=== PATIENT | female | born 1985 | race Caucasian/White ===

== ENCOUNTER 2016-10-09 10:55 | Emergency (ER) | payer SELFPAY ==
[~2016-10-09] VITALS: Ht 162.6 cm; Wt 60.0 kg
[~2016-10-09 10:55] MED LIST: BACT800T5 PO; CYMB30CA PO; IBUP600T26 PO; VIST50CA PO
[2016-10-09 11:06] VITALS: BP 129/62; PULSE 77; RESP 20; TEMP 98.2; O2SAT 95
--- NOTE | 2016-10-09 11:37 | PD ---
HPI Chief Complaint: Psychiatric Symptoms Time Seen by Provider: 11:20 Travel History International Travel<30 days: No Contact w/Intl Traveler<30days: No Traveled to known affect area: No History of Present Illness HPI 31-year-old female brought in under [place] by law enforcement. According to the paperwork she was found lying in the middle of the road unconscious with a crack pipe lying next to her. She was easily arousable and appeared intoxicated and agitated therefore brought in under Thomas's act for evaluation. Patient was restrained on arrival to ED due to being combative with paramedics. Patient denies any drug use to hospital staff. She is currently resting comfortably on stretcher. She has no evidence of traumatic injuries. [facility] Past Medical History Medical History: Denies Significant Hx Anxiety: Yes Dementia: Yes (WITH SLEEP PROBLEMS) Diminished Hearing: No ?: Not LMP: 2 weeks ago Tubal Ligation: Yes Social History Alcohol Use: Yes Tobacco Use: Yes (1/2PPD) Substance Use: No Allergies-Medications (Allergen,Severity, Reaction): Coded Allergies: *MDRO Multi-Drug Resistant Organism (Unverified Adverse Reaction, Unknown , 09/11/14) MRSA 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 Reported Meds & Prescriptions Reported Meds & Active Scripts Active No Active Prescriptions or Reported Medications Review of Systems Except as stated in HPI: all other systems reviewed are Neg General / Constitutional: No: Fever Eyes: No: Visual changes HENT: No: Headaches Cardiovascular: No: Chest Pain or Discomfort Respiratory: No: Shortness of Breath Gastrointestinal: No: Abdominal Pain Genitourinary: No: Dysuria Physical Exam Narrative GENERAL: Disheveled appearing female asleep on the stretcher easily arousable. SKIN: Focused skin assessment warm/dry. HEAD: Atraumatic. Normocephalic. EYES: Pupils equal and round. No scleral icterus. No injection or drainage. ENT: No nasal bleeding or discharge. Mucous membranes pink and moist. NECK: Trachea midline. No JVD. No midline cervical spine tenderness CARDIOVASCULAR: Regular rate and rhythm. No murmur appreciated. RESPIRATORY: No accessory muscle use. Clear to auscultation. Breath sounds equal bilaterally. GASTROINTESTINAL: Abdomen soft, non-tender, nondistended. Hepatic and splenic margins not palpable. MUSCULOSKELETAL: No obvious deformities. No clubbing. No cyanosis. No edema. NEUROLOGICAL: Awake and alert. No obvious cranial nerve deficits. Motor grossly within normal limits. Normal speech. PSYCHIATRIC: Patient is currently calm, sleeping easily arousable follow simple commands. Data Data Last Documented VS Vital Signs Date Time Temp Pulse Resp B/P Pulse Ox O2 Delivery O2 Flow Rate FiO2 10/09/16 11:14 18 10/09/16 11:06 98.2 77 129/62 95 Orders Isolation 08,20 (10/09/16 11:15) Complete Blood Count With Diff (10/09/16 11:37) Comprehensive Metabolic Panel (10/09/16 11:37) Drug Screen, Random Urine (10/09/16 11:37) Labs Laboratory Tests Test 10/09/16 11:46 White Blood Count 6.6 TH/MM3 Red Blood Count 4.33 MIL/MM3 Hemoglobin 12.0 GM/DL Hematocrit 37.3 % Mean Corpuscular Volume 86.2 FL Mean Corpuscular Hemoglobin 27.7 PG Mean Corpuscular Hemoglobin 32.2 % Concent Red Cell Distribution Width 15.5 % Platelet Count 284 TH/MM3 Mean Platelet Volume 8.3 FL Neutrophils (%) (Auto) 56.8 % Lymphocytes (%) (Auto) 26.6 % Monocytes (%) (Auto) 12.7 % Eosinophils (%) (Auto) 3.4 % Basophils (%) (Auto) 0.5 % Neutrophils # (Auto) 3.7 TH/MM3 Lymphocytes # (Auto) 1.7 TH/MM3 Monocytes # (Auto) 0.8 TH/MM3 Eosinophils # (Auto) 0.2 TH/MM3 Basophils # (Auto) 0.0 TH/MM3 CBC Comment DIFF FINAL Differential Comment Sodium Level 141 MEQ/L Potassium Level 3.7 MEQ/L Chloride Level 107 MEQ/L Carbon Dioxide Level 27.3 MEQ/L Anion Gap 7 MEQ/L Blood Urea Nitrogen 10 MG/DL Creatinine 0.68 MG/DL Estimat Glomerular Filtration 101 ML/MIN Rate Random Glucose 91 MG/DL Calcium Level 8.3 MG/DL Total Bilirubin 0.5 MG/DL Aspartate Amino Transf 38 U/L (AST/SGOT) Alanine Aminotransferase 46 U/L (ALT/SGPT) Alkaline Phosphatase 192 U/L Total Protein 7.1 GM/DL Albumin 3.5 GM/DL [facility] Medical Decision Making Medical Screen Exam Complete: Yes Emergency Medical Condition: Yes Differential Diagnosis Polysubstance abuse, intoxication, substance induced mood disorder Narrative Course 31-year-old female brought in under Thomas's act by on forced. Patient was found lying in the middle the road with a crack pipe next to her. When she was approached she was easily arousable but became agitated and appeared intoxicated therefore police officers brought her in for evaluation. Upon arrival to ED patient was agitated and combative with nursing staff therefore she had restraints placed. She is currently resting on the stretcher easily arousable but quickly falls back to sleep. Her physical exam do not reveal any evidence of traumatic injuries. 1500 patient alert & oriented. she is ambulating with steady gait. she reports she was smoking crack for the last 2-3 days. she denies any pain. she is requesting something to eat & requesting discharge. patient is medically stable & ready for discharge. Diagnosis Primary Impression: Substance abuse Referrals: [facility] No Active Prescriptions or Reported Meds Disposition: 01 DISCHARGE HOME Condition: Stable Katiana Alfred Oct 09, 2016 11:37
[2016-10-09 12:08] LABS: AUTOMATED NEUTROPHIL # 3.7 TH/MM3 (1.8-7.7); BASOPHIL % 0.5 % (0.0-2.0); EOSINOPHIL # 0.2 TH/MM3 (0-0.4); EOSINOPHIL % 3.4 % (0.0-4.0); HEMATOCRIT 37.3 % (35.0-46.0); HEMO FLAGS DIFF FINAL; LYMPH % 26.6 % (9.0-44.0); LYMPHOCYTE # 1.7 TH/MM3 (1.0-4.8); MEAN CELL VOLUME 86.2 FL (80.0-100.0); MEAN CORPUSCULAR HEMOGLOBIN 27.7 PG (27.0-34.0); MEAN CORPUSCULAR HGB CONC 32.2 % (32.0-36.0); MONO % 12.7 % (0.0-8.0); NEUT % 56.8 % (16.0-70.0); PLATELET COUNT 284 TH/MM3 (150-450); RED BLOOD COUNT 4.33 MIL/MM3 (4.00-5.30); RED CELL DISTRIBUTION WIDTH 15.5 % (11.6-17.2); WHITE BLOOD COUNT 6.6 TH/MM3 (4.0-11.0)
[2016-10-09 12:36] LABS: ALT (GPT) 46 U/L (10-53)
[2016-10-09 12:38] LABS: ALKALINE PHOSPHATASE 192 U/L (45-117); TOTAL BILIRUBIN ADULT 0.5 MG/DL (0.2-1.0)
[2016-10-09 12:47] LABS: ANION GAP 7 MEQ/L (5-15); AST (GOT) 38 U/L (15-37); BICARBONATE 27.3 MEQ/L (21.0-32.0); BLOOD UREA NITROGEN 10 MG/DL (7-18); CHLORIDE 107 MEQ/L (98-107); GLOMERULAR FILTRATION RATE 101 ML/MIN (>89); POTASSIUM 3.7 MEQ/L (3.5-5.1); SODIUM (NA) 141 MEQ/L (136-145)
== END 2016-10-09 15:31 | disposition home or self-care (01) ==
LOC: NEPD 10:55
DX: F19.10 Other psychoactive substance abuse, uncomplicated (principal)
CPT/HCPCS: 80053; 85025; 99283

== ENCOUNTER 2017-02-21 15:55 | Inpatient (IN) | payer SELFPAY ==
[~2017-02-21] VITALS: Ht 162.6 cm; Wt 61.3 kg
[2017-02-21] MEDS ORDERED: IOHEXOL 350 MG/ML 10 ML VIAL (for RAD DIAG) IVCONTRAST ONE (15:56)
[2017-02-21 16:03] VITALS: BP 85/54; PULSE 117; RESP 16; TEMP 100.1; O2SAT 95
[2017-02-21] MEDS ORDERED: SODIUM CHLOR 0.9% 1000 ML INJ 1,000 ML IV SCH ×4 (16:29→20:00)
[2017-02-21] MEDS ORDERED: SODIUM CHLORIDE 0.9% FLUSH 10 ML FLUSH IV FLUSH PRN ×2 (16:30→20:45)
[2017-02-21] MEDS ORDERED: PIPERACIL-TAZO 3.375 GM PREMIX 50 ML IV ONE (16:30)
[2017-02-21] MEDS ORDERED: VANCOMYCIN INJ 1,000 MG in SODIUM CHLOR 0.9% 250 ML INJ 250 ML IV ONE (16:30)
[2017-02-21 16:33] VITALS: BP 108/59; PULSE 102; RESP 16; O2SAT 99
--- NOTE | 2017-02-21 16:47 | PD ---
HPI Chief Complaint: Back/ Neck Pain or Injury Time Seen by Provider: 16:28 Travel History International Travel<30 days: No Contact w/Intl Traveler<30days: No Traveled to known affect area: No History of Present Illness HPI 31-year-old female presents to the emergency Department with complaint of left upper back pain that is worse with inspiration 5 days. Says it feels like it' s in her lungs. She is also complaining of right shoulder pain 5 days. Denies injury. Reports IV drug use 3 days ago and injected heroin. Says she also smokes crack and took 30 mg of morphine this morning for her pain. Says she's been masking her pain by doing drugs and sleeping. Denies fevers at home. Reports vomiting a few times. Reports left-sided chest pain. Denies abdominal pain. Denies shortness of breath. Denies spinal back pain. Denies dysuria, hematuria. Symptoms are severe in severity. No known aggravating or relieving factors. No known allergies. Does not have an established primary care provider. Denies significant past medical history. Has no medical complaints. No other modifying factors or associated signs and symptoms. PFSH Past Medical History Medical History: Denies Significant Hx Anxiety: Yes Dementia: Yes (WITH SLEEP PROBLEMS) Diminished Hearing: No ?: Unknown LMP: 1 year ago Tubal Ligation: Yes Past Surgical History Surgical History: No Previous Surgery Social History Alcohol Use: No Tobacco Use: Yes (1/2PPD) Substance Use: Yes (IV heroin) Allergies-Medications (Allergen,Severity, Reaction): Coded Allergies: *MDRO Multi-Drug Resistant Organism (Unverified Adverse Reaction, Unknown , 09/11/14) MRSA 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 Reported Meds & Prescriptions Reported Meds & Active Scripts Active No Active Prescriptions or Reported Medications Review of Systems Except as stated in HPI: all other systems reviewed are Neg Physical Exam Narrative GENERAL: Thin, female patient, in no acute distress; febrile; appears under the influence SKIN: Warm and dry. HEAD: Atraumatic. Normocephalic. EYES: Pupils equal and round. No scleral icterus. No injection or drainage. ENT: Mucosa pink and moist. No erythema or exudates. No uvular edema. No uvular , palatal, or tonsillar deviation. Airway patent. Nares without nasal blood, purulent drainage or septal hematoma. EARS: Bilateral pinnae and external canals appear within normal limits. Bilateral tympanic membranes without erythema, dullness or perforation. NECK: Trachea midline. No lymphadenopathy. CARDIOVASCULAR: Regular rate and rhythm. No murmur appreciated. RESPIRATORY: No accessory muscle use. Lungs with Wheezing throughout to auscultation. Breath sounds equal bilaterally. No retractions or tachypnea. No Audible wheezing noted. GASTROINTESTINAL: Abdomen soft, LUQ abdominal/flank tenderness, nondistended. Hepatic and splenic margins not palpable. Bowel sounds are active 4 quadrants. MUSCULOSKELETAL: No obvious deformities. No clubbing. No cyanosis. No edema. BACK: No CVA tenderness. No rash. No midline tenderness on palpation of the cervixal, thoracic, lumbar spine. NEUROLOGICAL: Awake and alert. Oriented 3. No obvious cranial nerve deficits. Motor grossly within normal limits. Normal speech. Moves all extremities. 5/5 strength to all extremities. PSYCHIATRIC: Appropriate mood and affect; insight and judgment normal. Data Data Last Documented VS Vital Signs Date Time Temp Pulse Resp B/P (MAP) Pulse Ox O2 Delivery O2 Flow Rate FiO2 02/21/17 20:00 97.0 69 18 97/54 (68) 98 02/21/17 19:00 Room Air Orders Orders Sepsis Workup Initiated (02/21/17 ) Complete Blood Count With Diff (02/21/17 16:29) Comprehensive Metabolic Panel (02/21/17 16:29) Prothrombin Time / Inr (Pt) (02/21/17 16:29) Act Partial Throm Time (Ptt) (02/21/17 16:29) Lactic Acid Sepsis Protocol (02/21/17 16:29) Urinalysis - C+S If Indicated (02/21/17 16:29) Blood Culture (02/21/17 16:29) Chest, Single Ap (02/21/17 16:29) Blood Glucose (02/21/17 16:29) Ecg Monitoring (02/21/17 16:) Iv Access Insert/Monitor (02/21/17 16:) Oximetry (02/21/17 16:29) Oxygen Administration (02/21/17 16:29) Vancomycin Inj (Vancomycin Inj) (02/21/17 16:30) Piperacil-Tazo 3.375 Gm Premix (Zosyn 3. (02/21/17 16:30) Electrocardiogram (02/21/17 16:29) Ckmb (Isoenzyme) Profile (02/21/17 16:29) Troponin I (02/21/17 16:29) Ct Pulmonary Angiogram (02/21/17 ) Ed Urine Pregnancytest Poc (02/21/17 16:29) Sodium Chlor 0.9% 1000 Ml Inj (Ns 1000 M (02/21/17 16:29) Sodium Chloride 0.9% Flush (Ns Flush) (02/21/17 16:30) Acetaminophen (Tylenol) (02/21/17 17:00) Ct Abd/Pel W Iv Contrast(Rout) (02/21/17 16:49) Albuterol-Ipratropium Neb (Duoneb Neb) (02/21/17 18:00) Sodium Chlor 0.9% 1000 Ml Inj (Ns 1000 M (02/21/17 18:06) Westergren Sedimentation Rate (02/21/17 18:17) Shoulder, Complete (>2vws) (02/21/17 18:17) Sodium Chlor 0.9% 1000 Ml Inj (Ns 1000 M (02/21/17 19:09) Iohexol 350 Inj (Omnipaque 350 Inj) (02/21/17 15:56) Sodium Chlor 0.9% 1000 Ml Inj (Ns 1000 M (02/21/17 20:00) Drug Screen, Random Urine (02/21/17 19:49) Admit Order (Ed Use Only) (02/21/17 20:17) Labs Laboratory Tests Test 02/21/17 17:05 02/21/17 18:00 02/21/17 19:04 White Blood Count 14.6 TH/MM3 Red Blood Count 4.68 MIL/MM3 Hemoglobin 13.0 GM/DL Hematocrit 38.5 % Mean Corpuscular Volume 82.3 FL Mean Corpuscular Hemoglobin 27.8 PG Mean Corpuscular Hemoglobin Concent 33.7 % Red Cell Distribution Width 14.7 % Platelet Count 79 TH/MM3 Mean Platelet Volume 11.4 FL CBC Comment AUTO DIFF Differential Total Cells Counted 100 Neutrophils % (Manual) 87 % Band Neutrophils % 6 % Lymphocytes % 3 % Monocytes % 4 % Neutrophils # (Manual) 13.6 TH/MM3 Differential Comment FINAL DIFF MANUAL Toxic Granulation 2+ Toxic Vacuolation PRESENT Platelet Estimate LOW Platelet Morphology Comment ENLARGED Blood Urea Nitrogen 11 MG/DL Creatinine 0.74 MG/DL Random Glucose 96 MG/DL Total Protein 7.3 GM/DL Albumin 2.7 GM/DL Calcium Level 8.0 MG/DL Alkaline Phosphatase 99 U/L Aspartate Amino Transf (AST/SGOT) 98 U/L Alanine Aminotransferase (ALT/SGPT) 67 U/L Total Bilirubin 1.0 MG/DL Sodium Level 124 MEQ/L Potassium Level 3.2 MEQ/L Chloride Level 88 MEQ/L Carbon Dioxide Level 27.4 MEQ/L Anion Gap 9 MEQ/L Estimat Glomerular Filtration Rate 92 ML/MIN Lactic Acid Level 1.7 mmol/L Total Creatine Kinase 23 U/L Troponin I 0.12 NG/ML Prothrombin Time 11.7 SEC Prothromb Time International Ratio 1.2 RATIO Activated Partial Thromboplast Time 34.5 SEC Urine Color YELLOW Urine Turbidity CLEAR Urine pH 6.0 Urine Specific [place] 1.008 Urine Protein TRACE mg/dL Urine Glucose (UA) NEG mg/dL Urine Ketones NEG mg/dL Urine Occult Blood NEG Urine Nitrite NEG Urine Bilirubin NEG Urine Urobilinogen LESS THAN 2.0 MG/DL Urine Leukocyte Esterase NEG Urine RBC 1 /hpf Urine WBC 2 /hpf Urine Squamous Epithelial Cells 1 /hpf Urine Bacteria RARE /hpf Microscopic Urinalysis Comment CATH-CULTURE IND Urine Opiates Screen POS Urine Barbiturates Screen NEG Urine Amphetamines Screen NEG Urine Benzodiazepines Screen NEG Urine Cocaine Screen POS Urine Cannabinoids Screen NEG [facility] Medical Decision Making Medical Screen Exam Complete: Yes Emergency Medical Condition: Yes Medical Record Reviewed: Yes Differential Diagnosis Pneumonia, PE, sepsis, endocarditis Narrative Course 31-year-old female with recent IV drug use with left upper back pain and right shoulder pain. Patient is febrile at fever of 100.1. Tachycardic and low blood pressure. Sepsis workup initiated. Tylenol ordered. Right shoulder x- ray ordered. 1749: Chest x-ray concludes: Chest X-Ray 02/21/17 1629 Signed Impressions: Service Date/Time: Tuesday, February 21, 2017 17:04 - CONCLUSION: Faint, left perihilar airspace process concerning for an early pneumonic infiltrate. Agustin Busby MD DuoNeb 1 ordered. 180: WBC 14.6. Platelet count 79. Potassium 3.2. Lactic acid 1.7. Troponin 0.12. Sodium 124. Second normal saline fluid bolus ordered. 0: Urinalysis, CT angiogram, CT abdomen/pelvis pending. Report given to Ricardo Farnsworth PA-C at change of shift. See his note for final patient disposition. Diagnosis Primary Impression: Pneumonia Qualified Codes: J18.9 - Pneumonia, unspecified organism Scripts No Active Prescriptions or Reported Meds Yesi Pulido Feb 21, 2017 16:47
[2017-02-21] MEDS ORDERED: ACETAMINOPHEN 325 MG TAB PO ONE (17:00)
[2017-02-21 17:13] VITALS: RESP 16; O2SAT 97
[2017-02-21 17:21] LABS: HEMATOCRIT 38.5 % (35.0-46.0); MEAN CELL VOLUME 82.3 FL (80.0-100.0); MEAN CORPUSCULAR HEMOGLOBIN 27.8 PG (27.0-34.0); MEAN CORPUSCULAR HGB CONC 33.7 % (32.0-36.0); MEAN PLATELET VOLUME 11.4 FL (7.0-11.0); PLATELET COUNT 79 TH/MM3 (150-450); RED BLOOD COUNT 4.68 MIL/MM3 (4.00-5.30); RED CELL DISTRIBUTION WIDTH 14.7 % (11.6-17.2); WHITE BLOOD COUNT 14.6 TH/MM3 (4.0-11.0)
--- NOTE | 2017-02-21 17:22 | RADRPT ---
EXAM DATE/TIME: 02/21/2017 17:04 [facility] COMPARISON: No previous studies available for comparison. INDICATIONS : Fever. MEDICAL HISTORY : None. SURGICAL HISTORY : Tubal ligation. ENCOUNTER: Initial ACUITY: 1 day PAIN SCORE: 9/10 LOCATION: Bilateral chest FINDINGS: A single view of the chest demonstrates the lungs to be symmetrically aerated with a left perihilar a irspace process concerning for an early infiltrate. No effusions. Heart size is normal. Osseous struc tures are intact. CONCLUSION: Faint, left perihilar airspace process concerning for an early pneumonic infiltrate. Agustin Busby MD on February 21, 2017 at 17:18 Board Certified Radiologist. This report was verified electronically.
[2017-02-21 17:51] LABS: ALBUMIN 2.7 GM/DL (3.4-5.0); ALKALINE PHOSPHATASE 99 U/L (45-117); ALT (GPT) 67 U/L (10-53); AST (GOT) 98 U/L (15-37); BICARBONATE 27.4 MEQ/L (21.0-32.0); BLOOD UREA NITROGEN 11 MG/DL (7-18); CHLORIDE 88 MEQ/L (98-107); CREATININE 0.74 MG/DL (0.50-1.00); GLOMERULAR FILTRATION RATE 92 ML/MIN (>89); GLUCOSE,RANDOM 96 MG/DL (74-106); TOTAL PROTEIN 7.3 GM/DL (6.4-8.2); TROPONIN I 0.12 NG/ML (0.02-0.05)
[2017-02-21] MEDS ORDERED: RESP: ALBUTEROL 2.5 MG/IPRATROPIUM 0.5 MG NEB (SCH) INH ONE (18:00)
[2017-02-21 18:05] LABS: SODIUM (NA) 124 MEQ/L (136-145)
[2017-02-21 18:23] LABS: INTERNATIONAL NORMALIZED RATIO 1.2 RATIO; PROTHROMBIN TIME - PATIENT 11.7 SEC (9.8-11.6)
[2017-02-21 18:24] LABS: BANDS 6 % (0-6); LYMPHOCYTES 3 % (9-44); MONOCYTES 4 % (0-8); NEUTROPHIL # MANUAL DIFF 13.6 TH/MM3 (1.8-7.7); POLYS (SEG NEUTROPHILS) 87 % (16-70)
[2017-02-21 18:25] LABS: TOXIC GRANULATION 2+ (NORMAL); TOXIC VACUOLATION PRESENT (NONE SEEN)
[2017-02-21 19:00] VITALS: BP 90/49; PULSE 76; RESP 16; O2SAT 100
--- NOTE | 2017-02-21 19:13 | RADRPT ---
EXAM DATE/TIME: 02/21/2017 18:30 [facility] COMPARISON: No previous studies available for comparison. INDICATIONS : Fall right shoulder pain, on lateral portion of shoulder. MEDICAL HISTORY : None. SURGICAL HISTORY : ENCOUNTER: Initial ACUITY: 1 day PAIN SCORE: 5/10 LOCATION: Right shoulder FINDINGS: Multiple view examination of the right shoulder demonstrates no evidence of fracture or dislocation. The glenohumeral and acromioclavicular joints are maintained. There is normal range of motion betwe en internal and external rotation. Bony mineralization is normal. CONCLUSION: Normal examination for a patient of this age. Hilario Rose MD on February 21, 2017 at 19:10 Board Certified Radiologist. This report was verified electronically.
--- NOTE | 2017-02-21 19:25 | PD ---
Physical Exam Time Seen by Provider: 19:19 Data Data Last Documented VS Vital Signs Date Time Temp Pulse Resp B/P (MAP) Pulse Ox O2 Delivery O2 Flow Rate FiO2 02/21/17 17:13 96 Room Air 02/21/17 17:13 16 02/21/17 16:33 102 02/21/17 16:03 100.1 Orders Orders Sepsis Workup Initiated (02/21/17 ) Complete Blood Count With Diff (02/21/17 16:29) Comprehensive Metabolic Panel (02/21/17 16:29) Prothrombin Time / Inr (Pt) (02/21/17 16:29) Act Partial Throm Time (Ptt) (02/21/17 16:29) Lactic Acid Sepsis Protocol (02/21/17 16:29) Urinalysis - C+S If Indicated (02/21/17 16:29) Blood Culture (02/21/17 16:29) Chest, Single Ap (02/21/17 16:29) Blood Glucose (02/21/17 16:29) Ecg Monitoring (02/21/17 16:29) Iv Access Insert/Monitor (02/21/17 16:29) Oximetry (02/21/17 16:29) Oxygen Administration (02/21/17 16:29) Vancomycin Inj (Vancomycin Inj) (02/21/17 16:30) Piperacil-Tazo 3.375 Gm Premix (Zosyn 3. (02/21/17 16:30) Electrocardiogram (02/21/17 16:29) Ckmb (Isoenzyme) Profile (02/21/17 16:29) Troponin I (02/21/17 16:29) Ct Pulmonary Angiogram (02/21/17 ) Ed Urine Pregnancytest Poc (02/21/17 16:29) Sodium Chlor 0.9% 1000 Ml Inj (Ns 1000 M (02/21/17 16:29) Sodium Chloride 0.9% Flush (Ns Flush) (02/21/17 16:30) Acetaminophen (Tylenol) (02/21/17 17:00) Ct Abd/Pel W Iv Contrast(Rout) (02/21/17 16:49) Albuterol-Ipratropium Neb (Duoneb Neb) (02/21/17 18:00) Sodium Chlor 0.9% 1000 Ml Inj (Ns 1000 M (02/21/17 18:06) Westergren Sedimentation Rate (02/21/17 18:17) Shoulder, Complete (>2vws) (02/21/17 18:17) Sodium Chlor 0.9% 1000 Ml Inj (Ns 1000 M (02/21/17 19:09) Iohexol 350 Inj (Omnipaque 350 Inj) (02/21/17 15:56) Sodium Chlor 0.9% 1000 Ml Inj (Ns 1000 M (02/21/17 20:00) Drug Screen, Random Urine (02/21/17 19:49) Admit Order (Ed Use Only) (02/21/17 20:17) Labs Laboratory Tests Test 02/21/17 17:05 02/21/17 18:00 White Blood Count 14.6 TH/MM3 Red Blood Count 4.68 MIL/MM3 Hemoglobin 13.0 GM/DL Hematocrit 38.5 % Mean Corpuscular Volume 82.3 FL Mean Corpuscular Hemoglobin 27.8 PG Mean Corpuscular Hemoglobin Concent 33.7 % Red Cell Distribution Width 14.7 % Platelet Count 79 TH/MM3 Mean Platelet Volume 11.4 FL CBC Comment AUTO DIFF Differential Total Cells Counted 100 Neutrophils % (Manual) 87 % Band Neutrophils % 6 % Lymphocytes % 3 % Monocytes % 4 % Neutrophils # (Manual) 13.6 TH/MM3 Differential Comment FINAL DIFF MANUAL Toxic Granulation 2+ Toxic Vacuolation PRESENT Platelet Estimate LOW Platelet Morphology Comment ENLARGED Blood Urea Nitrogen 11 MG/DL Creatinine 0.74 MG/DL Random Glucose 96 MG/DL Total Protein 7.3 GM/DL Albumin 2.7 GM/DL Calcium Level 8.0 MG/DL Alkaline Phosphatase 99 U/L Aspartate Amino Transf (AST/SGOT) 98 U/L Alanine Aminotransferase (ALT/SGPT) 67 U/L Total Bilirubin 1.0 MG/DL Sodium Level 124 MEQ/L Potassium Level 3.2 MEQ/L Chloride Level 88 MEQ/L Carbon Dioxide Level 27.4 MEQ/L Anion Gap 9 MEQ/L Estimat Glomerular Filtration Rate 92 ML/MIN Lactic Acid Level 1.7 mmol/L Total Creatine Kinase 23 U/L Troponin I 0.12 NG/ML Prothrombin Time 11.7 SEC Prothromb Time International Ratio 1.2 RATIO Activated Partial Thromboplast Time 34.5 SEC [facility] Medical Record Reviewed: Yes Supervised Visit with JENSEN: No Narrative Course This patient was signed out to me pending CT imaging. Please see previous provider's notes. In summary this is a 31-year-old female history of IV drug abuse to events with left upper back pain that is worse with inspiration as well as right shoulder pain, left-sided chest pain. Lab work reveals leukocytosis with a WBC count 14.6, platelet count of 79, sodium 124, potassium 3.2, AST 98, ALT 67, troponin 0.12. Chest x-ray reveals faint left perihilar airspace processes concerning for early pneumonic infiltrate. The patient has received broad-spectrum antibiotics and IV fluids. Normal saline at 100 mL per hour has been started. CT pulmonary angiogram reveals CONCLUSION: 1. Negative for pulmonary embolism. 2. Multifocal patchy and nodular airspace disease in both lungs with some mild cavitation on the left side. Differential diagnosis includes septic embolic disease and multifocal pneumonia. Discussed with Dr. Clarke who is agreeable with admission. Diagnosis Primary Impression: Pneumonia Qualified Codes: J18.9 - Pneumonia, unspecified organism Additional Impressions: Hyponatremia Sepsis Thrombocytopenia Elevated troponin Septic embolism Admitting Information Admitting Physician Requests: Admit Scripts No Active Prescriptions or Reported Meds Ricardo Farnsworth Feb 21, 2017 19:25
[2017-02-21 20:00] VITALS: BP 97/54; PULSE 69; RESP 18; TEMP 97; O2SAT 98
--- NOTE | 2017-02-21 20:16 | RADRPT ---
EXAM DATE/TIME: 02/21/2017 19:16 [facility] COMPARISON: No previous studies available for comparison. INDICATIONS : Short of breath, thrombosis. IV CONTRAST: 75 cc Omnipaque 350 (iohexol) IV RADIATION DOSE: 14.39 CTDIvol (mGy) ; Combined studies MEDICAL HISTORY : None SURGICAL HISTORY : Tubal ligation. ENCOUNTER: Initial ACUITY: 4 - 6 days PAIN SCALE: 8/10 LOCATION: Bilateral chest TECHNIQUE: Volumetric scanning of the chest was performed using a pulmonary embolism protocol MIP images were re constructed. Using automated exposure control and adjustment of the mA and/or kV according to patien t size, radiation dose was kept as low as reasonably achievable to obtain optimal diagnostic quality images. DICOM format image data is available electronically for review and comparison. Follow-up recommendations for detected pulmonary nodules are based at a minimum on nodule size and pa tient risk factors according to Fleischner Society Guidelines. FINDINGS: No filling defects to suggest pulmonary emboli. Multiple areas of patchy airspace disease in both chucky gs with several areas of cavitation especially in the upper left lung. The majority of the air space disease is peripheral. Primary differential diagnosis is septic embolic disease versus multifocal pne umonia. Largest area of consolidation is in the left lower lobe measuring around 5 cm in diameter. There is mild hilar and mediastinal adenopathy, especially subcarinal. Trace left effusion. CONCLUSION: 1. Negative for pulmonary embolism. 2. Multifocal patchy and nodular airspace disease in both lungs with some mild cavitation on the left side. Differential diagnosis includes septic embolic disease and multifocal pneumonia. Hilario Rose MD on February 21, 2017 at 20:11 Board Certified Radiologist. This report was verified electronically.
--- NOTE | 2017-02-21 20:27 | RADRPT ---
EXAM DATE/TIME: 02/21/2017 19:19 [facility] COMPARISON: No previous studies available for comparison. INDICATIONS : Diffuse upper abdomen pain for five days. IV CONTRAST: 75 cc Omnipaque 350 (iohexol) IV ORAL CONTRAST: No oral contrast ingested. RADIATION DOSE: 14.39 CTDIvol (mGy) ; Combined studies MEDICAL HISTORY : None SURGICAL HISTORY : Tubal ligation. ENCOUNTER: Initial ACUITY: 4 - 6 days PAIN SCALE: 8/10 LOCATION: Bilateral upper quadrant TECHNIQUE: Volumetric scanning of the abdomen and pelvis was performed. Using automated exposure control and ad justment of the mA and/or kV according to patient size, radiation dose was kept as low as reasonably achievable to obtain optimal diagnostic quality images. DICOM format image data is available electro nically for review and comparison. FINDINGS: Patchy air space consolidation present at the lung bases. No acute findings in the liver and spleen. Spleen is enlarged 18.6 cm and liver 22 cm in length. There is mild anasarca. Adrenals, pancreas unremarkable. Multiple gallstones. Perfusion to the kidney s appears somewhat diminished. No acute findings within the pelvis. Tubal ligation clips. Small left ovarian cyst. CONCLUSION: 1. Patchy airspace consolidation at both lung bases. 2. Hepatosplenomegaly. 3. Multiple gallstones biliary ductal dilatation. Questionable diminished perfusion to the kidneys. Cannot exclude nephritis. Hilario Rose MD on February 21, 2017 at 20:23 Board Certified Radiologist. This report was verified electronically.
[2017-02-21 20:33] LABS: BACTERIA, URINE RARE /hpf; BILIRUBIN, URINE NEG (NEG); BLOOD, URINE NEG (NEG); GLUCOSE,URINE NEG (NEG); KETONE, URINE NEG (NEG); NITRITE,URINE NEG (NEG); SQUAMOUS EPITHELIAL CELL URINE 1 /hpf (0-5); URINE COLOR YELLOW (YELLW/STRAW); URINE LEUKOCYTE ESTERASE NEG (NEG)
[2017-02-21] MEDS ORDERED: SENNOSIDES 8.6 MG TAB PO PRN (20:45)
[2017-02-21] MEDS ORDERED: LACTULOSE SYRUP 20 GM/30 ML CUP PO PRN (20:45)
[2017-02-21] MEDS ORDERED: MAGNESIUM HYDROXIDE SUSP 30 ML CUP PO PRN (20:45)
[2017-02-21] MEDS ORDERED: BISACODYL 10 MG SUPP RECTAL PRN (20:45)
[2017-02-21] MEDS ORDERED: Vancomycin Consult Pharmacy 1 EA OTHER SCH (20:45)
[2017-02-21] MEDS ORDERED: NALOXONE HCL 0.4 MG/ML AMP IV PUSH PRN (20:45)
[2017-02-21] MEDS ORDERED: ONDANSETRON HCL 4 MG/2 ML VIAL IVP PRN (20:45)
[2017-02-21 21:00] VITALS: BP 103/57; PULSE 64; RESP 16; O2SAT 100
--- NOTE | 2017-02-21 21:00 | HHI.HP ---
[facility] Service [facility] Primary Care Physician No Primary Care Physician Admission Diagnosis sepsis, septic emboli, pneumonia, hyponatremia Diagnoses: Travel History International Travel<30 Days: No Contact w/Intl Traveler <30 Da: No Traveled to Known Affected Are: No History of Present Illness 31-year-old female with a past medical history significant for IV drug abuse presents with 5 day history of increasing shortness of breath, left "lung pain" for first with deep inspiration and pain in her right shoulder. She endorses subjective fever/chills that began today. She has a leukocytosis of 14.6. Lactic acid 1.7. She was found to have an elevated troponin of 0.12. EKG is normal sinus rhythm without ST segment elevations or depressions. CTA chest showed multifocal patchy and nodular airspace disease bilaterally with cavitation on the left side. Septic embolic disease versus multifocal pneumonia. Review of Systems Subjective fever/chills Denies blurry vision, otorrhea, rhinorrhea Denies sore throat and cough No chest pain, palpitations, positive shortness of breath No abdominal pain Denies constipation/diarrhea/nausea/vomiting Denies muscle pain/weakness No rashes Past Family Social History Past Medical History IV drug abuse Past Surgical History Bilateral tubal ligation Reported Medications None Allergies: Coded Allergies: *MDRO Multi-Drug Resistant Organism (Unverified Adverse Reaction, Unknown , 09/11/14) MRSA 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 Family History No family history of CAD/DM Social History Smokes approximately 4 cigarettes per day. Denies alcohol. Uses IV heroin with last use a few days ago. Physical Exam Vital Signs Vital Signs Date Time Temp Pulse Resp B/P (MAP) Pulse Ox O2 Delivery O2 Flow Rate FiO2 02/21/17 17:13 96 Room Air 02/21/17 17:13 16 97 Room Air 02/21/17 16:33 102 16 108/59 (75) 99 Room Air 02/21/17 16:03 100.1 117 16 85/54 (64) 95 Physical Exam GENERAL: female lying in bed SKIN: No rashes, ecchymoses or lesions. Cool and dry. HEAD: Atraumatic. Normocephalic. No temporal or scalp tenderness. EYES: Pupils equal round and reactive. Extraocular motions intact. No scleral icterus. No injection or drainage. ENT: Nose without bleeding, purulent drainage or septal hematoma. Throat without erythema, tonsillar hypertrophy or exudate. Uvula midline. Airway patent. NECK: Trachea midline. No JVD or lymphadenopathy. Supple, nontender, no meningeal signs. CARDIOVASCULAR: Regular rate and rhythm without murmurs, gallops, or rubs. RESPIRATORY: Clear to auscultation. Breath sounds equal bilaterally. No wheezes , rales, or rhonchi. GASTROINTESTINAL: Abdomen soft, non-tender, nondistended. No hepato-splenomegaly , or palpable masses. No guarding. MUSCULOSKELETAL: Extremities without clubbing, cyanosis, or edema. No joint tenderness, effusion, or edema noted. No calf tenderness. NEUROLOGICAL: Awake and alert. Cranial nerves II through XII intact. Motor and sensory grossly within normal limits. Normal speech. Laboratory Laboratory Tests Test 02/21/17 17:05 02/21/17 18:00 02/21/17 19:04 White Blood Count 14.6 Red Blood Count 4.68 Hemoglobin 13.0 Hematocrit 38.5 Mean Corpuscular Volume 82.3 Mean Corpuscular Hemoglobin 27.8 Mean Corpuscular Hemoglobin Concent 33.7 Red Cell Distribution Width 14.7 Platelet Count 79 Mean Platelet Volume 11.4 CBC Comment AUTO DIFF Differential Total Cells Counted 100 Neutrophils % (Manual) 87 Band Neutrophils % 6 Lymphocytes % 3 Monocytes % 4 Neutrophils # (Manual) 13.6 Differential Comment FINAL DIFF MANUAL Toxic Granulation 2+ Toxic Vacuolation PRESENT Platelet Estimate LOW Platelet Morphology Comment ENLARGED Blood Urea Nitrogen 11 Creatinine 0.74 Random Glucose 96 Total Protein 7.3 Albumin 2.7 Calcium Level 8.0 Alkaline Phosphatase 99 Aspartate Amino Transf (AST/SGOT) 98 Alanine Aminotransferase (ALT/SGPT) 67 Total Bilirubin 1.0 Sodium Level 124 Potassium Level 3.2 Chloride Level 88 Carbon Dioxide Level 27.4 Anion Gap 9 Estimat Glomerular Filtration Rate 92 Lactic Acid Level 1.7 Total Creatine Kinase 23 Troponin I 0.12 Prothrombin Time 11.7 Prothromb Time International Ratio 1.2 Activated Partial Thromboplast Time 34.5 Urine Color YELLOW Urine Turbidity CLEAR Urine pH 6.0 Urine Specific [place] 1.008 Urine Protein TRACE Urine Glucose (UA) NEG Urine Ketones NEG Urine Occult Blood NEG Urine Nitrite NEG Urine Bilirubin NEG Urine Urobilinogen LESS THAN 2.0 Urine Leukocyte Esterase NEG Urine RBC 1 Urine WBC 2 Urine Squamous Epithelial Cells 1 Urine Bacteria RARE Microscopic Urinalysis Comment CATH-CULTURE IND Date/Time Source Procedure Growth Status 02/21/17 17:25 Blood Peripheral Aerobic Blood Culture Pending Received 02/21/17 17:25 Blood Peripheral Anaerobic Blood Culture Pending Received 02/21/17 19:04 Urine Catheterized Urine Urine Culture Pending Received Result Diagram: 02/21/17 1705 02/21/17 170 Caprini VTE Risk Assessment Caprini VTE Risk Assessment: No/Low Risk (score <= 1) Caprini Risk Assessment Model Point Value = 1 Point Value = 2 Point Value = 3 Point Value = 5 Age 41-60 Minor surgery BMI > 25 kg/m2 Swollen legs Varicose veins or History of unexplained or recurrent spontaneous Oral contraceptives or hormone replacement Sepsis (< 1 month) Serious lung disease, including pneumonia (< 1 month) Abnormal pulmonary function Acute myocardial infarction Congestive heart failure (< 1 month) History of inflammatory bowel disease Medical patient at bed rest Age 61-74 Arthroscopic surgery Major open surgery (> 45 min) Laparoscopic surgery (> 45 min) Malignancy Confined to bed (> 72 hours) Immobilizing plaster cast Central venous access Age >= 75 History of VTE Family history of VTE Factor V Leiden Prothrombin [id number] Lupus anticoagulant Anticardiolipin antibodies Elevated serum homocysteine Heparin-induced thrombocytopenia Other congenital or acquired thrombophilia Stroke (< 1 month) Elective arthroplasty Hip, pelvis, or leg fracture Acute spinal cord injury (< 1 month) Prophylaxis Regimen Total Risk Factor Score Risk Level Prophylaxis Regimen 0-1 Low Early ambulation 2 Moderate Order ONE of the following: *Sequential Compression Device (SCD) *Heparin 5000 units SQ BID 3-4 Higher Order ONE of the following medications: *Heparin 5000 units SQ TID *Enoxaparin/Lovenox 40 mg SQ daily (WT < 150 kg, CrCl > 30 mL/min) *Enoxaparin/Lovenox 30 mg SQ daily (WT < 150 kg, CrCl > 10-29 mL/min) *Enoxaparin/Lovenox 30 mg SQ BID (WT < 150 kg, CrCl > 30 mL/min) AND/OR *Sequential Compression Device (SCD) 5 or more Highest Order ONE of the following medications: *Heparin 5000 units SQ TID (Preferred with Epidurals) *Enoxaparin/Lovenox 40 mg SQ daily (WT < 150 kg, CrCl > 30 mL/min) *Enoxaparin/Lovenox 30 mg SQ daily (WT < 150 kg, CrCl > 10-29 mL/min) *Enoxaparin/Lovenox 30 mg SQ BID (WT < 150 kg, CrCl > 30 mL/min) AND *Sequential Compression Device (SCD) Assessment and Plan Assessment and Plan Assessment/plan: 1. Sepsis/endocarditis vs multifocal pneumonia CTA chest showed the focal patchy and nodular airspace disease bilaterally with mild cavitation on the left. Concern for septic emboli versus multifocal pneumonia. Patient with history of IV drug abuse Vancomycin/Zosyn Echo pending Blood cultures pending Infectious disease consulted, appreciate recommendations IV fluids Monitor for signs of shock 2. Elevated troponin EKG showed normal sinus rhythm without ST segment elevations or depressions, reviewed by me Troponin 0.12 May be secondary to endocarditis ACS rule out pending; monitor serial troponins/EKGs 3. Hyponatremia NS Monitor BMP 4. Hypokalemia Status post repletion with by mouth potassium Monitor BMP 5. Transaminitis Mild Monitor LFTs 6. IV drug abuse Cessation counseling provided FEN Regular diet NS at 75 cc/hr Electrolytes: as above SCDs Case discussed with ER physician at length Physician Certification 2 Midnight Certification Type: Admission for Inpatient Services Order for Inpatient Services The services are ordered in accordance with Medicare regulations or non- Medicare payer requirements, as applicable. In the case of services not specified as inpatient-only, they are appropriately provided as inpatient services in accordance with the 2-midnight benchmark. Estimated LOS (days): 2 2 days is the estimated time the patient will need to remain in the hospital, assuming treatment plan goals are met and no additional complications. Post-Hospital Plan: Not yet determined Eleanor Clarke MD Feb 21, 2017 21:00
[2017-02-21] MEDS ORDERED: POTASSIUM CHLORIDE 20 MEQ CONTROLLED RELEASE TAB PO ONE (23:30)
[2017-02-21] MEDS: DOCUSATE SODIUM 50 MG/SENNA 8.6 MG TAB PO SCH (23:42)
[2017-02-21] MEDS: SODIUM CHLOR 0.9% 1000 ML INJ 1,000 ML IV SCH (23:42)
[2017-02-21] MEDS: SODIUM CHLORIDE 0.9% FLUSH 10 ML FLUSH IV FLUSH SCH (23:43)
[2017-02-21] MEDS: MORPHINE SULFATE 4 MG/ML INJ IV PUSH PRN (23:45)
[2017-02-22] VITALS (7 sets, daily range): BP systolic 93–103; BP diastolic 51–60; PULSE 64–90; RESP 16–18; TEMP 96–101.6; O2SAT 92–98
[2017-02-22] MEDS ORDERED: VANCOMYCIN INJ 750 MG in SODIUM CHLOR 0.9% 250 ML INJ 250 ML IV SCH ×2
[2017-02-22] MEDS: PIPERACIL-TAZO 3.375 GM PREMIX 50 ML IV SCH ×3 (00:31→12:24)
[2017-02-22] MEDS: ACETAMINOPHEN 325 MG TAB PO PRN (03:51)
[2017-02-22] MEDS: MORPHINE SULFATE 4 MG/ML INJ IV PUSH PRN (03:52)
[2017-02-22] MEDS ORDERED: VANCOMYCIN INJ 1,000 MG in SODIUM CHLOR 0.9% 250 ML INJ 250 ML IV SCH (04:30)
[2017-02-22] MEDS: DOCUSATE SODIUM 50 MG/SENNA 8.6 MG TAB PO SCH (08:47)
[2017-02-22] MEDS: SODIUM CHLORIDE 0.9% FLUSH 10 ML FLUSH IV FLUSH SCH ×2 (08:48→20:30)
[2017-02-22] MEDS ORDERED: PNEUMOCOCCAL POLYVALENT INJ 25 MCG/0.5 ML SYR IM ONE (09:00)
[2017-02-22] MEDS ORDERED: INFLUENZA VIRUS VACCINE (QUADRIVALENT) 0.5 ML SYR IM ONE (09:00)
[2017-02-22] MEDS ORDERED: MORPHINE SULFATE 8 MG/ML INJ IV PUSH PRN (10:45)
--- NOTE | 2017-02-22 11:09 | HHI.PR ---
Subjective Remarks Follow-up septic emboli , multi pneumonia/now bacteremia 02/22/17-patient seen and examined, Tmax 101.6 however not currently afebrile. Blood culture positive 3. Objective Vitals Vital Signs Date Time Temp Pulse Resp B/P (MAP) Pulse Ox O2 Delivery O2 Flow Rate FiO2 02/22/17 10:57 95 02/22/17 08:00 96.0 64 18 93/51 (65) 95 02/22/17 00:00 101.6 90 18 98/51 (67) 92 02/21/17 21:42 02/21/17 21:00 64 16 103/57 (72) 100 Room Air 02/21/17 20:00 97.0 69 18 97/54 (68) 98 02/21/17 19:00 76 16 90/49 (63) 100 Room Air 02/21/17 17:13 96 Room Air 02/21/17 17:13 16 97 Room Air 02/21/17 16:33 102 16 108/59 (75) 99 Room Air 02/21/17 16:03 100.1 117 16 85/54 (64) 95 I/O 02/21/17 02/21/17 02/21/17 02/22/17 02/22/17 02/22/17 07:00 15:00 23:00 07:00 15:00 23:00 Intake Total 1050 ml Balance 1050 ml Intake IV Total 1050 ml # Voids 1 Result Diagram: 02/21/17 1705 02/21/17 1705 Imaging Last Impressions Shoulder X-Ray 02/21/17 1817 Signed Impressions: Service Date/Time: Tuesday, February 21, 2017 18:30 - CONCLUSION: Normal examination for a patient of this age. Hilario Rose MD Abdomen/Pelvis CT 02/21/17 1649 Signed Impressions: Service Date/Time: Tuesday, February 21, 2017 19:19 - CONCLUSION: 1. Patchy airspace consolidation at both lung bases. 2. Hepatosplenomegaly. 3. Multiple gallstones biliary ductal dilatation. Questionable diminished perfusion to the kidneys. Cannot exclude nephritis. Hilario Rose MD Chest X-Ray 02/21/17 1629 Signed Impressions: Service Date/Time: Tuesday, February 21, 2017 17:04 - CONCLUSION: Faint, left perihilar airspace process concerning for an early pneumonic infiltrate. Agustin Busby MD CT Angiography 02/21/17 0000 Signed Impressions: Service Date/Time: Tuesday, February 21, 2017 19:16 - CONCLUSION: 1. Negative for pulmonary embolism. 2. Multifocal patchy and nodular airspace disease in both lungs with some mild cavitation on the left side. Differential diagnosis includes septic embolic disease and multifocal pneumonia. Hilario Rose MD Objective Remarks GENERAL: NAD SKIN: Warm and dry. HEAD: Normocephalic. EYES: No scleral icterus. No injection or drainage. NECK: Supple, trachea midline. No JVD or lymphadenopathy. CARDIOVASCULAR: Regular rate and rhythm without murmurs, gallops, or rubs. RESPIRATORY: Breath sounds equal bilaterally. No accessory muscle use. GASTROINTESTINAL: Abdomen soft, non-tender, nondistended. MUSCULOSKELETAL: No cyanosis, or edema. BACK: Nontender without obvious deformity. No CVA tenderness. A/P Problem List: (1) Septic embolism ICD Code: I26.90 - Septic pulmonary embolism without acute cor pulmonale Status: Acute (2) Substance abuse ICD Code: F19.10 - Other psychoactive substance abuse, uncomplicated Status: Acute (3) Sepsis ICD Code: A41.9 - Sepsis, unspecified organism Status: Acute (4) Pneumonia ICD Code: J18.9 - Pneumonia, unspecified organism Status: Acute Assessment and Plan 31-year-old female with 1. Sepsis/endocarditis vs multifocal pneumonia CTA chest showed the focal patchy and nodular airspace disease bilaterally with mild cavitation on the left. Concern for septic emboli versus multifocal pneumonia. Currently on Vancomycin/Zosyn Infectious disease consultation pending 2-D echo pending to rule out endocarditis 2. Gram-positive bacteremia Repeat blood culture Infectious disease consultation pending Currently on vancomycin 3. Elevated troponin EKG showed normal sinus rhythm without ST segment elevations or depressions May be secondary to endocarditis ACS rule out pending; monitor serial troponins/EKGs 4. Hyponatremia Continue with NS Monitor electrolytes 5. Hypokalemia Give potassium 60 mEq 1 now 6. Transaminitis Check hepatitis profile secondary to patient history of IV drug use 7. IV drug abuse Cessation counseling provided 2-D echo pending DVT prophylaxis: Bilateral SCDs Problem Qualifiers (1) Pneumonia: Qualified Codes: J18.9 - Pneumonia, unspecified organism Claude Longoria MD Feb 22, 2017 11:09
[2017-02-22 11:53] LABS: AUTOMATED NEUTROPHIL # 10.7 TH/MM3 (1.8-7.7); BASOPHIL % 0.3 % (0.0-2.0); EOSINOPHIL % 0.3 % (0.0-4.0); HEMATOCRIT 33.6 % (35.0-46.0); LYMPH % 5.8 % (9.0-44.0); LYMPHOCYTE # 0.7 TH/MM3 (1.0-4.8); MEAN CELL VOLUME 82.9 FL (80.0-100.0); MEAN CORPUSCULAR HEMOGLOBIN 27.1 PG (27.0-34.0); MEAN CORPUSCULAR HGB CONC 32.6 % (32.0-36.0); MEAN PLATELET VOLUME 10.7 FL (7.0-11.0); MONO % 5.8 % (0.0-8.0); MONOCYTE # 0.7 TH/MM3 (0-0.9); NEUT % 87.8 % (16.0-70.0); PLATELET COUNT 61 TH/MM3 (150-450); RED BLOOD COUNT 4.05 MIL/MM3 (4.00-5.30); RED CELL DISTRIBUTION WIDTH 14.5 % (11.6-17.2); WHITE BLOOD COUNT 12.2 TH/MM3 (4.0-11.0)
[2017-02-22 12:18] LABS: ALBUMIN 1.9 GM/DL (3.4-5.0); ALKALINE PHOSPHATASE 95 U/L (45-117); ALT (GPT) 53 U/L (10-53); AST (GOT) 75 U/L (15-37); BICARBONATE 25.5 MEQ/L (21.0-32.0); BLOOD UREA NITROGEN 7 MG/DL (7-18); CALCIUM 7.6 MG/DL (8.5-10.1); CHLORIDE 99 MEQ/L (98-107); CREATININE 0.46 MG/DL (0.50-1.00); GLOMERULAR FILTRATION RATE 158 ML/MIN (>89); GLUCOSE,RANDOM 137 MG/DL (74-106); SODIUM (NA) 134 MEQ/L (136-145); TOTAL BILIRUBIN ADULT 0.8 MG/DL (0.2-1.0); TOTAL PROTEIN 5.9 GM/DL (6.4-8.2)
[2017-02-22] MEDS: SODIUM CHLOR 0.9% 1000 ML INJ 1,000 ML IV SCH ×2 (12:24→20:27)
[2017-02-22] MEDS ORDERED: POTASSIUM CHLORIDE 20 MEQ CONTROLLED RELEASE TAB PO ONE (12:35)
[2017-02-22 12:37] LABS: BANDS 6 % (0-6); LYMPHOCYTES 5 % (9-44); METAMYELOCYTES 1 % (0-1); MONOCYTES 3 % (0-8); NEUTROPHIL # MANUAL DIFF 11.2 TH/MM3 (1.8-7.7); POLYS (SEG NEUTROPHILS) 85 % (16-70); TOXIC GRANULATION 2+ (NORMAL); TOXIC VACUOLATION PRESENT (NONE SEEN)
[2017-02-22] MEDS: VANCOMYCIN 1,000 MG/NS 250 ML IV SCH ×2 (13:14)
--- NOTE | 2017-02-22 13:17 | PD.CONS ---
History of Present Illness Service Infectious Disease Consult Requested By Dr Clarke Reason for Consult Evaluate patient for possible septic right shoulder, has positive blood culture , known IV drug use Primary Care Physician No Primary Care Physician Diagnoses: History of Present Illness patient seen and examined. Records reviewed. Patient is a 31-year-old female, presented to the hospital complaining 1 week history of shortness of breath and pain on her left chest and left back. She was also complaining of pain in her right shoulder. She had some subjective fever and chills. He significant respiratory complaint as far as coughing or congestion. She has not had any nausea or vomiting, GI or any urinary complaints. Patient has been using IV drugs in the last 10 years. She is also complaining of pain in her left big toe, and does not remember having any prior history of injury or trauma. Patient underwent CTA of the chest which showed multifocal patchy and nodular airspace disease with some cavitation especially on the left side. She had blood cultures done in the emergency room, and they are now all reported as growing gram-positive cocci in pairs and chains. X-ray of the right shoulder did not show any significant abnormality. Infectious disease consultation has been requested to evaluate the patient. Review of Systems Constitutional: COMPLAINS OF: Fever, Chills Eyes: DENIES: Eye pain, Vision loss Ears, nose, mouth, throat: DENIES: Nasal discharge, Oral lesions, Throat pain, Ear Pain Respiratory: COMPLAINS OF: Shortness of breath, DENIES: Cough, Hemoptysis, Sputum production Cardiovascular: COMPLAINS OF: Chest pain, DENIES: Syncope, Lower Extremity Edema Gastrointestinal: DENIES: Abdominal pain, Diarrhea, Nausea, Vomiting, Difficulty Swallowing Genitourinary: DENIES: Urinary frequency, Hematuria, Dysuria Musculoskeletal: COMPLAINS OF: Joint pain, Joint Swelling, Back pain Integumentary: DENIES: Rash Hematologic/lymphatic: DENIES: Lymphadenopathy Immunologic/allergic: DENIES: Urticaria Neurologic: DENIES: Headache, Localized weakness Psychiatric: DENIES: Hallucinations Past Family Social History Allergies: Coded Allergies: *MDRO Multi-Drug Resistant Organism (Unverified Adverse Reaction, Unknown , 09/11/14) MRSA 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 Past Medical History 5 pregnancies and NSD Past Surgical History Tubal ligation Active Ordered Medications Current Medications Medications (Trade) Dose Ordered Sig/Emili Route Start Time Stop Time Status Last Admin Sodium Chloride 1,000 ml @ 75 mls/hr [id number] IV 02/21/17 23:30 02/22/17 12:24 (NS Flush) 2 ml UNSCH PRN IV FLUSH 02/21/17 20:45 (NS Flush) 2 ml BID IV FLUSH 02/21/17 21:00 (Tylenol) 650 mg Q4H PRN PO 02/21/17 20:45 02/22/17 03:51 (Zofran Inj) 4 mg Q6H PRN IVP 02/21/17 20:45 (Narcan Inj) 0.4 mg UNSCH PRN IV PUSH 02/21/17 20:45 (Milk Of Michelle Liq) 30 ml Q12H PRN PO 02/21/17 20:45 Pharmacy Profile Note 0 ml @ 0 mls/hr UNSCH OTHER 02/21/17 20:45 Miscellaneous Information SPECIFIC LAB TO BE SALTY... ONCE ONCE .XX 02/23/17 11:45 02/23/17 11:46 ([place] 5-325 Mg) 1 tab Q4H PRN PO 02/22/17 11:00 Vancomycin HCl 1000 mg/Sodium Chloride 250 ml @ 250 mls/hr Q12H IV 02/22/17 12:00 Penicillin G Potassium [id number] units/Sodium Chloride 100 ml @ 100 mls/hr Q4H IV 02/22/17 13:00 UNV Family History Unremarkable Social History Smokes approximately 4 cigarettes per day. Denies alcohol. Uses IV heroin with last use a few days ago. Has been using drugs for at least 10 years Physical Exam Vital Signs Vital Signs Date Time Temp Pulse Resp B/P (MAP) Pulse Ox O2 Delivery O2 Flow Rate FiO2 02/22/17 12:00 99.3 84 16 103/52 (69) 94 02/22/17 10:57 95 02/22/17 08:00 96.0 64 18 93/51 (65) 95 02/22/17 00:00 101.6 90 18 98/51 (67) 92 02/21/17 21:42 02/21/17 21:00 64 16 103/57 (72) 100 Room Air 02/21/17 20:00 97.0 69 18 97/54 (68) 98 02/21/17 19:00 76 16 90/49 (63) 100 Room Air 02/21/17 17:13 96 Room Air 02/21/17 17:13 16 97 Room Air 02/21/17 16:33 102 16 108/59 (75) 99 Room Air 02/21/17 16:03 100.1 117 16 85/54 (64) 95 Physical Exam GENERAL: Patient is a thin, well-developed female, awake and alert, not in respiratory distress. SKIN: Warm and dry. No generalized rash, no ecchymoses and no evidence of embolic lesions. HEAD: Atraumatic. Normocephalic. No temporal wasting, or tenderness. EYES: [place] conjunctiva. No petechia or hemorrhage. Pupils equal, round and reactive to light. Extraocular movements full and intact. No scleral icterus. No injection or drainage. EARS, NOSE AND THROAT: Nose without bleeding or purulent nasal discharge. No sinus tenderness. Mucous membranes pink and moist. No oral lesions noted. Has poor dentition. NECK: Trachea midline. Supple and not tender, no meningeal signs CARDIOVASCULAR: Regular rate and rhythm. No murmurs, rubs or gallops heard RESPIRATORY: Clear to auscultation. Breath sounds equal bilaterally. No rales , wheezing or rhonchi ABDOMEN: Soft, non-tender, nondistended. Bowel sounds present and normoactive. No guarding. No rebound. No organomegaly. EXTREMITIES: No clubbing, cyanosis, or edema. Has some swelling on R shoulder , did not want to move her R shoulder joint even with passive ROM. No calf tenderness. Well perfused and warm. NEUROLOGICAL: Awake and alert. Cranial nerves grossly intact. Motor grossly within normal limits. PSYCHIATRIC: Normal affect, calm and cooperative. LINE: No evidence of infection Laboratory Laboratory Tests Test 02/21/17 17:05 02/21/17 18:00 02/21/17 19:04 02/22/17 11:05 White Blood Count 14.6 12.2 Red Blood Count 4.68 4.05 Hemoglobin 13.0 11.0 Hematocrit 38.5 33.6 Mean Corpuscular Volume 82.3 82.9 Mean Corpuscular Hemoglobin 27.8 27.1 Mean Corpuscular Hemoglobin Concent 33.7 32.6 Red Cell Distribution Width 14.7 14.5 Platelet Count 79 61 Mean Platelet Volume 11.4 10.7 CBC Comment AUTO DIFF AUTO DIFF Differential Total Cells Counted 100 100 Neutrophils % (Manual) 87 85 Band Neutrophils % 6 6 Lymphocytes % 3 5 Monocytes % 4 3 Neutrophils # (Manual) 13.6 11.2 Differential Comment FINAL DIFF MANUAL FINAL DIFF MANUAL Toxic Granulation 2+ 2+ Toxic Vacuolation PRESENT PRESENT Platelet Estimate LOW LOW Platelet Morphology Comment ENLARGED NORMAL Blood Urea Nitrogen 11 7 Creatinine 0.74 0.46 Random Glucose 96 137 Total Protein 7.3 5.9 Albumin 2.7 1.9 Calcium Level 8.0 7.6 Alkaline Phosphatase 99 95 Aspartate Amino Transf (AST/SGOT) 98 75 Alanine Aminotransferase (ALT/SGPT) 67 53 Total Bilirubin 1.0 0.8 Sodium Level 124 134 Potassium Level 3.2 3.1 Chloride Level 88 99 Carbon Dioxide Level 27.4 25.5 Anion Gap 9 10 Estimat Glomerular Filtration Rate 92 158 Lactic Acid Level 1.7 Total Creatine Kinase 23 Troponin I 0.12 Prothrombin Time 11.7 Prothromb Time International Ratio 1.2 Activated Partial Thromboplast Time 34.5 Urine Color YELLOW Urine Turbidity CLEAR Urine pH 6.0 Urine Specific [place] 1.008 Urine Protein TRACE Urine Glucose (UA) NEG Urine Ketones NEG Urine Occult Blood NEG Urine Nitrite NEG Urine Bilirubin NEG Urine Urobilinogen LESS THAN 2.0 Urine Leukocyte Esterase NEG Urine RBC 1 Urine WBC 2 Urine Squamous Epithelial Cells 1 Urine Bacteria RARE Microscopic Urinalysis Comment CATH-CULTURE IND Urine Opiates Screen POS Urine Barbiturates Screen NEG Urine Amphetamines Screen NEG Urine Benzodiazepines Screen NEG Urine Cocaine Screen POS Urine Cannabinoids Screen NEG Neutrophils (%) (Auto) 87.8 Lymphocytes (%) (Auto) 5.8 Monocytes (%) (Auto) 5.8 Eosinophils (%) (Auto) 0.3 Basophils (%) (Auto) 0.3 Neutrophils # (Auto) 10.7 Lymphocytes # (Auto) 0.7 Monocytes # (Auto) 0.7 Eosinophils # (Auto) 0.0 Basophils # (Auto) 0.0 Metamyelocytes 1 Atypical Lymphocytes Erythrocyte Sedimentation Rate 29 Date/Time Source Procedure Growth Status 02/21/17 17:25 Blood Peripheral Aerobic Blood Culture - Preliminary Gram Positive Cocci Resulted 02/21/17 17:25 Anaerobic Blood Culture - Preliminary Gram Positive Cocci Resulted 02/21/17 19:04 Urine Catheterized Urine Urine Culture Pending Received Result Diagram: 02/22/17 1105 02/22/17 1105 Imaging RADIOLOGY STUDIES/FILMS REVIEWED Last Impressions Shoulder X-Ray 02/21/17 1817 Signed Impressions: Service Date/Time: Tuesday, February 21, 2017 18:30 - CONCLUSION: Normal examination for a patient of this age. Hilraio Rose MD Abdomen/Pelvis CT 02/21/17 1649 Signed Impressions: Service Date/Time: Tuesday, February 21, 2017 19:19 - CONCLUSION: 1. Patchy airspace consolidation at both lung bases. 2. Hepatosplenomegaly. 3. Multiple gallstones biliary ductal dilatation. Questionable diminished perfusion to the kidneys. Cannot exclude nephritis. Hilario Rose MD Chest X-Ray 02/21/17 1629 Signed Impressions: Service Date/Time: Tuesday, February 21, 2017 17:04 - CONCLUSION: Faint, left perihilar airspace process concerning for an early pneumonic infiltrate. Agustin Busby MD CT Angiography 02/21/17 0000 Signed Impressions: Service Date/Time: Tuesday, February 21, 2017 19:16 - CONCLUSION: 1. Negative for pulmonary embolism. 2. Multifocal patchy and nodular airspace disease in both lungs with some mild cavitation on the left side. Differential diagnosis includes septic embolic disease and multifocal pneumonia. Hilario Rose MD Assessment and Plan Assessment and Plan IMPRESSION Sepsis with GPC in chains likely Strep very worrisome for endocarditis - has findings suggestive of septic emboli on CT - Also with possibility of seeding of the right shoulder Possible right septic shoulder Known IVDU RECOMMENDATION MRI R shoulder - get ortho if with effusion Repeat BC to document clearing Agree with echo Continue Vanco for now Add Penicillin Give dose of gentamicin Stop Zosyn Follow C/S Monitor progress Will determine course of Abx once work-up is completed I will follow along with you Thank you for this consultation Gloria Gomez MD Feb 22, 2017 13:17
[2017-02-22] MEDS: ACETAMINOPHEN/HYDROcodone 325 MG/5 MG TAB PO PRN ×2 (13:18→17:20)
--- NOTE | 2017-02-22 15:42 | ECHRPT ---
Indication: Acute and subacute endocarditis, unspecified CONCLUSIONS The left ventricular systolic function is normal with an estimated ejection fraction in the range of 60-65%. Wall thickness is normal. Normal left ventricular size. There is mild to moderate tricuspid valve regurgitation. The estimated pulmonary arterial pressure is 37 mmHg. BP: / HR: 86 Rhythm: Sinus MEASUREMENTS (Male / Female) Normal Values Technical Quality:Fair 2D ECHO LV Diastolic Diameter PLAX 4.2 cm 4.2 - 5.9 / 3.9 - 5.3 cm LV Systolic Diameter PLAX 3.1 cm IVS Diastolic Thickness 0.9 cm 0.6 - 1.0 / 0.6 - 0.9 cm LVPW Diastolic Thickness 0.9 cm 0.6 - 1.0 / 0.6 - 0.9 cm LV Relative Wall Thickness 0.4 LVOT Diameter 2.2 cm M-MODE Aortic Root Diameter MM 3.0 cm LA Systolic Diameter MM 2.1 cm LA Ao Ratio MM 0.7 AV Cusp Separation MM 2.2 cm DOPPLER AV Peak Velocity 138.0 cm/s AV Peak Gradient 7.6 mmHg LVOT Peak Velocity 102.0 cm/s LVOT Peak Gradient 4.2 mmHg AV Area Cont Eq pk 2.8 cm Mitral E Point Velocity 72.6 cm/s Mitral A Point Velocity 41.5 cm/s Mitral E to A Ratio 1.7 LV E' Lateral Velocity 15.6 cm/s Mitral E to LV E' Lateral Ratio 4.7 LV E' Septal Velocity 11.9 cm/s Mitral E to LV E' Septal Ratio 6.1 TR Peak Velocity 261.0 cm/s TR Peak Gradient 27.2 mmHg Right Atrial Pressure 10.0 mmHg Pulmonary Artery Systolic Pressu 37.2 mmHg Right Ventricular Systolic Press 37.2 mmHg PV Peak Velocity 137.0 cm/s PV Peak Gradient 7.5 mmHg FINDINGS LEFT VENTRICLE The left ventricular systolic function is normal with an estimated ejection fraction in the range of 60-65%. Wall thickness is normal. Normal left ventricular size. RIGHT VENTRICLE Normal right ventricular size and systolic function. LEFT ATRIUM The left atrial size is normal. RIGHT ATRIUM The right atrial size is normal. ATRIAL SEPTUM Normal atrial septal thickness without atrial level shunting by limited color doppler interrogation. AORTA The aortic root and proximal ascending aorta are normal in size on limited imaging. MITRAL VALVE Structurally normal mitral valve. No mitral valve stenosis or regurgitation. AORTIC VALVE Trileaflet aortic valve. No aortic valve stenosis or regurgitation. TRICUSPID VALVE There is mild to moderate tricuspid valve regurgitation. The estimated pulmonary arterial pressure is 37.2 mmHg. PULMONARY VALVE No pulmonary valve regurgitation or stenosis. VESSELS The inferior vena cava is normal in size. PERICARDIUM No pericardial effusion. Giorgi Madrid MD, FACC (Electronically Signed) Final Date:22 February 2017 15:41
--- NOTE | 2017-02-22 15:48 | EKG ---
Date Performed: 02/21/2017 Time Performed: 17:30:48 PTAGE: 31 years EKG: Sinus rhythm VOLTAGE CRITERIA FOR LVH ABNORMAL ECG NO PREVIOUS TRACING DOCTOR: Dre Buckner Interpretating Date/Time 02/22/2017 15:47:26
[2017-02-22] MEDS: GENTAMICIN INJ 240 MG in SODIUM CHLORIDE 0.9% INJ 100 ML IV SCH (15:59)
[2017-02-22] MEDS ORDERED: ALPRAZolam 0.5 MG TAB PO ONE (16:30)
[2017-02-22] MEDS: PENICILLIN G POTASSIUM INJ 3,000,000 UNITS in SODIUM CHLORIDE 0.9% INJ 100 ML IV SCH ×2 (16:54→20:23)
--- NOTE | 2017-02-22 19:11 | RADRPT ---
EXAM DATE/TIME: 02/22/2017 18:17 [facility] COMPARISON: No previous studies available for comparison. INDICATIONS : Shoulder pain. Sepsis CONTRAST: 10 cc Omniscan (gadodiamide) IV MEDICAL HISTORY : None. SURGICAL HISTORY : None. ENCOUNTER: Subsequent ACUITY: 2 day PAIN SCORE: 5/10 LOCATION: Right Shoulder TECHNIQUE: Multiplanar, multisequence MRI examination was performed with and without contrast. FINDINGS: No significant marrow enhancement is seen to suggest osteomyelitis. There is abnormal bursal fluid ar ound the proximal humerus with some enhancement characteristic of bursitis. There is also some edemat ous change in the soft tissues about the humeral head, possibly a mild cellulitis. No discrete or charlie inable abscess. No tendon rupture or fracture identified. CONCLUSION: 1. Bursitis at the right shoulder with some soft tissue edematous changes that may indicate mild cell ulitis, but no discrete abscess or osteomyelitis identified. Hilario Rose MD on February 22, 2017 at 19:03 Board Certified Radiologist. This report was verified electronically.
[2017-02-22] MEDS ORDERED: GADODIAMIDE PF 287 MG/ML 10 ML VIAL (for RAD MRI) IVCONTRAST ONE (19:44)
[2017-02-23] MEDS: VANCOMYCIN 1,000 MG/NS 250 ML IV SCH ×6 (00:09→20:11)
[2017-02-23] MEDS: PENICILLIN G POTASSIUM INJ 3,000,000 UNITS in SODIUM CHLORIDE 0.9% INJ 100 ML IV SCH ×6 (00:09→20:10)
[2017-02-23 00:26] VITALS: BP 106/57; PULSE 80; RESP 17; TEMP 97.8; O2SAT 96
[2017-02-23] MEDS: ACETAMINOPHEN/HYDROcodone 325 MG/5 MG TAB PO PRN ×4 (01:34→20:11)
[2017-02-23] MEDS: SODIUM CHLORIDE 0.9% FLUSH 10 ML FLUSH IV FLUSH SCH ×2 (07:58→20:11)
[2017-02-23 08:00] VITALS: BP 91/54; PULSE 68; RESP 17; TEMP 97.1; O2SAT 98
[2017-02-23 08:12] LABS: HEMATOCRIT 34.4 % (35.0-46.0); HEMOGLOBIN 11.4 GM/DL (11.6-15.3); MEAN CELL VOLUME 83.3 FL (80.0-100.0); MEAN CORPUSCULAR HEMOGLOBIN 27.5 PG (27.0-34.0); MEAN CORPUSCULAR HGB CONC 33.1 % (32.0-36.0); MEAN PLATELET VOLUME 10.6 FL (7.0-11.0); PLATELET COUNT 107 TH/MM3 (150-450); RED BLOOD COUNT 4.13 MIL/MM3 (4.00-5.30); RED CELL DISTRIBUTION WIDTH 14.6 % (11.6-17.2); WHITE BLOOD COUNT 14.8 TH/MM3 (4.0-11.0)
[2017-02-23 08:46] LABS: AST (GOT) 44 U/L (15-37); CHLORIDE 101 MEQ/L (98-107); GLUCOSE,RANDOM 94 MG/DL (74-106); SODIUM (NA) 134 MEQ/L (136-145)
[2017-02-23 08:55] LABS: ALBUMIN 1.8 GM/DL (3.4-5.0); ALKALINE PHOSPHATASE 93 U/L (45-117); ALT (GPT) 41 U/L (10-53); BICARBONATE 25.3 MEQ/L (21.0-32.0); BLOOD UREA NITROGEN 2 MG/DL (7-18); CALCIUM 7.7 MG/DL (8.5-10.1); CREATININE 0.28 MG/DL (0.50-1.00); GLOMERULAR FILTRATION RATE 281 ML/MIN (>89); TOTAL BILIRUBIN ADULT 0.5 MG/DL (0.2-1.0); TOTAL PROTEIN 5.7 GM/DL (6.4-8.2)
[2017-02-23 09:17] LABS: BANDS 7 % (0-6); LYMPHOCYTES 8 % (9-44); MONOCYTES 15 % (0-8); NEUTROPHIL # MANUAL DIFF 11.4 TH/MM3 (1.8-7.7); POLYS (SEG NEUTROPHILS) 70 % (16-70); TOXIC GRANULATION 1+ (NORMAL); TOXIC VACUOLATION PRESENT (NONE SEEN)
--- NOTE | 2017-02-23 10:46 | HHI.PR ---
Subjective Remarks Follow-up septic emboli , multi pneumonia/now bacteremia 02/22/17-patient seen and examined, Tmax 101.6 however not currently afebrile. Blood culture positive 3. 02/23/17-patient seen and examined, Tmax 100.8 at 8 PM however currently afebrile. Complains of chills this morning Objective Vitals Vital Signs Date Time Temp Pulse Resp B/P (MAP) Pulse Ox O2 Delivery O2 Flow Rate FiO2 02/23/17 08:00 97.1 68 17 91/54 (66) 98 02/23/17 06:52 20 02/23/17 00:26 97.8 80 17 106/57 (73) 96 02/22/17 20:27 100.8 83 17 99/53 (68) 96 02/22/17 18:07 98 21 02/22/17 16:00 96.8 82 17 100/60 (73) 98 02/22/17 12:00 99.3 84 16 103/52 (69) 94 02/22/17 10:57 95 I/O 02/22/17 02/22/17 02/22/17 02/23/17 02/23/17 02/23/17 07:00 15:00 23:00 07:00 15:00 23:00 Intake Total 357.5 ml 1796 ml 680 ml Balance 357.5 ml 1796 ml 680 ml Intake Oral 1440 ml 680 ml IV Total 357.5 ml 356 ml # Voids 1 4 3 # Bowel Movements 1 1 Result Diagram: 02/23/17 0741 02/23/17 0741 Imaging Last Impressions Shoulder MRI 02/22/17 0000 Signed Impressions: Service Date/Time: Wednesday, February 22, 2017 18:17 - CONCLUSION: 1. Bursitis at the right shoulder with some soft tissue edematous changes that may indicate mild cellulitis, but no discrete abscess or osteomyelitis identified. Hilario Rose MD Shoulder X-Ray 02/21/177 Signed Impressions: Service Date/Time: Tuesday, February 21, 2017 18:30 - CONCLUSION: Normal examination for a patient of this age. Hilario Rose MD Abdomen/Pelvis CT 02/21/17 1649 Signed Impressions: Service Date/Time: Tuesday, February 21, 2017 19:19 - CONCLUSION: 1. Patchy airspace consolidation at both lung bases. 2. Hepatosplenomegaly. 3. Multiple gallstones biliary ductal dilatation. Questionable diminished perfusion to the kidneys. Cannot exclude nephritis. Hilario Rose MD Chest X-Ray 02/21/17 1629 Signed Impressions: Service Date/Time: Tuesday, February 21, 2017 17:04 - CONCLUSION: Faint, left perihilar airspace process concerning for an early pneumonic infiltrate. Agustin Busby MD CT Angiography 02/21/17 0000 Signed Impressions: Service Date/Time: Tuesday, February 21, 2017 19:16 - CONCLUSION: 1. Negative for pulmonary embolism. 2. Multifocal patchy and nodular airspace disease in both lungs with some mild cavitation on the left side. Differential diagnosis includes septic embolic disease and multifocal pneumonia. Hilario Rose MD Objective Remarks GENERAL: NAD SKIN: Warm and dry. HEAD: Normocephalic. EYES: No scleral icterus. No injection or drainage. NECK: Supple, trachea midline. No JVD or lymphadenopathy. CARDIOVASCULAR: Regular rate and rhythm without murmurs, gallops, or rubs. RESPIRATORY: Breath sounds equal bilaterally. No accessory muscle use. GASTROINTESTINAL: Abdomen soft, non-tender, nondistended. MUSCULOSKELETAL: No cyanosis, or edema. BACK: Nontender without obvious deformity. No CVA tenderness. A/P Problem List: (1) Septic embolism ICD Code: I26.90 - Septic pulmonary embolism without acute cor pulmonale Status: Acute (2) Substance abuse ICD Code: F19.10 - Other psychoactive substance abuse, uncomplicated Status: Acute (3) Sepsis ICD Code: A41.9 - Sepsis, unspecified organism Status: Acute (4) Pneumonia ICD Code: J18.9 - Pneumonia, unspecified organism Status: Acute Assessment and Plan 31-year-old female with 1. Sepsis/endocarditis vs multifocal pneumonia CTA chest showed the focal patchy and nodular airspace disease bilaterally with mild cavitation on the left. Concern for septic emboli versus multifocal pneumonia. Currently on Vancomycin/PCN Infectious disease consultation pending 2-D echo ruled out endocarditis 2. Gram-positive bacteremia Repeat blood culture NTD Infectious disease consultation appreciated Currently on vancomycin/PCN 3. Elevated troponin EKG showed normal sinus rhythm without ST segment elevations or depressions May be secondary to endocarditis ACS rule out pending; monitor serial troponins/EKGs 4. Hyponatremia Continue with NS Monitor electrolytes 5. Hypokalemia Monitor 6. Transaminitis hepatitis profile pending secondary to patient history of IV drug use 7. IV drug abuse Cessation counseling provided 2-D echo without any evidence of endocarditis 8. Right shoulder bursitis Mild cellulitis MRI shoulder noted and review without any evidence of osteomyelitis or abscess DVT prophylaxis: Bilateral SCDs Problem Qualifiers (1) Pneumonia: Qualified Codes: J18.9 - Pneumonia, unspecified organism Claude Longoria MD Feb 23, 2017 10:46
[2017-02-23] MEDS ORDERED: PHARMACY ORDERED LAB ONE (11:45)
[2017-02-23 12:00] VITALS: BP 101/53; PULSE 94; RESP 18; TEMP 100; O2SAT 98
[2017-02-23 13:06] LABS: HEPATITIS A AB IGM NEGATIVE (NEGATIVE); HEPATITIS B CORE AB IGM NEGATIVE (NEGATIVE); HEPATITIS B SURFACE ANTIGEN NEGATIVE (NEGATIVE); HEPATITIS C AB IgG REACTIVE (NEGATIVE)
--- NOTE | 2017-02-23 13:23 | HHI.IDPN ---
Subjective Subjective Remarks Patient is a 31-year-old female, presented to the hospital complaining 1 week history of shortness of breath and pain on her left chest and left back. She was also complaining of pain in her right shoulder. She had some subjective fever and chills. He significant respiratory complaint as far as coughing or congestion. She has not had any nausea or vomiting, GI or any urinary complaints. Patient has been using IV drugs in the last 10 years. She is also complaining of pain in her left big toe, and does not remember having any prior history of injury or trauma. Patient underwent CTA of the chest which showed multifocal patchy and nodular airspace disease with some cavitation especially on the left side. She had blood cultures done in the emergency room, and they are now all reported as growing gram-positive cocci in pairs and chains. X-ray of the right shoulder did not show any significant abnormality. Infectious disease consultation has been requested to evaluate the patient. 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 Objective . Vital Signs Date Time Temp Pulse Resp B/P (MAP) Pulse Ox O2 Delivery O2 Flow Rate FiO2 02/23/17 12:00 100.0 94 18 101/53 (69) 98 02/23/17 08:00 97.1 68 17 91/54 (66) 98 02/23/17 06:52 20 02/23/17 00:26 97.8 80 17 106/57 (73) 96 02/22/17 20:27 100.8 83 17 99/53 (68) 96 02/22/17 18:07 98 21 02/22/17 16:00 96.8 82 17 100/60 (73) 98 02/23/17 02/23/17 02/24/17 15:00 23:00 07:00 Intake Total 100 ml Balance 100 ml IV Total 100 ml . Laboratory Tests Test 02/21/17 17:05 02/22/17 11:05 02/23/17 07:41 White Blood Count 14.6 TH/MM3 12.2 TH/MM3 14.8 TH/MM3 Red Blood Count 4.68 MIL/MM3 4.05 MIL/MM3 4.13 MIL/MM3 Hemoglobin 13.0 GM/DL 11.0 GM/DL 11.4 GM/DL Hematocrit 38.5 % 33.6 % 34.4 % Mean Corpuscular Volume 82.3 FL 82.9 FL 83.3 FL Mean Corpuscular Hemoglobin 27.8 PG 27.1 PG 27.5 PG Mean Corpuscular Hemoglobin Concent 33.7 % 32.6 % 33.1 % Red Cell Distribution Width 14.7 % 14.5 % 14.6 % Platelet Count 79 TH/MM3 61 TH/MM3 107 TH/MM3 Mean Platelet Volume 11.4 FL 10.7 FL 10.6 FL CBC Comment AUTO DIFF AUTO DIFF AUTO DIFF Differential Total Cells Counted 100 100 100 Neutrophils % (Manual) 87 % 85 % 70 % Band Neutrophils % 6 % 6 % 7 % Lymphocytes % 3 % 5 % 8 % Monocytes % 4 % 3 % 15 % Neutrophils # (Manual) 13.6 TH/MM3 11.2 TH/MM3 11.4 TH/MM3 Differential Comment FINAL DIFF MANUAL FINAL DIFF MANUAL FINAL DIFF MANUAL Toxic Granulation 2+ 2+ 1+ Toxic Vacuolation PRESENT PRESENT PRESENT Platelet Estimate LOW LOW LOW Platelet Morphology Comment ENLARGED NORMAL NORMAL Neutrophils (%) (Auto) 87.8 % Lymphocytes (%) (Auto) 5.8 % Monocytes (%) (Auto) 5.8 % Eosinophils (%) (Auto) 0.3 % Basophils (%) (Auto) 0.3 % Neutrophils # (Auto) 10.7 TH/MM3 Lymphocytes # (Auto) 0.7 TH/MM3 Monocytes # (Auto) 0.7 TH/MM3 Eosinophils # (Auto) 0.0 TH/MM3 Basophils # (Auto) 0.0 TH/MM3 Metamyelocytes 1 % Atypical Lymphocytes % Erythrocyte Sedimentation Rate 29 mm/hr Laboratory Tests Test 02/21/17 17:05 02/22/17 11:05 02/23/17 07:41 Blood Urea Nitrogen 11 MG/DL 7 MG/DL 2 MG/DL Creatinine 0.74 MG/DL 0.46 MG/DL 0.28 MG/DL Random Glucose 96 MG/DL 137 MG/DL 94 MG/DL Total Protein 7.3 GM/DL 5.9 GM/DL 5.7 GM/DL Albumin 2.7 GM/DL 1.9 GM/DL 1.8 GM/DL Calcium Level 8.0 MG/DL 7.6 MG/DL 7.7 MG/DL Alkaline Phosphatase 99 U/L 95 U/L 93 U/L Aspartate Amino Transf (AST/SGOT) 98 U/L 75 U/L 44 U/L Alanine Aminotransferase (ALT/SGPT) 67 U/L 53 U/L 41 U/L Total Bilirubin 1.0 MG/DL 0.8 MG/DL 0.5 MG/DL Sodium Level 124 MEQ/L 134 MEQ/L 134 MEQ/L Potassium Level 3.2 MEQ/L 3.1 MEQ/L 3.3 MEQ/L Chloride Level 88 MEQ/L 99 MEQ/L 101 MEQ/L Carbon Dioxide Level 27.4 MEQ/L 25.5 MEQ/L 25.3 MEQ/L Anion Gap 9 MEQ/L 10 MEQ/L 8 MEQ/L Estimat Glomerular Filtration Rate 92 ML/MIN 158 ML/MIN 281 ML/MIN Lactic Acid Level 1.7 mmol/L Total Creatine Kinase 23 U/L Troponin I 0.12 NG/ML Microbiology Date/Time Source Procedure Growth Status 02/23/17 07:41 Blood Peripheral Aerobic Blood Culture Pending Received 02/23/17 07:41 Blood Peripheral Anaerobic Blood Culture Pending Received 02/22/17 18:00 Blood Peripheral Aerobic Blood Culture - Preliminary NO GROWTH IN 1 DAY Resulted 02/22/17 18:00 Blood Peripheral Anaerobic Blood Culture - Preliminary NO GROWTH IN 1 DAY Resulted 02/22/17 17:55 Blood Peripheral Aerobic Blood Culture - Preliminary NO GROWTH IN 1 DAY Resulted 02/22/17 17:55 Blood Peripheral Anaerobic Blood Culture - Preliminary NO GROWTH IN 1 DAY Resulted 02/21/17 17:25 Blood Peripheral Aerobic Blood Culture - Preliminary Gram Positive Cocci Resulted 02/21/17 17:25 Anaerobic Blood Culture - Preliminary Gram Positive Cocci Resulted 02/21/17 17:05 Blood Peripheral Aerobic Blood Culture - Preliminary Gram Positive Cocci Resulted 02/21/17 17:05 Anaerobic Blood Culture - Preliminary Gram Positive Cocci Resulted 02/21/17 17:00 Blood Peripheral Aerobic Blood Culture - Preliminary Gram Positive Cocci Resulted 02/21/17 17:00 Anaerobic Blood Culture - Preliminary Gram Positive Cocci Resulted 02/21/17 19:04 Urine Catheterized Urine Urine Culture - Final 50-100,000 CFU/ML MIXED GRAM POSITIVE... Complete Imaging Last Impressions Shoulder MRI 02/22/17 0000 Signed Impressions: Service Date/Time: Wednesday, February 22, 2017 18:17 - CONCLUSION: 1. Bursitis at the right shoulder with some soft tissue edematous changes that may indicate mild cellulitis, but no discrete abscess or osteomyelitis identified. Hilario Rose MD Shoulder X-Ray 02/21/17 1817 Signed Impressions: Service Date/Time: Tuesday, February 21, 2017 18:30 - CONCLUSION: Normal examination for a patient of this age. Hilario Rose MD Abdomen/Pelvis CT 02/21/17 1649 Signed Impressions: Service Date/Time: Tuesday, February 21, 2017 19:19 - CONCLUSION: 1. Patchy airspace consolidation at both lung bases. 2. Hepatosplenomegaly. 3. Multiple gallstones biliary ductal dilatation. Questionable diminished perfusion to the kidneys. Cannot exclude nephritis. Hilario Rose MD Chest X-Ray 02/21/17 1629 Signed Impressions: Service Date/Time: Tuesday, February 21, 2017 17:04 - CONCLUSION: Faint, left perihilar airspace process concerning for an early pneumonic infiltrate. Agustin Busby MD CT Angiography 02/21/17 0000 Signed Impressions: Service Date/Time: Tuesday, February 21, 2017 19:16 - CONCLUSION: 1. Negative for pulmonary embolism. 2. Multifocal patchy and nodular airspace disease in both lungs with some mild cavitation on the left side. Differential diagnosis includes septic embolic disease and multifocal pneumonia. Hilario Rose MD Physical Exam GENERAL: Patient is a thin, well-developed female, awake and alert, not in respiratory distress. SKIN: Warm and dry. No generalized rash, no ecchymoses and no evidence of embolic lesions. HEAD: Atraumatic. Normocephalic. No temporal wasting, or tenderness. EYES: [place] conjunctiva. No petechia or hemorrhage. Pupils equal, round and reactive to light. Extraocular movements full and intact. No scleral icterus. No injection or drainage. EARS, NOSE AND THROAT: Nose without bleeding or purulent nasal discharge. No sinus tenderness. Mucous membranes pink and moist. No oral lesions noted. Has poor dentition. NECK: Trachea midline. Supple and not tender, no meningeal signs CARDIOVASCULAR: Regular rate and rhythm. No murmurs, rubs or gallops heard RESPIRATORY: Clear to auscultation. Breath sounds equal bilaterally. No rales , wheezing or rhonchi ABDOMEN: Soft, non-tender, nondistended. Bowel sounds present and normoactive. No guarding. No rebound. No organomegaly. EXTREMITIES: No clubbing, cyanosis, or edema. Has some swelling on R shoulder , able to do some passive ROM R shoulder joint. No calf tenderness. Well perfused and warm. NEUROLOGICAL: Awake and alert. Cranial nerves grossly intact. Motor grossly within normal limits. PSYCHIATRIC: Normal affect, calm and cooperative. LINE: No evidence of infection Assessment & Plan Remarks IMPRESSION Sepsis with GPC in chains likely Strep very worrisome for endocarditis - has findings suggestive of septic emboli on CT - Also with possibility of seeding of the right shoulder Right shoulder pain and swelling, ?septic bursitis Known IVDU RECOMMENDATION Repeat BC to document clearing Agree with echo Continue Vanco for now Continue IV Penicillin Continue gentamicin Get ortho opinion regarding management R shoulder pain and swelling Follow C/S Monitor progress Will determine course of Abx once work-up is completed Explained plan to the patient Gloria Gomez MD Feb 23, 2017 13:23
[2017-02-23] MEDS: GENTAMICIN INJ 240 MG in SODIUM CHLORIDE 0.9% INJ 100 ML IV SCH (14:44)
[2017-02-23] MEDS: SODIUM CHLOR 0.9% 1000 ML INJ 1,000 ML IV SCH (15:35)
--- NOTE | 2017-02-23 15:44 | PD.CONS ---
HPI Service Orthopedic Surgeons Consult Requested By Primary Care Physician No Primary Care Physician Admission Diagnosis sepsis, septic emboli, pneumonia, hyponatremia Diagnoses: (1) Septic embolism Diagnosis: Secondary (2) Substance abuse Diagnosis: Secondary (3) Sepsis Diagnosis: Principal (4) Pneumonia Diagnosis: Secondary Chief Complaint: Right shoulder pain History of Present Illness Patient is a 31-year-old female, presented to the hospital complaining 1 week history of shortness of breath and pain on her left chest and left back. She was also complaining of pain in her right shoulder. She had some subjective fever and chills. She has not had any nausea or vomiting, GI or any urinary complaints. Patient has been using IV drugs for the last 10 years. Does not remember having any prior history of injury or trauma. Patient underwent CTA of the chest which showed multifocal patchy and nodular airspace disease with some cavitation especially on the left side. She had blood cultures done in the emergency room, and they are now all reported as growing gram-positive cocci in pairs and chains. She reports right shoulder pain especially with movement. Mild swelling. Minimal tenderness to palpation. She denies any injury to this right shoulder. No prior issues with her right shoulder. Review of Systems Constitutional: COMPLAINS OF: Fever (resolving) Endocrine: DENIES: Polydipsia Eyes: DENIES: Blurred vision Ears, nose, mouth, throat: DENIES: Throat pain Respiratory: COMPLAINS OF: Cough Cardiovascular: COMPLAINS OF: Chest pain Gastrointestinal: DENIES: Abdominal pain Genitourinary: DENIES: Urinary incontinence Musculoskeletal: COMPLAINS OF: Joint pain, Joint Swelling Integumentary: DENIES: Rash Hematologic/lymphatic: DENIES: Bruising Immunologic/allergic: DENIES: Eczema Neurologic: DENIES: Abnormal gait Psychiatric: DENIES: Anxiety Past Family Social History Past Medical History IV drug abuse Past Surgical History Bilateral tubal ligation Reported Medications Please see chart Allergies: Coded Allergies: *MDRO Multi-Drug Resistant Organism (Unverified Adverse Reaction, Unknown , 09/11/14) MRSA 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 Active Ordered Medications Current Medications Medications (Trade) Dose Ordered Sig/Emili Route Start Time Stop Time Status Last Admin Sodium Chloride 1,000 ml @ 75 mls/hr [id number] IV 02/21/17 23:30 02/23/17 15:35 (NS Flush) 2 ml UNSCH PRN IV FLUSH 02/21/17 20:45 (NS Flush) 2 ml BID IV FLUSH 02/21/17 21:00 02/22/17 20:30 (Tylenol) 650 mg Q4H PRN PO 02/21/17 20:45 02/22/17 03:51 (Zofran Inj) 4 mg Q6H PRN IVP 02/21/17 20:45 (Narcan Inj) 0.4 mg UNSCH PRN IV PUSH 02/21/17 20:45 (Milk Of Michelle Liq) 30 ml Q12H PRN PO 02/21/17 20:45 Pharmacy Profile Note 0 ml @ 0 mls/hr UNSCH OTHER 02/21/17 20:45 ([place] 5-325 Mg) 1 tab Q4H PRN PO 02/22/17 11:00 02/23/17 11:43 Penicillin G Potassium [id number] units/Sodium Chloride 100 ml @ 100 mls/hr Q4H IV 02/22/17 16:00 02/23/17 11:11 Gentamicin Sulfate 240 mg/ Sodium Chloride 106 ml @ 100 mls/hr Q24H IV 02/22/17 15:00 02/25/17 14:59 02/23/17 14:44 Vancomycin HCl 1000 mg/Sodium Chloride 250 ml @ 250 mls/hr Q8H IV 02/23/17 20:00 Miscellaneous Information SPECIFIC LAB TO BE DRAWN:VANCOMYCIN TROUGH DATE TO... ONCE ONCE .XX 02/24/17 11:45 02/24/17 11:46 Reported Meds & Active Scripts Active No Active Prescriptions or Reported Medications Family History No family history of CAD/DM Social History Smokes approximately 4 cigarettes per day. Denies alcohol. Uses IV heroin with last use a few days ago. Physical Exam Vital Signs Vital Signs Date Time Temp Pulse Resp B/P (MAP) Pulse Ox O2 Delivery O2 Flow Rate FiO2 02/23/17 12:00 100.0 94 18 101/53 (69) 98 02/23/17 08:00 97.1 68 17 91/54 (66) 98 12/14/17 06:52 20 02/23/17 00:26 97.8 80 17 106/57 (73) 96 02/22/17 20:27 100.8 83 17 99/53 (68) 96 02/22/17 18:07 98 21 02/22/17 16:00 96.8 82 17 100/60 (73) 98 Physical Exam Awake, alert, no acute distress Normocephalic Pupils equal Moist mucous membranes No JVD Nonlabored respirations Regular rate Soft nontender abdomen Right upper extremity: Mild swelling noted about the shoulder with minimal tenderness palpation. Very mild tenderness about the biceps tendon. Patient allows approximate 90 of forward flexion and 90 of abduction with moderate discomfort. Patient does allow internal and external rotation of the shoulder without discomfort. Patient is neurovascular intact distally. Radial pulses palpable. Left upper extremity and bilateral lower extremity: No significant tenderness palpation or deformities. No rash or erythema. Full active range of motion and strength. Sensation intact. Dorsalis pedis and radial pulses palpable. No rash Normal affect Laboratory Laboratory Tests Test 02/22/17 18:00 02/23/17 07:41 02/23/17 11:42 Hepatitis A IgM Antibody NEGATIVE Hepatitis B Surface Antigen NEGATIVE Hepatitis B Core IgM Antibody NEGATIVE Hepatitis C Antibody REACTIVE White Blood Count 14.8 Red Blood Count 4.13 Hemoglobin 11.4 Hematocrit 34.4 Mean Corpuscular Volume 83.3 Mean Corpuscular Hemoglobin 27.5 Mean Corpuscular Hemoglobin Concent 33.1 Red Cell Distribution Width 14.6 Platelet Count 107 Mean Platelet Volume 10.6 CBC Comment AUTO DIFF Differential Total Cells Counted 100 Neutrophils % (Manual) 70 Band Neutrophils % 7 Lymphocytes % 8 Monocytes % 15 Neutrophils # (Manual) 11.4 Differential Comment FINAL DIFF MANUAL Toxic Granulation 1+ Toxic Vacuolation PRESENT Platelet Estimate LOW Platelet Morphology Comment NORMAL Blood Urea Nitrogen 2 Creatinine 0.28 Random Glucose 94 Total Protein 5.7 Albumin 1.8 Calcium Level 7.7 Alkaline Phosphatase 93 Aspartate Amino Transf (AST/SGOT) 44 Alanine Aminotransferase (ALT/SGPT) 41 Total Bilirubin 0.5 Sodium Level 134 Potassium Level 3.3 Chloride Level 101 Carbon Dioxide Level 25.3 Anion Gap 8 Estimat Glomerular Filtration Rate 281 Vancomycin Level Trough 5.6 Date/Time Source Procedure Growth Status 02/23/17 07:41 Blood Peripheral Aerobic Blood Culture Pending Received 02/23/17 07:41 Blood Peripheral Anaerobic Blood Culture Pending Received 02/21/17 19:04 Urine Catheterized Urine Urine Culture - Final 50-100,000 CFU/ML MIXED GRAM POSITIVE... Complete Result Diagram: 02/23/17 0741 02/23/17 0741 Imaging Last 48 hours Impressions Shoulder MRI 02/22/17 0000 Signed Impressions: Service Date/Time: Wednesday, February 22, 2017 18:17 - CONCLUSION: 1. Bursitis at the right shoulder with some soft tissue edematous changes that may indicate mild cellulitis, but no discrete abscess or osteomyelitis identified. Hilario Rose MD Shoulder X-Ray 02/21/17 1817 Signed Impressions: Service Date/Time: Tuesday, February 21, 2017 18:30 - CONCLUSION: Normal examination for a patient of this age. Hilario Rose MD Abdomen/Pelvis CT 02/21/17 1649 Signed Impressions: Service Date/Time: Tuesday, February 21, 2017 19:19 - CONCLUSION: 1. Patchy airspace consolidation at both lung bases. 2. Hepatosplenomegaly. 3. Multiple gallstones biliary ductal dilatation. Questionable diminished perfusion to the kidneys. Cannot exclude nephritis. Hilario Rose MD Chest X-Ray 02/21/17 1629 Signed Impressions: Service Date/Time: Tuesday, February 21, 2017 17:04 - CONCLUSION: Faint, left perihilar airspace process concerning for an early pneumonic infiltrate. Agustin Busby MD Assessment & Plan Assessment and Plan 31-year-old female with history of IV drug use who presented with sepsis and pneumonia, with concern for right shoulder pain MRI demonstrates no evidence of abscess or intra-articular fluid to suggest septic arthritis. With this in mind, I would suggest nonoperative medical management in the form of IV antibiotics. No plan for surgical intervention at this time. Dorcas Snyder MD Feb 23, 2017 15:44
[2017-02-23 16:00] VITALS: BP 99/52; PULSE 74; RESP 17; TEMP 97.6; O2SAT 97
[2017-02-23 17:40] VITALS: O2SAT 97
[2017-02-23 20:00] VITALS: BP 116/56; PULSE 97; RESP 22; TEMP 100.4; O2SAT 97
[2017-02-24] VITALS: BP 101/55; PULSE 77; RESP 22; TEMP 99.7; O2SAT 93
[2017-02-24] MEDS: PENICILLIN G POTASSIUM INJ 3,000,000 UNITS in SODIUM CHLORIDE 0.9% INJ 100 ML IV SCH ×3 (00:19→09:40)
[2017-02-24] MEDS: ACETAMINOPHEN/HYDROcodone 325 MG/5 MG TAB PO PRN ×6 (01:48→21:21)
[2017-02-24] MEDS: VANCOMYCIN 1,000 MG/NS 250 ML IV SCH ×2 (03:00)
[2017-02-24] MEDS: SODIUM CHLOR 0.9% 1000 ML INJ 1,000 ML IV SCH ×2 (03:01→21:22)
[2017-02-24 08:00] VITALS: BP 102/55; PULSE 76; RESP 17; TEMP 95.8; O2SAT 97
[2017-02-24] MEDS: SODIUM CHLORIDE 0.9% FLUSH 10 ML FLUSH IV FLUSH SCH ×2 (09:00→21:00)
--- NOTE | 2017-02-24 10:28 | HHI.PR ---
Subjective Remarks Follow-up septic emboli , multi pneumonia/now bacteremia 02/22/17-patient seen and examined, Tmax 101.6 however not currently afebrile. Blood culture positive 3. 02/23/17-patient seen and examined, Tmax 100.8 at 8 PM however currently afebrile. Complains of chills this morning 02/24/17-patient seen and examined, Tmax 100.4 at 8 PM however currently afebrile. Patient denies any significant right shoulder pain. No acute event overnight. Objective Vitals Vital Signs Date Time Temp Pulse Resp B/P (MAP) Pulse Ox O2 Delivery O2 Flow Rate FiO2 02/24/17 08:00 95.8 76 17 102/55 (71) 97 02/24/17 00:00 99.7 77 22 101/55 (70) 93 02/23/17 20:00 100.4 97 22 116/56 (76) 97 02/23/17 17:40 97 21 02/23/17 16:00 97.6 74 17 99/52 (68) 97 02/23/17 12:00 100.0 94 18 101/53 (69) 98 I/O 02/23/17 02/23/17 02/23/17 02/24/17 02/24/17 02/24/17 07:00 15:00 23:00 07:00 15:00 23:00 Intake Total 680 ml 450 ml 1056 ml 460 ml Balance 680 ml 450 ml 1056 ml 460 ml Intake Oral 680 ml 600 ml 360 ml IV Total 450 ml 456 ml 100 ml # Voids 3 10 2 # Bowel Movements 1 6 0 Result Diagram: 02/23/17 0741 02/23/17 0741 Imaging Last Impressions Shoulder MRI 02/22/17 0000 Signed Impressions: Service Date/Time: Wednesday, February 22, 2017 18:17 - CONCLUSION: 1. Bursitis at the right shoulder with some soft tissue edematous changes that may indicate mild cellulitis, but no discrete abscess or osteomyelitis identified. Hilario Rose MD Shoulder X-Ray 02/21/171816 Signed Impressions: Service Date/Time: Tuesday, February 21, 2017 18:30 - CONCLUSION: Normal examination for a patient of this age. Hilario Rose MD Abdomen/Pelvis CT 02/21/17 1649 Signed Impressions: Service Date/Time: Tuesday, February 21, 2017 19:19 - CONCLUSION: 1. Patchy airspace consolidation at both lung bases. 2. Hepatosplenomegaly. 3. Multiple gallstones biliary ductal dilatation. Questionable diminished perfusion to the kidneys. Cannot exclude nephritis. Hilario Rose MD Chest X-Ray 02/21/17 1629 Signed Impressions: Service Date/Time: Tuesday, February 21, 2017 17:04 - CONCLUSION: Faint, left perihilar airspace process concerning for an early pneumonic infiltrate. Agustin Busby MD CT Angiography 02/21/17 0000 Signed Impressions: Service Date/Time: Tuesday, February 21, 2017 19:16 - CONCLUSION: 1. Negative for pulmonary embolism. 2. Multifocal patchy and nodular airspace disease in both lungs with some mild cavitation on the left side. Differential diagnosis includes septic embolic disease and multifocal pneumonia. Hilario Rose MD Objective Remarks GENERAL: NAD SKIN: Warm and dry. HEAD: Normocephalic. EYES: No scleral icterus. No injection or drainage. NECK: Supple, trachea midline. No JVD or lymphadenopathy. CARDIOVASCULAR: Regular rate and rhythm without murmurs, gallops, or rubs. RESPIRATORY: Breath sounds equal bilaterally. No accessory muscle use. GASTROINTESTINAL: Abdomen soft, non-tender, nondistended. MUSCULOSKELETAL: No cyanosis, or edema. BACK: Nontender without obvious deformity. No CVA tenderness. A/P Problem List: (1) Septic embolism ICD Code: I26.90 - Septic pulmonary embolism without acute cor pulmonale Status: Acute (2) Substance abuse ICD Code: F19.10 - Other psychoactive substance abuse, uncomplicated Status: Acute (3) Sepsis ICD Code: A41.9 - Sepsis, unspecified organism Status: Acute (4) Pneumonia ICD Code: J18.9 - Pneumonia, unspecified organism Status: Acute Assessment and Plan 31-year-old female with 1. Sepsis/endocarditis vs multifocal pneumonia CTA chest showed the focal patchy and nodular airspace disease bilaterally with mild cavitation on the left. Concern for septic emboli versus multifocal pneumonia. Currently on Vancomycin/PCN/Gent Infectious disease consultation pending 2-D echo ruled out endocarditis 2. Gram-positive bacteremia Repeat blood culture NTD Infectious disease consultation appreciated Currently on vancomycin/PCN/Gent 3. Elevated troponin EKG showed normal sinus rhythm without ST segment elevations or depressions May be secondary to endocarditis ACS ruled out per protocol; monitor serial troponins/EKGs 4. Hyponatremia Continue with NS Monitor electrolytes 5. Hypokalemia Monitor 6. Transaminitis hepatitis profile pending secondary to patient history of IV drug use 7. IV drug abuse Cessation counseling provided 2-D echo without any evidence of endocarditis 8. Right shoulder bursitis Mild cellulitis MRI shoulder noted and review without any evidence of osteomyelitis or abscess Orthopedic surgery consulted and recommended nonoperative medical management in the form of IV antibiotics DVT prophylaxis: Bilateral SCDs Problem Qualifiers (1) Pneumonia: Qualified Codes: J18.9 - Pneumonia, unspecified organism Claude Longoria MD Feb 24, 2017 10:28
[2017-02-24] MEDS ORDERED: POTASSIUM CHLORIDE 10 MEQ CONTROLLED RELEASE TAB PO ONE (10:30)
[2017-02-24] MEDS ORDERED: PHARMACY ORDERED LAB ONE (11:45)
[2017-02-24 12:00] VITALS: BP 109/54; PULSE 88; RESP 17; TEMP 98; O2SAT 96
--- NOTE | 2017-02-24 12:02 | HHI.IDPN ---
Subjective Subjective Remarks Patient is a 31-year-old female, presented to the hospital complaining 1 week history of shortness of breath and pain on her left chest and left back. She was also complaining of pain in her right shoulder. She had some subjective fever and chills. He significant respiratory complaint as far as coughing or congestion. She has not had any nausea or vomiting, GI or any urinary complaints. Patient has been using IV drugs in the last 10 years. She is also complaining of pain in her left big toe, and does not remember having any prior history of injury or trauma. Patient underwent CTA of the chest which showed multifocal patchy and nodular airspace disease with some cavitation especially on the left side. She had blood cultures done in the emergency room, and they are now all reported as growing gram-positive cocci in pairs and chains. X-ray of the right shoulder did not show any significant abnormality. Infectious disease consultation has been requested to evaluate the patient. Notes reviewed Still with temps low grade Still with pain R shoulder but better Ortho notes reviewed No new (+) BC 3 BC on admission (+), B-hemolytic Strep, not final yet MRI shoulder no fluid in joint, has fluid in bursa Antibiotics Current Medications IV PCN gentamicin IV Vancomycin IV Medications (Trade) Dose Ordered Sig/Emili Route Start Time Stop Time Status Last Admin Sodium Chloride 1,000 ml @ 75 mls/hr [id number] IV 02/21/17 23:30 02/24/17 03:01 (NS Flush) 2 ml UNSCH PRN IV FLUSH 02/21/17 20:45 (NS Flush) 2 ml BID IV FLUSH 02/21/17 21:00 02/22/17 20:30 (Tylenol) 650 mg Q4H PRN PO 02/21/17 20:45 02/22/17 03:51 (Zofran Inj) 4 mg Q6H PRN IVP 02/21/17 20:45 (Narcan Inj) 0.4 mg UNSCH PRN IV PUSH 02/21/17 20:45 (Milk Of Magnesia Liq) 30 ml Q12H PRN PO 02/21/17 20:45 ([place] 5-325 Mg) 1 tab Q4H PRN PO 02/22/17 11:00 02/24/17 09:40 Gentamicin Sulfate 240 mg/ Sodium Chloride 106 ml @ 100 mls/hr Q24H IV 02/22/17 15:00 02/25/17 14:59 02/23/17 14:44 Ceftriaxone Sodium 2000 mg/ Sodium Chloride 100 ml @ 200 mls/hr Q24H IV 02/24/17 12:00 UNV Lines PIV Past Medical History 5 pregancies and NSD Tubal ligation Allergies: Coded Allergies: *MDRO Multi-Drug Resistant Organism (Unverified Adverse Reaction, Unknown , 09/11/14) MRSA 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 Objective . Vital Signs Date Time Temp Pulse Resp B/P (MAP) Pulse Ox O2 Delivery O2 Flow Rate FiO2 02/24/17 08:00 95.8 76 17 102/55 (71) 97 02/24/17 00:00 99.7 77 22 101/55 (70) 93 02/23/17 20:00 100.4 97 22 116/56 (76) 97 02/23/17 17:40 97 21 02/23/17 16:00 97.6 74 17 99/52 (68) 97 02/23/17 12:00 100.0 94 18 101/53 (69) 98 . Laboratory Tests Test 02/23/17 07:41 White Blood Count 14.8 TH/MM3 Red Blood Count 4.13 MIL/MM3 Hemoglobin 11.4 GM/DL Hematocrit 34.4 % Mean Corpuscular Volume 83.3 FL Mean Corpuscular Hemoglobin 27.5 PG Mean Corpuscular Hemoglobin Concent 33.1 % Red Cell Distribution Width 14.6 % Platelet Count 107 TH/MM3 Mean Platelet Volume 10.6 FL CBC Comment AUTO DIFF Differential Total Cells Counted 100 Neutrophils % (Manual) 70 % Band Neutrophils % 7 % Lymphocytes % 8 % Monocytes % 15 % Neutrophils # (Manual) 11.4 TH/MM3 Differential Comment FINAL DIFF MANUAL Toxic Granulation 1+ Toxic Vacuolation PRESENT Platelet Estimate LOW Platelet Morphology Comment NORMAL Laboratory Tests Test 02/23/17 07:41 Blood Urea Nitrogen 2 MG/DL Creatinine 0.28 MG/DL Random Glucose 94 MG/DL Total Protein 5.7 GM/DL Albumin 1.8 GM/DL Calcium Level 7.7 MG/DL Alkaline Phosphatase 93 U/L Aspartate Amino Transf (AST/SGOT) 44 U/L Alanine Aminotransferase (ALT/SGPT) 41 U/L Total Bilirubin 0.5 MG/DL Sodium Level 134 MEQ/L Potassium Level 3.3 MEQ/L Chloride Level 101 MEQ/L Carbon Dioxide Level 25.3 MEQ/L Anion Gap 8 MEQ/L Estimat Glomerular Filtration Rate 281 ML/MIN Microbiology Date/Time Source Procedure Growth Status 02/24/17 07:45 Blood Peripheral Aerobic Blood Culture Pending Received 02/24/17 07:45 Blood Peripheral Anaerobic Blood Culture Pending Received 02/23/17 07:41 Blood Peripheral Aerobic Blood Culture - Preliminary NO GROWTH IN 1 DAY Resulted 02/23/17 07:41 Blood Peripheral Anaerobic Blood Culture - Preliminary NO GROWTH IN 1 DAY Resulted 02/22/17 18:00 Blood Peripheral Aerobic Blood Culture - Preliminary NO GROWTH IN 2 DAYS Resulted 02/22/17 18:00 Blood Peripheral Anaerobic Blood Culture - Preliminary NO GROWTH IN 2 DAYS Resulted 02/22/17 17:55 Blood Peripheral Aerobic Blood Culture - Preliminary NO GROWTH IN 2 DAYS Resulted 02/22/17 17:55 Blood Peripheral Anaerobic Blood Culture - Preliminary NO GROWTH IN 2 DAYS Resulted 02/21/17 17:25 Blood Peripheral Aerobic Blood Culture - Preliminary Strep Not A,B D Resulted 02/21/17 17:25 Anaerobic Blood Culture - Preliminary Strep Not A,B D Resulted 02/21/17 17:05 Blood Peripheral Aerobic Blood Culture - Preliminary Strep Not A,B D Staphylococcus Species Resulted 02/21/17 17:05 Anaerobic Blood Culture - Preliminary Strep Not A,B D Staphylococcus Species Resulted 02/21/17 17:00 Blood Peripheral Aerobic Blood Culture - Preliminary Strep Not A,B D Resulted 02/21/17 17:00 Anaerobic Blood Culture - Preliminary Strep Not A,B D Resulted 02/21/17 19:04 Urine Catheterized Urine Urine Culture - Final 50-100,000 CFU/ML MIXED GRAM POSITIVE... Complete Imaging Last Impressions Shoulder MRI 02/22/17 0000 Signed Impressions: Service Date/Time: Wednesday, February 22, 2017 18:17 - CONCLUSION: 1. Bursitis at the right shoulder with some soft tissue edematous changes that may indicate mild cellulitis, but no discrete abscess or osteomyelitis identified. Hilario Rose MD Shoulder X-Ray 02/21/171816 Signed Impressions: Service Date/Time: Tuesday, February 21, 2017 18:30 - CONCLUSION: Normal examination for a patient of this age. Hilario Rose MD Abdomen/Pelvis CT 02/21/17 1649 Signed Impressions: Service Date/Time: Tuesday, February 21, 2017 19:19 - CONCLUSION: 1. Patchy airspace consolidation at both lung bases. 2. Hepatosplenomegaly. 3. Multiple gallstones biliary ductal dilatation. Questionable diminished perfusion to the kidneys. Cannot exclude nephritis. Hilario Rose MD Chest X-Ray 02/21/17 1629 Signed Impressions: Service Date/Time: Tuesday, February 21, 2017 17:04 - CONCLUSION: Faint, left perihilar airspace process concerning for an early pneumonic infiltrate. Agustin Busby MD CT Angiography 02/21/17 0000 Signed Impressions: Service Date/Time: Tuesday, February 21, 2017 19:16 - CONCLUSION: 1. Negative for pulmonary embolism. 2. Multifocal patchy and nodular airspace disease in both lungs with some mild cavitation on the left side. Differential diagnosis includes septic embolic disease and multifocal pneumonia. Hilario Rose MD Physical Exam GENERAL: Patient is a thin, well-developed female, awake and alert, not in respiratory distress. SKIN: Warm and dry. No generalized rash, no ecchymoses and no evidence of embolic lesions. HEAD: Atraumatic. Normocephalic. No temporal wasting, or tenderness. EYES: [place] conjunctiva. No petechia or hemorrhage. Pupils equal, round and reactive to light. Extraocular movements full and intact. No scleral icterus. No injection or drainage. EARS, NOSE AND THROAT: Nose without bleeding or purulent nasal discharge. No sinus tenderness. Mucous membranes pink and moist. No oral lesions noted. Has poor dentition. NECK: Trachea midline. Supple and not tender, no meningeal signs CARDIOVASCULAR: Regular rate and rhythm. No murmurs, rubs or gallops heard RESPIRATORY: Clear to auscultation. Breath sounds equal bilaterally. No rales , wheezing or rhonchi ABDOMEN: Soft, non-tender, nondistended. Bowel sounds present and normoactive. No guarding. No rebound. No organomegaly. EXTREMITIES: No clubbing, cyanosis, or edema. Has some swelling on R shoulder , passive ROM better NEUROLOGICAL: Awake and alert. Cranial nerves grossly intact. Motor grossly within normal limits. PSYCHIATRIC: Normal affect, calm and cooperative. LINE: No evidence of infection Assessment & Plan Remarks IMPRESSION Sepsis with Strep very worrisome for endocarditis - has findings suggestive of septic emboli on CT Right shoulder pain and swelling, better low grade temps Known IVDU RECOMMENDATION Follow BC IV Rocephin Stop PCN Stop Vancomycin Spoke with CM - to have patient evel for patient assistance Spoke with patient about plan - she will be staying with a friend (Who does not use IVD, has transportation to bring her to infusion clinic) Told her the dangers of using IV outside the intended plan of IV Abx to Rx her infection She will need to sign forms regarding PICC and not to use outside hospital Follow temps Follow BC Monitor progress Hopefully no further (+) BC and temps ok, so we can plan on possible D/C Monday - with PICC and for her to get her IV Abx in infusion clinic Explained plan to patient Spoke with CM Gloria Short MD Feb 24, 2017 12:02
[2017-02-24] MEDS: cefTRIAXone INJ 2,000 MG in SODIUM CHLORIDE 0.9% INJ 100 ML IV SCH (12:51)
[2017-02-24 16:00] VITALS: BP 108/55; PULSE 82; RESP 17; TEMP 99.4; O2SAT 95
[2017-02-24] MEDS: GENTAMICIN INJ 240 MG in SODIUM CHLORIDE 0.9% INJ 100 ML IV SCH (16:41)
[2017-02-24 20:00] VITALS: BP 108/56; PULSE 87; RESP 22; TEMP 99.6; O2SAT 95
[2017-02-25] VITALS: BP 108/52; PULSE 83; RESP 20; TEMP 98; O2SAT 97
[2017-02-25] MEDS: ACETAMINOPHEN/HYDROcodone 325 MG/5 MG TAB PO PRN ×5 (01:47→20:27)
[2017-02-25] MEDS: SODIUM CHLOR 0.9% 1000 ML INJ 1,000 ML IV SCH ×2 (07:30→10:44)
[2017-02-25] MEDS: SODIUM CHLORIDE 0.9% FLUSH 10 ML FLUSH IV FLUSH SCH ×2 (07:48→20:27)
[2017-02-25 08:00] VITALS: BP 109/58; PULSE 90; RESP 18; TEMP 101.3; O2SAT 90
[2017-02-25 08:09] LABS: AUTOMATED NEUTROPHIL # 12.6 TH/MM3 (1.8-7.7); BASOPHIL # 0.1 TH/MM3 (0-0.2); BASOPHIL % 0.7 % (0.0-2.0); EOSINOPHIL # 0.2 TH/MM3 (0-0.4); EOSINOPHIL % 1.5 % (0.0-4.0); HEMATOCRIT 32.8 % (35.0-46.0); HEMOGLOBIN 10.8 GM/DL (11.6-15.3); LYMPH % 11.4 % (9.0-44.0); LYMPHOCYTE # 1.8 TH/MM3 (1.0-4.8); MEAN CELL VOLUME 83.4 FL (80.0-100.0); MEAN CORPUSCULAR HEMOGLOBIN 27.6 PG (27.0-34.0); MEAN PLATELET VOLUME 9.4 FL (7.0-11.0); MONO % 7.1 % (0.0-8.0); MONOCYTE # 1.1 TH/MM3 (0-0.9); NEUT % 79.3 % (16.0-70.0); PLATELET COUNT 246 TH/MM3 (150-450); RED BLOOD COUNT 3.93 MIL/MM3 (4.00-5.30); RED CELL DISTRIBUTION WIDTH 14.8 % (11.6-17.2); WHITE BLOOD COUNT 15.8 TH/MM3 (4.0-11.0)
[2017-02-25] MEDS: ACETAMINOPHEN 325 MG TAB PO PRN (08:23)
[2017-02-25 08:27] LABS: ALBUMIN 1.7 GM/DL (3.4-5.0); ALT (GPT) 55 U/L (10-53); AST (GOT) 47 U/L (15-37); BICARBONATE 24.5 MEQ/L (21.0-32.0); BLOOD UREA NITROGEN 5 MG/DL (7-18); CALCIUM 8.3 MG/DL (8.5-10.1); CHLORIDE 100 MEQ/L (98-107); CREATININE 0.32 MG/DL (0.50-1.00); GLOMERULAR FILTRATION RATE 241 ML/MIN (>89); GLUCOSE,RANDOM 81 MG/DL (74-106); SODIUM (NA) 132 MEQ/L (136-145)
[2017-02-25 08:35] LABS: ALKALINE PHOSPHATASE 99 U/L (45-117); TOTAL BILIRUBIN ADULT 0.6 MG/DL (0.2-1.0); TOTAL PROTEIN 6.4 GM/DL (6.4-8.2)
--- NOTE | 2017-02-25 10:06 | HHI.PR ---
Subjective Remarks Follow-up septic emboli , multi pneumonia/now bacteremia 02/22/17-patient seen and examined, Tmax 101.6 however not currently afebrile. Blood culture positive 3. 02/23/17-patient seen and examined, Tmax 100.8 at 8 PM however currently afebrile. Complains of chills this morning 02/24/17-patient seen and examined, Tmax 100.4 at 8 PM however currently afebrile. Patient denies any significant right shoulder pain. No acute event overnight. 02/25/17-patient seen and examined, Tmax 101.3 at 8 AM. However patient states she feels much better today Objective Vitals Vital Signs Date Time Temp Pulse Resp B/P (MAP) Pulse Ox O2 Delivery O2 Flow Rate FiO2 02/25/17 08:00 101.3 90 18 109/58 (75) 90 02/25/17 00:00 98.0 83 20 108/52 (70) 97 02/24/17 20:00 99.6 87 22 108/56 (73) 95 02/24/17 16:00 99.4 82 17 108/55 (72) 95 02/24/17 12:00 98.0 88 17 109/54 (72) 96 I/O 02/24/17 02/24/17 02/24/17 02/25/17 02/25/17 02/25/17 07:00 15:00 23:00 07:00 15:00 23:00 Intake Total 460 ml 100 ml 1960 ml 770 ml Output Total 300 ml Balance 460 ml 100 ml 1660 ml 770 ml Intake Oral 360 ml 960 ml 360 ml IV Total 100 ml 100 ml 1000 ml 410 ml Output Urine Total 300 ml # Voids 2 10 2 # Bowel Movements 0 3 0 Result Diagram: 02/25/1747 02/25/17 0747 Objective Remarks GENERAL: NAD SKIN: Warm and dry. HEAD: Normocephalic. EYES: No scleral icterus. No injection or drainage. NECK: Supple, trachea midline. No JVD or lymphadenopathy. CARDIOVASCULAR: Regular rate and rhythm without murmurs, gallops, or rubs. RESPIRATORY: Breath sounds equal bilaterally. No accessory muscle use. GASTROINTESTINAL: Abdomen soft, non-tender, nondistended. MUSCULOSKELETAL: No cyanosis, or edema. BACK: Nontender without obvious deformity. No CVA tenderness. A/P Problem List: (1) Septic embolism ICD Code: I26.90 - Septic pulmonary embolism without acute cor pulmonale Status: Acute (2) Substance abuse ICD Code: F19.10 - Other psychoactive substance abuse, uncomplicated Status: Acute (3) Sepsis ICD Code: A41.9 - Sepsis, unspecified organism Status: Acute (4) Pneumonia ICD Code: J18.9 - Pneumonia, unspecified organism Status: Acute Assessment and Plan 31-year-old female with 1. Sepsis/endocarditis vs multifocal pneumonia CTA chest showed the focal patchy and nodular airspace disease bilaterally with mild cavitation on the left. Concern for septic emboli versus multifocal pneumonia. Currently on Rocephin and s/p Vancomycin/PCN/Gent Infectious disease ff 2-D echo ruled out endocarditis Will need 6 weeks of Abx on d/c 2. Gram-positive bacteremia Repeat blood culture NTD Infectious disease consultation appreciated Currently on Rocephin and s/p vancomycin/PCN/Gent Will need 6 weeks of Abx on d/c 3. Elevated troponin EKG showed normal sinus rhythm without ST segment elevations or depressions May be secondary to endocarditis ACS ruled out per protocol; monitor serial troponins/EKGs 4. Hyponatremia Continue with NS Monitor electrolytes 5. Hypokalemia Monitor 6. Transaminitis hepatitis profile pending secondary to patient history of IV drug use 7. IV drug abuse Cessation counseling provided 2-D echo without any evidence of endocarditis 8. Right shoulder bursitis Mild cellulitis MRI shoulder noted and review without any evidence of osteomyelitis or abscess Orthopedic surgery consulted and recommended nonoperative medical management in the form of IV antibiotics DVT prophylaxis: Bilateral SCDs Discharge Planning Likely discharge on Monday02/27/17 Problem Qualifiers (1) Pneumonia: Qualified Codes: J18.9 - Pneumonia, unspecified organism Claude Longoria MD Feb 25, 2017 10:06
[2017-02-25 12:00] VITALS: BP 108/63; PULSE 81; RESP 18; TEMP 96.9; O2SAT 93
[2017-02-25] MEDS: cefTRIAXone INJ 2,000 MG in SODIUM CHLORIDE 0.9% INJ 100 ML IV SCH (12:18)
[2017-02-25 16:00] VITALS: BP 107/59; PULSE 84; RESP 18; TEMP 99.6; O2SAT 96
[2017-02-25] MEDS: CALCIUM CARBONATE 500 MG CHEWABLE TAB PO PRN (17:52)
[2017-02-25 20:00] VITALS: BP 109/53; PULSE 99; RESP 18; TEMP 100.5; O2SAT 97
[2017-02-26] VITALS: BP 106/58; PULSE 80; RESP 18; TEMP 98.1; O2SAT 98
[2017-02-26] MEDS: ACETAMINOPHEN/HYDROcodone 325 MG/5 MG TAB PO PRN ×6 (00:54→21:45)
[2017-02-26 07:50] VITALS: BP 100/53; PULSE 70; RESP 20; TEMP 98; O2SAT 98
[2017-02-26] MEDS: SODIUM CHLORIDE 0.9% FLUSH 10 ML FLUSH IV FLUSH SCH ×2 (09:00→20:17)
[2017-02-26 09:27] VITALS: O2SAT 97
--- NOTE | 2017-02-26 11:09 | HHI.PR ---
Subjective Remarks Follow-up septic emboli , multi pneumonia/now bacteremia 02/22/17-patient seen and examined, Tmax 101.6 however not currently afebrile. Blood culture positive 3. 02/23/17-patient seen and examined, Tmax 100.8 at 8 PM however currently afebrile. Complains of chills this morning 02/24/17-patient seen and examined, Tmax 100.4 at 8 PM however currently afebrile. Patient denies any significant right shoulder pain. No acute event overnight. 02/25/17-patient seen and examined, Tmax 101.3 at 8 AM. However patient states she feels much better today 02/26/17-patient seen and examined, afebrile and no acute event overnight. Stable today. Repeat blood culture so far negative to date Objective Vitals Vital Signs Date Time Temp Pulse Resp B/P (MAP) Pulse Ox O2 Delivery O2 Flow Rate FiO2 02/26/17 09:27 97 21 02/26/17 09:11 18 02/26/17 07:50 98.0 70 20 100/53 (69) 98 02/26/17 00:00 98.1 80 18 106/58 (74) 98 02/25/17 20:00 100.5 99 18 109/53 (71) 97 02/25/17 16:00 99.6 84 18 107/59 (75) 96 02/25/17 12:00 96.9 81 18 108/63 (78) 93 I/O 02/25/17 02/25/17 02/25/17 02/26/17 02/26/17 02/26/17 07:00 15:00 23:00 07:00 15:00 23:00 Intake Total 770 ml 840 ml 1000 ml Balance 770 ml 840 ml 1000 ml Intake Oral 360 ml 840 ml IV Total 410 ml 1000 ml # Voids 2 3 5 # Bowel Movements 0 2 Result Diagram: 02/25/17 0747 02/25/17 0747 Imaging Last Impressions Shoulder MRI 02/22/17 0000 Signed Impressions: Service Date/Time: Wednesday, February 22, 2017 18:17 - CONCLUSION: 1. Bursitis at the right shoulder with some soft tissue edematous changes that may indicate mild cellulitis, but no discrete abscess or osteomyelitis identified. Hilario Rose MD Shoulder X-Ray 02/21/17 1817 Signed Impressions: Service Date/Time: Tuesday, February 21, 2017 18:30 - CONCLUSION: Normal examination for a patient of this age. Hilario Rose MD Abdomen/Pelvis CT 02/21/17 1649 Signed Impressions: Service Date/Time: Tuesday, February 21, 2017 19:19 - CONCLUSION: 1. Patchy airspace consolidation at both lung bases. 2. Hepatosplenomegaly. 3. Multiple gallstones biliary ductal dilatation. Questionable diminished perfusion to the kidneys. Cannot exclude nephritis. Hilraio Rose MD Chest X-Ray 02/21/17 1629 Signed Impressions: Service Date/Time: Tuesday, February 21, 2017 17:04 - CONCLUSION: Faint, left perihilar airspace process concerning for an early pneumonic infiltrate. Agustin Busby MD CT Angiography 02/21/17 0000 Signed Impressions: Service Date/Time: Tuesday, February 21, 2017 19:16 - CONCLUSION: 1. Negative for pulmonary embolism. 2. Multifocal patchy and nodular airspace disease in both lungs with some mild cavitation on the left side. Differential diagnosis includes septic embolic disease and multifocal pneumonia. Hilario Rose MD Objective Remarks GENERAL: NAD SKIN: Warm and dry. HEAD: Normocephalic. EYES: No scleral icterus. No injection or drainage. NECK: Supple, trachea midline. No JVD or lymphadenopathy. CARDIOVASCULAR: Regular rate and rhythm without murmurs, gallops, or rubs. RESPIRATORY: Breath sounds equal bilaterally. No accessory muscle use. GASTROINTESTINAL: Abdomen soft, non-tender, nondistended. MUSCULOSKELETAL: No cyanosis, or edema. BACK: Nontender without obvious deformity. No CVA tenderness. A/P Problem List: (1) Septic embolism ICD Code: I26.90 - Septic pulmonary embolism without acute cor pulmonale Status: Acute (2) Substance abuse ICD Code: F19.10 - Other psychoactive substance abuse, uncomplicated Status: Acute (3) Sepsis ICD Code: A41.9 - Sepsis, unspecified organism Status: Acute (4) Pneumonia ICD Code: J18.9 - Pneumonia, unspecified organism Status: Acute Assessment and Plan 31-year-old female with 1. Sepsis/endocarditis vs multifocal pneumonia CTA chest showed the focal patchy and nodular airspace disease bilaterally with mild cavitation on the left. Concern for septic emboli versus multifocal pneumonia. Currently on Rocephin and s/p Vancomycin/PCN/Gent Infectious disease ff 2-D echo ruled out endocarditis Will need 6 weeks of Abx on d/c 2. Gram-positive bacteremia Repeat blood culture NTD x 4 Infectious disease consultation appreciated Currently on Rocephin and s/p vancomycin/PCN/Gent Will need 6 weeks of Abx on d/c 3. Elevated troponin EKG showed normal sinus rhythm without ST segment elevations or depressions May be secondary to endocarditis ACS ruled out per protocol; monitor serial troponins/EKGs 4. Hyponatremia Continue with NS Monitor electrolytes 5. Hypokalemia Monitor 6. Transaminitis hepatitis C antibody positive 7. IV drug abuse Cessation counseling provided 2-D echo without any evidence of endocarditis 8. Right shoulder bursitis Mild cellulitis MRI shoulder noted and review without any evidence of osteomyelitis or abscess Orthopedic surgery consulted and recommended nonoperative medical management in the form of IV antibiotics DVT prophylaxis: Bilateral SCDs Discharge Planning Likely discharge on Monday02/27/17 Problem Qualifiers (1) Pneumonia: Qualified Codes: J18.9 - Pneumonia, unspecified organism Claude Longoria MD Feb 26, 2017 11:09
[2017-02-26 11:50] VITALS: BP 103/65; PULSE 93; RESP 20; TEMP 96; O2SAT 96
[2017-02-26] MEDS: SODIUM CHLOR 0.9% 1000 ML INJ 1,000 ML IV SCH ×2 (12:53→20:17)
[2017-02-26] MEDS: cefTRIAXone INJ 2,000 MG in SODIUM CHLORIDE 0.9% INJ 100 ML IV SCH (13:00)
[2017-02-26 15:50] VITALS: BP 107/53; PULSE 97; RESP 20; TEMP 98.7; O2SAT 96
[2017-02-26 20:00] VITALS: BP 109/54; PULSE 93; RESP 18; TEMP 99.1; O2SAT 97
[2017-02-27] MEDS: ACETAMINOPHEN/HYDROcodone 325 MG/5 MG TAB PO PRN ×5 (02:19→20:34)
[2017-02-27 03:24] VITALS: BP 100/51; PULSE 86; RESP 18; TEMP 97.9; O2SAT 97
[2017-02-27 08:00] VITALS: BP 102/57; PULSE 85; RESP 20; TEMP 95.9; O2SAT 97
[2017-02-27] MEDS: SODIUM CHLORIDE 0.9% FLUSH 10 ML FLUSH IV FLUSH SCH ×2 (09:00→20:36)
[2017-02-27] MEDS: SODIUM CHLOR 0.9% 1000 ML INJ 1,000 ML IV SCH (09:37)
--- NOTE | 2017-02-27 11:35 | HHI.IDPN ---
Subjective Subjective Remarks Patient is a 31-year-old female, presented to the hospital complaining 1 week history of shortness of breath and pain on her left chest and left back. She was also complaining of pain in her right shoulder. She had some subjective fever and chills. He significant respiratory complaint as far as coughing or congestion. She has not had any nausea or vomiting, GI or any urinary complaints. Patient has been using IV drugs in the last 10 years. She is also complaining of pain in her left big toe, and does not remember having any prior history of injury or trauma. Patient underwent CTA of the chest which showed multifocal patchy and nodular airspace disease with some cavitation especially on the left side. She had blood cultures done in the emergency room, and they are now all reported as growing gram-positive cocci in pairs and chains. X-ray of the right shoulder did not show any significant abnormality. Infectious disease consultation has been requested to evaluate the patient. Notes reviewed Last fever was 02/25 Last (+) BC 12 Feeling better No new (+) BC 3 BC on admission (+), B-hemolytic Strep and MSSA MRI shoulder no fluid in joint, has fluid in bursa Antibiotics Current Medications Rocephin Medications (Trade) Dose Ordered Sig/Emili Route Start Time Stop Time Status Last Admin Sodium Chloride 1,000 ml @ 75 mls/hr [id number] IV 02/21/17 23:30 02/27/17 09:37 (NS Flush) 2 ml UNSCH PRN IV FLUSH 02/21/17 20:45 (NS Flush) 2 ml BID IV FLUSH 02/21/17 21:00 02/22/17 20:30 (Tylenol) 650 mg Q4H PRN PO 02/21/17 20:45 02/25/17 08:23 (Zofran Inj) 4 mg Q6H PRN IVP 02/21/17 20:45 (Narcan Inj) 0.4 mg UNSCH PRN IV PUSH 02/21/17 20:45 (Milk Of Magnesia Liq) 30 ml Q12H PRN PO 02/21/17 20:45 ([place] 5-325 Mg) 1 tab Q4H PRN PO 02/22/17 11:00 02/27/17 10:56 Ceftriaxone Sodium 2000 mg/ Sodium Chloride 100 ml @ 200 mls/hr Q24H IV 12/15/17 13:00 02/26/17 13:00 (Tums Chew) 500 mg BID PRN PO 02/25/17 17:15 02/25/17 17:52 Lines PIV Past Medical History 5 pregancies and NSD Tubal ligation Allergies: Coded Allergies: *MDRO Multi-Drug Resistant Organism (Unverified Adverse Reaction, Unknown , 09/11/14) MRSA 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 Objective . Vital Signs Date Time Temp Pulse Resp B/P (MAP) Pulse Ox O2 Delivery O2 Flow Rate FiO2 02/27/17 08:00 95.9 85 20 102/57 (72) 97 02/27/17 03:24 97.9 86 18 100/51 (67) 97 02/26/17 20:00 99.1 93 18 109/54 (72) 97 02/26/17 15:50 98.7 97 20 107/53 (71) 96 02/26/17 14:08 18 02/26/17 11:50 96.0 93 20 103/65 (78) 96 Imaging Last Impressions Shoulder MRI 02/22/17 0000 Signed Impressions: Service Date/Time: Wednesday, February 22, 2017 18:17 - CONCLUSION: 1. Bursitis at the right shoulder with some soft tissue edematous changes that may indicate mild cellulitis, but no discrete abscess or osteomyelitis identified. Hilario Rose MD Shoulder X-Ray 02/21/17 1817 Signed Impressions: Service Date/Time: Tuesday, February 21, 2017 18:30 - CONCLUSION: Normal examination for a patient of this age. Hilario Rose MD Abdomen/Pelvis CT 02/21/17 1649 Signed Impressions: Service Date/Time: Tuesday, February 21, 2017 19:19 - CONCLUSION: 1. Patchy airspace consolidation at both lung bases. 2. Hepatosplenomegaly. 3. Multiple gallstones biliary ductal dilatation. Questionable diminished perfusion to the kidneys. Cannot exclude nephritis. Hilario Rose MD Chest X-Ray 02/21/17 1629 Signed Impressions: Service Date/Time: Tuesday, February 21, 2017 17:04 - CONCLUSION: Faint, left perihilar airspace process concerning for an early pneumonic infiltrate. Agustin Busby MD CT Angiography 02/21/17 0000 Signed Impressions: Service Date/Time: Tuesday, February 21, 2017 19:16 - CONCLUSION: 1. Negative for pulmonary embolism. 2. Multifocal patchy and nodular airspace disease in both lungs with some mild cavitation on the left side. Differential diagnosis includes septic embolic disease and multifocal pneumonia. Hilario Rose MD Physical Exam GENERAL: awake and alert, not in respiratory distress. SKIN: Warm and dry. No generalized rash, no ecchymoses and no evidence of embolic lesions. HEAD: Atraumatic. Normocephalic. No temporal wasting, or tenderness. EYES: Raoul conjunctiva. No petechia or hemorrhage. Pupils equal, round and reactive to light. Extraocular movements full and intact. No scleral icterus. No injection or drainage. EARS, NOSE AND THROAT: Nose without bleeding or purulent nasal discharge. No sinus tenderness. Mucous membranes pink and moist. No oral lesions noted. Has poor dentition. NECK: Trachea midline. Supple and not tender, no meningeal signs CARDIOVASCULAR: Regular rate and rhythm. No murmurs, rubs or gallops heard RESPIRATORY: Clear to auscultation. Breath sounds equal bilaterally. No rales , wheezing or rhonchi ABDOMEN: Soft, non-tender, nondistended. Bowel sounds present and normoactive. No guarding. No rebound. No organomegaly. EXTREMITIES: No clubbing, cyanosis, or edema. Has min swelling on R shoulder , ROM better NEUROLOGICAL: Awake and alert. Cranial nerves grossly intact. Motor grossly within normal limits. PSYCHIATRIC: Normal affect, calm and cooperative. LINE: No evidence of infection Assessment & Plan Remarks IMPRESSION Sepsis with Strep and MSSA very worrisome for endocarditis - has findings suggestive of septic emboli on CT Right shoulder pain and swelling, better low grade temps Known IVDU RECOMMENDATION Continue IV Rocephin Spoke with CM - to have patient evel for patient assistance Spoke with patient about plan - she will be staying with a friend (Who does not use IVD, has transportation to bring her to infusion clinic) Told her the dangers of using IV outside the intended plan of IV Abx to Rx her infection She will need to sign forms regarding PICC and not to use outside hospital Follow temps Monitor progress If temps normal overnight, place PICC tomorrow and D/C Complete 6 weeks IV Abx in infusion clinic End date Apr 03; labs weekly, CBC, creat and LFT Explained plan to patient Spoke with Gloria Charles MD Feb 27, 2017 11:35
[2017-02-27 12:00] VITALS: BP 101/58; PULSE 89; RESP 19; TEMP 96; O2SAT 100
[2017-02-27] MEDS: cefTRIAXone INJ 2,000 MG in SODIUM CHLORIDE 0.9% INJ 100 ML IV SCH (13:19)
--- NOTE | 2017-02-27 15:36 | HHI.PR ---
Subjective Remarks The patient says her back was hurting her and she was waiting for more pain meds. She also requested an extra warm blanket. She said she had a low-grade fever. No other acute concerns. Objective Vitals Vital Signs Date Time Temp Pulse Resp B/P (MAP) Pulse Ox O2 Delivery O2 Flow Rate FiO2 02/27/17 12:00 96.0 89 19 101/58 (72) 100 02/27/17 08:00 95.9 85 20 102/57 (72) 97 02/27/17 03:24 97.9 86 18 100/51 (67) 97 02/26/17 20:00 99.1 93 18 109/54 (72) 97 02/26/17 15:50 98.7 97 20 107/53 (71) 96 I/O 02/26/17 02/26/17 02/26/17 02/27/17 02/27/17 02/27/17 07:00 15:00 23:00 07:00 15:00 23:00 Intake Total 1000 ml 1760 ml Balance 1000 ml 1760 ml Intake Oral 960 ml IV Total 1000 ml 800 ml # Voids 5 9 # Bowel Movements 1 Result Diagram: 02/25/17 0747 02/25/17 0747 Imaging Last Impressions Shoulder MRI 02/22/17 0000 Signed Impressions: Service Date/Time: Wednesday, February 22, 2017 18:17 - CONCLUSION: 1. Bursitis at the right shoulder with some soft tissue edematous changes that may indicate mild cellulitis, but no discrete abscess or osteomyelitis identified. Hilario Rose MD Shoulder X-Ray 02/21/17 1817 Signed Impressions: Service Date/Time: Tuesday, February 21, 2017 18:30 - CONCLUSION: Normal examination for a patient of this age. Hilario Rose MD Abdomen/Pelvis CT 02/21/17 1649 Signed Impressions: Service Date/Time: Tuesday, February 21, 2017 19:19 - CONCLUSION: 1. Patchy airspace consolidation at both lung bases. 2. Hepatosplenomegaly. 3. Multiple gallstones biliary ductal dilatation. Questionable diminished perfusion to the kidneys. Cannot exclude nephritis. Hilario Rose MD Chest X-Ray 02/21/17 1629 Signed Impressions: Service Date/Time: Alison, February 21, 2017 17:04 - CONCLUSION: Faint, left perihilar airspace process concerning for an early pneumonic infiltrate. Agustin Busby MD CT Angiography 02/21/17 0000 Signed Impressions: Service Date/Time: Tuesday, February 21, 2017 19:16 - CONCLUSION: 1. Negative for pulmonary embolism. 2. Multifocal patchy and nodular airspace disease in both lungs with some mild cavitation on the left side. Differential diagnosis includes septic embolic disease and multifocal pneumonia. Hilario Rose MD Objective Remarks GENERAL: NAD SKIN: Warm and dry. HEAD: Normocephalic. EYES: No scleral icterus. No injection or drainage. NECK: Supple, trachea midline. No JVD or lymphadenopathy. CARDIOVASCULAR: Regular rate and rhythm without murmurs, gallops, or rubs. RESPIRATORY: Breath sounds equal bilaterally. No accessory muscle use. GASTROINTESTINAL: Abdomen soft, non-tender, nondistended. MUSCULOSKELETAL: No cyanosis, or edema. BACK: Nontender without obvious deformity. No CVA tenderness. Medications and IVs Current Medications Medications (Trade) Dose Ordered Sig/Emili Route Start Time Stop Time Status Last Admin Sodium Chloride 1,000 ml @ 75 mls/hr [id number] IV 02/21/17 23:30 02/27/17 09:37 (NS Flush) 2 ml UNSCH PRN IV FLUSH 02/21/17 20:45 (NS Flush) 2 ml BID IV FLUSH 02/21/17 21:00 02/22/17 20:30 (Tylenol) 650 mg Q4H PRN PO 02/21/17 20:45 02/25/17 08:23 (Zofran Inj) 4 mg Q6H PRN IVP 02/21/17 20:45 (Narcan Inj) 0.4 mg UNSCH PRN IV PUSH 02/21/17 20:45 (Milk Of Magnesia Liq) 30 ml Q12H PRN PO 02/21/17 20:45 ([place] 5-325 Mg) 1 tab Q4H PRN PO 02/22/17 11:00 02/27/17 10:56 Ceftriaxone Sodium 2000 mg/ Sodium Chloride 100 ml @ 200 mls/hr Q24H IV 02/24/17 13:00 02/27/17 13:19 (Tums Chew) 500 mg BID PRN PO 02/25/17 17:15 12/16/17 17:52 A/P Problem List: (1) Septic embolism ICD Code: I26.90 - Septic pulmonary embolism without acute cor pulmonale Status: Acute (2) Substance abuse ICD Code: F19.10 - Other psychoactive substance abuse, uncomplicated Status: Acute (3) Sepsis ICD Code: A41.9 - Sepsis, unspecified organism Status: Acute (4) Pneumonia ICD Code: J18.9 - Pneumonia, unspecified organism Status: Acute Assessment and Plan 31-year-old female with 1. Sepsis/endocarditis vs multifocal pneumonia CTA chest showed the focal patchy and nodular airspace disease bilaterally with mild cavitation on the left. Concern for septic emboli versus multifocal pneumonia. Currently on Rocephin and s/p Vancomycin/PCN/Gent Infectious disease ff 2-D echo ruled out endocarditis Will need 6 weeks of Abx on d/c. PICC line to be placed 02/28 if afebrile overnight. 2. Gram-positive bacteremia Repeat blood culture NTD x 4 Infectious disease consultation appreciated Currently on Rocephin and s/p vancomycin/PCN/Gent Will need 6 weeks of Abx on d/c 3. Elevated troponin EKG showed normal sinus rhythm without ST segment elevations or depressions May be secondary to endocarditis ACS ruled out per protocol; monitor serial troponins/EKGs 4. Hyponatremia Continue with NS Monitor electrolytes 5. Hypokalemia Monitor 6. Transaminitis hepatitis C antibody positive 7. IV drug abuse Cessation counseling provided 2-D echo without any evidence of endocarditis 8. Right shoulder bursitis Mild cellulitis MRI shoulder noted and review without any evidence of osteomyelitis or abscess Orthopedic surgery consulted and recommended nonoperative medical management in the form of IV antibiotics. Outpt follow-up. DVT prophylaxis: Bilateral SCDs Problem Qualifiers (1) Pneumonia: Qualified Codes: J18.9 - Pneumonia, unspecified organism Matty Camacho DO Feb 27, 2017 15:36
[2017-02-27 16:00] VITALS: BP 126/64; PULSE 88; RESP 17; TEMP 100.2; O2SAT 98
[2017-02-27 20:05] VITALS: BP 115/57; PULSE 80; RESP 18; TEMP 100.6; O2SAT 96
[2017-02-28] VITALS: BP 114/55; PULSE 83; RESP 18; TEMP 100.2; O2SAT 98
[2017-02-28] MEDS: SODIUM CHLOR 0.9% 1000 ML INJ 1,000 ML IV SCH ×2 (01:17→12:14)
[2017-02-28] MEDS: ACETAMINOPHEN/HYDROcodone 325 MG/5 MG TAB PO PRN ×4 (04:48→22:09)
[2017-02-28 08:00] VITALS: BP 94/52; PULSE 76; RESP 16; TEMP 95.8; O2SAT 99
[2017-02-28] MEDS: SODIUM CHLORIDE 0.9% FLUSH 10 ML FLUSH IV FLUSH SCH ×2 (08:57→21:00)
--- NOTE | 2017-02-28 09:11 | HHI.IDPN ---
Subjective Subjective Remarks Patient is a 31-year-old female, presented to the hospital complaining 1 week history of shortness of breath and pain on her left chest and left back. She was also complaining of pain in her right shoulder. She had some subjective fever and chills. He significant respiratory complaint as far as coughing or congestion. She has not had any nausea or vomiting, GI or any urinary complaints. Patient has been using IV drugs in the last 10 years. She is also complaining of pain in her left big toe, and does not remember having any prior history of injury or trauma. Patient underwent CTA of the chest which showed multifocal patchy and nodular airspace disease with some cavitation especially on the left side. She had blood cultures done in the emergency room, and they are now all reported as growing gram-positive cocci in pairs and chains. X-ray of the right shoulder did not show any significant abnormality. Infectious disease consultation has been requested to evaluate the patient. Notes reviewed Still with low grade temps Feeling better Not coughing much, not SOB, pain under control No rash or itching No N/V/D Voiding ok R shoulder better Last (+) BC 02/21 No new (+) BC 3 BC on admission (+), B-hemolytic Strep and MSSA MRI shoulder no fluid in joint, has fluid in bursa Antibiotics Current Medications Rocephin Medications (Trade) Dose Ordered Sig/Emili Route Start Time Stop Time Status Last Admin Sodium Chloride 1,000 ml @ 75 mls/hr [id number] IV 02/21/17 23:30 02/28/17 01:17 (NS Flush) 2 ml UNSCH PRN IV FLUSH 02/21/17 20:45 (NS Flush) 2 ml BID IV FLUSH 02/21/17 21:00 02/27/17 20:36 (Tylenol) 650 mg Q4H PRN PO 02/21/17 20:45 02/25/17 08:23 (Zofran Inj) 4 mg Q6H PRN IVP 02/21/17 20:45 (Narcan Inj) 0.4 mg UNSCH PRN IV PUSH 02/21/17 20:45 (Milk Of Magnesia Liq) 30 ml Q12H PRN PO 02/21/17 20:45 ([place] 5-325 Mg) 1 tab Q4H PRN PO 02/22/17 11:00 02/28/17 04:48 Ceftriaxone Sodium 2000 mg/ Sodium Chloride 100 ml @ 200 mls/hr Q24H IV 02/24/17 13:00 02/27/17 13:19 (Tums Chew) 500 mg BID PRN PO 02/25/17 17:15 02/25/17 17:52 Lines PIV Past Medical History 5 pregancies and NSD Tubal ligation Allergies: Coded Allergies: *MDRO Multi-Drug Resistant Organism (Unverified Adverse Reaction, Unknown , 09/11/14) MRSA 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 Objective . Vital Signs Date Time Temp Pulse Resp B/P (MAP) Pulse Ox O2 Delivery O2 Flow Rate FiO2 02/28/17 08:00 95.8 76 16 94/52 (66) 99 02/28/17 00:00 100.2 83 18 114/55 (74) 98 02/27/17 20:05 100.6 80 18 115/57 (76) 96 02/27/17 16:00 100.2 88 17 126/64 (84) 98 02/27/17 12:00 96.0 89 19 101/58 (72) 100 Imaging Last Impressions Shoulder MRI 02/22/17 0000 Signed Impressions: Service Date/Time: Wednesday, February 22, 2017 18:17 - CONCLUSION: 1. Bursitis at the right shoulder with some soft tissue edematous changes that may indicate mild cellulitis, but no discrete abscess or osteomyelitis identified. Hilario Rsoe MD Shoulder X-Ray 02/21/17 1817 Signed Impressions: Service Date/Time: Tuesday, February 21, 2017 18:30 - CONCLUSION: Normal examination for a patient of this age. Hilario Rose MD Abdomen/Pelvis CT 02/21/17 1649 Signed Impressions: Service Date/Time: Tuesday, February 21, 2017 19:19 - CONCLUSION: 1. Patchy airspace consolidation at both lung bases. 2. Hepatosplenomegaly. 3. Multiple gallstones biliary ductal dilatation. Questionable diminished perfusion to the kidneys. Cannot exclude nephritis. Hilario Rose MD Chest X-Ray 02/21/17 1629 Signed Impressions: Service Date/Time: Tuesday, February 21, 2017 17:04 - CONCLUSION: Faint, left perihilar airspace process concerning for an early pneumonic infiltrate. Agustin Busby MD CT Angiography 02/21/17 0000 Signed Impressions: Service Date/Time: Tuesday, February 21, 2017 19:16 - CONCLUSION: 1. Negative for pulmonary embolism. 2. Multifocal patchy and nodular airspace disease in both lungs with some mild cavitation on the left side. Differential diagnosis includes septic embolic disease and multifocal pneumonia. Hilario Rose MD Physical Exam GENERAL: awake and alert, not in respiratory distress. SKIN: Warm and dry. No generalized rash, no ecchymoses and no evidence of embolic lesions. HEAD: Atraumatic. Normocephalic. No temporal wasting, or tenderness. EYES: [place] conjunctiva. No petechia or hemorrhage. Pupils equal, round and reactive to light. Extraocular movements full and intact. No scleral icterus. No injection or drainage. EARS, NOSE AND THROAT: Nose without bleeding or purulent nasal discharge. No sinus tenderness. Mucous membranes pink and moist. No oral lesions noted. Has poor dentition. NECK: Trachea midline. Supple and not tender, no meningeal signs CARDIOVASCULAR: Regular rate and rhythm. No murmurs, rubs or gallops heard RESPIRATORY: Decreased BS bases, worse on L ABDOMEN: Soft, non-tender, nondistended. Bowel sounds present and normoactive. No guarding. No rebound. No organomegaly. EXTREMITIES: No clubbing, cyanosis, or edema. Has min swelling on R shoulder , ROM better NEUROLOGICAL: Awake and alert. Cranial nerves grossly intact. Motor grossly within normal limits. PSYCHIATRIC: Normal affect, calm and cooperative. LINE: No evidence of infection Assessment & Plan Remarks IMPRESSION Sepsis with Strep and MSSA very worrisome for endocarditis - has findings suggestive of septic emboli on CT Right shoulder pain and swelling, better low grade temps Known IVDU RECOMMENDATION Continue IV Rocephin - plan till Apr 03 - labs weekly while on Abx: CBC, creat, LFT Repeat CXR, to evaluate infiltrates CBC Spoke with patient about plan - she will be staying with a friend (Who does not use IVD, has transportation to bring her to infusion clinic) Told her the dangers of using IV outside the intended plan of IV Abx to Rx her infection She will need to sign forms regarding PICC and not to use outside hospital Follow temps Monitor progress If temps normal overnight, place PICC tomorrow and D/C Complete 6 weeks IV Abx in infusion clinic End date Apr 03; labs weekly, CBC, creat and LFT I have filled out infusion form Explained plan to patient Gloria Gomez MD Feb 28, 2017 09:11
--- NOTE | 2017-02-28 09:13 | HHI.FF ---
Infusion Therapy Location of Infusion Therapy: Ambulatory Infusion Therapy Order Patient Information Patient Weight 55.3 kg Diagnosis: Diagnosis Strep and MSSA sepsis with septic lung emboli Coded Allergies: *MDRO Multi-Drug Resistant Organism (Unverified Adverse Reaction, Unknown , 09/11/14) MRSA 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 Administer Medication Ceftriaxone 2 grams IV q 24 hours Stop Treatment: Apr 03, 2017 Additional Information Venous access: PICC Line Additional Instructions [x] Peripheral flush and dressing changes per protocol [x] Implanted port and central commercial lines insurance agent: * Implanted port: 10 ml Normal Saline followed by 5 ml Heparin 100 units/ml Heparin flush after each use and monthly to maintain. [] May leave port accessed during therapy. [] May leave peripheral site accessed for duration of therapy. [x] If patient has SOB or respiratory distress, check oxygen saturation. If less than 90% or clinical signs of respiratory distress, administer oxygen at 2 L/min. via nasal cannula and notify physician. [x] Anaphylaxis/Reaction orders: * Stop infusion. * Keep IV line open with saline flush. * Notify physician. * Monitor vital signs every 15 minutes until symptoms resolve. * Check Oxygen saturation; Oxygen at 2 L/min. via nasal cannula if less than 90% or clinical signs of respiratory distress. * Administer diphenhydramine (Benadryl) 25 mg IV STAT, (unless patient has received as pre-med). May repeat once, if necessary. * Solu-Cortef 250 mg IVP over 30-60 seconds, use 100 mg vials for each dissolution. * Epinephrine (1mg/1 ml) 0.3 mg subcutaneously or IVP now with any signs of respiratory distress. * Check with physician for new additional pre-med orders if patient is re- challenged or re-treated. [x] May remove PICC line when treatment complete, after confirming with Physician. [x] If the patient is admitted to the hospital, the ED, or transferred via [facility] , complete transfer form including medication reconciliation order sheet. Laboratory Tests Weekly Labs: CBC w/diff, Creatinine, LFT's (Hepatic function test) (Labs every Monday) Gloria Gomez MD Feb 28, 2017 09:12
[2017-02-28 11:35] LABS: BICARBONATE 22.4 MEQ/L (21.0-32.0); CALCIUM 8.5 MG/DL (8.5-10.1); CREATININE 0.44 MG/DL (0.50-1.00); MAGNESIUM 2.1 MG/DL (1.5-2.5)
[2017-02-28 12:00] VITALS: BP 104/54; PULSE 82; RESP 16; TEMP 96.8; O2SAT 98
[2017-02-28] MEDS: cefTRIAXone INJ 2,000 MG in SODIUM CHLORIDE 0.9% INJ 100 ML IV SCH (12:10)
--- NOTE | 2017-02-28 14:34 | RADRPT ---
EXAM DATE/TIME: 02/28/2017 13:52 [facility] COMPARISON: CHEST SINGLE AP, February 21, 2017, 17:04. INDICATIONS : Fever and chest pain MEDICAL HISTORY : None. SURGICAL HISTORY : Tubal ligation. ENCOUNTER: Subsequent ACUITY: 2 weeks PAIN SCORE: 6/10 LOCATION: Left chest FINDINGS: PA and lateral views of the chest show a moderate sized loculated left pleural effusion with associat ed consolidation of the adjacent left lower lobe and lingula. This has progressed considerably from t he prior study. A vague parenchymal consolidation is new within the subpleural aspects of the right m idlung and right upper lobe. No effusion on the right. Heart is normal in size. Bony structures are u nremarkable. CONCLUSION: 1. Development of a moderate-sized left pleural effusion with consolidation of the left lower lobe an d lingula as well as new consolidations involving left mid lung and upper lobe. Infectious etiology i s suspected. Dedrick Rutherford Jr., MD on February 28, 2017 at 14:30 Board Certified Radiologist. This report was verified electronically.
[2017-02-28 16:00] VITALS: BP 104/56; PULSE 101; RESP 16; TEMP 100.4; O2SAT 96
--- NOTE | 2017-02-28 16:58 | HHI.PR ---
Subjective Remarks The patient came back from having a chest x-ray done. She requested that the heat be turned up in her room. No acute complaints. Objective Vitals Vital Signs Date Time Temp Pulse Resp B/P (MAP) Pulse Ox O2 Delivery O2 Flow Rate FiO2 02/28/17 12:00 96.8 82 16 104/54 (71) 98 02/28/17 08:00 95.8 76 16 94/52 (66) 99 02/28/17 00:00 100.2 83 18 114/55 (74) 98 02/27/17 20:05 100.6 80 18 115/57 (76) 96 I/O 02/27/17 02/27/17 02/27/17 02/28/17 02/28/17 02/28/17 07:00 15:00 23:00 07:00 15:00 23:00 Intake Total 1100 ml 1420 ml 740 ml 850 ml Balance 1100 ml 1420 ml 740 ml 850 ml Intake Oral 920 ml 240 ml IV Total 1100 ml 500 ml 500 ml 850 ml # Voids 7 2 # Bowel Movements 1 Result Diagram: 02/25/17 0747 02/28/17 1015 Imaging Last Impressions Chest X-Ray 02/28/17 0000 Signed Impressions: Service Date/Time: Tuesday, February 28, 2017 13:52 - CONCLUSION: 1. Development of a moderate-sized left pleural effusion with consolidation of the left lower lobe and lingula as well as new consolidations involving left mid lung and upper lobe. Infectious etiology is suspected. Dedrick Rutherford Jr., MD Shoulder MRI 02/22/17 0000 Signed Impressions: Service Date/Time: Wednesday, February 22, 2017 18:17 - CONCLUSION: 1. Bursitis at the right shoulder with some soft tissue edematous changes that may indicate mild cellulitis, but no discrete abscess or osteomyelitis identified. Hilario Rose MD Shoulder X-Ray 02/21/17 1817 Signed Impressions: Service Date/Time: Tuesday, February 21, 2017 18:30 - CONCLUSION: Normal examination for a patient of this age. Hilario Rose MD Abdomen/Pelvis CT 02/21/17 1649 Signed Impressions: Service Date/Time: Tuesday, February 21, 2017 19:19 - CONCLUSION: 1. Patchy airspace consolidation at both lung bases. 2. Hepatosplenomegaly. 3. Multiple gallstones biliary ductal dilatation. Questionable diminished perfusion to the kidneys. Cannot exclude nephritis. Hilario Rose MD CT Angiography 02/21/17 0000 Signed Impressions: Service Date/Time: Tuesday, February 21, 2017 19:16 - CONCLUSION: 1. Negative for pulmonary embolism. 2. Multifocal patchy and nodular airspace disease in both lungs with some mild cavitation on the left side. Differential diagnosis includes septic embolic disease and multifocal pneumonia. Hilario Rose MD Objective Remarks GENERAL: NAD SKIN: Warm and dry. HEAD: Normocephalic. EYES: No scleral icterus. No injection or drainage. NECK: Supple, trachea midline. No JVD or lymphadenopathy. CARDIOVASCULAR: Regular rate and rhythm without murmurs, gallops, or rubs. RESPIRATORY: Breath sounds equal bilaterally. No accessory muscle use. GASTROINTESTINAL: Abdomen soft, non-tender, nondistended. MUSCULOSKELETAL: No cyanosis, or edema. BACK: Nontender without obvious deformity. No CVA tenderness. Medications and IVs Current Medications Medications (Trade) Dose Ordered Sig/Emili Route Start Time Stop Time Status Last Admin Sodium Chloride 1,000 ml @ 75 mls/hr [id number] IV 02/21/17 23:30 02/28/17 12:14 (NS Flush) 2 ml UNSCH PRN IV FLUSH 02/21/17 20:45 (NS Flush) 2 ml BID IV FLUSH 02/21/17 21:00 02/27/17 20:36 (Tylenol) 650 mg Q4H PRN PO 02/21/17 20:45 02/25/17 08:23 (Zofran Inj) 4 mg Q6H PRN IVP 02/21/17 20:45 (Narcan Inj) 0.4 mg UNSCH PRN IV PUSH 02/21/17 20:45 (Milk Of Magnesia Liq) 30 ml Q12H PRN PO 02/21/17 20:45 ([place] 5-325 Mg) 1 tab Q4H PRN PO 02/22/17 11:00 02/28/17 16:25 Ceftriaxone Sodium 2000 mg/ Sodium Chloride 100 ml @ 200 mls/hr Q24H IV 02/24/17 13:00 02/28/17 12:10 (Tums Chew) 500 mg BID PRN PO 02/25/17 17:15 12/16/17 17:52 A/P Problem List: (1) Septic embolism ICD Code: I26.90 - Septic pulmonary embolism without acute cor pulmonale Status: Acute (2) Substance abuse ICD Code: F19.10 - Other psychoactive substance abuse, uncomplicated Status: Acute (3) Sepsis ICD Code: A41.9 - Sepsis, unspecified organism Status: Acute (4) Pneumonia ICD Code: J18.9 - Pneumonia, unspecified organism Status: Acute Assessment and Plan 31-year-old female with 1. Sepsis/endocarditis vs multifocal pneumonia CTA chest showed the focal patchy and nodular airspace disease bilaterally with mild cavitation on the left. Concern for septic emboli versus multifocal pneumonia. CXR 02/28 showed: Development of a moderate-sized left pleural effusion with consolidation of the left lower lobe and lingula as well as new consolidations involving left mid lung and upper lobe. Infectious etiology is suspected. - Currently on Rocephin and s/p Vancomycin/PCN/Gent - Infectious disease ff - 2-D echo ruled out endocarditis - Will need 6 weeks of Abx on d/c. - pulmonology consult pending. 2. Gram-positive bacteremia Repeat blood culture NTD x 4 Infectious disease consultation appreciated Currently on Rocephin and s/p vancomycin/PCN/Gent Will need 6 weeks of Abx on d/c 3. Elevated troponin EKG showed normal sinus rhythm without ST segment elevations or depressions May be secondary to endocarditis ACS ruled out per protocol; monitor serial troponins/EKGs 4. Hyponatremia Continue with NS Monitor electrolytes 5. Hypokalemia Monitor 6. Transaminitis hepatitis C antibody positive 7. IV drug abuse Cessation counseling provided 2-D echo without any evidence of endocarditis 8. Right shoulder bursitis Mild cellulitis MRI shoulder noted and review without any evidence of osteomyelitis or abscess Orthopedic surgery consulted and recommended nonoperative medical management in the form of IV antibiotics. Outpt follow-up. DVT prophylaxis: Bilateral SCDs Discharge Planning Awaiting pulmonology evaluation Problem Qualifiers (1) Pneumonia: Qualified Codes: J18.9 - Pneumonia, unspecified organism Matty Camacho DO Feb 28, 2017 16:58
[2017-02-28 17:48] LABS: AUTOMATED NEUTROPHIL # 10.4 TH/MM3 (1.8-7.7); BASOPHIL # 0.1 TH/MM3 (0-0.2); BASOPHIL % 0.8 % (0.0-2.0); EOSINOPHIL # 0.2 TH/MM3 (0-0.4); EOSINOPHIL % 1.3 % (0.0-4.0); HEMATOCRIT 28.3 % (35.0-46.0); HEMOGLOBIN 9.3 GM/DL (11.6-15.3); LYMPH % 11.8 % (9.0-44.0); LYMPHOCYTE # 1.6 TH/MM3 (1.0-4.8); MEAN CELL VOLUME 83.6 FL (80.0-100.0); MEAN CORPUSCULAR HEMOGLOBIN 27.3 PG (27.0-34.0); MEAN CORPUSCULAR HGB CONC 32.7 % (32.0-36.0); MEAN PLATELET VOLUME 7.1 FL (7.0-11.0); MONO % 8.9 % (0.0-8.0); MONOCYTE # 1.2 TH/MM3 (0-0.9); NEUT % 77.2 % (16.0-70.0); PLATELET COUNT 438 TH/MM3 (150-450); RED BLOOD COUNT 3.39 MIL/MM3 (4.00-5.30); WHITE BLOOD COUNT 13.5 TH/MM3 (4.0-11.0)
[2017-02-28 20:00] VITALS: BP 100/52; PULSE 93; RESP 22; TEMP 99.8; O2SAT 96
[2017-03-01] VITALS: BP 109/57; PULSE 91; RESP 17; TEMP 99.3; O2SAT 97
[2017-03-01 04:00] VITALS: BP 116/55; PULSE 72; RESP 16; TEMP 99.2; O2SAT 96
[2017-03-01] MEDS: SODIUM CHLOR 0.9% 1000 ML INJ 1,000 ML IV SCH ×2 (04:01→15:05)
[2017-03-01 08:00] VITALS: BP 109/59; PULSE 82; RESP 17; TEMP 97.2; O2SAT 99
[2017-03-01] MEDS: SODIUM CHLORIDE 0.9% FLUSH 10 ML FLUSH IV FLUSH SCH ×2 (09:04→20:49)
[2017-03-01] MEDS: ACETAMINOPHEN/HYDROcodone 325 MG/5 MG TAB PO PRN ×3 (09:42→20:49)
[2017-03-01 12:00] VITALS: BP 111/63; PULSE 78; RESP 17; TEMP 96.7; O2SAT 100
[2017-03-01] MEDS: cefTRIAXone INJ 2,000 MG in SODIUM CHLORIDE 0.9% INJ 100 ML IV SCH (12:46)
[2017-03-01 16:00] VITALS: BP 113/65; PULSE 77; RESP 17; TEMP 96.9; O2SAT 99
--- NOTE | 2017-03-01 16:07 | HHI.PR ---
Subjective Remarks The patient was feeling better today. She was hoping to go home soon. She said she will have her friend help her out around the house. No acute complaints. Objective Vitals Vital Signs Date Time Temp Pulse Resp B/P (MAP) Pulse Ox O2 Delivery O2 Flow Rate FiO2 03/01/17 12:00 96.7 78 17 111/63 (79) 100 03/01/17 08:00 97.2 82 17 109/59 (76) 99 03/01/17 04:00 99.2 72 16 116/55 (75) 96 03/01/17 00:00 99.3 91 17 109/57 (74) 97 02/28/17 20:00 99.8 93 22 100/52 (68) 96 I/O 02/28/17 02/28/17 02/28/17 03/01/17 03/01/17 03/01/17 07:00 15:00 23:00 07:00 15:00 23:00 Intake Total 740 ml 850 ml 800 ml 1780 ml Balance 740 ml 850 ml 800 ml 1780 ml Intake Oral 240 ml 800 ml 780 ml IV Total 500 ml 850 ml 1000 ml # Voids 2 8 3 # Bowel Movements 1 Result Diagram: 02/28/17 1725 02/28/17 1015 Imaging Last Impressions Chest X-Ray 02/28/17 0000 Signed Impressions: Service Date/Time: Tuesday, February 28, 2017 13:52 - CONCLUSION: 1. Development of a moderate-sized left pleural effusion with consolidation of the left lower lobe and lingula as well as new consolidations involving left mid lung and upper lobe. Infectious etiology is suspected. Dedrick Rutherford Jr., MD Shoulder MRI 02/22/17 0000 Signed Impressions: Service Date/Time: Wednesday, February 22, 2017 18:17 - CONCLUSION: 1. Bursitis at the right shoulder with some soft tissue edematous changes that may indicate mild cellulitis, but no discrete abscess or osteomyelitis identified. Hilario Rose MD Shoulder X-Ray 02/21/171816 Signed Impressions: Service Date/Time: Tuesday, February 21, 2017 18:30 - CONCLUSION: Normal examination for a patient of this age. Hilario Rose MD Abdomen/Pelvis CT 02/21/17 1649 Signed Impressions: Service Date/Time: Tuesday, February 21, 2017 19:19 - CONCLUSION: 1. Patchy airspace consolidation at both lung bases. 2. Hepatosplenomegaly. 3. Multiple gallstones biliary ductal dilatation. Questionable diminished perfusion to the kidneys. Cannot exclude nephritis. Hilario Rose MD CT Angiography 02/21/17 0000 Signed Impressions: Service Date/Time: Tuesday, February 21, 2017 19:16 - CONCLUSION: 1. Negative for pulmonary embolism. 2. Multifocal patchy and nodular airspace disease in both lungs with some mild cavitation on the left side. Differential diagnosis includes septic embolic disease and multifocal pneumonia. Hilario Rose MD Objective Remarks GENERAL: NAD SKIN: Warm and dry. HEAD: Normocephalic. EYES: No scleral icterus. No injection or drainage. NECK: Supple, trachea midline. No JVD or lymphadenopathy. CARDIOVASCULAR: Regular rate and rhythm without murmurs, gallops, or rubs. RESPIRATORY: Breath sounds equal bilaterally. No accessory muscle use. GASTROINTESTINAL: Abdomen soft, non-tender, nondistended. MUSCULOSKELETAL: No cyanosis, or edema. BACK: Nontender without obvious deformity. No CVA tenderness. Medications and IVs Current Medications Medications (Trade) Dose Ordered Sig/Emili Route Start Time Stop Time Status Last Admin Sodium Chloride 1,000 ml @ 75 mls/hr [id number] IV 02/21/17 23:30 03/01/17 15:05 (NS Flush) 2 ml UNSCH PRN IV FLUSH 02/21/17 20:45 (NS Flush) 2 ml BID IV FLUSH 02/21/17 21:00 02/27/17 20:36 (Tylenol) 650 mg Q4H PRN PO 02/21/17 20:45 02/25/17 08:23 (Zofran Inj) 4 mg Q6H PRN IVP 02/21/17 20:45 (Narcan Inj) 0.4 mg UNSCH PRN IV PUSH 02/21/17 20:45 (Milk Of Magnesia Liq) 30 ml Q12H PRN PO 02/21/17 20:45 ([place] 5-325 Mg) 1 tab Q4H PRN PO 02/22/17 11:00 03/01/17 15:06 Ceftriaxone Sodium 2000 mg/ Sodium Chloride 100 ml @ 200 mls/hr Q24H IV 02/24/17 13:00 03/01/17 12:46 (Tums Chew) 500 mg BID PRN PO 02/25/17 17:15 02/25/17 17:52 A/P Problem List: (1) Septic embolism ICD Code: I26.90 - Septic pulmonary embolism without acute cor pulmonale Status: Acute (2) Substance abuse ICD Code: F19.10 - Other psychoactive substance abuse, uncomplicated Status: Acute (3) Sepsis ICD Code: A41.9 - Sepsis, unspecified organism Status: Acute (4) Pneumonia ICD Code: J18.9 - Pneumonia, unspecified organism Status: Acute Assessment and Plan 31-year-old female with 1. Sepsis/endocarditis vs multifocal pneumonia CTA chest showed the focal patchy and nodular airspace disease bilaterally with mild cavitation on the left. Concern for septic emboli versus multifocal pneumonia. CXR 02/28 showed: Development of a moderate-sized left pleural effusion with consolidation of the left lower lobe and lingula as well as new consolidations involving left mid lung and upper lobe. Infectious etiology is suspected. - Currently on Rocephin and s/p Vancomycin/PCN/Gent - Infectious disease ff - 2-D echo ruled out endocarditis - Will need 6 weeks of Abx on d/c. - pulmonology consult pending. 2. Gram-positive bacteremia Repeat blood culture NTD x 4 Infectious disease consultation appreciated Currently on Rocephin and s/p vancomycin/PCN/Gent Will need 6 weeks of Abx on d/c 3. Elevated troponin EKG showed normal sinus rhythm without ST segment elevations or depressions May be secondary to endocarditis ACS ruled out per protocol; monitor serial troponins/EKGs 4. Hyponatremia Continue with NS Monitor electrolytes 5. Hypokalemia Monitor 6. Transaminitis hepatitis C antibody positive - outpt follow-up 7. IV drug abuse Cessation counseling provided 2-D echo without any evidence of endocarditis - cessation instruction 8. Right shoulder bursitis Mild cellulitis MRI shoulder noted and review without any evidence of osteomyelitis or abscess Orthopedic surgery consulted and recommended nonoperative medical management in the form of IV antibiotics. Outpt follow-up. DVT prophylaxis: Bilateral SCDs Discharge Planning Awaiting pulmonology evaluation. Hopefully d/c home in AM Problem Qualifiers (1) Pneumonia: Qualified Codes: J18.9 - Pneumonia, unspecified organism Matty Camacho DO Mar 01, 2017 16:07
--- NOTE | 2017-03-01 18:21 | HHI.PR ---
Subjective Remarks ALERT NO SOB Objective GENERAL: SKIN: Warm and dry. HEAD: Atraumatic. Normocephalic. EYES: Pupils equal and round. No scleral icterus. No injection or drainage. ENT: No nasal bleeding or discharge. Mucous membranes pink and moist. NECK: Trachea midline. No JVD. CARDIOVASCULAR: Regular rate and rhythm. RESPIRATORY: No accessory muscle use. Clear to auscultation. Breath sounds equal bilaterally. GASTROINTESTINAL: Abdomen soft, non-tender, nondistended. Hepatic and splenic margins not palpable. MUSCULOSKELETAL: Extremities without clubbing, cyanosis, or edema. No obvious deformities. NEUROLOGICAL: Awake and alert. No obvious cranial nerve deficits. Motor grossly within normal limits. Five out of 5 muscle strength in the arms and legs. Normal speech. PSYCHIATRIC: Appropriate mood and affect; insight and judgment normal. Vital Signs Date Time Temp Pulse Resp B/P (MAP) Pulse Ox O2 Delivery O2 Flow Rate FiO2 03/01/17 16:00 96.9 77 17 113/65 (81) 99 03/01/17 12:00 96.7 78 17 111/63 (79) 100 03/01/17 08:00 97.2 82 17 109/59 (76) 99 03/01/17 04:00 99.2 72 16 116/55 (75) 96 03/01/17 00:00 99.3 91 17 109/57 (74) 97 02/28/17 20:00 99.8 93 22 100/52 (68) 96 I/O 02/28/17 02/28/17 02/28/17 03/01/17 03/01/17 03/01/17 07:00 15:00 23:00 07:00 15:00 23:00 Intake Total 740 ml 850 ml 800 ml 1780 ml 1820 ml Balance 740 ml 850 ml 800 ml 1780 ml 1820 ml Intake Oral 240 ml 800 ml 780 ml 720 ml IV Total 500 ml 850 ml 1000 ml 1100 ml # Voids 2 8 3 8 # Bowel Movements 1 1 Result Diagram: 02/28/17 1725 02/28/17 1015 Assessment and Plan Assessment and Plan PNEUMONIA, ?SEPTIC EMBOLI H/O IV drug use Left pleural effusion plan antibiotics per ID LEFT THORACENTESIS Jamari Kauffman MD Mar 01, 2017 18:21
[2017-03-01 20:25] VITALS: BP 125/62; PULSE 93; RESP 16; TEMP 100; O2SAT 98
[2017-03-02 01:38] VITALS: BP 126/70; PULSE 92; RESP 16; TEMP 99.6; O2SAT 97
[2017-03-02] MEDS: ACETAMINOPHEN/HYDROcodone 325 MG/5 MG TAB PO PRN ×4 (01:38→21:37)
[2017-03-02 04:47] VITALS: BP 114/69; PULSE 90; RESP 16; TEMP 98.6; O2SAT 98
[2017-03-02] MEDS: SODIUM CHLOR 0.9% 1000 ML INJ 1,000 ML IV SCH ×2 (04:57→21:38)
[2017-03-02] MEDS: SODIUM CHLORIDE 0.9% FLUSH 10 ML FLUSH IV FLUSH SCH ×2 (07:39→21:37)
[2017-03-02 08:00] VITALS: BP 125/75; PULSE 75; RESP 16; TEMP 98.1; O2SAT 99
[2017-03-02 12:00] VITALS: BP 126/78; PULSE 78; RESP 16; TEMP 97.9; O2SAT 99
--- NOTE | 2017-03-02 12:55 | HHI.PR ---
Subjective Remarks The patient was anxious to go home. She had no other acute complaints. Discussed with nursing. Objective Vitals Vital Signs Date Time Temp Pulse Resp B/P (MAP) Pulse Ox O2 Delivery O2 Flow Rate FiO2 03/02/17 12:00 97.9 78 16 126/78 (94) 99 03/02/17 08:00 98.1 75 16 125/75 (92) 99 03/02/17 04:47 98.6 90 16 114/69 (84) 98 03/02/17 01:38 99.6 92 16 126/70 (88) 97 03/01/17 20:25 100.0 93 16 125/62 (83) 98 03/01/17 16:00 96.9 77 17 113/65 (81) 99 I/O 03/01/17 03/01/17 03/01/17 03/02/17 03/02/17 03/02/17 07:00 15:00 23:00 07:00 15:00 23:00 Intake Total 1780 ml 1820 ml 1000 ml Balance 1780 ml 1820 ml 1000 ml Intake Oral 780 ml 720 ml IV Total 1000 ml 1100 ml 1000 ml # Voids 3 8 1 # Bowel Movements 1 Result Diagram: 02/28/17 1725 02/28/17 1015 Imaging Last Impressions Chest X-Ray 02/28/17 0000 Signed Impressions: Service Date/Time: Tuesday, February 28, 2017 13:52 - CONCLUSION: 1. Development of a moderate-sized left pleural effusion with consolidation of the left lower lobe and lingula as well as new consolidations involving left mid lung and upper lobe. Infectious etiology is suspected. Dedrick Rutherford Jr., MD Shoulder MRI 02/22/17 0000 Signed Impressions: Service Date/Time: Wednesday, February 22, 2017 18:17 - CONCLUSION: 1. Bursitis at the right shoulder with some soft tissue edematous changes that may indicate mild cellulitis, but no discrete abscess or osteomyelitis identified. Hilario Rose MD Shoulder X-Ray 02/21/177 Signed Impressions: Service Date/Time: Tuesday, February 21, 2017 18:30 - CONCLUSION: Normal examination for a patient of this age. Hilario Rose MD Abdomen/Pelvis CT 02/21/17 1649 Signed Impressions: Service Date/Time: Tuesday, February 21, 2017 19:19 - CONCLUSION: 1. Patchy airspace consolidation at both lung bases. 2. Hepatosplenomegaly. 3. Multiple gallstones biliary ductal dilatation. Questionable diminished perfusion to the kidneys. Cannot exclude nephritis. Hilario Rose MD CT Angiography 02/21/17 0000 Signed Impressions: Service Date/Time: Tuesday, February 21, 2017 19:16 - CONCLUSION: 1. Negative for pulmonary embolism. 2. Multifocal patchy and nodular airspace disease in both lungs with some mild cavitation on the left side. Differential diagnosis includes septic embolic disease and multifocal pneumonia. Hilario Rose MD Objective Remarks GENERAL: NAD SKIN: Warm and dry. HEAD: Normocephalic. EYES: No scleral icterus. No injection or drainage. NECK: Supple, trachea midline. No JVD or lymphadenopathy. CARDIOVASCULAR: Regular rate and rhythm without murmurs, gallops, or rubs. RESPIRATORY: Breath sounds equal bilaterally. No accessory muscle use. GASTROINTESTINAL: Abdomen soft, non-tender, nondistended. MUSCULOSKELETAL: No cyanosis, or edema. BACK: Nontender without obvious deformity. No CVA tenderness. PSYCH: Flattened affect. Medications and IVs Current Medications Medications (Trade) Dose Ordered Sig/Emili Route Start Time Stop Time Status Last Admin Sodium Chloride 1,000 ml @ 75 mls/hr [id number] IV 02/21/17 23:30 03/02/17 04:57 (NS Flush) 2 ml UNSCH PRN IV FLUSH 02/21/17 20:45 (NS Flush) 2 ml BID IV FLUSH 02/21/17 21:00 03/02/17 07:39 (Tylenol) 650 mg Q4H PRN PO 02/21/17 20:45 02/25/17 08:23 (Zofran Inj) 4 mg Q6H PRN IVP 02/21/17 20:45 (Narcan Inj) 0.4 mg UNSCH PRN IV PUSH 02/21/17 20:45 (Milk Of Magnesia Liq) 30 ml Q12H PRN PO 02/21/17 20:45 ([place] 5-325 Mg) 1 tab Q4H PRN PO 02/22/17 11:00 03/02/17 06:31 Ceftriaxone Sodium 2000 mg/ Sodium Chloride 100 ml @ 200 mls/hr Q24H IV 02/24/17 13:00 03/01/17 12:46 (Tums Chew) 500 mg BID PRN PO 02/25/17 17:15 02/25/17 17:52 A/P Problem List: (1) Septic embolism ICD Code: I26.90 - Septic pulmonary embolism without acute cor pulmonale Status: Acute (2) Substance abuse ICD Code: F19.10 - Other psychoactive substance abuse, uncomplicated Status: Acute (3) Sepsis ICD Code: A41.9 - Sepsis, unspecified organism Status: Acute (4) Pneumonia ICD Code: J18.9 - Pneumonia, unspecified organism Status: Acute Assessment and Plan 31-year-old female with 1. Sepsis/endocarditis vs multifocal pneumonia CTA chest showed the focal patchy and nodular airspace disease bilaterally with mild cavitation on the left. Concern for septic emboli versus multifocal pneumonia. CXR 02/28 showed: Development of a moderate-sized left pleural effusion with consolidation of the left lower lobe and lingula as well as new consolidations involving left mid lung and upper lobe. Infectious etiology is suspected. - Currently on Rocephin and s/p Vancomycin/PCN/Gent - Infectious disease ff - 2-D echo ruled out endocarditis - Will need 6 weeks of Abx on d/c. - pulmonology consult noted, left thoracentesis noted. 2. Gram-positive bacteremia Repeat blood culture NGTD Infectious disease consultation appreciated Currently on Rocephin and s/p vancomycin/PCN/Gent Will need 6 weeks of Abx on d/c 3. Elevated troponin EKG showed normal sinus rhythm without ST segment elevations or depressions May be secondary to endocarditis ACS ruled out per protocol; monitor serial troponins/EKGs 4. Hyponatremia Continue with NS Monitor electrolytes 5. Hypokalemia Monitor 6. Transaminitis hepatitis C antibody positive - outpt follow-up 7. IV drug abuse Cessation counseling provided 2-D echo without any evidence of endocarditis - cessation instruction 8. Right shoulder bursitis Mild cellulitis MRI shoulder noted and review without any evidence of osteomyelitis or abscess Orthopedic surgery consulted and recommended nonoperative medical management in the form of IV antibiotics. Outpt follow-up. DVT prophylaxis: Bilateral SCDs Discharge Planning D/c when cleared by ID and pulmonology Problem Qualifiers (1) Pneumonia: Qualified Codes: J18.9 - Pneumonia, unspecified organism Matty Camacho DO Mar 02, 2017 12:55
[2017-03-02] MEDS: cefTRIAXone INJ 2,000 MG in SODIUM CHLORIDE 0.9% INJ 100 ML IV SCH (13:00)
[2017-03-02 16:00] VITALS: BP 112/58; PULSE 102; RESP 17; TEMP 100.7; O2SAT 97
[2017-03-02 19:20] LABS: HEMATOCRIT 27.9 % (35.0-46.0); HEMOGLOBIN 9.2 GM/DL (11.6-15.3); MEAN CELL VOLUME 83.6 FL (80.0-100.0); MEAN CORPUSCULAR HEMOGLOBIN 27.4 PG (27.0-34.0); MEAN CORPUSCULAR HGB CONC 32.8 % (32.0-36.0); MEAN PLATELET VOLUME 6.8 FL (7.0-11.0); PLATELET COUNT 546 TH/MM3 (150-450); RED BLOOD COUNT 3.34 MIL/MM3 (4.00-5.30); RED CELL DISTRIBUTION WIDTH 14.9 % (11.6-17.2); WHITE BLOOD COUNT 15.9 TH/MM3 (4.0-11.0)
[2017-03-02 19:35] LABS: PROTHROMBIN TIME - PATIENT 10.6 SEC (9.8-11.6)
[2017-03-03] VITALS (9 sets, daily range): BP systolic 90–119; BP diastolic 51–69; PULSE 72–90; RESP 16–20; TEMP 97.4–99.7; O2SAT 95–100
[2017-03-03] MEDS: ACETAMINOPHEN/HYDROcodone 325 MG/5 MG TAB PO PRN ×4 (05:58→20:59)
[2017-03-03] MEDS: SODIUM CHLORIDE 0.9% FLUSH 10 ML FLUSH IV FLUSH SCH ×2 (09:00→21:00)
--- NOTE | 2017-03-03 10:34 | RADRPT ---
EXAM DATE/TIME: 03/03/2017 10:00 [facility] COMPARISON: CHEST PA & LAT, February 28, 2017, 13:52. INDICATIONS : Left thorocentesis. MEDICAL HISTORY : None. SURGICAL HISTORY : Tubal ligation. ENCOUNTER: Initial ACUITY: 3 days PAIN SCORE: 0/10 LOCATION: Left chest FINDINGS: A single portable frontal view the chest shows minimal reduction in size of the loculated left effusi on. No pneumothorax. Heart is normal in size. Small hazy opacity involving the peripheral right midlu ng is unchanged as well. CONCLUSION: No pneumothorax following left thoracentesis. Dedrick Rutherford Jr., MD on March 03, 2017 at 10:18 Board Certified Radiologist. This report was verified electronically.
--- NOTE | 2017-03-03 10:37 | RADRPT ---
EXAM DATE/TIME: 03/03/2017 09:18 [facility] COMPARISON: No previous studies available for comparison. INDICATIONS : Left pleural effusion. MEDICAL HISTORY : Dementia. Bipolar disorder. MRSA. Substance abuse. Sepsis. Pneumonia. SURGICAL HISTORY : Tubal ligation. ENCOUNTER: Initial ACUITY: 2 weeks PAIN SCORE: 6/10 LOCATION: Left chest FLUID: Total volume of 100 cc of soila fluid was removed. Fluid was sent to lab for ordered studies. TECHNIQUE: 1. Ultrasound guidance for thoracentesis. 2. Thoracentesis. The risks, benefits, and alternatives to ultrasound guided thoracentesis were explained to the patien t in lay simple terms, including the risk of bleeding and infection. Written and verbal informed con sent was obtained. Appropriate area for thoracentesis was marked under ultrasound guidance with the patient in the uprig ht position. Overlying skin was prepped and draped in the usual sterile fashion and with local anest hetic, a dermatotomy was made with an 11 blade scalpel. A 6 Faro[place] thoracentesis catheter was placed in the pleural space and fluid was removed. Catheter was then removed and a sterile dressing applie d. There were no immediate complications. The patient tolerated the procedure well and the left the ultrasound suite in stable condition. Chest radiograph is to be obtained. CONCLUSION: Uncomplicated ultrasound guided thoracentesis. This effusion is highly loculated and therefore comple te decompression of the effusion is not possible. Dedrick Rutherford Jr., MD on March 03, 2017 at 10:35 Board Certified Radiologist. This report was verified electronically.
[2017-03-03 10:57] LABS: TOTAL PROTEIN,PLEURAL FLUID 4.5 GM/DL
[2017-03-03] MEDS: SODIUM CHLOR 0.9% 1000 ML INJ 1,000 ML IV SCH ×2 (11:03→23:53)
[2017-03-03 11:42] LABS: HEMATOCRIT 29.6 % (35.0-46.0); MEAN CELL VOLUME 83.8 FL (80.0-100.0); MEAN CORPUSCULAR HEMOGLOBIN 28.2 PG (27.0-34.0); MEAN CORPUSCULAR HGB CONC 33.7 % (32.0-36.0); MEAN PLATELET VOLUME 7.4 FL (7.0-11.0); PLATELET COUNT 511 TH/MM3 (150-450); RED BLOOD COUNT 3.54 MIL/MM3 (4.00-5.30); RED CELL DISTRIBUTION WIDTH 14.8 % (11.6-17.2); WHITE BLOOD COUNT 15.6 TH/MM3 (4.0-11.0)
[2017-03-03 11:45] LABS: PLEURAL FLUID LYMPHS 4 %; PLEURAL FLUID POLYS (SEGS) 96 %; PLEURAL FLUID RBC 941 /MM3 (0-0); PLEURAL FLUID WBC 1431 /MM3 (0-10)
[2017-03-03 12:01] LABS: BICARBONATE 29.1 MEQ/L (21.0-32.0); CALCIUM 8.8 MG/DL (8.5-10.1); CREATININE 0.46 MG/DL (0.50-1.00); MAGNESIUM 2.3 MG/DL (1.5-2.5)
--- NOTE | 2017-03-03 12:22 | HHI.PR ---
Subjective Remarks The patient said that the thoracentesis was completely painless. She said she was breathing comfortably. She said they were not able to get all the fluid out because of pockets. She has been tolerating a diet. She has been ambulating. Discussed with nursing. Objective Vitals Vital Signs Date Time Temp Pulse Resp B/P (MAP) Pulse Ox O2 Delivery O2 Flow Rate FiO2 03/03/17 10:25 85 18 113/67 (82) 96 03/03/17 10:10 98.1 84 20 111/69 (83) 96 03/03/17 00:49 98.7 90 20 117/57 (77) 98 03/03/17 00:13 95 03/03/17 00:00 99.7 82 20 111/56 (74) 96 03/02/17 16:00 100.7 102 17 112/58 (76) 97 I/O 03/02/17 03/02/17 03/02/17 03/03/17 03/03/17 03/03/17 07:00 15:00 23:00 07:00 15:00 23:00 Intake Total 1000 ml 895 ml 720 ml Output Total 2500 ml Balance 1000 ml 895 ml -1780 ml Intake Oral 895 ml 720 ml IV Total 1000 ml Output Urine Total 2500 ml # Voids 1 10 # Bowel Movements 1 Result Diagram: 03/03/17 1121 03/03/17 1121 Imaging Last Impressions Thoracentesis Ultrasound 03/03/17 0000 Signed Impressions: Service Date/Time: Friday, March 03, 2017 09:18 - CONCLUSION: Uncomplicated ultrasound guided thoracentesis. This effusion is highly loculated and therefore complete decompression of the effusion is not possible. Dedrick Rutherford Jr., MD Chest X-Ray 03/03/17 0000 Signed Impressions: Service Date/Time: Friday, March 03, 2017 10:00 - CONCLUSION: No pneumothorax following left thoracentesis. Dedrick Rutherford Jr., MD Shoulder MRI 02/22/17 0000 Signed Impressions: Service Date/Time: Wednesday, February 22, 2017 18:17 - CONCLUSION: 1. Bursitis at the right shoulder with some soft tissue edematous changes that may indicate mild cellulitis, but no discrete abscess or osteomyelitis identified. Hilario Rose MD Shoulder X-Ray 02/21/171816 Signed Impressions: Service Date/Time: Tuesday, February 21, 2017 18:30 - CONCLUSION: Normal examination for a patient of this age. Hilario Rose MD Abdomen/Pelvis CT 02/21/17 1649 Signed Impressions: Service Date/Time: Tuesday, February 21, 2017 19:19 - CONCLUSION: 1. Patchy airspace consolidation at both lung bases. 2. Hepatosplenomegaly. 3. Multiple gallstones biliary ductal dilatation. Questionable diminished perfusion to the kidneys. Cannot exclude nephritis. Hilario Rose MD CT Angiography 02/21/17 0000 Signed Impressions: Service Date/Time: Tuesday, February 21, 2017 19:16 - CONCLUSION: 1. Negative for pulmonary embolism. 2. Multifocal patchy and nodular airspace disease in both lungs with some mild cavitation on the left side. Differential diagnosis includes septic embolic disease and multifocal pneumonia. Hilario Rose MD Objective Remarks GENERAL: NAD SKIN: Warm and dry. HEAD: Normocephalic. EYES: No scleral icterus. No injection or drainage. NECK: Supple, trachea midline. No JVD or lymphadenopathy. CARDIOVASCULAR: Regular rate and rhythm without murmurs, gallops, or rubs. RESPIRATORY: Decreased breath sounds at the left base. No accessory muscle use. GASTROINTESTINAL: Abdomen soft, non-tender, nondistended. MUSCULOSKELETAL: No cyanosis, or edema. BACK: Nontender without obvious deformity. No CVA tenderness. PSYCH: Mood and affect appropriate. Medications and IVs Current Medications Medications (Trade) Dose Ordered Sig/Emili Route Start Time Stop Time Status Last Admin Sodium Chloride 1,000 ml @ 75 mls/hr [id number] IV 02/21/17 23:30 03/03/17 11:03 (NS Flush) 2 ml UNSCH PRN IV FLUSH 02/21/17 20:45 (NS Flush) 2 ml BID IV FLUSH 02/21/17 21:00 03/02/17 21:37 (Tylenol) 650 mg Q4H PRN PO 02/21/17 20:45 02/25/17 08:23 (Zofran Inj) 4 mg Q6H PRN IVP 02/21/17 20:45 (Narcan Inj) 0.4 mg UNSCH PRN IV PUSH 02/21/17 20:45 (Milk Of Magnesia Liq) 30 ml Q12H PRN PO 02/21/17 20:45 ([place] 5-325 Mg) 1 tab Q4H PRN PO 02/22/17 11:00 03/03/17 11:03 Ceftriaxone Sodium 2000 mg/ Sodium Chloride 100 ml @ 200 mls/hr Q24H IV 02/24/17 13:00 03/01/17 12:46 (Tums Chew) 500 mg BID PRN PO 02/25/17 17:15 02/25/17 17:52 A/P Problem List: (1) Septic embolism ICD Code: I26.90 - Septic pulmonary embolism without acute cor pulmonale Status: Acute (2) Substance abuse ICD Code: F19.10 - Other psychoactive substance abuse, uncomplicated Status: Acute (3) Sepsis ICD Code: A41.9 - Sepsis, unspecified organism Status: Acute (4) Pneumonia ICD Code: J18.9 - Pneumonia, unspecified organism Status: Acute Assessment and Plan 31-year-old female with 1. Sepsis/endocarditis vs multifocal pneumonia CTA chest showed the focal patchy and nodular airspace disease bilaterally with mild cavitation on the left. Concern for septic emboli versus multifocal pneumonia. CXR 02/28 showed: Development of a moderate-sized left pleural effusion with consolidation of the left lower lobe and lingula as well as new consolidations involving left mid lung and upper lobe. Infectious etiology is suspected. - Currently on Rocephin and s/p Vancomycin/PCN/Gent. - Infectious disease ff. - 2-D echo ruled out endocarditis. - Will need 6 weeks of Abx on d/c. - pulmonology consult noted. S/p left thoracentesis 03/03. Follow fluid studies. 2. Gram-positive bacteremia Repeat blood culture NGTD Infectious disease consultation appreciated Currently on Rocephin and s/p vancomycin/PCN/Gent Will need 6 weeks of Abx on d/c 3. Elevated troponin EKG showed normal sinus rhythm without ST segment elevations or depressions May be secondary to endocarditis ACS ruled out per protocol; monitor serial troponins/EKGs 4. Hyponatremia Continue with NS Monitor electrolytes 5. Hypokalemia Monitor 6. Transaminitis hepatitis C antibody positive - outpt follow-up 7. IV drug abuse Cessation counseling provided 2-D echo without any evidence of endocarditis - cessation instruction 8. Right shoulder bursitis Mild cellulitis MRI shoulder noted and review without any evidence of osteomyelitis or abscess Orthopedic surgery consulted and recommended nonoperative medical management in the form of IV antibiotics. Outpt follow-up. DVT prophylaxis: Bilateral SCDs Discharge Planning D/c when cleared by ID and pulmonology Problem Qualifiers (1) Pneumonia: Qualified Codes: J18.9 - Pneumonia, unspecified organism Matty Camacho DO Mar 03, 2017 12:22
[2017-03-03] MEDS: cefTRIAXone INJ 2,000 MG in SODIUM CHLORIDE 0.9% INJ 100 ML IV SCH (12:48)
--- NOTE | 2017-03-03 16:14 | HHI.PR ---
Subjective Remarks ALERT NO SOB THORACENTESIS DONE FLUID LOCULATED Objective Vital Signs Date Time Temp Pulse Resp B/P (MAP) Pulse Ox O2 Delivery O2 Flow Rate FiO2 03/03/17 12:00 97.5 84 16 107/58 (74) 100 03/03/17 10:25 85 18 113/67 (82) 96 03/03/17 10:10 98.1 84 20 111/69 (83) 96 03/03/17 08:00 97.4 72 18 90/51 (64) 98 03/03/17 00:49 98.7 90 20 117/57 (77) 98 03/03/17 00:13 95 03/03/17 00:00 99.7 82 20 111/56 (74) 96 I/O 03/02/17 03/02/17 03/02/17 03/03/17 03/03/17 03/03/17 07:00 15:00 23:00 07:00 15:00 23:00 Intake Total 1000 ml 895 ml 720 ml Output Total 2500 ml Balance 1000 ml 895 ml -1780 ml Intake Oral 895 ml 720 ml IV Total 1000 ml Output Urine Total 2500 ml # Voids 1 10 # Bowel Movements 1 Result Diagram: 03/03/17 1121 03/03/17 1121 Objective Remarks GENERAL: SKIN: Warm and dry. HEAD: Atraumatic. Normocephalic. EYES: Pupils equal and round. No scleral icterus. No injection or drainage. ENT: No nasal bleeding or discharge. Mucous membranes pink and moist. NECK: Trachea midline. No JVD. CARDIOVASCULAR: Regular rate and rhythm. RESPIRATORY: No accessory muscle use. Clear to auscultation. Breath sounds equal bilaterally. GASTROINTESTINAL: Abdomen soft, non-tender, nondistended. Hepatic and splenic margins not palpable. MUSCULOSKELETAL: Extremities without clubbing, cyanosis, or edema. No obvious deformities. NEUROLOGICAL: Awake and alert. No obvious cranial nerve deficits. Motor grossly within normal limits. Five out of 5 muscle strength in the arms and legs. Normal speech. PSYCHIATRIC: Appropriate mood and affect; insight and judgment normal. Assessment and Plan Assessment and Plan PNEUMONIA, ?SEPTIC EMBOLI H/O IV drug use Left pleural effusion, LOCULATED plan antibiotics per ID THORACIC SURGERY CONSULT Jamari Kauffman MD Mar 03, 2017 16:14
--- NOTE | 2017-03-03 18:08 | MB ---
cc: PIETRO MENDOZA MD DATE OF CONSULTATION: 03/03/[address] Mendoza REASON FOR CONSULTATION: Empyema of the left chest entrapment of the left lung, sepsis. HISTORY OF PRESENT ILLNESS: A 31-year-old female presents to the hospital with a one week history of shortness of breath. Night sweats and pain in her left shoulder. The patient had some fever and chills but attributed that to something else. She was worked up and CTA of the chest reveals a left chest empyema with some cavitation there is a large collection in the left chest and hence the problem. The patient is treated now by infectious disease, government affairs specialist and is on antibiotics for multidrug resistant organisms and murmur. A question arises as what to do with his chest and clearly the patient is decortication and evacuation of the empyema. PAST MEDICAL HISTORY: Five pregnancies PAST SURGICAL HISTORY Tubal ligation. SOCIAL HISTORY The patient uses IV heroin, had last one few days before the admission, smokes lightly. She has been a drug abuser for about 10 years. PHYSICAL EXAMINATION: IN GENERAL: The physical examination reveals a thin 31-year-old female normocephalic. No trauma to the head. HEAD, EYES, EARS, NOSE, AND THROAT: Pupils equally reactive. Extraocular muscles intact. NECK: Bilateral carotid pulses. No bruits. CHEST: Bilateral breath sounds quite decreased over the left side. The patient has peritomy dullness in the whole lateral left chest except for the very apex. HEART: Regular rhythm ABDOMEN: The abdomen is soft. Active bowel sounds. EXTREMITIES: Extremities are grossly within normal limits. Clearly the patient is very thin and undernourished at this point. NEUROLOGICALLY: She is fully intact. RECOMMENDATIONS I reviewed laboratory notes the procedure this lady has clearly empyema of the left chest in addition, hepatosplenomegaly and cholelithiasis. The attempt to drain this percutaneous left course failed because this is thick and loculated. The patient will need to thoracic surgery and a thoracoscopy, and most probably thoracotomy to clean this out. The patient despite this is a high risk of dying from all this because the infection may not be contained anymore. Pietro Tillman /5:35 PM /5:45 PM ETIENNE
--- NOTE | 2017-03-03 18:41 | RADRPT ---
EXAM DATE/TIME: 03/03/2017 18:17 [facility] COMPARISON: CHEST EXPIRATION ONLY, March 03, 2017, 10:00. CT PULMONARY ANGIOGRAM, February 21, 2017, 19:16. INDICATIONS : Empyema. IV CONTRAST: 68 cc Omnipaque 350 (iohexol) IV RADIATION DOSE: 3.33 CTDIvol (mGy) MEDICAL HISTORY : Dementia. Sepsis. Pneumonia, septic emboli SURGICAL HISTORY : Tubal ligation. ENCOUNTER: Initial ACUITY: 1 day PAIN SCALE: 0/10 LOCATION: chest TECHNIQUE: Volumetric scanning of the chest was performed. Using automated exposure control and adjustment of t he mA and/or kV according to patient size, radiation dose was kept as low as reasonably achievable to obtain optimal diagnostic quality images. DICOM format image data is available electronically for review and comparison. Follow-up recommendations for detected pulmonary nodules are based at a minimum on nodule size and pa tient risk factors according to Fleischner Society Guidelines. FINDINGS: Significant change in the appearance of the lung/chest and compared to prior CT 02/21/17. There is a large left pleural effusion which has a subpulmonic and lateral component suggesting loculation. La teral component measures up to 4.6 cm in width. There is consolidation in the adjacent left lower gray ng with volume loss. Several focal collections of gas are present within the inferior lateral aspect of the pleural effusion. On the right side, and there is new subsegmental consolidation in the late ral right upper lobe, stable multifocal nodular opacities and a new cavitary lesion laterally in the right midlung measuring 1.5 cm, best seen on image #19. Stable lymph nodes adjacent to the arch of the aorta measuring up to 2.1 cm. No pretracheal or subca rinal adenopathy. Wide windows of bony detail demonstrate the osseous structures to be intact. No e vidence of pneumothorax on either side.. CONCLUSION: 1. Large loculated pleural effusion on the left side with a lateral and subpulmonic components. Asso ciated collapse of the left lower lobe. 2. There are 2 new findings in the right lung, including a subsegmental area of consolidation and a n ew peripheral right midlung cavitary lesion. The other nodules seen on prior CT are stable. Dedrick Higuera MD on March 03, 2017 at 18:34 Board Certified Radiologist. This report was verified electronically.
[2017-03-04] VITALS: BP 103/51; PULSE 78; RESP 18; TEMP 99.2; O2SAT 96
[2017-03-04] MEDS: ACETAMINOPHEN/HYDROcodone 325 MG/5 MG TAB PO PRN ×2 (00:37→21:04)
[2017-03-04 08:00] VITALS: BP 102/51; PULSE 78; RESP 17; TEMP 97.1; O2SAT 94
[2017-03-04] MEDS: SODIUM CHLORIDE 0.9% FLUSH 10 ML FLUSH IV FLUSH SCH ×2 (08:38→19:19)
[2017-03-04] MEDS ORDERED: BUPIVACAINE/EPINEPHRINE 0.25% PF 10 ML VIAL ONE (10:01)
[2017-03-04] MEDS ORDERED: BUPIVACAINE LIPOSOME PF 1.3% 20 ML VIAL ONE (10:01)
[2017-03-04 11:49] VITALS: O2SAT 94
[2017-03-04] MEDS ORDERED: GLYCOPYRROLATE 1 MG/5 ML SYRINGE IV PUSH ONE (12:00)
[2017-03-04] MEDS ORDERED: PHENYLEPH/NS 1000 MCG/10 ML SYR IV ONE (12:00)
[2017-03-04] MEDS ORDERED: DEXAMETHASONE SOD PHOS 4 MG/ML VIAL IV ONE (12:00)
[2017-03-04] MEDS ORDERED: LIDOCAINE HCL 1% PF 5 ML SYRINGE OTHER ONE (12:00)
[2017-03-04] MEDS ORDERED: PHENYLEPHRINE HCL 10 MG/ML VIAL IV ONE (12:00)
[2017-03-04] MEDS ORDERED: PROPOFOL 200 MG/20 ML AMP IV ONE (12:00)
[2017-03-04] MEDS ORDERED: ONDANSETRON HCL 4 MG/2 ML VIAL IV ONE (12:00)
[2017-03-04] MEDS ORDERED: ROCURONIUM INJ 50 MG/5 ML SYRINGE IV PUSH ONE (12:00)
[2017-03-04] MEDS ORDERED: NEOSTIGMINE 5 MG/5 ML SYRINGE IV PUSH ONE (12:00)
[2017-03-04] MEDS ORDERED: LORazepam 2 MG/ML VIAL ONE (12:43)
[2017-03-04] MEDS ORDERED: HYDROmorphone HCL PF 2 MG/ML VIAL ONE (12:52)
[2017-03-04] MEDS: SODIUM CHLOR 0.9% 1000 ML INJ 1,000 ML IV SCH (13:00)
--- NOTE | 2017-03-04 13:15 | RADRPT ---
EXAM DATE/TIME: 03/04/2017 12:52 [facility] COMPARISON: CT THORAX W CONTRAST, March 03, 2017, 18:17. CHEST SINGLE AP, February, 17:04. INDICATIONS : Post thoracotomy, left. MEDICAL HISTORY : None. SURGICAL HISTORY : None. ENCOUNTER: Initial ACUITY: 1 day PAIN SCORE: Non-responsive. LOCATION: Left chest FINDINGS: Chest tube in place on the left without pneumothorax. The consolidative changes left base Minimal consolidation right base The heart and pulmonary vascularity are normal. CONCLUSION: Left chest tube in good position. Improvement when compared to CT scan 03/03/17 Abhishek Zhang MD FACR on March 04, 2017 at 13:11 Board Certified Radiologist. This report was verified electronically.
[2017-03-04] MEDS ORDERED: HYDROmorphone HCL PF 4 MG/ML VIAL IV PUSH ONE (13:45)
[2017-03-04] MEDS ORDERED: DO NOT ADM ANY ANTICOAGULANT DRUGS PRN (13:45)
[2017-03-04] MEDS ORDERED: LORazepam 2 MG/ML VIAL IV ONE (13:45)
[2017-03-04] MEDS: cefTRIAXone INJ 2,000 MG in SODIUM CHLORIDE 0.9% INJ 100 ML IV SCH (14:00)
[2017-03-04] MEDS ORDERED: HYDROmorphone HCL PF 1 MG/ML VIAL ONE (15:21)
[2017-03-04 16:09] LABS: AMYLASE BODY FLUID 32 U/L; AMYLASE BODY FLUID TYPE PLEURAL
--- NOTE | 2017-03-04 16:20 | HHI.PR ---
Subjective Remarks The patient was seen in the PACU following surgery. She complained of a lot of pain. She wanted to know if all the fluid was removed. She was trying to eat lunch. Discussed with nursing at the bedside. Objective Vitals Vital Signs Date Time Temp Pulse Resp B/P (MAP) Pulse Ox O2 Delivery O2 Flow Rate FiO2 03/04/17 13:00 93 20 96/53 (67) 95 Nasal Cannula 2 03/04/17 12:45 93 20 107/59 (75) 98 Nasal Cannula 2 03/04/17 12:39 98.0 92 20 105/57 (73) 100 Nasal Cannula 2 03/04/17 11:49 94 03/04/17 08:00 97.1 78 17 102/51 (68) 94 03/04/17 00:00 99.2 78 18 103/51 (68) 96 03/03/17 20:00 98.2 83 18 119/58 (78) 100 I/O 03/03/17 03/03/17 03/03/17 03/04/17 03/04/17 03/04/17 07:00 15:00 23:00 07:00 15:00 23:00 Intake Total 720 ml 960 ml Output Total 2500 ml 150 ml Balance -1780 ml 960 ml -150 ml Intake Oral 720 ml 960 ml Output Urine Total 2500 ml Estimated Blood Loss 150 ml # Voids 3 # Bowel Movements 1 Result Diagram: 03/03/17 1121 03/03/17 1121 Imaging Last Impressions Chest X-Ray 03/04/17 0000 Signed Impressions: Service Date/Time: Saturday, March 04, 2017 12:52 - CONCLUSION: Left chest tube in good position. Improvement when compared to CT scan 03/03/17 Abhishek Zhang MD FACR Thoracentesis Ultrasound 03/03/17 0000 Signed Impressions: Service Date/Time: Friday, March 03, 2017 09:18 - CONCLUSION: Uncomplicated ultrasound guided thoracentesis. This effusion is highly loculated and therefore complete decompression of the effusion is not possible. Dedrick Rutherford Jr., MD Chest CT 03/03/17 0000 Signed Impressions: Service Date/Time: Friday, March 03, 2017 18:17 - CONCLUSION: 1. Large loculated pleural effusion on the left side with a lateral and subpulmonic components. Associated collapse of the left lower lobe. 2. There are 2 new findings in the right lung, including a subsegmental area of consolidation and a new peripheral right midlung cavitary lesion. The other nodules seen on prior CT are stable. Dedrick Higuera MD Shoulder MRI 02/22/17 0000 Signed Impressions: Service Date/Time: Wednesday, February 22, 2017 18:17 - CONCLUSION: 1. Bursitis at the right shoulder with some soft tissue edematous changes that may indicate mild cellulitis, but no discrete abscess or osteomyelitis identified. Hilario Rose MD Shoulder X-Ray 02/21/17 1817 Signed Impressions: Service Date/Time: Tuesday, February 21, 2017 18:30 - CONCLUSION: Normal examination for a patient of this age. Hilario Rose MD Abdomen/Pelvis CT 02/21/17 1649 Signed Impressions: Service Date/Time: Tuesday, February 21, 2017 19:19 - CONCLUSION: 1. Patchy airspace consolidation at both lung bases. 2. Hepatosplenomegaly. 3. Multiple gallstones biliary ductal dilatation. Questionable diminished perfusion to the kidneys. Cannot exclude nephritis. Hilario Rose MD CT Angiography 02/21/17 0000 Signed Impressions: Service Date/Time: Tuesday, February 21, 2017 19:16 - CONCLUSION: 1. Negative for pulmonary embolism. 2. Multifocal patchy and nodular airspace disease in both lungs with some mild cavitation on the left side. Differential diagnosis includes septic embolic disease and multifocal pneumonia. Hilario Rose MD Objective Remarks GENERAL: Appears uncomfortable. SKIN: Warm and dry. HEAD: Normocephalic. EYES: No scleral icterus. No injection or drainage. NECK: Supple, trachea midline. No JVD or lymphadenopathy. CARDIOVASCULAR: Tachycardic without murmurs, gallops, or rubs. RESPIRATORY: Decreased breath sounds at the left base. No accessory muscle use. GASTROINTESTINAL: Abdomen soft, non-tender, nondistended. MUSCULOSKELETAL: No cyanosis, or edema. BACK: Nontender without obvious deformity. No CVA tenderness. PSYCH: Mood and affect appropriate. Procedures Left thoracotomy Medications and IVs Current Medications Medications (Trade) Dose Ordered Sig/Emili Route Start Time Stop Time Status Last Admin Sodium Chloride 1,000 ml @ 75 mls/hr [id number] IV 02/21/17 23:30 03/04/17 13:00 (NS Flush) 2 ml UNSCH PRN IV FLUSH 02/21/17 20:45 (NS Flush) 2 ml BID IV FLUSH 02/21/17 21:00 03/02/17 21:37 (Tylenol) 650 mg Q4H PRN PO 02/21/17 20:45 02/25/17 08:23 (Zofran Inj) 4 mg Q6H PRN IVP 02/21/17 20:45 (Narcan Inj) 0.4 mg UNSCH PRN IV PUSH 02/21/17 20:45 (Milk Of [place] Liq) 30 ml Q12H PRN PO 02/21/17 20:45 ([place] 5-325 Mg) 1 tab Q4H PRN PO 02/22/17 11:00 03/04/17 00:37 Ceftriaxone Sodium 2000 mg/ Sodium Chloride 100 ml @ 200 mls/hr Q24H IV 02/24/17 13:00 03/04/17 14:00 (Tums Chew) 500 mg BID PRN PO 02/25/17 17:15 02/25/17 17:52 Miscellaneous Information ALL NURSING DEPARTME... UNSCH PRN .XX 03/04/17 13:45 03/05/17 13:44 A/P Problem List: (1) Septic embolism ICD Code: I26.90 - Septic pulmonary embolism without acute cor pulmonale Status: Acute (2) Substance abuse ICD Code: F19.10 - Other psychoactive substance abuse, uncomplicated Status: Acute (3) Sepsis ICD Code: A41.9 - Sepsis, unspecified organism Status: Acute (4) Pneumonia ICD Code: J18.9 - Pneumonia, unspecified organism Status: Acute Assessment and Plan 31-year-old female with 1. Sepsis/endocarditis vs multifocal pneumonia CTA chest showed the focal patchy and nodular airspace disease bilaterally with mild cavitation on the left. Concern for septic emboli versus multifocal pneumonia. CXR 02/28 showed: Development of a moderate-sized left pleural effusion with consolidation of the left lower lobe and lingula as well as new consolidations involving left mid lung and upper lobe. Infectious etiology is suspected. - Currently on Rocephin and s/p Vancomycin/PCN/Gent. - 2-D echo ruled out endocarditis. - Will need 6 weeks of Abx on d/c. - pulmonology consult noted. S/p left thoracentesis 03/03. Follow fluid studies. - CTS consult appreciated. S/p left thoracotomy 03/04/17. - follow up with ID and CTS. 2. Gram-positive bacteremia Repeat blood culture NGTD Infectious disease consultation appreciated Currently on Rocephin and s/p vancomycin/PCN/Gent Will need 6 weeks of Abx on d/c 3. Elevated troponin EKG showed normal sinus rhythm without ST segment elevations or depressions May be secondary to endocarditis ACS ruled out per protocol; monitor serial troponins/EKGs 4. Hyponatremia Continue with NS Monitor electrolytes 5. Hypokalemia Monitor 6. Transaminitis hepatitis C antibody positive - outpt follow-up 7. IV drug abuse Cessation counseling provided 2-D echo without any evidence of endocarditis - cessation instruction 8. Right shoulder bursitis Mild cellulitis MRI shoulder noted and review without any evidence of osteomyelitis or abscess Orthopedic surgery consulted and recommended nonoperative medical management in the form of IV antibiotics. Outpt follow-up. DVT prophylaxis: Bilateral SCDs Discharge Planning D/c when cleared by ID, CTS and pulmonology Problem Qualifiers (1) Pneumonia: Qualified Codes: J18.9 - Pneumonia, unspecified organism Matty Camacho DO Mar 04, 2017 16:20
[2017-03-04] MEDS ORDERED: *HYDROmorphone PF 1 MG VIAL PERIprocedural Use ONLY ONE (17:21)
[2017-03-04 18:00] VITALS: BP_SYST 111; BP_SYST 97; BP_DIAS 52; PULSE 74; RESP 22; TEMP 97.7; O2SAT 98
[2017-03-04 20:00] VITALS: BP 114/56; PULSE 87; RESP 24; TEMP 97.9; O2SAT 96
[2017-03-04 21:42] VITALS: O2SAT 98
[2017-03-05] VITALS (7 sets, daily range): BP systolic 108–124; BP diastolic 59–80; PULSE 65–88; RESP 16–32; TEMP 97.7–98.8; O2SAT 96–99
[2017-03-05] MEDS: ACETAMINOPHEN/HYDROcodone 325 MG/5 MG TAB PO PRN ×5 (02:00→21:51)
[2017-03-05] MEDS: SODIUM CHLOR 0.9% 1000 ML INJ 1,000 ML IV SCH (02:12)
[2017-03-05 04:16] LABS: HEMATOCRIT 26.2 % (35.0-46.0); HEMOGLOBIN 8.5 GM/DL (11.6-15.3); MEAN CELL VOLUME 82.6 FL (80.0-100.0); MEAN CORPUSCULAR HEMOGLOBIN 26.8 PG (27.0-34.0); MEAN CORPUSCULAR HGB CONC 32.5 % (32.0-36.0); MEAN PLATELET VOLUME 6.5 FL (7.0-11.0); PLATELET COUNT 566 TH/MM3 (150-450); RED BLOOD COUNT 3.18 MIL/MM3 (4.00-5.30); RED CELL DISTRIBUTION WIDTH 14.8 % (11.6-17.2); WHITE BLOOD COUNT 14.8 TH/MM3 (4.0-11.0)
[2017-03-05 04:31] LABS: BICARBONATE 31.3 MEQ/L (21.0-32.0); CALCIUM 8.2 MG/DL (8.5-10.1); CREATININE 0.34 MG/DL (0.50-1.00); MAGNESIUM 2.2 MG/DL (1.5-2.5)
[2017-03-05] MEDS: SODIUM CHLORIDE 0.9% FLUSH 10 ML FLUSH IV FLUSH SCH ×2 (08:30→20:31)
--- NOTE | 2017-03-05 11:21 | PD.CAR.PN ---
CVT Progress Note Subjective/Hospital Course: Patient is status post left thoracotomy and decortication of the left lung Incision is clean and dry Chest tube drainage is serosanguineous Bilateral good breath sounds and lungs the fully expanded on chest x-ray Patient can be transferred to floor at this point Chest tubes will stain for several days considering the purulent nature of the effusion Objective: Vital Signs Date Time Temp Pulse Resp B/P (MAP) Pulse Ox O2 Delivery O2 Flow Rate FiO2 03/05/17 10:43 96 21 03/05/17 08:26 23 03/05/17 08:00 97.7 86 32 124/72 (89) 96 03/05/17 04:00 98.2 73 19 118/62 (80) 99 03/05/17 00:00 98.1 65 21 109/62 (78) 98 03/04/17 21:42 98 Nasal Cannula 2.00 03/04/17 20:00 97.9 87 24 114/56 (75) 96 Automatic Cuff 03/04/17 18:00 97.7 74 22 97/52 (67) 98 111/52 (71) 03/04/17 17:15 76 20 102/59 (73) 98 Nasal Cannula 2 03/04/17 16:30 86 20 99/55 (70) 98 Nasal Cannula 2 03/04/17 15:30 86 20 99/55 (70) 98 Nasal Cannula 2 03/04/17 14:30 92 20 96/51 (66) 92 Nasal Cannula 2 03/04/17 13:30 86 20 98/53 (68) 97 Nasal Cannula 2 03/04/17 13:15 89 20 100/52 (68) 96 Nasal Cannula 2 03/04/17 13:00 93 20 96/53 (67) 95 Nasal Cannula 2 03/04/17 12:45 93 20 107/59 (75) 98 Nasal Cannula 2 03/04/17 12:39 98.0 92 20 105/57 (73) 100 Nasal Cannula 2 03/04/17 11:49 94 Labs: Laboratory Tests Test 03/05/17 04:00 White Blood Count 14.8 TH/MM3 (4.0-11.0) Red Blood Count 3.18 MIL/MM3 (4.00-5.30) Hemoglobin 8.5 GM/DL (11.6-15.3) Hematocrit 26.2 % (35.0-46.0) Mean Corpuscular Volume 82.6 FL (80.0-100.0) Mean Corpuscular Hemoglobin 26.8 PG (27.0-34.0) Mean Corpuscular Hemoglobin Concent 32.5 % (32.0-36.0) Red Cell Distribution Width 14.8 % (11.6-17.2) Platelet Count 566 TH/MM3 (150-450) Mean Platelet Volume 6.5 FL (7.0-11.0) Blood Urea Nitrogen 9 MG/DL (7-18) Creatinine 0.34 MG/DL (0.50-1.00) Random Glucose 115 MG/DL (74-106) Calcium Level 8.2 MG/DL (8.5-10.1) Magnesium Level 2.2 MG/DL (1.5-2.5) Sodium Level 138 MEQ/L (136-145) Potassium Level 3.7 MEQ/L (3.5-5.1) Chloride Level 101 MEQ/L (98-107) Carbon Dioxide Level 31.3 MEQ/L (21.0-32.0) Anion Gap 6 MEQ/L (5-15) Estimat Glomerular Filtration Rate 223 ML/MIN (>89) Result Diagram: 03/05/1739903/05/17399 Pietro Sparrow MD Mar 05, 2017 11:21
[2017-03-05] MEDS: cefTRIAXone INJ 2,000 MG in SODIUM CHLORIDE 0.9% INJ 100 ML IV SCH (13:51)
--- NOTE | 2017-03-05 14:28 | HHI.PR ---
Subjective Remarks The patient was resting in bed. She had questions pertaining to her chest tube. She said she needed to keep her Lilly catheter in place for now. Discussed with nursing at the bedside. Objective Vitals Vital Signs Date Time Temp Pulse Resp B/P (MAP) Pulse Ox O2 Delivery O2 Flow Rate FiO2 03/05/17 12:50 98.8 82 17 113/59 (77) 99 03/05/17 10:43 96 21 03/05/17 08:26 23 03/05/17 08:00 97.7 86 32 124/72 (89) 96 03/05/17 04:00 98.2 73 19 118/62 (80) 99 03/05/17 00:00 98.1 65 21 109/62 (78) 98 03/04/17 21:42 98 Nasal Cannula 2.00 03/04/17 20:00 97.9 87 24 114/56 (75) 96 Automatic Cuff 03/04/17 18:00 97.7 74 22 97/52 (67) 98 111/52 (71) 03/04/17 17:15 76 20 102/59 (73) 98 Nasal Cannula 2 03/04/17 16:30 86 20 99/55 (70) 98 Nasal Cannula 2 03/04/17 15:30 86 20 99/55 (70) 98 Nasal Cannula 2 03/04/17 14:30 92 20 96/51 (66) 92 Nasal Cannula 2 I/O 03/04/17 03/04/17 03/04/17 03/05/17 03/05/17 03/05/17 07:00 15:00 23:00 07:00 15:00 23:00 Intake Total 1360 ml 240 ml Output Total 850 ml 580 ml 1700 ml 1700 ml Balance -850 ml -580 ml -340 ml -1460 ml Intake Oral 360 ml 240 ml IV Total 1000 ml Output Urine Total 550 ml 300 ml 1600 ml 1700 ml Chest Tube Drainage Total 280 ml 100 ml Estimated Blood Loss 300 ml Result Diagram: 03/05/17 0400 03/05/17 0400 Imaging Last Impressions Chest X-Ray 03/04/17 0000 Signed Impressions: Service Date/Time: Saturday, March 04, 2017 12:52 - CONCLUSION: Left chest tube in good position. Improvement when compared to CT scan 03/03/17 Abhishek Zhang MD FACR Thoracentesis Ultrasound 03/03/17 0000 Signed Impressions: Service Date/Time: Friday, March 03, 2017 09:18 - CONCLUSION: Uncomplicated ultrasound guided thoracentesis. This effusion is highly loculated and therefore complete decompression of the effusion is not possible. Dedrick Rutherford Jr., MD Chest CT 03/03/17 0000 Signed Impressions: Service Date/Time: Friday, March 03, 2017 18:17 - CONCLUSION: 1. Large loculated pleural effusion on the left side with a lateral and subpulmonic components. Associated collapse of the left lower lobe. 2. There are 2 new findings in the right lung, including a subsegmental area of consolidation and a new peripheral right midlung cavitary lesion. The other nodules seen on prior CT are stable. Dedrick Higuera MD Shoulder MRI 02/22/17 0000 Signed Impressions: Service Date/Time: Wednesday, February 22, 2017 18:17 - CONCLUSION: 1. Bursitis at the right shoulder with some soft tissue edematous changes that may indicate mild cellulitis, but no discrete abscess or osteomyelitis identified. Hilario Rose MD Shoulder X-Ray 02/21/17 1817 Signed Impressions: Service Date/Time: Tuesday, February 21, 2017 18:30 - CONCLUSION: Normal examination for a patient of this age. Hilario Rose MD Abdomen/Pelvis CT 02/21/17 1649 Signed Impressions: Service Date/Time: Tuesday, February 21, 2017 19:19 - CONCLUSION: 1. Patchy airspace consolidation at both lung bases. 2. Hepatosplenomegaly. 3. Multiple gallstones biliary ductal dilatation. Questionable diminished perfusion to the kidneys. Cannot exclude nephritis. Hilario Rose MD CT Angiography 02/21/17 0000 Signed Impressions: Service Date/Time: Tuesday, February 21, 2017 19:16 - CONCLUSION: 1. Negative for pulmonary embolism. 2. Multifocal patchy and nodular airspace disease in both lungs with some mild cavitation on the left side. Differential diagnosis includes septic embolic disease and multifocal pneumonia. Hilario Rose MD Objective Remarks GENERAL: Resting in bed. SKIN: Warm and dry. Pale. HEAD: Normocephalic. Atraumatic. EYES: No scleral icterus. No injection or drainage. NECK: Supple, trachea midline. No JVD or lymphadenopathy. CARDIOVASCULAR: Regular rate and rhythm without murmurs, gallops, or rubs. RESPIRATORY: Decreased breath sounds at the left base. No accessory muscle use. GASTROINTESTINAL: Abdomen soft, non-tender, nondistended. MUSCULOSKELETAL: No cyanosis, or edema. Chest tube in place on the left. BACK: Nontender without obvious deformity. No CVA tenderness. PSYCH: Mood and affect appropriate. Procedures Left thoracotomy Medications and IVs Current Medications Medications (Trade) Dose Ordered Sig/Emili Route Start Time Stop Time Status Last Admin (NS Flush) 2 ml UNSCH PRN IV FLUSH 02/21/17 20:45 (NS Flush) 2 ml BID IV FLUSH 02/21/17 21:00 03/05/17 08:30 (Tylenol) 650 mg Q4H PRN PO 02/21/17 20:45 02/25/17 08:23 (Zofran Inj) 4 mg Q6H PRN IVP 02/21/17 20:45 (Narcan Inj) 0.4 mg UNSCH PRN IV PUSH 02/21/17 20:45 (Milk Of Magnesia Liq) 30 ml Q12H PRN PO 02/21/17 20:45 ([place] 5-325 Mg) 1 tab Q4H PRN PO 02/22/17 11:00 03/05/17 13:45 Ceftriaxone Sodium 2000 mg/ Sodium Chloride 100 ml @ 200 mls/hr Q24H IV 02/24/17 13:00 03/05/17 13:51 (Tums Chew) 500 mg BID PRN PO 02/25/17 17:15 02/25/17 17:52 A/P Problem List: (1) Septic embolism ICD Code: I26.90 - Septic pulmonary embolism without acute cor pulmonale Status: Acute (2) Substance abuse ICD Code: F19.10 - Other psychoactive substance abuse, uncomplicated Status: Acute (3) Sepsis ICD Code: A41.9 - Sepsis, unspecified organism Status: Acute (4) Pneumonia ICD Code: J18.9 - Pneumonia, unspecified organism Status: Acute Assessment and Plan 31-year-old female with 1. Sepsis/endocarditis vs multifocal pneumonia CTA chest showed the focal patchy and nodular airspace disease bilaterally with mild cavitation on the left. Concern for septic emboli versus multifocal pneumonia. CXR 02/28 showed: Development of a moderate-sized left pleural effusion with consolidation of the left lower lobe and lingula as well as new consolidations involving left mid lung and upper lobe. Infectious etiology is suspected. - Currently on Rocephin and s/p Vancomycin/PCN/Gent. - 2-D echo ruled out endocarditis. - Will need 6 weeks of Abx on d/c. - pulmonology consult noted. S/p left thoracentesis 03/03. Follow fluid studies. - CTS consult appreciated. S/p left thoracotomy 03/04/17. Chest tube in place, still having output. - follow up with ID and CTS. - Physical therapy - Incentive spirometry 2. Gram-positive bacteremia Repeat blood culture NGTD Infectious disease consultation appreciated Currently on Rocephin and s/p vancomycin/PCN/Gent Will need 6 weeks of Abx on d/c 3. Elevated troponin EKG showed normal sinus rhythm without ST segment elevations or depressions May be secondary to endocarditis ACS ruled out per protocol; monitor serial troponins/EKGs 4. Hyponatremia Continue with NS Monitor electrolytes 5. Hypokalemia Monitor 6. Transaminitis hepatitis C antibody positive - outpt follow-up 7. IV drug abuse Cessation counseling provided 2-D echo without any evidence of endocarditis - cessation instruction 8. Right shoulder bursitis Mild cellulitis MRI shoulder noted and review without any evidence of osteomyelitis or abscess Orthopedic surgery consulted and recommended nonoperative medical management in the form of IV antibiotics. Outpt follow-up. DVT prophylaxis: Bilateral SCDs Discharge Planning Will need chest tube removed. Will need ID to clarify antibiotic regimen upon discharge. D/c when cleared by ID, CTS and pulmonology Problem Qualifiers (1) Pneumonia: Qualified Codes: J18.9 - Pneumonia, unspecified organism Matty Camacho DO Mar 05, 2017 14:28
[2017-03-05] MEDS: DOCUSATE SODIUM 50 MG/SENNA 8.6 MG TAB PO SCH ×2 (14:30→20:32)
--- NOTE | 2017-03-05 15:56 | HHI.PR ---
Subjective Remarks 32 YOWF with IVDA,sepsis, empyema had Decortication Chest tube draining mild chest pain no Fever Objective Vital Signs Vital Signs Date Time Temp Pulse Resp B/P (MAP) Pulse Ox O2 Delivery O2 Flow Rate FiO2 03/05/17 15:53 98.6 88 16 108/59 (75) 98 03/05/17 12:50 98.8 82 17 113/59 (77) 99 03/05/17 10:43 96 21 03/05/17 08:26 23 03/05/17 08:00 97.7 86 32 124/72 (89) 96 03/05/17 04:00 98.2 73 19 118/62 (80) 99 03/05/17 00:00 98.1 65 21 109/62 (78) 98 03/04/17 21:42 98 Nasal Cannula 2.00 03/04/17 20:00 97.9 87 24 114/56 (75) 96 Automatic Cuff 03/04/17 18:00 97.7 74 22 97/52 (67) 98 111/52 (71) 03/04/17 17:15 76 20 102/59 (73) 98 Nasal Cannula 2 03/04/17 16:30 86 20 99/55 (70) 98 Nasal Cannula 2 I/O 03/04/17 03/04/17 03/04/17 03/05/17 03/05/17 03/05/17 07:00 15:00 23:00 07:00 15:00 23:00 Intake Total 1360 ml 240 ml Output Total 850 ml 580 ml 1700 ml 1700 ml Balance -850 ml -580 ml -340 ml -1460 ml Intake Oral 360 ml 240 ml IV Total 1000 ml Output Urine Total 550 ml 300 ml 1600 ml 1700 ml Chest Tube Drainage Total 280 ml 100 ml Estimated Blood Loss 300 ml Result Diagram: 03/05/17 0400 03/05/17 0400 Objective Remarks GENERAL: Thin built female, NAD SKIN: Warm and dry. HEAD: Normocephalic. EYES: No scleral icterus. No injection or drainage. NECK: Supple, trachea midline. No JVD or lymphadenopathy. CARDIOVASCULAR: Regular rate and rhythm without murmurs, gallops, or rubs. RESPIRATORY: Breath sounds equal bilaterally. No accessory muscle use. Left chest tube draining GASTROINTESTINAL: Abdomen soft, non-tender, nondistended. MUSCULOSKELETAL: No cyanosis, or edema. BACK: Nontender without obvious deformity. No CVA tenderness. A/P Assessment and Plan Empyema, loculated eff S/P Decorication Pneumonia IVDA PLAN: Chest tube to suction Cont Abx Stable on RA Jacky Mckeon MD Mar 05, 2017 15:56
--- NOTE | 2017-03-05 16:27 | HHI.IDPN ---
Subjective Subjective Remarks ID X cover, chart reviewd Patient is a 31-year-old female, presented to the hospital complaining 1 week history of shortness of breath and pain on her left chest and left back. She was also complaining of pain in her right shoulder. She had some subjective fever and chills. He significant respiratory complaint as far as coughing or congestion. She has not had any nausea or vomiting, GI or any urinary complaints. Patient has been using IV drugs in the last 10 years. She is also complaining of pain in her left big toe, and does not remember having any prior history of injury or trauma. Patient underwent CTA of the chest which showed multifocal patchy and nodular airspace disease with some cavitation especially on the left side. She had blood cultures done in the emergency room, and they are now all reported as growing gram-positive cocci in pairs and chains. X-ray of the right shoulder did not show any significant abnormality. Infectious disease consultation has been requested to evaluate the patient. Notes reviewed yday sp left thoracotomy and decortication of the left lung by Dr Sparrow afebrile breathing improved co L side chest pain Antibiotics CFTX Lines PIV Past Medical History 5 pregancies and NSD Tubal ligation Allergies: Coded Allergies: *MDRO Multi-Drug Resistant Organism (Unverified Adverse Reaction, Unknown , 09/11/14) MRSA 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 Objective . Vital Signs Date Time Temp Pulse Resp B/P (MAP) Pulse Ox O2 Delivery O2 Flow Rate FiO2 03/05/17 15:53 98.6 88 16 108/59 (75) 98 03/05/17 12:50 98.8 82 17 113/59 (77) 99 03/05/17 10:43 96 21 03/05/17 08:26 23 03/05/17 08:00 97.7 86 32 124/72 (89) 96 03/05/17 04:00 98.2 73 19 118/62 (80) 99 03/05/17 00:00 98.1 65 21 109/62 (78) 98 03/04/17 21:42 98 Nasal Cannula 2.00 03/04/17 20:00 97.9 87 24 114/56 (75) 96 Automatic Cuff 03/04/17 18:00 97.7 74 22 97/52 (67) 98 111/52 (71) 03/04/17 17:15 76 20 102/59 (73) 98 Nasal Cannula 2 03/04/17 16:30 86 20 99/55 (70) 98 Nasal Cannula 2 03/05/17 03/05/17 03/06/17 15:00 23:00 07:00 Intake Total 240 ml Output Total 1700 ml Balance -1460 ml Intake Oral 240 ml Output Urine Total 1700 ml . Laboratory Tests Test 03/05/17 04:00 White Blood Count 14.8 TH/MM3 Red Blood Count 3.18 MIL/MM3 Hemoglobin 8.5 GM/DL Hematocrit 26.2 % Mean Corpuscular Volume 82.6 FL Mean Corpuscular Hemoglobin 26.8 PG Mean Corpuscular Hemoglobin Concent 32.5 % Red Cell Distribution Width 14.8 % Platelet Count 566 TH/MM3 Mean Platelet Volume 6.5 FL Laboratory Tests Test 03/05/17 04:00 Blood Urea Nitrogen 9 MG/DL Creatinine 0.34 MG/DL Random Glucose 115 MG/DL Calcium Level 8.2 MG/DL Magnesium Level 2.2 MG/DL Sodium Level 138 MEQ/L Potassium Level 3.7 MEQ/L Chloride Level 101 MEQ/L Carbon Dioxide Level 31.3 MEQ/L Anion Gap 6 MEQ/L Estimat Glomerular Filtration Rate 223 ML/MIN Microbiology Date/Time Source Procedure Growth Status 03/03/17 09:28 Fluid Pleural Fluid Fungal Smear - Final NO FUNGAL ELEMENTS SEEN. Resulted 03/03/17 09:28 Fluid Pleural Fluid Fungal Culture Pending Resulted 03/03/17 09:28 Fluid Pleural Fluid Acid Fast Stain - Final NO ACID FAST BACILLI SEEN Resulted 03/03/17 09:28 Fluid Pleural Fluid Mycobacterial Culture Pending Resulted 03/03/17 09:28 Fluid Pleural Fluid Gram Stain - Final Resulted 03/03/17 09:28 Fluid Pleural Fluid Body Fluid Culture - Preliminary NO GROWTH IN 48 HOURS. Resulted 03/04/17 12:16 Wound Lung Gram Stain - Final Resulted 03/04/17 12:16 Wound Lung Wound Culture - Preliminary NO GROWTH IN 24 HOURS. Resulted 03/04/17 12:16 Wound Lung Fungal Smear - Final NO FUNGAL ELEMENTS SEEN. Resulted 03/04/17 12:16 Wound Lung Fungal Culture Pending Resulted 03/04/17 12:16 Wound Lung Acid Fast Stain Pending Received 03/04/17 12:16 Wound Lung Mycobacterial Culture Pending Received Imaging L Last Impressions Chest X-Ray 03/04/17 0000 Signed Impressions: Service Date/Time: Saturday, March 04, 2017 12:52 - CONCLUSION: Left chest tube in good position. Improvement when compared to CT scan 03/03/17 Abhishek Zhang MD FACR Thoracentesis Ultrasound 03/03/17 0000 Signed Impressions: Service Date/Time: Friday, March 03, 2017 09:18 - CONCLUSION: Uncomplicated ultrasound guided thoracentesis. This effusion is highly loculated and therefore complete decompression of the effusion is not possible. Dedrick Rutherford Jr., MD Chest CT 03/03/17 0000 Signed Impressions: Service Date/Time: Friday, March 03, 2017 18:17 - CONCLUSION: 1. Large loculated pleural effusion on the left side with a lateral and subpulmonic components. Associated collapse of the left lower lobe. 2. There are 2 new findings in the right lung, including a subsegmental area of consolidation and a new peripheral right midlung cavitary lesion. The other nodules seen on prior CT are stable. Dedrick Higuera MD Shoulder MRI 02/22/17 0000 Signed Impressions: Service Date/Time: Wednesday, February 22, 2017 18:17 - CONCLUSION: 1. Bursitis at the right shoulder with some soft tissue edematous changes that may indicate mild cellulitis, but no discrete abscess or osteomyelitis identified. Hilario Rose MD Shoulder X-Ray 02/21/177 Signed Impressions: Service Date/Time: Tuesday, February 21, 2017 18:30 - CONCLUSION: Normal examination for a patient of this age. Hilario Rose MD Abdomen/Pelvis CT 02/21/17 1649 Signed Impressions: Service Date/Time: Tuesday, February 21, 2017 19:19 - CONCLUSION: 1. Patchy airspace consolidation at both lung bases. 2. Hepatosplenomegaly. 3. Multiple gallstones biliary ductal dilatation. Questionable diminished perfusion to the kidneys. Cannot exclude nephritis. Hilario Rose MD CT Angiography 02/21/17 0000 Signed Impressions: Service Date/Time: Tuesday, February 21, 2017 19:16 - CONCLUSION: 1. Negative for pulmonary embolism. 2. Multifocal patchy and nodular airspace disease in both lungs with some mild cavitation on the left side. Differential diagnosis includes septic embolic disease and multifocal pneumonia. Hilario Rose MD Physical Exam GENERAL: awake and alert, not in respiratory distress. SKIN: Warm and dry. No generalized rash, no ecchymoses and no evidence of embolic lesions. HEAD: Atraumatic. Normocephalic. No temporal wasting, or tenderness. EYES: Alligator conjunctiva. No petechia or hemorrhage. Pupils equal, round and reactive to light. Extraocular movements full and intact. No scleral icterus. No injection or drainage. EARS, NOSE AND THROAT: Nose without bleeding or purulent nasal discharge. No sinus tenderness. Mucous membranes pink and moist. No oral lesions noted. Has poor dentition. NECK: Trachea midline. Supple and not tender, no meningeal signs CARDIOVASCULAR: Regular rate and rhythm. No murmurs, rubs or gallops heard RESPIRATORY: Decreased BS bases, worse on L CT in place on L with serosang dc ABDOMEN: Soft, non-tender, nondistended. Bowel sounds present and normoactive. No guarding. No rebound. No organomegaly. EXTREMITIES: No clubbing, cyanosis, or edema. Has min swelling on R shoulder , ROM better NEUROLOGICAL: Awake and alert. NOn focal PSYCHIATRIC: Normal affect, calm and cooperative. LINE: No evidence of infection Assessment & Plan Remarks IMPRESSION Sepsis with Strep and MSSA very worrisome for endocarditis - has findings suggestive of septic emboli on CT Right shoulder pain and swelling, better L lung empyema sp decortication, clx negative so far low grade temps Known IVDU Leukocytosis - 2/2 infx RECOMMENDATION Continue IV Rocephin - plan till Apr 03 - labs weekly while on Abx: CBC, creat, LFT cont CFTX fu clx untill final monitor WBC dw Christina Breaux MD Mar 05, 2017 16:27
--- NOTE | 2017-03-05 21:06 | MP ---
cc: PIETRO MENDOZA MD DATE OF SURGERY: 03/04/2017. PREOPERATIVE DIAGNOSIS: Sepsis, large loculated empyema of the left chest and entrapment of the left lung. POSTOPERATIVE DIAGNOSIS: Sepsis, large loculated empyema of the left chest and entrapment of the left lung. OPERATIVE PROCEDURE PERFORMED: Thoracoscopy. Thoracotomy. Evacuation of empyema of the left chest. Decortication of the left lung. Pleurodesis. SURGEON: Pietro Mendoza M.D. ANESTHESIA: General. ESTIMATED BLOOD LOSS: 150 cc. DESCRIPTION OF THE PROCEDURE IN DETAIL: The patient was prepped and draped in the usual fashion in the decubitus position. Then a small incision was made in the posterior axillary line at the seventh intercostal space and through this one, a 5 mm thoracoscopy port was placed. Readily there was a huge collection of fluid which we entered. Therefore first a suction device was inserted and anything that was liquid was suctioned out. This was about 400 to 500 cc of fluid. This was sent for cultures to the lab. Now the port was inserted and a 5-mm 0-degree camera. The chest was visualized. The patient had a huge cavity encompassing the posterolateral aspect of the left chest filled with fluid and then there were a lot of loculated areas with gelatinous thick material. It was readily apparent that this could not be done further thoracoscopically because I would need to make five or six different port sites. Therefore, this was abandoned and a thoracotomy incision was made measuring about 3 inches in length. The incision was now deepened through the muscles and then over the 7th rib. The chest was entered. The lung was collapsed. The gelatinous material was now scooped out as much I could with my finger. The lung was carefully identified and adhesions were taken down with Metzenbaum scissors and combination of sponge stick dissection and careful peeling it down. This allowed the lung to collapse into the chest inferiorly and medially. Now the peel of the pleura was very carefully taken down and peeled off removing the pieces of tissue and sending it for culture. There were several areas and as above-stated these were all now cleaned up and the chest was cleaned out. The chest was now irrigated with copious amounts of saline with about 3 liters. ADDENDUM Finally using sponge sticks and sponge forceps, large segments of the gelatinous purulent material were removed from the chest and then the parietal pleura was peeled all the way up and removed. The two chest tubes were placed, apical and basal, and sutured in place with 0-silk and then the chest was closed in layers using #2-0 Vicryl for the ribs [id number] and then running #0 Vicryl for the muscle layers and the skin was closed with 4-0 Monocryl. Benzoin and Steri-Strips applied. Chest x-ray was obtained in the recovery room. The patient tolerated the procedure well. Pietro DUMONT/OLEGARIO /2:19 PM /8:19 AM
[2017-03-06] VITALS: BP 117/73; PULSE 74; RESP 18; TEMP 98.8; O2SAT 95
[2017-03-06] MEDS: ACETAMINOPHEN/HYDROcodone 325 MG/5 MG TAB PO PRN ×5 (02:12→20:34)
[2017-03-06 04:00] VITALS: BP 104/58; PULSE 81; RESP 18; TEMP 98.6; O2SAT 98
[2017-03-06 07:22] LABS: HEMATOCRIT 30.7 % (35.0-46.0); HEMOGLOBIN 9.8 GM/DL (11.6-15.3); MEAN CELL VOLUME 84.5 FL (80.0-100.0); MEAN CORPUSCULAR HGB CONC 31.9 % (32.0-36.0); PLATELET COUNT 540 TH/MM3 (150-450); RED BLOOD COUNT 3.64 MIL/MM3 (4.00-5.30); RED CELL DISTRIBUTION WIDTH 14.3 % (11.6-17.2); WHITE BLOOD COUNT 13.3 TH/MM3 (4.0-11.0)
[2017-03-06 07:40] LABS: CALCIUM 8.6 MG/DL (8.5-10.1); CREATININE 0.33 MG/DL (0.50-1.00); MAGNESIUM 2.2 MG/DL (1.5-2.5)
[2017-03-06 08:00] VITALS: BP 116/68; PULSE 79; RESP 18; TEMP 98; O2SAT 98
[2017-03-06] MEDS: SODIUM CHLORIDE 0.9% FLUSH 10 ML FLUSH IV FLUSH SCH ×2 (09:28→21:00)
[2017-03-06] MEDS: DOCUSATE SODIUM 50 MG/SENNA 8.6 MG TAB PO SCH ×2 (09:28→21:00)
--- NOTE | 2017-03-06 11:38 | HHI.PR ---
Subjective Remarks Follow-up pneumonia, bacteremia. Patient has no specific complaints at this time. Chest tube is in place. Per nursing, there has been no drainage overnight. The patient denies chest pain or dyspnea, but does report pain at the site of the chest tube. Objective Vitals Vital Signs Date Time Temp Pulse Resp B/P (MAP) Pulse Ox O2 Delivery O2 Flow Rate FiO2 03/06/17 08:00 98.0 79 18 116/68 (84) 98 03/06/17 04:00 98.6 81 18 104/58 (73) 98 03/06/17 00:00 98.8 74 18 117/73 (88) 95 03/05/17 20:00 98.2 81 20 115/80 (92) 97 03/05/17 20:00 98.2 81 20 115/80 (92) 97 03/05/17 15:53 98.6 88 16 108/59 (75) 98 03/05/17 12:50 98.8 82 17 113/59 (77) 99 I/O 03/05/17 03/05/17 03/05/17 03/06/17 03/06/17 03/06/17 07:00 15:00 23:00 07:00 15:00 23:00 Intake Total 1360 ml 240 ml Output Total 1700 ml 1700 ml 4800 ml Balance -340 ml -1460 ml -4800 ml Intake Oral 360 ml 240 ml IV Total 1000 ml Output Urine Total 1600 ml 1700 ml 4800 ml Chest Tube Drainage Total 100 ml 0 ml Result Diagram: 03/06/17 0628 03/06/17627 Imaging Last Impressions Chest X-Ray 03/04/17 0000 Signed Impressions: Service Date/Time: Saturday, March 04, 2017 12:52 - CONCLUSION: Left chest tube in good position. Improvement when compared to CT scan 03/03/17 Abhishek Zhang MD FACR Thoracentesis Ultrasound 03/03/17 0000 Signed Impressions: Service Date/Time: Friday, March 03, 2017 09:18 - CONCLUSION: Uncomplicated ultrasound guided thoracentesis. This effusion is highly loculated and therefore complete decompression of the effusion is not possible. Dedrick Rutherford Jr., MD Chest CT 03/03/17 0000 Signed Impressions: Service Date/Time: Friday, March 03, 2017 18:17 - CONCLUSION: 1. Large loculated pleural effusion on the left side with a lateral and subpulmonic components. Associated collapse of the left lower lobe. 2. There are 2 new findings in the right lung, including a subsegmental area of consolidation and a new peripheral right midlung cavitary lesion. The other nodules seen on prior CT are stable. Dedrick Higuera MD Shoulder MRI 02/22/17 0000 Signed Impressions: Service Date/Time: Wednesday, February 22, 2017 18:17 - CONCLUSION: 1. Bursitis at the right shoulder with some soft tissue edematous changes that may indicate mild cellulitis, but no discrete abscess or osteomyelitis identified. Hilario Rose MD Shoulder X-Ray 02/21/17 1817 Signed Impressions: Service Date/Time: Tuesday, February 21, 2017 18:30 - CONCLUSION: Normal examination for a patient of this age. Hilario Rose MD Abdomen/Pelvis CT 02/21/17 1649 Signed Impressions: Service Date/Time: Tuesday, February 21, 2017 19:19 - CONCLUSION: 1. Patchy airspace consolidation at both lung bases. 2. Hepatosplenomegaly. 3. Multiple gallstones biliary ductal dilatation. Questionable diminished perfusion to the kidneys. Cannot exclude nephritis. Hilario Rose MD CT Angiography 02/21/17 0000 Signed Impressions: Service Date/Time: Tuesday, February 21, 2017 19:16 - CONCLUSION: 1. Negative for pulmonary embolism. 2. Multifocal patchy and nodular airspace disease in both lungs with some mild cavitation on the left side. Differential diagnosis includes septic embolic disease and multifocal pneumonia. Hilario Rose MD Objective Remarks General: Thin female in no acute distress. Sitting up in a chair. Heart: Regular rate and rhythm. No murmur. Lungs: Clear to auscultation bilaterally. No wheezes, rales, or rhonchi. Breathing is nonlabored. Chest: Left-sided chest tube in place. Abdomen: Soft, nontender, nondistended. Extremities: No lower extremity edema. Psych: Alert and oriented. Procedures 03/04/17 Thoracoscopy, thoracotomy, evacuation of empyema of the left chest, decortication of the left lung, pleurodesis, chest tube placement Urinary Catheter: Yes Assessment to: Remove Vascular Central Line Catheter: No A/P Problem List: (1) Septic embolism ICD Code: I26.90 - Septic pulmonary embolism without acute cor pulmonale Status: Acute (2) Substance abuse ICD Code: F19.10 - Other psychoactive substance abuse, uncomplicated Status: Acute (3) Sepsis ICD Code: A41.9 - Sepsis, unspecified organism Status: Acute (4) Pneumonia ICD Code: J18.9 - Pneumonia, unspecified organism Status: Acute Assessment and Plan 1. Sepsis/pneumonia/empyema: Continue Rocephin. Appreciate infectious disease recommendations patient had empyema. Chest tube is in place. Management per cardiothoracic surgery, pulmonology. 2. Gram-positive bacteremia: Appreciate infectious disease recommendations. Continue Rocephin 6 weeks. 3. Hyponatremia: Monitor labs. 4. Hypokalemia: Monitor labs and supplement potassium as needed. 5. Transaminitis: Patient has positive hepatitis C antibody. Follow-up as outpatient. 6. IV drug abuse: Patient was counseled. 2-D echocardiogram does not show any evidence of endocarditis. 7. Right shoulder bursitis, cellulitis: MRI shows no evidence of osteomyelitis or abscess. Appreciate orthopedic surgery recommendations. Nonsurgical management at this time. 8. DVT prophylaxis: SCDs. Problem Qualifiers (1) Pneumonia: Qualified Codes: J18.9 - Pneumonia, unspecified organism Kal Monsivais MD Mar 06, 2017 11:38
--- NOTE | 2017-03-06 11:52 | PD.CAR.PN ---
CVT Progress Note Subjective/Hospital Course: Patient is status post left thoracotomy and decortication of the left lung Incision is clean and dry Chest tube drainage is serosanguineous Bilateral good breath sounds and lungs the fully expanded on chest x-ray Patient can be transferred to floor at this point Chest tubes will stain for several days considering the purulent nature of the effusion 03/06/17 Patient doing well at this time Bilateral good breath sounds full pulmonary expansion Chest tube drainage serosanguineous about 200 cc over last 24 hours All things equal we'll place chest tubes on waterseal tomorrow and start pulling and one by one day after In face of the empyema we cannot be to fast and pulling the tubes for this things tend to recur otherwise Patient ambulating with ease taking diet well Leukocytosis on down slope Objective: Vital Signs Date Time Temp Pulse Resp B/P (MAP) Pulse Ox O2 Delivery O2 Flow Rate FiO2 03/06/17 08:00 98.0 79 18 116/68 (84) 98 03/06/17 04:00 98.6 81 18 104/58 (73) 98 03/06/17 00:00 98.8 74 18 117/73 (88) 95 03/05/17 20:00 98.2 81 20 115/80 (92) 97 03/05/17 20:00 98.2 81 20 115/80 (92) 97 03/05/17 15:53 98.6 88 16 108/59 (75) 98 03/05/17 12:50 98.8 82 17 113/59 (77) 99 Labs: Laboratory Tests Test 03/06/17 06:28 White Blood Count 13.3 TH/MM3 (4.0-11.0) Red Blood Count 3.64 MIL/MM3 (4.00-5.30) Hemoglobin 9.8 GM/DL (11.6-15.3) Hematocrit 30.7 % (35.0-46.0) Mean Corpuscular Volume 84.5 FL (80.0-100.0) Mean Corpuscular Hemoglobin 27.0 PG (27.0-34.0) Mean Corpuscular Hemoglobin Concent 31.9 % (32.0-36.0) Red Cell Distribution Width 14.3 % (11.6-17.2) Platelet Count 540 TH/MM3 (150-450) Mean Platelet Volume 7.0 FL (7.0-11.0) Blood Urea Nitrogen 6 MG/DL (7-18) Creatinine 0.33 MG/DL (0.50-1.00) Random Glucose 86 MG/DL (74-106) Calcium Level 8.6 MG/DL (8.5-10.1) Magnesium Level 2.2 MG/DL (1.5-2.5) Sodium Level 136 MEQ/L (136-145) Potassium Level 4.1 MEQ/L (3.5-5.1) Chloride Level 102 MEQ/L (98-107) Carbon Dioxide Level 28.0 MEQ/L (21.0-32.0) Anion Gap 6 MEQ/L (5-15) Estimat Glomerular Filtration Rate 231 ML/MIN (>89) Result Diagram: 03/06/1728 03/06/1728 Pietro Sparrow MD Mar 06, 2017 11:52
[2017-03-06 12:00] VITALS: BP 110/61; PULSE 95; RESP 19; TEMP 97.6; O2SAT 97
[2017-03-06] MEDS: cefTRIAXone INJ 2,000 MG in SODIUM CHLORIDE 0.9% INJ 100 ML IV SCH (13:30)
--- NOTE | 2017-03-06 14:41 | HHI.PR ---
Subjective Remarks 32 YOWF with IVDA,sepsis, empyema had Decortication Chest tube draining mild chest pain no Fever Feels better worked with PT Objective Vital Signs Vital Signs Date Time Temp Pulse Resp B/P (MAP) Pulse Ox O2 Delivery O2 Flow Rate FiO2 03/06/17 12:00 97.6 95 19 110/61 (77) 97 03/06/17 08:00 98.0 79 18 116/68 (84) 98 03/06/17 04:00 98.6 81 18 104/58 (73) 98 03/06/17 00:00 98.8 74 18 117/73 (88) 95 03/05/17 20:00 98.2 81 20 115/80 (92) 97 03/05/17 20:00 98.2 81 20 115/80 (92) 97 03/05/17 15:53 98.6 88 16 108/59 (75) 98 I/O 03/05/17 03/05/17 03/05/17 03/06/17 03/06/17 03/06/17 07:00 15:00 23:00 07:00 15:00 23:00 Intake Total 1360 ml 240 ml Output Total 1700 ml 1700 ml 4800 ml 1310 ml Balance -340 ml -1460 ml -4800 ml -1310 ml Intake Oral 360 ml 240 ml IV Total 1000 ml Output Urine Total 1600 ml 1700 ml 4800 ml 1250 ml Chest Tube Drainage Total 100 ml 0 ml 60 ml Result Diagram: 03/06/1762703/06/17627 Objective Remarks GENERAL: Thin built female, NAD SKIN: Warm and dry. HEAD: Normocephalic. EYES: No scleral icterus. No injection or drainage. NECK: Supple, trachea midline. No JVD or lymphadenopathy. CARDIOVASCULAR: Regular rate and rhythm without murmurs, gallops, or rubs. RESPIRATORY: Breath sounds equal bilaterally. No accessory muscle use. Left chest tube draining GASTROINTESTINAL: Abdomen soft, non-tender, nondistended. MUSCULOSKELETAL: No cyanosis, or edema. BACK: Nontender without obvious deformity. No CVA tenderness. A/P Assessment and Plan Empyema, loculated eff S/P Decorication Pneumonia IVDA PLAN: Chest tube to suction Cont Abx Stable on RA OOB in chair Jacky Mckeon MD Mar 06, 2017 14:41
[2017-03-06 16:00] VITALS: BP 109/59; PULSE 90; RESP 18; TEMP 98; O2SAT 98
[2017-03-06 20:49] VITALS: BP 109/55; PULSE 87; RESP 18; TEMP 98.1; O2SAT 97
[2017-03-07 00:42] VITALS: BP 102/56; PULSE 77; RESP 18; TEMP 98.6; O2SAT 97
[2017-03-07] MEDS: ACETAMINOPHEN/HYDROcodone 325 MG/5 MG TAB PO PRN ×6 (00:53→22:13)
[2017-03-07 05:25] VITALS: BP 109/57; PULSE 78; RESP 18; TEMP 98; O2SAT 98
--- NOTE | 2017-03-07 07:45 | RADRPT ---
EXAM DATE/TIME: 03/07/2017 06:29 [facility] COMPARISON: None. INDICATIONS : <<Patient with history of loculated left pleural effusion status post thoracotomy and chest tube plac ement.>> MEDICAL HISTORY : None. SURGICAL HISTORY : None. ENCOUNTER: Subsequent ACUITY: 1 week PAIN SCORE: 6/10 LOCATION: Left chest FINDINGS: A single AP portable erect expiratory view of the chest was obtained again demonstrates 2 left-sided chest tubes in place. The upper chest tube tip is projected over the lung apex. The lower chest tube has its tip projected over the lung base. There is no pneumothorax. There is stable hazy opacity in t he left lateral mid lung and lower lung. There is mild hazy opacity along the lateral right lower cary st wall. The heart size remains within normal limits. The bony thorax is intact. CONCLUSION: 1. 2 left-sided chest tubes remain in place with no pneumothorax. 2. Stable hazy opacity in both lungs left greater than right. Matty Shen MD on March 07, 2017 at 7:42 Board Certified Radiologist. This report was verified electronically.
[2017-03-07 08:44] VITALS: BP 105/56; PULSE 82; RESP 20; TEMP 97.8; O2SAT 98
[2017-03-07] MEDS: DOCUSATE SODIUM 50 MG/SENNA 8.6 MG TAB PO SCH ×2 (09:00→21:00)
[2017-03-07] MEDS: SODIUM CHLORIDE 0.9% FLUSH 10 ML FLUSH IV FLUSH SCH ×2 (09:00→22:04)
--- NOTE | 2017-03-07 10:33 | HHI.PR ---
Subjective Remarks Follow up pneumonia, bacteremia. Patient still reporting pain at site of chest tube. No other complaints at this time. Denies chest pain, dyspnea. Objective Vitals Vital Signs Date Time Temp Pulse Resp B/P (MAP) Pulse Ox O2 Delivery O2 Flow Rate FiO2 03/07/17 08:44 97.8 82 20 105/56 (72) 98 03/07/17 05:25 98.0 78 18 109/57 (74) 98 03/07/17 00:42 98.6 77 18 102/56 (71) 97 03/06/17 20:49 98.1 87 18 109/55 (73) 97 03/06/17 16:00 98.0 90 18 109/59 (76) 98 03/06/17 12:00 97.6 95 19 110/61 (77) 97 I/O 03/06/17 03/06/17 03/06/17 03/07/17 03/07/17 03/07/17 07:00 15:00 23:00 07:00 15:00 23:00 Output Total 4800 ml 1510 ml 20 ml 0 ml Balance -4800 ml -1510 ml -20 ml 0 ml Output Urine Total 4800 ml 1450 ml Chest Tube Drainage Total 0 ml 60 ml 20 ml 0 ml # Voids 2 2 # Bowel Movements 1 Result Diagram: 03/06/1762703/06/17627 Imaging Last Impressions Chest X-Ray 03/07/17 06 Signed Impressions: Service Date/Time: Tuesday, March 07, 2017 06:29 - CONCLUSION: 1. 2 left-sided chest tubes remain in place with no pneumothorax. 2. Stable hazy opacity in both lungs left greater than right. Matty Shen MD Thoracentesis Ultrasound 03/03/17 0000 Signed Impressions: Service Date/Time: Friday, March 03, 2017 09:18 - CONCLUSION: Uncomplicated ultrasound guided thoracentesis. This effusion is highly loculated and therefore complete decompression of the effusion is not possible. Dedrick Rutherford Jr., MD Chest CT 03/03/17 0000 Signed Impressions: Service Date/Time: Friday, March 03, 2017 18:17 - CONCLUSION: 1. Large loculated pleural effusion on the left side with a lateral and subpulmonic components. Associated collapse of the left lower lobe. 2. There are 2 new findings in the right lung, including a subsegmental area of consolidation and a new peripheral right midlung cavitary lesion. The other nodules seen on prior CT are stable. Dedrick Higuera MD Shoulder MRI 02/22/17 0000 Signed Impressions: Service Date/Time: Wednesday, February 22, 2017 18:17 - CONCLUSION: 1. Bursitis at the right shoulder with some soft tissue edematous changes that may indicate mild cellulitis, but no discrete abscess or osteomyelitis identified. Hilario Rose MD Shoulder X-Ray 02/21/17 1817 Signed Impressions: Service Date/Time: Tuesday, February 21, 2017 18:30 - CONCLUSION: Normal examination for a patient of this age. Hilario Rose MD Abdomen/Pelvis CT 02/21/17 1649 Signed Impressions: Service Date/Time: Tuesday, February 21, 2017 19:19 - CONCLUSION: 1. Patchy airspace consolidation at both lung bases. 2. Hepatosplenomegaly. 3. Multiple gallstones biliary ductal dilatation. Questionable diminished perfusion to the kidneys. Cannot exclude nephritis. Hilario Rose MD CT Angiography 02/21/17 0000 Signed Impressions: Service Date/Time: Tuesday, February 21, 2017 19:16 - CONCLUSION: 1. Negative for pulmonary embolism. 2. Multifocal patchy and nodular airspace disease in both lungs with some mild cavitation on the left side. Differential diagnosis includes septic embolic disease and multifocal pneumonia. Hilario Rose MD Objective Remarks General: Thin female in no acute distress. Sitting up in a chair. Heart: Regular rate and rhythm. No murmur. Lungs: Clear to auscultation bilaterally. No wheezes, rales, or rhonchi. Breathing is nonlabored. Chest: Left-sided chest tube in place. Abdomen: Soft, nontender, nondistended. Extremities: No lower extremity edema. Psych: Alert and oriented. Procedures 03/04/17 Thoracoscopy, thoracotomy, evacuation of empyema of the left chest, decortication of the left lung, pleurodesis, chest tube placement Urinary Catheter: No Vascular Central Line Catheter: No A/P Problem List: (1) Septic embolism ICD Code: I26.90 - Septic pulmonary embolism without acute cor pulmonale Status: Acute (2) Substance abuse ICD Code: F19.10 - Other psychoactive substance abuse, uncomplicated Status: Acute (3) Sepsis ICD Code: A41.9 - Sepsis, unspecified organism Status: Acute (4) Pneumonia ICD Code: J18.9 - Pneumonia, unspecified organism Status: Acute Assessment and Plan 03/07/17: No change. Chest tube management per CT surgery, pulmonology. Continue antibiotics. 1. Sepsis/pneumonia/empyema: Continue Rocephin. Appreciate infectious disease recommendations patient had empyema. Chest tube is in place. Management per cardiothoracic surgery, pulmonology. 2. Gram-positive bacteremia: Appreciate infectious disease recommendations. Continue Rocephin 6 weeks. 3. Hyponatremia: Monitor labs. 4. Hypokalemia: Monitor labs and supplement potassium as needed. 5. Transaminitis: Patient has positive hepatitis C antibody. Follow-up as outpatient. 6. IV drug abuse: Patient was counseled. 2-D echocardiogram does not show any evidence of endocarditis. 7. Right shoulder bursitis, cellulitis: MRI shows no evidence of osteomyelitis or abscess. Appreciate orthopedic surgery recommendations. Nonsurgical management at this time. 8. DVT prophylaxis: SCDs. Problem Qualifiers (1) Pneumonia: Qualified Codes: J18.9 - Pneumonia, unspecified organism Kal Monsivais MD Mar 07, 2017 10:33
[2017-03-07 12:11] VITALS: BP 97/55; PULSE 83; RESP 20; TEMP 98.2; O2SAT 97
[2017-03-07] MEDS: cefTRIAXone INJ 2,000 MG in SODIUM CHLORIDE 0.9% INJ 100 ML IV SCH (13:45)
--- NOTE | 2017-03-07 14:35 | HHI.IDPN ---
Subjective Subjective Remarks Patient is a 31-year-old female, presented to the hospital complaining 1 week history of shortness of breath and pain on her left chest and left back. She was also complaining of pain in her right shoulder. She had some subjective fever and chills. He significant respiratory complaint as far as coughing or congestion. She has not had any nausea or vomiting, GI or any urinary complaints. Patient has been using IV drugs in the last 10 years. She is also complaining of pain in her left big toe, and does not remember having any prior history of injury or trauma. Patient underwent CTA of the chest which showed multifocal patchy and nodular airspace disease with some cavitation especially on the left side. She had blood cultures done in the emergency room, and they are now all reported as growing gram-positive cocci in pairs and chains. X-ray of the right shoulder did not show any significant abnormality. Infectious disease consultation has been requested to evaluate the patient. Notes reviewed Found to have large empyema on L Underwent surgery decortication, pleurodesis Fluid C/S negative Cytology pending C/O pain at CT site Temps better Antibiotics CFTX Lines PIV Past Medical History 5 pregancies and NSD Tubal ligation Allergies: Coded Allergies: *MDRO Multi-Drug Resistant Organism (Unverified Adverse Reaction, Unknown , 09/11/14) MRSA 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 Objective . Vital Signs Date Time Temp Pulse Resp B/P (MAP) Pulse Ox O2 Delivery O2 Flow Rate FiO2 03/07/17 12:11 98.2 83 20 97/55 (69) 97 03/07/17 08:44 97.8 82 20 105/56 (72) 98 03/07/17 05:25 98.0 78 18 109/57 (74) 98 03/07/17 00:42 98.6 77 18 102/56 (71) 97 03/06/17 20:49 98.1 87 18 109/55 (73) 97 03/06/17 16:00 98.0 90 18 109/59 (76) 98 . Laboratory Tests Test 03/06/17 06:28 White Blood Count 13.3 TH/MM3 Red Blood Count 3.64 MIL/MM3 Hemoglobin 9.8 GM/DL Hematocrit 30.7 % Mean Corpuscular Volume 84.5 FL Mean Corpuscular Hemoglobin 27.0 PG Mean Corpuscular Hemoglobin Concent 31.9 % Red Cell Distribution Width 14.3 % Platelet Count 540 TH/MM3 Mean Platelet Volume 7.0 FL Laboratory Tests Test 03/06/17 06:28 Blood Urea Nitrogen 6 MG/DL Creatinine 0.33 MG/DL Random Glucose 86 MG/DL Calcium Level 8.6 MG/DL Magnesium Level 2.2 MG/DL Sodium Level 136 MEQ/L Potassium Level 4.1 MEQ/L Chloride Level 102 MEQ/L Carbon Dioxide Level 28.0 MEQ/L Anion Gap 6 MEQ/L Estimat Glomerular Filtration Rate 231 ML/MIN Imaging L Last Impressions Chest X-Ray 03/04/17 0000 Signed Impressions: Service Date/Time: Saturday, March 04, 2017 12:52 - CONCLUSION: Left chest tube in good position. Improvement when compared to CT scan 03/03/17 Abhishek Zhang MD FACR Thoracentesis Ultrasound 03/03/17 0000 Signed Impressions: Service Date/Time: Friday, March 03, 2017 09:18 - CONCLUSION: Uncomplicated ultrasound guided thoracentesis. This effusion is highly loculated and therefore complete decompression of the effusion is not possible. Dedrick Rutherford Jr., MD Chest CT 03/03/17 0000 Signed Impressions: Service Date/Time: Friday, March 03, 2017 18:17 - CONCLUSION: 1. Large loculated pleural effusion on the left side with a lateral and subpulmonic components. Associated collapse of the left lower lobe. 2. There are 2 new findings in the right lung, including a subsegmental area of consolidation and a new peripheral right midlung cavitary lesion. The other nodules seen on prior CT are stable. Dedrick Higuera MD Shoulder MRI 02/22/17 0000 Signed Impressions: Service Date/Time: Wednesday, February 22, 2017 18:17 - CONCLUSION: 1. Bursitis at the right shoulder with some soft tissue edematous changes that may indicate mild cellulitis, but no discrete abscess or osteomyelitis identified. Hilario Rose MD Shoulder X-Ray 02/21/171816 Signed Impressions: Service Date/Time: Tuesday, February 21, 2017 18:30 - CONCLUSION: Normal examination for a patient of this age. Hilario Rose MD Abdomen/Pelvis CT 02/21/17 1649 Signed Impressions: Service Date/Time: Tuesday, February 21, 2017 19:19 - CONCLUSION: 1. Patchy airspace consolidation at both lung bases. 2. Hepatosplenomegaly. 3. Multiple gallstones biliary ductal dilatation. Questionable diminished perfusion to the kidneys. Cannot exclude nephritis. Hilario Rose MD CT Angiography 02/21/17 0000 Signed Impressions: Service Date/Time: Tuesday, February 21, 2017 19:16 - CONCLUSION: 1. Negative for pulmonary embolism. 2. Multifocal patchy and nodular airspace disease in both lungs with some mild cavitation on the left side. Differential diagnosis includes septic embolic disease and multifocal pneumonia. Hilario Rose MD Physical Exam GENERAL: awake and alert, not in respiratory distress. SKIN: Warm and dry. No generalized rash, no ecchymoses and no evidence of embolic lesions. HEAD: Atraumatic. Normocephalic. No temporal wasting, or tenderness. EYES: [place] conjunctiva. No petechia or hemorrhage. Pupils equal, round and reactive to light. Extraocular movements full and intact. No scleral icterus. No injection or drainage. EARS, NOSE AND THROAT: Nose without bleeding or purulent nasal discharge. No sinus tenderness. Mucous membranes pink and moist. No oral lesions noted. Has poor dentition. NECK: Trachea midline. Supple and not tender, no meningeal signs CARDIOVASCULAR: Regular rate and rhythm. No murmurs, rubs or gallops heard RESPIRATORY: Decreased BS bases, worse on L. CT in place on L with serosanguineous drainage ABDOMEN: Soft, non-tender, nondistended. Bowel sounds present and normoactive. No guarding. No rebound. No organomegaly. EXTREMITIES: No clubbing, cyanosis, or edema. Has min swelling on R shoulder , ROM better NEUROLOGICAL: Awake and alert. NOn focal PSYCHIATRIC: Normal affect, calm and cooperative. LINE: No evidence of infection Assessment & Plan Remarks IMPRESSION Sepsis with Strep and MSSA very worrisome for endocarditis - has findings suggestive of septic emboli on CT Right shoulder pain and swelling, better L lung empyema S/P decortication, C/S negative so far Low grade temps, better Known IVDU Leukocytosis - 2/2 infx RECOMMENDATION Continue IV Rocephin - plan till Apr 03 - labs weekly while on Abx: CBC, creat, LFT Follow C/S and cytology Follow temps and CBC Monitor progress Gloria Gomez MD Mar 07, 2017 14:35
--- NOTE | 2017-03-07 15:53 | PD.CAR.PN ---
CVT Progress Note Subjective/Hospital Course: Patient is status post left thoracotomy and decortication of the left lung Incision is clean and dry Chest tube drainage is serosanguineous Bilateral good breath sounds and lungs the fully expanded on chest x-ray Patient can be transferred to floor at this point Chest tubes will stain for several days considering the purulent nature of the effusion 03/06/17 Patient doing well at this time Bilateral good breath sounds full pulmonary expansion Chest tube drainage serosanguineous about 200 cc over last 24 hours All things equal we'll place chest tubes on waterseal tomorrow and start pulling and one by one day after In face of the empyema we cannot be to fast and pulling the tubes for this things tend to recur otherwise Patient ambulating with ease taking diet well Leukocytosis on down slope 03/07/17 Patient doing well at this time Left lung fully expanded and drainage from the chest tube is decreased and serous Will most likely removed the apical chest tube tomorrow followed by the basal chest tube in a day or 2 ID consult appreciated Nothing to add to care Objective: Vital Signs Date Time Temp Pulse Resp B/P (MAP) Pulse Ox O2 Delivery O2 Flow Rate FiO2 03/07/17 12:11 98.2 83 20 97/55 (69) 97 03/07/17 08:44 97.8 82 20 105/56 (72) 98 03/07/17 05:25 98.0 78 18 109/57 (74) 98 03/07/17 00:42 98.6 77 18 102/56 (71) 97 03/06/17 20:49 98.1 87 18 109/55 (73) 97 03/06/17 16:00 98.0 90 18 109/59 (76) 98 Result Diagram: 03/06/17 0628 03/06/17 0628 Pietro Sparrow MD Mar 07, 2017 15:53
[2017-03-07 16:05] VITALS: BP 106/57; PULSE 85; RESP 20; TEMP 98.4; O2SAT 98
--- NOTE | 2017-03-07 17:26 | HHI.PR ---
Subjective Remarks 32 YOWF with IVDA,sepsis, empyema had Decortication Chest tube draining mild chest pain no Fever Feels better Objective Vital Signs Vital Signs Date Time Temp Pulse Resp B/P (MAP) Pulse Ox O2 Delivery O2 Flow Rate FiO2 03/07/17 16:05 98.4 85 20 106/57 (73) 98 03/07/17 12:11 98.2 83 20 97/55 (69) 97 03/07/17 08:44 97.8 82 20 105/56 (72) 98 03/07/17 05:25 98.0 78 18 109/57 (74) 98 03/07/17 00:42 98.6 77 18 102/56 (71) 97 03/06/17 20:49 98.1 87 18 109/55 (73) 97 I/O 03/06/17 03/06/17 03/06/17 03/07/17 03/07/17 03/07/17 07:00 15:00 23:00 07:00 15:00 23:00 Intake Total 480 ml Output Total 4800 ml 1510 ml 20 ml 0 ml Balance -4800 ml -1510 ml -20 ml 0 ml 480 ml Intake Oral 480 ml Output Urine Total 4800 ml 1450 ml Chest Tube Drainage Total 0 ml 60 ml 20 ml 0 ml # Voids 2 2 2 # Bowel Movements 1 Result Diagram: 03/06/1762703/06/17627 Objective Remarks GENERAL: Thin built female, NAD SKIN: Warm and dry. HEAD: Normocephalic. EYES: No scleral icterus. No injection or drainage. NECK: Supple, trachea midline. No JVD or lymphadenopathy. CARDIOVASCULAR: Regular rate and rhythm without murmurs, gallops, or rubs. RESPIRATORY: Breath sounds equal bilaterally. No accessory muscle use. Left chest tube draining GASTROINTESTINAL: Abdomen soft, non-tender, nondistended. MUSCULOSKELETAL: No cyanosis, or edema. BACK: Nontender without obvious deformity. No CVA tenderness. A/P Assessment and Plan Empyema, loculated eff S/P Decorication Pneumonia IVDA PLAN: Chest tube to suction Cont Abx Stable on RA OOB in chair Overall, stable Jacky Mcekon MD Mar 07, 2017 17:26
[2017-03-07 20:19] VITALS: BP 105/59; PULSE 85; RESP 18; TEMP 97.7; O2SAT 96
[2017-03-08 00:42] VITALS: BP 95/51; PULSE 80; RESP 18; TEMP 98.1; O2SAT 98
[2017-03-08] MEDS: ACETAMINOPHEN/HYDROcodone 325 MG/5 MG TAB PO PRN ×5 (03:22→21:51)
[2017-03-08 05:00] VITALS: BP 106/54; PULSE 75; RESP 18; TEMP 98.1; O2SAT 98
[2017-03-08 08:24] VITALS: BP 100/58; PULSE 73; RESP 20; TEMP 98.1; O2SAT 100
[2017-03-08] MEDS: SODIUM CHLORIDE 0.9% FLUSH 10 ML FLUSH IV FLUSH SCH ×2 (08:44→20:23)
[2017-03-08] MEDS: DOCUSATE SODIUM 50 MG/SENNA 8.6 MG TAB PO SCH ×2 (09:00→20:23)
--- NOTE | 2017-03-08 09:29 | HHI.PR ---
Subjective Remarks Follow up bacteremia, pneumonia. Patient has no new complaints. Chest tubes remain in place. Objective Vitals Vital Signs Date Time Temp Pulse Resp B/P (MAP) Pulse Ox O2 Delivery O2 Flow Rate FiO2 03/08/17 08:24 98.1 73 20 100/58 (72) 100 03/08/17 05:00 98.1 75 18 106/54 (71) 98 03/08/17 00:42 98.1 80 18 95/51 (66) 98 03/07/17 20:19 97.7 85 18 105/59 (74) 96 03/07/17 16:05 98.4 85 20 106/57 (73) 98 03/07/17 12:11 98.2 83 20 97/55 (69) 97 I/O 03/07/17 03/07/17 03/07/17 03/08/17 03/08/17 03/08/17 07:00 15:00 23:00 07:00 15:00 23:00 Intake Total 580 ml 360 ml Output Total 0 ml Balance 0 ml 580 ml 360 ml Intake Oral 480 ml 360 ml IV Total 100 ml Chest Tube Drainage Total 0 ml # Voids 2 2 5 Result Diagram: 03/06/1762703/06/17 06 Imaging Last Impressions Chest X-Ray 03/07/17 0600 Signed Impressions: Service Date/Time: Tuesday, March 07, 2017 06:29 - CONCLUSION: 1. 2 left-sided chest tubes remain in place with no pneumothorax. 2. Stable hazy opacity in both lungs left greater than right. Matty Shen MD Thoracentesis Ultrasound 03/03/17 0000 Signed Impressions: Service Date/Time: Friday, March 03, 2017 09:18 - CONCLUSION: Uncomplicated ultrasound guided thoracentesis. This effusion is highly loculated and therefore complete decompression of the effusion is not possible. Dedrick Rutherford Jr., MD Chest CT 03/03/17 0000 Signed Impressions: Service Date/Time: Friday, March 03, 2017 18:17 - CONCLUSION: 1. Large loculated pleural effusion on the left side with a lateral and subpulmonic components. Associated collapse of the left lower lobe. 2. There are 2 new findings in the right lung, including a subsegmental area of consolidation and a new peripheral right midlung cavitary lesion. The other nodules seen on prior CT are stable. Dedrick Higuera MD Shoulder MRI 02/22/17 0000 Signed Impressions: Service Date/Time: Wednesday, February 22, 2017 18:17 - CONCLUSION: 1. Bursitis at the right shoulder with some soft tissue edematous changes that may indicate mild cellulitis, but no discrete abscess or osteomyelitis identified. Hilario Rose MD Shoulder X-Ray 02/21/17 1817 Signed Impressions: Service Date/Time: Tuesday, February 21, 2017 18:30 - CONCLUSION: Normal examination for a patient of this age. Hilario Rose MD Abdomen/Pelvis CT 02/21/17 1649 Signed Impressions: Service Date/Time: Tuesday, February 21, 2017 19:19 - CONCLUSION: 1. Patchy airspace consolidation at both lung bases. 2. Hepatosplenomegaly. 3. Multiple gallstones biliary ductal dilatation. Questionable diminished perfusion to the kidneys. Cannot exclude nephritis. Hilario Rose MD CT Angiography 02/21/17 0000 Signed Impressions: Service Date/Time: Tuesday, February 21, 2017 19:16 - CONCLUSION: 1. Negative for pulmonary embolism. 2. Multifocal patchy and nodular airspace disease in both lungs with some mild cavitation on the left side. Differential diagnosis includes septic embolic disease and multifocal pneumonia. Hilario Rose MD Objective Remarks General: Thin female in no acute distress. Heart: Regular rate and rhythm. No murmur. Lungs: Clear to auscultation bilaterally. No wheezes, rales, or rhonchi. Breathing is nonlabored. Chest: Left-sided chest tubes in place. Abdomen: Soft, nontender, nondistended. Extremities: No lower extremity edema. Psych: Alert and oriented. Procedures 03/04/17 Thoracoscopy, thoracotomy, evacuation of empyema of the left chest, decortication of the left lung, pleurodesis, chest tube placement Urinary Catheter: No Vascular Central Line Catheter: No A/P Problem List: (1) Septic embolism ICD Code: I26.90 - Septic pulmonary embolism without acute cor pulmonale Status: Acute (2) Substance abuse ICD Code: F19.10 - Other psychoactive substance abuse, uncomplicated Status: Acute (3) Sepsis ICD Code: A41.9 - Sepsis, unspecified organism Status: Acute (4) Pneumonia ICD Code: J18.9 - Pneumonia, unspecified organism Status: Acute Assessment and Plan 03/08/17: Chest tube management per CT surgery, pulmonology. Planning for removal of one tube today. Continue antibiotics. 1. Sepsis/pneumonia/empyema: Continue Rocephin. Appreciate infectious disease recommendations patient had empyema. Chest tubes in place. Management per cardiothoracic surgery, pulmonology. 2. Gram-positive bacteremia: Appreciate infectious disease recommendations. Continue Rocephin 6 weeks. 3. Hyponatremia: Monitor labs. 4. Hypokalemia: Monitor labs and supplement potassium as needed. 5. Transaminitis: Patient has positive hepatitis C antibody. Follow-up as outpatient. 6. IV drug abuse: Patient was counseled. 2-D echocardiogram does not show any evidence of endocarditis. 7. Right shoulder bursitis, cellulitis: MRI shows no evidence of osteomyelitis or abscess. Appreciate orthopedic surgery recommendations. Nonsurgical management at this time. 8. DVT prophylaxis: SCDs. Problem Qualifiers (1) Pneumonia: Qualified Codes: J18.9 - Pneumonia, unspecified organism Kal Monsivais MD Mar 08, 2017 09:29
[2017-03-08 10:08] LABS: AUTOMATED NEUTROPHIL # 7.6 TH/MM3 (1.8-7.7); BASOPHIL # 0.1 TH/MM3 (0-0.2); BASOPHIL % 0.9 % (0.0-2.0); EOSINOPHIL # 0.2 TH/MM3 (0-0.4); EOSINOPHIL % 1.4 % (0.0-4.0); HEMATOCRIT 29.6 % (35.0-46.0); HEMOGLOBIN 9.6 GM/DL (11.6-15.3); LYMPH % 16.7 % (9.0-44.0); LYMPHOCYTE # 1.7 TH/MM3 (1.0-4.8); MEAN CELL VOLUME 83.9 FL (80.0-100.0); MEAN CORPUSCULAR HEMOGLOBIN 27.2 PG (27.0-34.0); MEAN CORPUSCULAR HGB CONC 32.5 % (32.0-36.0); MEAN PLATELET VOLUME 6.4 FL (7.0-11.0); MONO % 8.1 % (0.0-8.0); MONOCYTE # 0.8 TH/MM3 (0-0.9); NEUT % 72.9 % (16.0-70.0); PLATELET COUNT 522 TH/MM3 (150-450); RED BLOOD COUNT 3.53 MIL/MM3 (4.00-5.30); RED CELL DISTRIBUTION WIDTH 14.5 % (11.6-17.2); WHITE BLOOD COUNT 10.4 TH/MM3 (4.0-11.0)
[2017-03-08 12:34] VITALS: BP 103/57; PULSE 94; RESP 20; TEMP 98.3; O2SAT 99
--- NOTE | 2017-03-08 12:55 | PD.CAR.PN ---
CVT Progress Note Subjective/Hospital Course: Patient is status post left thoracotomy and decortication of the left lung Incision is clean and dry Chest tube drainage is serosanguineous Bilateral good breath sounds and lungs the fully expanded on chest x-ray Patient can be transferred to floor at this point Chest tubes will stain for several days considering the purulent nature of the effusion 03/06/17 Patient doing well at this time Bilateral good breath sounds full pulmonary expansion Chest tube drainage serosanguineous about 200 cc over last 24 hours All things equal we'll place chest tubes on waterseal tomorrow and start pulling and one by one day after In face of the empyema we cannot be to fast and pulling the tubes for this things tend to recur otherwise Patient ambulating with ease taking diet well Leukocytosis on down slope 03/07/17 Patient doing well at this time Left lung fully expanded and drainage from the chest tube is decreased and serous Will most likely removed the apical chest tube tomorrow followed by the basal chest tube in a day or 2 ID consult appreciated Nothing to add to care 03/08/17 Left lung fully expanded Chest tube drainage has significantly decreased and basal chest tube has been removed this morning We'll keep the apical chest tube for another day or 2 and then remove that one as well Incision is clean and dry Patient doing very well at this time Objective: Vital Signs Date Time Temp Pulse Resp B/P (MAP) Pulse Ox O2 Delivery O2 Flow Rate FiO2 03/08/17 12:34 98.3 94 20 103/57 (72) 99 03/08/17 08:24 98.1 73 20 100/58 (72) 100 03/08/17 05:00 98.1 75 18 106/54 (71) 98 03/08/17 00:42 98.1 80 18 95/51 (66) 98 03/07/17 20:19 97.7 85 18 105/59 (74) 96 03/07/17 16:05 98.4 85 20 106/57 (73) 98 Labs: Laboratory Tests Test 03/08/17 09:06 White Blood Count 10.4 TH/MM3 (4.0-11.0) Red Blood Count 3.53 MIL/MM3 (4.00-5.30) Hemoglobin 9.6 GM/DL (11.6-15.3) Hematocrit 29.6 % (35.0-46.0) Mean Corpuscular Volume 83.9 FL (80.0-100.0) Mean Corpuscular Hemoglobin 27.2 PG (27.0-34.0) Mean Corpuscular Hemoglobin Concent 32.5 % (32.0-36.0) Red Cell Distribution Width 14.5 % (11.6-17.2) Platelet Count 522 TH/MM3 (150-450) Mean Platelet Volume 6.4 FL (7.0-11.0) Neutrophils (%) (Auto) 72.9 % (16.0-70.0) Lymphocytes (%) (Auto) 16.7 % (9.0-44.0) Monocytes (%) (Auto) 8.1 % (0.0-8.0) Eosinophils (%) (Auto) 1.4 % (0.0-4.0) Basophils (%) (Auto) 0.9 % (0.0-2.0) Neutrophils # (Auto) 7.6 TH/MM3 (1.8-7.7) Lymphocytes # (Auto) 1.7 TH/MM3 (1.0-4.8) Monocytes # (Auto) 0.8 TH/MM3 (0-0.9) Eosinophils # (Auto) 0.2 TH/MM3 (0-0.4) Basophils # (Auto) 0.1 TH/MM3 (0-0.2) CBC Comment DIFF FINAL Differential Comment Result Diagram: 03/08/17 0906 03/06/17 0628 Pietro Sparrow MD Mar 08, 2017 12:55
[2017-03-08] MEDS: cefTRIAXone INJ 2,000 MG in SODIUM CHLORIDE 0.9% INJ 100 ML IV SCH (12:56)
--- NOTE | 2017-03-08 15:30 | HHI.PR ---
Subjective Remarks 32 YOWF with IVDA,sepsis, empyema had Decortication Chest tube draining no Fever Feels better One chest tube removed Objective Vital Signs Vital Signs Date Time Temp Pulse Resp B/P (MAP) Pulse Ox O2 Delivery O2 Flow Rate FiO2 03/08/17 12:34 98.3 94 20 103/57 (72) 99 03/08/17 08:24 98.1 73 20 100/58 (72) 100 03/08/17 05:00 98.1 75 18 106/54 (71) 98 03/08/17 00:42 98.1 80 18 95/51 (66) 98 03/07/17 20:19 97.7 85 18 105/59 (74) 96 03/07/17 16:05 98.4 85 20 106/57 (73) 98 I/O 03/07/17 03/07/17 03/07/17 03/08/17 03/08/17 03/08/17 07:00 15:00 23:00 07:00 15:00 23:00 Intake Total 580 ml 360 ml 100 ml Output Total 0 ml Balance 0 ml 580 ml 360 ml 100 ml Intake Oral 480 ml 360 ml IV Total 100 ml 100 ml Chest Tube Drainage Total 0 ml # Voids 2 2 5 Result Diagram: 03/08/17 0906 03/06/17 0628 Objective Remarks GENERAL: Thin built female, NAD SKIN: Warm and dry. HEAD: Normocephalic. EYES: No scleral icterus. No injection or drainage. NECK: Supple, trachea midline. No JVD or lymphadenopathy. CARDIOVASCULAR: Regular rate and rhythm without murmurs, gallops, or rubs. RESPIRATORY: Breath sounds equal bilaterally. No accessory muscle use. Left chest tube draining GASTROINTESTINAL: Abdomen soft, non-tender, nondistended. MUSCULOSKELETAL: No cyanosis, or edema. BACK: Nontender without obvious deformity. No CVA tenderness. A/P Assessment and Plan Empyema, loculated eff S/P Decorication Pneumonia IVDA PLAN: Chest tube to suction Cont Abx Stable on RA OOB in chair Overall, stable Jacky Mckeon MD Mar 08, 2017 15:30
[2017-03-08 16:36] VITALS: BP 104/53; PULSE 83; RESP 20; TEMP 98; O2SAT 98
[2017-03-08 20:30] VITALS: BP 114/58; PULSE 92; RESP 18; TEMP 97.4; O2SAT 98
[2017-03-08] MEDS: CALCIUM CARBONATE 500 MG CHEWABLE TAB PO PRN (21:54)
[2017-03-09] VITALS: BP 106/53; PULSE 82; RESP 18; TEMP 98.5; O2SAT 97
[2017-03-09] MEDS: ACETAMINOPHEN/HYDROcodone 325 MG/5 MG TAB PO PRN ×5 (03:00→22:00)
[2017-03-09 05:00] VITALS: BP 104/51; PULSE 75; RESP 18; TEMP 97.8; O2SAT 98
[2017-03-09 08:00] VITALS: BP 113/58; PULSE 75; RESP 17; TEMP 98; O2SAT 100
[2017-03-09] MEDS: DOCUSATE SODIUM 50 MG/SENNA 8.6 MG TAB PO SCH ×2 (08:46→21:00)
[2017-03-09] MEDS: SODIUM CHLORIDE 0.9% FLUSH 10 ML FLUSH IV FLUSH SCH ×2 (08:47→22:01)
[2017-03-09 12:00] VITALS: BP 105/56; PULSE 83; RESP 18; TEMP 98.1; O2SAT 98
[2017-03-09] MEDS: cefTRIAXone INJ 2,000 MG in SODIUM CHLORIDE 0.9% INJ 100 ML IV SCH (12:56)
--- NOTE | 2017-03-09 12:56 | HHI.IDPN ---
Subjective Subjective Remarks Patient is a 31-year-old female, presented to the hospital complaining 1 week history of shortness of breath and pain on her left chest and left back. She was also complaining of pain in her right shoulder. She had some subjective fever and chills. He significant respiratory complaint as far as coughing or congestion. She has not had any nausea or vomiting, GI or any urinary complaints. Patient has been using IV drugs in the last 10 years. She is also complaining of pain in her left big toe, and does not remember having any prior history of injury or trauma. Patient underwent CTA of the chest which showed multifocal patchy and nodular airspace disease with some cavitation especially on the left side. She had blood cultures done in the emergency room, and they are now all reported as growing gram-positive cocci in pairs and chains. X-ray of the right shoulder did not show any significant abnormality. Infectious disease consultation has been requested to evaluate the patient. Notes reviewed Temps ok Feeling better One of CT removed Pain at operative site and CT sites No N/V No rash or itching NO diarrhea Found to have large empyema on L Underwent surgery decortication, pleurodesis Antibiotics CFTX Lines PIV Past Medical History 5 pregancies and NSD Tubal ligation Allergies: Coded Allergies: *MDRO Multi-Drug Resistant Organism (Unverified Adverse Reaction, Unknown , 09/11/14) MRSA 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 Objective . Vital Signs Date Time Temp Pulse Resp B/P (MAP) Pulse Ox O2 Delivery O2 Flow Rate FiO2 03/09/17 08:46 18 03/09/17 08:00 98.0 75 17 113/58 (76) 100 03/09/17 05:00 97.8 75 18 104/51 (68) 98 03/09/17 00:00 98.5 82 18 106/53 (70) 97 03/08/17 20:30 97.4 92 18 114/58 (76) 98 03/08/17 16:36 98.0 83 20 104/53 (70) 98 . Laboratory Tests Test 03/08/17 09:06 White Blood Count 10.4 TH/MM3 Red Blood Count 3.53 MIL/MM3 Hemoglobin 9.6 GM/DL Hematocrit 29.6 % Mean Corpuscular Volume 83.9 FL Mean Corpuscular Hemoglobin 27.2 PG Mean Corpuscular Hemoglobin Concent 32.5 % Red Cell Distribution Width 14.5 % Platelet Count 522 TH/MM3 Mean Platelet Volume 6.4 FL Neutrophils (%) (Auto) 72.9 % Lymphocytes (%) (Auto) 16.7 % Monocytes (%) (Auto) 8.1 % Eosinophils (%) (Auto) 1.4 % Basophils (%) (Auto) 0.9 % Neutrophils # (Auto) 7.6 TH/MM3 Lymphocytes # (Auto) 1.7 TH/MM3 Monocytes # (Auto) 0.8 TH/MM3 Eosinophils # (Auto) 0.2 TH/MM3 Basophils # (Auto) 0.1 TH/MM3 CBC Comment DIFF FINAL Differential Comment Imaging L Last Impressions Chest X-Ray 03/04/17 0000 Signed Impressions: Service Date/Time: Saturday, March 04, 2017 12:52 - CONCLUSION: Left chest tube in good position. Improvement when compared to CT scan 03/03/17 Abhishek Zhang MD FACR Thoracentesis Ultrasound 03/03/17 0000 Signed Impressions: Service Date/Time: Friday, March 03, 2017 09:18 - CONCLUSION: Uncomplicated ultrasound guided thoracentesis. This effusion is highly loculated and therefore complete decompression of the effusion is not possible. Dedrick Rutherford Jr., MD Chest CT 03/03/17 0000 Signed Impressions: Service Date/Time: Friday, March 03, 2017 18:17 - CONCLUSION: 1. Large loculated pleural effusion on the left side with a lateral and subpulmonic components. Associated collapse of the left lower lobe. 2. There are 2 new findings in the right lung, including a subsegmental area of consolidation and a new peripheral right midlung cavitary lesion. The other nodules seen on prior CT are stable. Dedrick Higuera MD Shoulder MRI 02/22/17 0000 Signed Impressions: Service Date/Time: Wednesday, February 22, 2017 18:17 - CONCLUSION: 1. Bursitis at the right shoulder with some soft tissue edematous changes that may indicate mild cellulitis, but no discrete abscess or osteomyelitis identified. Hilario Rose MD Shoulder X-Ray 02/21/17 6527 Signed Impressions: Service Date/Time: Tuesday, February 21, 2017 18:30 - CONCLUSION: Normal examination for a patient of this age. Hilario Rose MD Abdomen/Pelvis CT 02/21/17 6949 Signed Impressions: Service Date/Time: Tuesday, February 21, 2017 19:19 - CONCLUSION: 1. Patchy airspace consolidation at both lung bases. 2. Hepatosplenomegaly. 3. Multiple gallstones biliary ductal dilatation. Questionable diminished perfusion to the kidneys. Cannot exclude nephritis. Hilario Rose MD CT Angiography 02/21/17 0000 Signed Impressions: Service Date/Time: Tuesday, February 21, 2017 19:16 - CONCLUSION: 1. Negative for pulmonary embolism. 2. Multifocal patchy and nodular airspace disease in both lungs with some mild cavitation on the left side. Differential diagnosis includes septic embolic disease and multifocal pneumonia. Hilario Rose MD Physical Exam GENERAL: awake and alert, not in respiratory distress. SKIN: Warm and dry. No generalized rash HEAD: Atraumatic. Normocephalic. No temporal wasting, or tenderness. EYES: [place] conjunctiva. No petechia or hemorrhage. Pupils equal, round and reactive to light. Extraocular movements full and intact. No scleral icterus. EARS, NOSE AND THROAT: Nose without bleeding or purulent nasal discharge. No sinus tenderness. Mucous membranes pink and moist. No oral lesions noted. Has poor dentition. NECK: Trachea midline. Supple and not tender, no meningeal signs CARDIOVASCULAR: Regular rate and rhythm. No murmurs, rubs or gallops heard RESPIRATORY: Decreased BS bases. CT in place on L with serosanguineous drainage ABDOMEN: Soft, non-tender, nondistended. Bowel sounds present and normoactive. No guarding. No rebound. No organomegaly. EXTREMITIES: No clubbing, cyanosis, or edema. Has min swelling on R shoulder , ROM better NEUROLOGICAL: Awake and alert. NOn focal PSYCHIATRIC: Normal affect, calm and cooperative. LINE: No evidence of infection Assessment & Plan Remarks IMPRESSION Sepsis with Strep and MSSA very worrisome for endocarditis - has findings suggestive of septic emboli on CT Right shoulder pain and swelling, better L lung empyema S/P decortication, C/S negative so far Low grade temps, better Known IVDU Leukocytosis - 2/2 infx resolved RECOMMENDATION Continue IV Rocephin - plan till Apr 03 - labs weekly while on Abx: CBC, creat, LFT Follow temps Monitor progress Once CT out, will outline course of Abx Explained plan to the patient Gloria Gomez MD Mar 09, 2017 12:56
--- NOTE | 2017-03-09 13:48 | HHI.PR ---
Subjective Remarks Follow up pneumonia. Patient states that her chest "feels more full" after one of the chest tubes was removed yesterday. Denies chest pain, dyspnea. Objective Vitals Vital Signs Date Time Temp Pulse Resp B/P (MAP) Pulse Ox O2 Delivery O2 Flow Rate FiO2 03/09/17 12:00 98.1 83 18 105/56 (72) 98 03/09/17 08:46 18 03/09/17 08:00 98.0 75 17 113/58 (76) 100 03/09/17 05:00 97.8 75 18 104/51 (68) 98 03/09/17 00:00 98.5 82 18 106/53 (70) 97 03/08/17 20:30 97.4 92 18 114/58 (76) 98 03/08/17 16:36 98.0 83 20 104/53 (70) 98 I/O 03/08/17 03/08/17 03/08/17 03/09/17 03/09/17 03/09/17 07:00 15:00 23:00 07:00 15:00 23:00 Intake Total 360 ml 580 ml 240 ml 240 ml Balance 360 ml 580 ml 240 ml 240 ml Intake Oral 360 ml 480 ml 240 ml 240 ml IV Total 100 ml # Voids 5 3 2 3 # Bowel Movements 1 Result Diagram: 03/08/17 0906 03/06/17 0628 Imaging Last Impressions Chest X-Ray 03/07/17 0600 Signed Impressions: Service Date/Time: Tuesday, March 07, 2017 06:29 - CONCLUSION: 1. 2 left-sided chest tubes remain in place with no pneumothorax. 2. Stable hazy opacity in both lungs left greater than right. Matty Shen MD Thoracentesis Ultrasound 03/03/17 0000 Signed Impressions: Service Date/Time: Friday, March 03, 2017 09:18 - CONCLUSION: Uncomplicated ultrasound guided thoracentesis. This effusion is highly loculated and therefore complete decompression of the effusion is not possible. Dedrick Rutherford Jr., MD Chest CT 03/03/17 0000 Signed Impressions: Service Date/Time: Friday, March 03, 2017 18:17 - CONCLUSION: 1. Large loculated pleural effusion on the left side with a lateral and subpulmonic components. Associated collapse of the left lower lobe. 2. There are 2 new findings in the right lung, including a subsegmental area of consolidation and a new peripheral right midlung cavitary lesion. The other nodules seen on prior CT are stable. Dedrick Higuera MD Shoulder MRI 02/22/17 0000 Signed Impressions: Service Date/Time: Wednesday, February 22, 2017 18:17 - CONCLUSION: 1. Bursitis at the right shoulder with some soft tissue edematous changes that may indicate mild cellulitis, but no discrete abscess or osteomyelitis identified. Hilario Rose MD Shoulder X-Ray 02/21/17 1817 Signed Impressions: Service Date/Time: Tuesday, February 21, 2017 18:30 - CONCLUSION: Normal examination for a patient of this age. Hilario Rose MD Abdomen/Pelvis CT 02/21/17 1649 Signed Impressions: Service Date/Time: Tuesday, February 21, 2017 19:19 - CONCLUSION: 1. Patchy airspace consolidation at both lung bases. 2. Hepatosplenomegaly. 3. Multiple gallstones biliary ductal dilatation. Questionable diminished perfusion to the kidneys. Cannot exclude nephritis. Hilario Rose MD CT Angiography 02/21/17 0000 Signed Impressions: Service Date/Time: Tuesday, February 21, 2017 19:16 - CONCLUSION: 1. Negative for pulmonary embolism. 2. Multifocal patchy and nodular airspace disease in both lungs with some mild cavitation on the left side. Differential diagnosis includes septic embolic disease and multifocal pneumonia. Hilario Rose MD Objective Remarks General: Thin female in no acute distress. Heart: Regular rate and rhythm. No murmur. Lungs: Clear to auscultation bilaterally. No wheezes, rales, or rhonchi. Breathing is nonlabored. Chest: Left-sided chest tube in place. Abdomen: Soft, nontender, nondistended. Extremities: No lower extremity edema. Psych: Alert and oriented. Procedures 03/04/17 Thoracoscopy, thoracotomy, evacuation of empyema of the left chest, decortication of the left lung, pleurodesis, chest tube placement Urinary Catheter: No Vascular Central Line Catheter: No A/P Problem List: (1) Septic embolism ICD Code: I26.90 - Septic pulmonary embolism without acute cor pulmonale Status: Acute (2) Substance abuse ICD Code: F19.10 - Other psychoactive substance abuse, uncomplicated Status: Acute (3) Sepsis ICD Code: A41.9 - Sepsis, unspecified organism Status: Acute (4) Pneumonia ICD Code: J18.9 - Pneumonia, unspecified organism Status: Acute Assessment and Plan 03/09/17: Chest tube management per CT surgery, pulmonology. One chest tube remains in place; possible removal tomorrow. Continue antibiotics. 1. Sepsis/pneumonia/empyema: Continue Rocephin. Appreciate infectious disease recommendations patient had empyema. Chest tubes in place. Management per cardiothoracic surgery, pulmonology. 2. Gram-positive bacteremia: Appreciate infectious disease recommendations. Continue Rocephin 6 weeks. 3. Hyponatremia: Monitor labs. 4. Hypokalemia: Monitor labs and supplement potassium as needed. 5. Transaminitis: Patient has positive hepatitis C antibody. Follow-up as outpatient. 6. IV drug abuse: Patient was counseled. 2-D echocardiogram does not show any evidence of endocarditis. 7. Right shoulder bursitis, cellulitis: MRI shows no evidence of osteomyelitis or abscess. Appreciate orthopedic surgery recommendations. Nonsurgical management at this time. 8. DVT prophylaxis: SCDs. Problem Qualifiers (1) Pneumonia: Qualified Codes: J18.9 - Pneumonia, unspecified organism Kal Monsivais MD Mar 09, 2017 13:48
--- NOTE | 2017-03-09 13:51 | PD.CAR.PN ---
CVT Progress Note Subjective/Hospital Course: Patient is status post left thoracotomy and decortication of the left lung Incision is clean and dry Chest tube drainage is serosanguineous Bilateral good breath sounds and lungs the fully expanded on chest x-ray Patient can be transferred to floor at this point Chest tubes will stain for several days considering the purulent nature of the effusion 03/06/17 Patient doing well at this time Bilateral good breath sounds full pulmonary expansion Chest tube drainage serosanguineous about 200 cc over last 24 hours All things equal we'll place chest tubes on waterseal tomorrow and start pulling and one by one day after In face of the empyema we cannot be to fast and pulling the tubes for this things tend to recur otherwise Patient ambulating with ease taking diet well Leukocytosis on down slope 03/07/17 Patient doing well at this time Left lung fully expanded and drainage from the chest tube is decreased and serous Will most likely removed the apical chest tube tomorrow followed by the basal chest tube in a day or 2 ID consult appreciated Nothing to add to care 03/08/17 Left lung fully expanded Chest tube drainage has significantly decreased and basal chest tube has been removed this morning We'll keep the apical chest tube for another day or 2 and then remove that one as well Incision is clean and dry Patient doing very well at this time 03/09/17 Patient doing very well at this time she is awake alert and oriented Both lungs are fully expanded Chest tube drainage has significantly decreased and basal tube has been removed yesterday Thoracotomy incision is clean and dry We'll place on waterseal and see how patient does if not much drainage may remove the remaining tube on Monday Objective: Vital Signs Date Time Temp Pulse Resp B/P (MAP) Pulse Ox O2 Delivery O2 Flow Rate FiO2 03/09/17 12:00 98.1 83 18 105/56 (72) 98 03/09/17 08:46 18 03/09/17 08:00 98.0 75 17 113/58 (76) 100 03/09/17 05:00 97.8 75 18 104/51 (68) 98 03/09/17 00:00 98.5 82 18 106/53 (70) 97 03/08/17 20:30 97.4 92 18 114/58 (76) 98 03/08/17 16:36 98.0 83 20 104/53 (70) 98 Result Diagram: 03/08/17 0906 03/06/17 0628 Pietro Sparrow MD Mar 09, 2017 13:51
[2017-03-09 16:00] VITALS: BP 102/54; PULSE 89; RESP 18; TEMP 98.6; O2SAT 98
--- NOTE | 2017-03-09 18:59 | HHI.PR ---
Subjective Remarks 32 YOWF with IVDA,sepsis, empyema had Decortication Chest tube draining no Fever Feels better Objective Vital Signs Vital Signs Date Time Temp Pulse Resp B/P (MAP) Pulse Ox O2 Delivery O2 Flow Rate FiO2 03/09/17 16:00 98.6 89 18 102/54 (70) 98 03/09/17 14:06 18 03/09/17 12:00 98.1 83 18 105/56 (72) 98 03/09/17 08:00 98.0 75 17 113/58 (76) 100 03/09/17 05:00 97.8 75 18 104/51 (68) 98 03/09/17 00:00 98.5 82 18 106/53 (70) 97 03/08/17 20:30 97.4 92 18 114/58 (76) 98 I/O 03/08/17 03/08/17 03/08/17 03/09/17 03/09/17 03/09/17 07:00 15:00 23:00 07:00 15:00 23:00 Intake Total 360 ml 580 ml 240 ml 240 ml 960 ml Output Total 30 ml Balance 360 ml 580 ml 240 ml 240 ml 930 ml Intake Oral 360 ml 480 ml 240 ml 240 ml 960 ml IV Total 100 ml Chest Tube Drainage Total 30 ml # Voids 5 3 2 3 5 # Bowel Movements 1 0 Result Diagram: 03/08/17 0906 03/06/17627 Objective Remarks GENERAL: Thin built female, NAD SKIN: Warm and dry. HEAD: Normocephalic. EYES: No scleral icterus. No injection or drainage. NECK: Supple, trachea midline. No JVD or lymphadenopathy. CARDIOVASCULAR: Regular rate and rhythm without murmurs, gallops, or rubs. RESPIRATORY: Breath sounds equal bilaterally. No accessory muscle use. Left chest tube draining GASTROINTESTINAL: Abdomen soft, non-tender, nondistended. MUSCULOSKELETAL: No cyanosis, or edema. BACK: Nontender without obvious deformity. No CVA tenderness. A/P Assessment and Plan Empyema, loculated eff S/P Decorication Pneumonia IVDA PLAN: Chest tube to water seal. Cont Abx Stable on RA OOB in chair Overall, stable Jacky Mckeon MD Mar 09, 2017 18:59
[2017-03-09 20:07] VITALS: BP 116/59; PULSE 90; RESP 17; TEMP 98.3; O2SAT 98
[2017-03-10] VITALS (7 sets, daily range): BP systolic 99–116; BP diastolic 56–62; PULSE 79–92; RESP 17–20; TEMP 97.7–98.6; O2SAT 97–99
[2017-03-10] MEDS: ACETAMINOPHEN/HYDROcodone 325 MG/5 MG TAB PO PRN ×4 (05:45→20:11)
[2017-03-10] MEDS: SODIUM CHLORIDE 0.9% FLUSH 10 ML FLUSH IV FLUSH SCH ×2 (08:40→20:12)
[2017-03-10] MEDS: DOCUSATE SODIUM 50 MG/SENNA 8.6 MG TAB PO SCH ×2 (08:40→21:00)
--- NOTE | 2017-03-10 09:21 | HHI.PR ---
Subjective Remarks Follow up pneumonia. Chest tube to water seal. Patient states that she is feeling a little better today. She feels like she "overdid it a little yesterday ". She was ambulating with PT and now feels tired. Objective Vitals Vital Signs Date Time Temp Pulse Resp B/P (MAP) Pulse Ox O2 Delivery O2 Flow Rate FiO2 03/10/17 08:00 97.9 79 18 116/56 (76) 97 03/10/17 07:42 18 03/10/17 05:39 98.1 80 18 106/62 (77) 99 03/10/17 00:30 97.7 79 17 107/58 (74) 98 03/09/17 20:07 98.3 90 17 116/59 (78) 98 03/09/17 16:00 98.6 89 18 102/54 (70) 98 03/09/17 12:00 98.1 83 18 105/56 (72) 98 I/O 03/09/17 03/09/17 03/09/17 03/10/17 03/10/17 03/10/17 07:00 15:00 23:00 07:00 15:00 23:00 Intake Total 240 ml 1320 ml 240 ml Output Total 30 ml 0 ml Balance 240 ml 1290 ml 240 ml Intake Oral 240 ml 1320 ml 240 ml Chest Tube Drainage Total 30 ml 0 ml # Voids 3 8 2 # Bowel Movements 0 Result Diagram: 03/08/17 0906 03/06/17 0628 Imaging Last Impressions Chest X-Ray 03/07/17 0600 Signed Impressions: Service Date/Time: Tuesday, March 07, 2017 06:29 - CONCLUSION: 1. 2 left-sided chest tubes remain in place with no pneumothorax. 2. Stable hazy opacity in both lungs left greater than right. Matty Shen MD Thoracentesis Ultrasound 03/03/17 0000 Signed Impressions: Service Date/Time: Friday, March 03, 2017 09:18 - CONCLUSION: Uncomplicated ultrasound guided thoracentesis. This effusion is highly loculated and therefore complete decompression of the effusion is not possible. Dedrick Rutherford Jr., MD Chest CT 03/03/17 0000 Signed Impressions: Service Date/Time: Friday, March 03, 2017 18:17 - CONCLUSION: 1. Large loculated pleural effusion on the left side with a lateral and subpulmonic components. Associated collapse of the left lower lobe. 2. There are 2 new findings in the right lung, including a subsegmental area of consolidation and a new peripheral right midlung cavitary lesion. The other nodules seen on prior CT are stable. Dedrick Higuera MD Shoulder MRI 02/22/17 0000 Signed Impressions: Service Date/Time: Wednesday, February 22, 2017 18:17 - CONCLUSION: 1. Bursitis at the right shoulder with some soft tissue edematous changes that may indicate mild cellulitis, but no discrete abscess or osteomyelitis identified. Hilario Rose MD Shoulder X-Ray 02/21/17 1817 Signed Impressions: Service Date/Time: Tuesday, February 21, 2017 18:30 - CONCLUSION: Normal examination for a patient of this age. Hilario Rose MD Abdomen/Pelvis CT 02/21/17 1649 Signed Impressions: Service Date/Time: Tuesday, February 21, 2017 19:19 - CONCLUSION: 1. Patchy airspace consolidation at both lung bases. 2. Hepatosplenomegaly. 3. Multiple gallstones biliary ductal dilatation. Questionable diminished perfusion to the kidneys. Cannot exclude nephritis. Hilario Rose MD CT Angiography 02/21/17 0000 Signed Impressions: Service Date/Time: Tuesday, February 21, 2017 19:16 - CONCLUSION: 1. Negative for pulmonary embolism. 2. Multifocal patchy and nodular airspace disease in both lungs with some mild cavitation on the left side. Differential diagnosis includes septic embolic disease and multifocal pneumonia. Hilario Rose MD Objective Remarks General: Thin female in no acute distress. Heart: Regular rate and rhythm. No murmur. Lungs: Clear to auscultation bilaterally. No wheezes, rales, or rhonchi. Breathing is nonlabored. Chest: Left-sided chest tube in place. Abdomen: Soft, nontender, nondistended. Extremities: No lower extremity edema. Psych: Alert and oriented. Procedures 03/04/17 Thoracoscopy, thoracotomy, evacuation of empyema of the left chest, decortication of the left lung, pleurodesis, chest tube placement Urinary Catheter: No Vascular Central Line Catheter: No A/P Problem List: (1) Septic embolism ICD Code: I26.90 - Septic pulmonary embolism without acute cor pulmonale Status: Acute (2) Substance abuse ICD Code: F19.10 - Other psychoactive substance abuse, uncomplicated Status: Acute (3) Sepsis ICD Code: A41.9 - Sepsis, unspecified organism Status: Acute (4) Pneumonia ICD Code: J18.9 - Pneumonia, unspecified organism Status: Acute Assessment and Plan 03/09/17: Chest tube management per CT surgery, pulmonology. One chest tube remains in place, now to water seal. May be removed today. Continue antibiotics. ID to give recommendations for antibiotic course after chest tube removed. 1. Sepsis/pneumonia/empyema: Continue Rocephin. Appreciate infectious disease recommendations patient had empyema. Chest tubes in place. Management per cardiothoracic surgery, pulmonology. 2. Gram-positive bacteremia: Appreciate infectious disease recommendations. Continue Rocephin 6 weeks. 3. Hyponatremia: Monitor labs. 4. Hypokalemia: Monitor labs and supplement potassium as needed. 5. Transaminitis: Patient has positive hepatitis C antibody. Follow-up as outpatient. 6. IV drug abuse: Patient was counseled. 2-D echocardiogram does not show any evidence of endocarditis. 7. Right shoulder bursitis, cellulitis: MRI shows no evidence of osteomyelitis or abscess. Appreciate orthopedic surgery recommendations. Nonsurgical management at this time. 8. DVT prophylaxis: SCDs. Problem Qualifiers (1) Pneumonia: Qualified Codes: J18.9 - Pneumonia, unspecified organism Kal Monsivais MD Mar 10, 2017 09:21
[2017-03-10] MEDS: cefTRIAXone INJ 2,000 MG in SODIUM CHLORIDE 0.9% INJ 100 ML IV SCH (12:51)
[2017-03-10 14:05] LABS: ALBUMIN 2.4 GM/DL (3.4-5.0); DIRECT BILIRUBIN ADULT 0.1 MG/DL (0.0-0.2)
[2017-03-10 14:08] LABS: INDIRECT BILIRUBIN 0.1 MG/DL (0.0-0.8); TOTAL BILIRUBIN ADULT 0.2 MG/DL (0.2-1.0); TOTAL PROTEIN 7.8 GM/DL (6.4-8.2)
--- NOTE | 2017-03-10 16:37 | HHI.PR ---
Subjective Subjective Notes no complaints Objective Vitals/I&O Vital Signs Date Time Temp Pulse Resp B/P (MAP) Pulse Ox O2 Delivery O2 Flow Rate FiO2 03/10/17 16:00 97.7 84 18 110/56 (74) 97 Labs Laboratory Tests Test 03/10/17 13:02 Total Bilirubin 0.2 Direct Bilirubin 0.1 Indirect Bilirubin 0.1 Aspartate Amino Transf (AST/SGOT) 19 Alanine Aminotransferase (ALT/SGPT) 56 Alkaline Phosphatase 200 Total Protein 7.8 Albumin 2.4 Date/Time Source Procedure Growth Status 02/24/17 07:45 Blood Peripheral Aerobic Blood Culture - Final NO GROWTH IN 5 DAYS Complete 02/24/17 07:45 Blood Peripheral Anaerobic Blood Culture - Final NO GROWTH IN 5 DAYS Complete 03/03/17 09:28 Fluid Pleural Fluid Fungal Smear - Final NO FUNGAL ELEMENTS SEEN. Resulted 03/03/17 09:28 Fluid Pleural Fluid Fungal Culture - Preliminary NO GROWTH IN 1 WEEK Resulted 02/21/17 19:04 Urine Catheterized Urine Urine Culture - Final 50-100,000 CFU/ML MIXED GRAM POSITIVE... Complete 03/04/17 12:16 Wound Lung Gram Stain - Final Complete 03/04/17 12:16 Wound Lung Wound Culture - Final NO GROWTH IN 72 HRS.--AEROBICALLY OR ... Complete Radiology CXR -ordered for 03/10 Cardiovascular: Regular Abdomen: Non-distended Extremities: No edema A/P Assessment and Plan s/p thoracotomy doing well CXR tomorrow Velma Owens MD Mar 10, 2017 16:37
--- NOTE | 2017-03-10 16:50 | HHI.PR ---
Subjective Remarks 32 YOWF with IVDA,sepsis, empyema had Decortication Chest tube draining no Fever Feels better no new complaint Objective Vital Signs Vital Signs Date Time Temp Pulse Resp B/P (MAP) Pulse Ox O2 Delivery O2 Flow Rate FiO2 03/10/17 16:00 97.7 84 18 110/56 (74) 97 03/10/17 12:08 18 03/10/17 12:00 98.6 92 19 108/61 (77) 97 03/10/17 08:00 97.9 79 18 116/56 (76) 97 03/10/17 05:39 98.1 80 18 106/62 (77) 99 03/10/17 00:30 97.7 79 17 107/58 (74) 98 03/09/17 20:07 98.3 90 17 116/59 (78) 98 I/O 03/09/17 03/09/17 03/09/17 03/10/17 03/10/17 03/10/17 07:00 15:00 23:00 07:00 15:00 23:00 Intake Total 240 ml 1320 ml 240 ml Output Total 30 ml 0 ml Balance 240 ml 1290 ml 240 ml Intake Oral 240 ml 1320 ml 240 ml Chest Tube Drainage Total 30 ml 0 ml # Voids 3 8 2 3 # Bowel Movements 0 Result Diagram: 03/08/1706 03/06/17 0628 Objective Remarks GENERAL: Thin built female, NAD SKIN: Warm and dry. HEAD: Normocephalic. EYES: No scleral icterus. No injection or drainage. NECK: Supple, trachea midline. No JVD or lymphadenopathy. CARDIOVASCULAR: Regular rate and rhythm without murmurs, gallops, or rubs. RESPIRATORY: Breath sounds equal bilaterally. No accessory muscle use. Left chest tube draining GASTROINTESTINAL: Abdomen soft, non-tender, nondistended. MUSCULOSKELETAL: No cyanosis, or edema. BACK: Nontender without obvious deformity. No CVA tenderness. A/P Assessment and Plan Empyema, loculated eff S/P Decorication Pneumonia IVDA PLAN: Chest tube to water seal. Cont Abx Stable on RA OOB in chair Overall, stable prob chest tube removal in AM Jacky Mckeon MD Mar 10, 2017 16:50
[2017-03-11 00:28] VITALS: BP 105/57; PULSE 66; RESP 18; TEMP 97.3; O2SAT 100
[2017-03-11] MEDS: ACETAMINOPHEN/HYDROcodone 325 MG/5 MG TAB PO PRN ×5 (01:40→20:44)
[2017-03-11 04:49] VITALS: BP 115/63; PULSE 88; RESP 18; TEMP 97.3; O2SAT 100
[2017-03-11 08:00] VITALS: BP 104/54; PULSE 75; RESP 18; TEMP 97.6; O2SAT 99
--- NOTE | 2017-03-11 08:11 | RADRPT ---
EXAM DATE/TIME: 03/11/2017 07:57 [facility] COMPARISON: CT THORAX W CONTRAST, March 03, 2017, 18:17. CHEST SINGLE AP, March 04, 2017, 12:52. CHEST SI NGLE AP, March 07, 2017, 6:29. INDICATIONS : Evaluate for pleural effusion. MEDICAL HISTORY : Left chest tube. SURGICAL HISTORY : None. ENCOUNTER: Subsequent ACUITY: 2 weeks PAIN SCORE: 0/10 LOCATION: Bilateral chest FINDINGS: There is a left chest tube in place. There does appear to be fluid and air in the mid and inferior la teral left chest. A pneumothorax seen over the apex of the left lung is not seen. Pleural fluid and a ir are seen at the lateral left chest measures up to 1.4 cm in thickness. This is unchanged from the prior exam. There is increased parenchymal density seen at the lateral mid to lower left lung. There some patchy density at the lateral mid right lung. The heart size is normal. CONCLUSION: 1. Left chest tube with persistent mild pleural fluid and air in the lateral left mid and lower chest . This is unchanged. 2. Parenchymal consolidation seen at the lateral mid to lower lungs bilaterally much more prominent o n the right. Melvin Solano MD on March 11, 2017 at 8:06 Board Certified Radiologist. This report was verified electronically.
[2017-03-11] MEDS: DOCUSATE SODIUM 50 MG/SENNA 8.6 MG TAB PO SCH ×2 (08:54→20:44)
--- NOTE | 2017-03-11 10:45 | HHI.PR ---
Subjective Remarks Follow up pneumonia. Patient is anxious to have the chest tube removed. No chest pain, dyspnea. Objective Vitals Vital Signs Date Time Temp Pulse Resp B/P (MAP) Pulse Ox O2 Delivery O2 Flow Rate FiO2 03/11/17 08:00 97.6 75 18 104/54 (71) 99 03/11/17 04:49 97.3 88 18 115/63 (80) 100 03/11/17 00:28 97.3 66 18 105/57 (73) 100 03/10/17 20:38 97.8 80 18 109/57 (74) 99 03/10/17 16:30 18 03/10/17 16:00 97.7 84 18 110/56 (74) 97 03/10/17 12:00 98.6 92 19 108/61 (77) 97 I/O 03/10/17 03/10/17 03/10/17 03/11/17 03/11/17 03/11/17 07:00 15:00 23:00 07:00 15:00 23:00 Intake Total 240 ml Output Total 0 ml 0 ml 0 ml Balance 240 ml 0 ml 0 ml Intake Oral 240 ml Chest Tube Drainage Total 0 ml 0 ml 0 ml # Voids 2 3 Result Diagram: 03/08/17 0906 Imaging Last Impressions Chest X-Ray 03/11/17 0000 Signed Impressions: Service Date/Time: Saturday, March 11, 2017 07:57 - CONCLUSION: 1. Left chest tube with persistent mild pleural fluid and air in the lateral left mid and lower chest. This is unchanged. 2. Parenchymal consolidation seen at the lateral mid to lower lungs bilaterally much more prominent on the right. Melvin Solano MD Thoracentesis Ultrasound 03/03/17 0000 Signed Impressions: Service Date/Time: Friday, March 03, 2017 09:18 - CONCLUSION: Uncomplicated ultrasound guided thoracentesis. This effusion is highly loculated and therefore complete decompression of the effusion is not possible. Dedrick Rutherford Jr., MD Chest CT 03/03/17 0000 Signed Impressions: Service Date/Time: Friday, March 03, 2017 18:17 - CONCLUSION: 1. Large loculated pleural effusion on the left side with a lateral and subpulmonic components. Associated collapse of the left lower lobe. 2. There are 2 new findings in the right lung, including a subsegmental area of consolidation and a new peripheral right midlung cavitary lesion. The other nodules seen on prior CT are stable. Dedrick Higuera MD Shoulder MRI 02/22/17 0000 Signed Impressions: Service Date/Time: Wednesday, February 22, 2017 18:17 - CONCLUSION: 1. Bursitis at the right shoulder with some soft tissue edematous changes that may indicate mild cellulitis, but no discrete abscess or osteomyelitis identified. Hilario Rose MD Shoulder X-Ray 02/21/177 Signed Impressions: Service Date/Time: Tuesday, February 21, 2017 18:30 - CONCLUSION: Normal examination for a patient of this age. Hilario Rose MD Abdomen/Pelvis CT 02/21/17 1649 Signed Impressions: Service Date/Time: Tuesday, February 21, 2017 19:19 - CONCLUSION: 1. Patchy airspace consolidation at both lung bases. 2. Hepatosplenomegaly. 3. Multiple gallstones biliary ductal dilatation. Questionable diminished perfusion to the kidneys. Cannot exclude nephritis. Hilario Rose MD CT Angiography 02/21/17 0000 Signed Impressions: Service Date/Time: Tuesday, February 21, 2017 19:16 - CONCLUSION: 1. Negative for pulmonary embolism. 2. Multifocal patchy and nodular airspace disease in both lungs with some mild cavitation on the left side. Differential diagnosis includes septic embolic disease and multifocal pneumonia. Hilario Rose MD Objective Remarks General: Thin female in no acute distress. Heart: Regular rate and rhythm. No murmur. Lungs: Clear to auscultation bilaterally. No wheezes, rales, or rhonchi. Breathing is nonlabored. Chest: Left-sided chest tube in place. Abdomen: Soft, nontender, nondistended. Extremities: No lower extremity edema. Psych: Alert and oriented. Procedures 03/04/17 Thoracoscopy, thoracotomy, evacuation of empyema of the left chest, decortication of the left lung, pleurodesis, chest tube placement Urinary Catheter: No Vascular Central Line Catheter: No A/P Problem List: (1) Septic embolism ICD Code: I26.90 - Septic pulmonary embolism without acute cor pulmonale Status: Acute (2) Substance abuse ICD Code: F19.10 - Other psychoactive substance abuse, uncomplicated Status: Acute (3) Sepsis ICD Code: A41.9 - Sepsis, unspecified organism Status: Acute (4) Pneumonia ICD Code: J18.9 - Pneumonia, unspecified organism Status: Acute Assessment and Plan 03/11/17: Chest tube management per CT surgery, pulmonology. Possible removal of chest tube today. Continue antibiotics. ID to give recommendations for antibiotic course after chest tube removed. 1. Sepsis/pneumonia/empyema: Continue Rocephin. Appreciate infectious disease recommendations patient had empyema. Chest tube in place. Management per cardiothoracic surgery, pulmonology. 2. Gram-positive bacteremia: Appreciate infectious disease recommendations. Continue Rocephin 6 weeks. 3. Hyponatremia: Monitor labs. 4. Hypokalemia: Monitor labs and supplement potassium as needed. 5. Transaminitis: Patient has positive hepatitis C antibody. Follow-up as outpatient. 6. IV drug abuse: Patient was counseled. 2-D echocardiogram does not show any evidence of endocarditis. 7. Right shoulder bursitis, cellulitis: MRI shows no evidence of osteomyelitis or abscess. Appreciate orthopedic surgery recommendations. Nonsurgical management at this time. 8. DVT prophylaxis: SCDs. Problem Qualifiers (1) Pneumonia: Qualified Codes: J18.9 - Pneumonia, unspecified organism Kal Monsivais MD Mar 11, 2017 10:45
[2017-03-11 12:00] VITALS: BP 109/59; PULSE 95; RESP 18; TEMP 97.5; O2SAT 100
[2017-03-11] MEDS: cefTRIAXone INJ 2,000 MG in SODIUM CHLORIDE 0.9% INJ 100 ML IV SCH (12:39)
--- NOTE | 2017-03-11 12:42 | PD.CAR.PN ---
CVT Progress Note Subjective/Hospital Course: Patient is status post left thoracotomy and decortication of the left lung Incision is clean and dry Chest tube drainage is serosanguineous Bilateral good breath sounds and lungs the fully expanded on chest x-ray Patient can be transferred to floor at this point Chest tubes will stain for several days considering the purulent nature of the effusion 03/06/17 Patient doing well at this time Bilateral good breath sounds full pulmonary expansion Chest tube drainage serosanguineous about 200 cc over last 24 hours All things equal we'll place chest tubes on waterseal tomorrow and start pulling and one by one day after In face of the empyema we cannot be to fast and pulling the tubes for this things tend to recur otherwise Patient ambulating with ease taking diet well Leukocytosis on down slope 03/07/17 Patient doing well at this time Left lung fully expanded and drainage from the chest tube is decreased and serous Will most likely removed the apical chest tube tomorrow followed by the basal chest tube in a day or 2 ID consult appreciated Nothing to add to care 03/08/17 Left lung fully expanded Chest tube drainage has significantly decreased and basal chest tube has been removed this morning We'll keep the apical chest tube for another day or 2 and then remove that one as well Incision is clean and dry Patient doing very well at this time 03/09/17 Patient doing very well at this time she is awake alert and oriented Both lungs are fully expanded Chest tube drainage has significantly decreased and basal tube has been removed yesterday Thoracotomy incision is clean and dry We'll place on waterseal and see how patient does if not much drainage may remove the remaining tube on Monday03/11/17 Remaining apical chest tube has been removed Lung remains expanded with good bilateral breath sounds Chest x-ray reveals complete resolution of the empyema Chest x-ray later today and after that from my point patient can be discharged Follow-up with infectious disease Follow-up with me when necessary Patient can remove dressings on Monday and going shower and get it wet Objective: Vital Signs Date Time Temp Pulse Resp B/P (MAP) Pulse Ox O2 Delivery O2 Flow Rate FiO2 03/11/17 12:00 97.5 95 18 109/59 (76) 100 03/11/17 08:00 97.6 75 18 104/54 (71) 99 03/11/17 04:49 97.3 88 18 115/63 (80) 100 03/11/17 00:28 97.3 66 18 105/57 (73) 100 03/10/17 20:38 97.8 80 18 109/57 (74) 99 03/10/17 16:30 18 03/10/17 16:00 97.7 84 18 110/56 (74) 97 Result Diagram: 03/08/17 0906 Pietro Sparrow MD Mar 11, 2017 12:42
--- NOTE | 2017-03-11 14:15 | RADRPT ---
EXAM DATE/TIME: 03/11/2017 13:39 [facility] COMPARISON: CHEST SINGLE AP, March 11, 2017, 7:57. INDICATIONS : Left chest tube removal MEDICAL HISTORY : None. SURGICAL HISTORY : None. ENCOUNTER: Initial ACUITY: 1 day PAIN SCORE: 0/10 LOCATION: Left chest FINDINGS: The patient is status post removal of the left-sided chest tube. There is a small left pneumothorax s een over the apex measuring 8 mm. There continue to be pleural air and fluid along the lateral left c hest. This appears unchanged. There is hypodensity seen at the lateral left mid to lower lung and to a much lesser degree the lateral right midlung. The heart size is normal. CONCLUSION: Removal of the left-sided chest tube with a small apical left pneumothorax now seen. There continues to be fluid and air along the left lateral mid and lower chest which is unchanged. Melvin Solano MD on March 11, 2017 at 14:11 Board Certified Radiologist. This report was verified electronically.
--- NOTE | 2017-03-11 14:34 | HHI.PR ---
Subjective Remarks 32 YOWF with IVDA,sepsis, empyema had Decortication Chest tube removed no Fever Feels better Objective Vital Signs Vital Signs Date Time Temp Pulse Resp B/P (MAP) Pulse Ox O2 Delivery O2 Flow Rate FiO2 03/11/17 12:00 97.5 95 18 109/59 (76) 100 03/11/17 08:00 97.6 75 18 104/54 (71) 99 03/11/17 04:49 97.3 88 18 115/63 (80) 100 03/11/17 00:28 97.3 66 18 105/57 (73) 100 03/10/17 20:38 97.8 80 18 109/57 (74) 99 03/10/17 16:30 18 03/10/17 16:00 97.7 84 18 110/56 (74) 97 I/O 03/10/17 03/10/17 03/10/17 03/11/17 03/11/17 03/11/17 07:00 15:00 23:00 07:00 15:00 23:00 Intake Total 240 ml Output Total 0 ml 0 ml 0 ml Balance 240 ml 0 ml 0 ml Intake Oral 240 ml Chest Tube Drainage Total 0 ml 0 ml 0 ml # Voids 2 3 Result Diagram: 03/08/17905 Objective Remarks GENERAL: Thin built female, NAD SKIN: Warm and dry. HEAD: Normocephalic. EYES: No scleral icterus. No injection or drainage. NECK: Supple, trachea midline. No JVD or lymphadenopathy. CARDIOVASCULAR: Regular rate and rhythm without murmurs, gallops, or rubs. RESPIRATORY: Breath sounds equal bilaterally. No accessory muscle use. GASTROINTESTINAL: Abdomen soft, non-tender, nondistended. MUSCULOSKELETAL: No cyanosis, or edema. BACK: Nontender without obvious deformity. No CVA tenderness. A/P Assessment and Plan Empyema, loculated eff S/P Decorication Pneumonia IVDA PLAN: Cont Abx Stable on RA OOB in chair Overall, stable Post chest tube removal CXR Jacky Mckeon MD Mar 11, 2017 14:34
[2017-03-11 16:00] VITALS: BP 113/55; PULSE 86; RESP 18; TEMP 97.5; O2SAT 100
[2017-03-11 20:00] VITALS: BP 128/62; PULSE 99; RESP 18; TEMP 97.9; O2SAT 99
[2017-03-11] MEDS: SODIUM CHLORIDE 0.9% FLUSH 10 ML FLUSH IV FLUSH SCH (20:44)
[2017-03-12] VITALS: BP 126/63; PULSE 86; RESP 18; TEMP 97.8; O2SAT 99
[2017-03-12] MEDS: ACETAMINOPHEN/HYDROcodone 325 MG/5 MG TAB PO PRN ×5 (00:36→21:12)
[2017-03-12 04:00] VITALS: BP 105/53; PULSE 74; RESP 18; TEMP 97.9; O2SAT 100
[2017-03-12 08:00] VITALS: BP 107/59; PULSE 82; RESP 18; TEMP 97.3; O2SAT 100
[2017-03-12] MEDS: SODIUM CHLORIDE 0.9% FLUSH 10 ML FLUSH IV FLUSH SCH ×2 (08:41→21:00)
[2017-03-12] MEDS: DOCUSATE SODIUM 50 MG/SENNA 8.6 MG TAB PO SCH ×2 (08:41→21:00)
--- NOTE | 2017-03-12 10:59 | HHI.PR ---
Subjective Remarks Follow up pneumonia/empyema. Patient has no complaints at this time. Denies chest pain, dyspnea. Wants to go home today. Objective Vitals Vital Signs Date Time Temp Pulse Resp B/P (MAP) Pulse Ox O2 Delivery O2 Flow Rate FiO2 03/12/17 08:00 97.3 82 18 107/59 (75) 100 03/12/17 04:00 97.9 74 18 105/53 (70) 100 03/12/17 00:00 97.8 86 18 126/63 (84) 99 03/11/17 20:00 97.9 99 18 128/62 (84) 99 03/11/17 16:00 97.5 86 18 113/55 (74) 100 03/11/17 12:00 97.5 95 18 109/59 (76) 100 I/O 03/11/17 03/11/17 03/11/17 03/12/17 03/12/17 03/12/17 06:59 14:59 22:59 06:59 14:59 22:59 Output Total 0 ml Balance 0 ml Chest Tube Drainage Total 0 ml # Voids 5 Result Diagram: 03/08/17 0906 Imaging Last Impressions Chest X-Ray 03/11/17 0000 Signed Impressions: Service Date/Time: Saturday, March 11, 2017 13:39 - CONCLUSION: Removal of the left-sided chest tube with a small apical left pneumothorax now seen. There continues to be fluid and air along the left lateral mid and lower chest which is unchanged. Melvin Solano MD Thoracentesis Ultrasound 03/03/17 0000 Signed Impressions: Service Date/Time: Friday, March 03, 2017 09:18 - CONCLUSION: Uncomplicated ultrasound guided thoracentesis. This effusion is highly loculated and therefore complete decompression of the effusion is not possible. Dedrick Rutherford Jr., MD Chest CT 03/03/17 0000 Signed Impressions: Service Date/Time: Friday, March 03, 2017 18:17 - CONCLUSION: 1. Large loculated pleural effusion on the left side with a lateral and subpulmonic components. Associated collapse of the left lower lobe. 2. There are 2 new findings in the right lung, including a subsegmental area of consolidation and a new peripheral right midlung cavitary lesion. The other nodules seen on prior CT are stable. Dedrick Higuera MD Shoulder MRI 02/22/17 0000 Signed Impressions: Service Date/Time: Wednesday, February 22, 2017 18:17 - CONCLUSION: 1. Bursitis at the right shoulder with some soft tissue edematous changes that may indicate mild cellulitis, but no discrete abscess or osteomyelitis identified. Hilario Rose MD Shoulder X-Ray 02/21/17 1817 Signed Impressions: Service Date/Time: Tuesday, February 21, 2017 18:30 - CONCLUSION: Normal examination for a patient of this age. Hilario Rose MD Abdomen/Pelvis CT 02/21/17 1649 Signed Impressions: Service Date/Time: Tuesday, February 21, 2017 19:19 - CONCLUSION: 1. Patchy airspace consolidation at both lung bases. 2. Hepatosplenomegaly. 3. Multiple gallstones biliary ductal dilatation. Questionable diminished perfusion to the kidneys. Cannot exclude nephritis. Hilario Rose MD CT Angiography 02/21/17 0000 Signed Impressions: Service Date/Time: Tuesday, February 21, 2017 19:16 - CONCLUSION: 1. Negative for pulmonary embolism. 2. Multifocal patchy and nodular airspace disease in both lungs with some mild cavitation on the left side. Differential diagnosis includes septic embolic disease and multifocal pneumonia. Hilario Rose MD Objective Remarks General: Thin female in no acute distress. Heart: Regular rate and rhythm. No murmur. Lungs: Clear to auscultation bilaterally. No wheezes, rales, or rhonchi. Breathing is nonlabored. Abdomen: Soft, nontender, nondistended. Extremities: No lower extremity edema. Psych: Alert and oriented. Procedures 03/04/17 Thoracoscopy, thoracotomy, evacuation of empyema of the left chest, decortication of the left lung, pleurodesis, chest tube placement Urinary Catheter: No Vascular Central Line Catheter: No A/P Problem List: (1) Septic embolism ICD Code: I26.90 - Septic pulmonary embolism without acute cor pulmonale Status: Acute (2) Substance abuse ICD Code: F19.10 - Other psychoactive substance abuse, uncomplicated Status: Acute (3) Sepsis ICD Code: A41.9 - Sepsis, unspecified organism Status: Acute (4) Pneumonia ICD Code: J18.9 - Pneumonia, unspecified organism Status: Acute Assessment and Plan 03/12/17: Chest tube removed. CXR shows small apical pneumothorax. Patient wants to go home. Awaiting infectious disease recommendations regarding antibiotics. 1. Sepsis/pneumonia/empyema: Continue Rocephin. Appreciate infectious disease recommendations patient had empyema. Chest tube in place. Management per cardiothoracic surgery, pulmonology. 2. Gram-positive bacteremia: Blood cultures growing Strep, Staph aureus. Appreciate infectious disease recommendations. Continue Rocephin 6 weeks. ID to give final recommendations after chest tube removal. 3. Hyponatremia: Monitor labs. 4. Hypokalemia: Monitor labs and supplement potassium as needed. 5. Transaminitis: Patient has positive hepatitis C antibody. Follow-up as outpatient. 6. IV drug abuse: Patient was counseled. 2-D echocardiogram does not show any evidence of endocarditis. 7. Right shoulder bursitis, cellulitis: MRI shows no evidence of osteomyelitis or abscess. Appreciate orthopedic surgery recommendations. Nonsurgical management at this time. 8. DVT prophylaxis: SCDs. Discharge Planning Plan for discharge home today if OK with CT surgery and after ID gives antibiotic recommendations. Will likely need PICC for outpatient IV antibiotics. Problem Qualifiers (1) Pneumonia: Qualified Codes: J18.9 - Pneumonia, unspecified organism Kal Monsivais MD Mar 12, 2017 10:59
--- NOTE | 2017-03-12 11:01 | HHI.DCPOC ---
Discharge Care Plan Diagnosis: (1) Empyema (2) Hypokalemia (3) Elevated LFTs (4) Bacteremia (5) Pneumonia (6) Sepsis Goals to Promote Your Health * To prevent worsening of your condition and complications * To maintain your health at the optimal level Directions to Meet Your Goals Take your medications as prescribed Follow your dietary instruction Follow activity as directed Keep your appointments as scheduled Take your immunizations and boosters as scheduled If your symptoms worsen call your PCP, if no PCP go to Urgent Care Center or Emergency Room Smoking is Dangerous to Your Health. Avoid second hand smoke Call the 24-hour hour crisis hotline for domestic abuse at Kal Monsivais MD Mar 12, 2017 11:01
[2017-03-12] MEDS ORDERED: HYDR-3516 PO (11:04)
[2017-03-12 12:00] VITALS: BP 112/53; PULSE 95; RESP 18; TEMP 98.3; O2SAT 100
--- NOTE | 2017-03-12 12:41 | HHI.DS ---
Discharge Summary Admission Date Feb 21, 2017 at 20:19 Discharge Date: Mar 12, 2017 Admitting Diagnosis sepsis, septic emboli, pneumonia, hyponatremia (1) Septic embolism ICD Code: I26.90 - Septic pulmonary embolism without acute cor pulmonale Diagnosis: Secondary Status: Acute (2) Substance abuse ICD Code: F19.10 - Other psychoactive substance abuse, uncomplicated Diagnosis: Secondary Status: Acute (3) Sepsis ICD Code: A41.9 - Sepsis, unspecified organism Diagnosis: Principal Status: Acute (4) Pneumonia ICD Code: J18.9 - Pneumonia, unspecified organism Diagnosis: Secondary Status: Acute Procedures 03/04/17 Thoracoscopy, thoracotomy, evacuation of empyema of the left chest, decortication of the left lung, pleurodesis, chest tube placement Brief History - From Admission 31-year-old female with a past medical history significant for IV drug abuse presents with 5 day history of increasing shortness of breath, left "lung pain" for first with deep inspiration and pain in her right shoulder. She endorses subjective fever/chills that began today. She has a leukocytosis of 14.6. Lactic acid 1.7. She was found to have an elevated troponin of 0.12. EKG is normal sinus rhythm without ST segment elevations or depressions. CTA chest showed multifocal patchy and nodular airspace disease bilaterally with cavitation on the left side. Septic embolic disease versus multifocal pneumonia. CBC/BMP: 03/08/17 0906 Significant Findings Laboratory Tests Test 03/10/17 13:02 Alanine Aminotransferase (ALT/SGPT) 56 U/L (10-53) Alkaline Phosphatase 200 U/L (45-117) Albumin 2.4 GM/DL (3.4-5.0) Imaging Last Impressions Chest X-Ray 03/11/17 0000 Signed Impressions: Service Date/Time: Monday, March 11, 2017 13:39 - CONCLUSION: Removal of the left-sided chest tube with a small apical left pneumothorax now seen. There continues to be fluid and air along the left lateral mid and lower chest which is unchanged. Melvin Solano MD Thoracentesis Ultrasound 03/03/17 0000 Signed Impressions: Service Date/Time: Friday, March 03, 2017 09:18 - CONCLUSION: Uncomplicated ultrasound guided thoracentesis. This effusion is highly loculated and therefore complete decompression of the effusion is not possible. Dedrick Rutherford Jr., MD Chest CT 03/03/17 0000 Signed Impressions: Service Date/Time: Friday, March 03, 2017 18:17 - CONCLUSION: 1. Large loculated pleural effusion on the left side with a lateral and subpulmonic components. Associated collapse of the left lower lobe. 2. There are 2 new findings in the right lung, including a subsegmental area of consolidation and a new peripheral right midlung cavitary lesion. The other nodules seen on prior CT are stable. Dedrick Higuera MD Shoulder MRI 02/22/17 Signed Impressions: Service Date/Time: Wednesday, February 22, 2017 18:17 - CONCLUSION: 1. Bursitis at the right shoulder with some soft tissue edematous changes that may indicate mild cellulitis, but no discrete abscess or osteomyelitis identified. Hilario Rose MD Shoulder X-Ray 02/21/171816 Signed Impressions: Service Date/Time: Tuesday, February 21, 2017 18:30 - CONCLUSION: Normal examination for a patient of this age. Hilario Rose MD Abdomen/Pelvis CT 02/21/17 1649 Signed Impressions: Service Date/Time: Tuesday, February 21, 2017 19:19 - CONCLUSION: 1. Patchy airspace consolidation at both lung bases. 2. Hepatosplenomegaly. 3. Multiple gallstones biliary ductal dilatation. Questionable diminished perfusion to the kidneys. Cannot exclude nephritis. Hilario Rose MD CT Angiography 02/21/17 0000 Signed Impressions: Service Date/Time: Tuesday, February 21, 2017 19:16 - CONCLUSION: 1. Negative for pulmonary embolism. 2. Multifocal patchy and nodular airspace disease in both lungs with some mild cavitation on the left side. Differential diagnosis includes septic embolic disease and multifocal pneumonia. Hilario Rose MD PE at Discharge General: Thin female in no acute distress. Heart: Regular rate and rhythm. No murmur. Lungs: Clear to auscultation bilaterally. No wheezes, rales, or rhonchi. Breathing is nonlabored. Abdomen: Soft, nontender, nondistended. Extremities: No lower extremity edema. Psych: Alert and oriented. Hospital Course The patient was admitted for further management of sepsis, pneumonia. Infectious disease was consulted. Patient was continued on antibiotics. Blood cultures were positive for strep and staph aureus. The patient's presentation was concerning for endocarditis. Pain in her right shoulder was concerning for pain from septic emboli. Orthopedic surgery evaluated the patient and recommended nonoperative treatment. Pulmonology was consulted. Thoracentesis was done. Patient was diagnosed with empyema of the left chest. Cardiothoracic surgery was consulted. The patient underwent left thoracotomy and decortication of the left lung. Chest tubes were placed. She was continued on antibiotics and the chest tubes were monitored closely by thoracic surgery and pulmonology. As the patient improved clinically, the chest tubes were removed. Patient was cleared for discharge by surgery. Recommendations were made for outpatient IV antibiotics by infectious disease. PICC line was ordered. The patient was counseled regarding her history of IV drug abuse in the importance of avoiding IV drug use in the future, especially with the PICC line. Pt Condition on Discharge: Stable Discharge Disposition: Discharge Home Discharge Time: > 30 minutes Discharge Instructions DIET: Follow Instructions for: As Tolerated, No Restrictions Activities you can perform: Regular-No Restrictions Follow up Referrals: PCP Follow-up - 2 Weeks Surgical - 1 Week with Pietro Sparrow MD New Medications: Hydrocodone/Acetaminophen (Hydrocodone-Acetamin 5-325 mg) 5 Mg-325 Mg Tablet 1 TAB PO Q6HR PRN for pain>5, #10 TAB 0 Refills Kal Monsivais MD Mar 12, 2017 12:41
--- NOTE | 2017-03-12 12:56 | HHI.IDPN ---
Note Infectious Disease Note March 12, 2017 Infusion Therapy Location of Infusion Therapy: Ambulatory Infusion Therapy Order Patient Information Patient Weight 55.3 kg Diagnosis: Diagnosis Strep and MSSA sepsis with septic lung emboli Coded Allergies: *MDRO Multi-Drug Resistant Organism (Unverified Adverse Reaction, Unknown , 09/11/14) MRSA 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 Administer Medication Ceftriaxone 2 grams IV q 24 hours Stop Treatment: Apr 03, 2017 Additional Information Venous access: PICC Line Additional Instructions [x] Peripheral flush and dressing changes per protocol [x] Implanted port and central linemarker: * Implanted port: 10 ml Normal Saline followed by 5 ml Heparin 100 units/ml Heparin flush after each use and monthly to maintain. [] May leave port accessed during therapy. [] May leave peripheral site accessed for duration of therapy. [x] If patient has SOB or respiratory distress, check oxygen saturation. If less than 90% or clinical signs of respiratory distress, administer oxygen at 2 L/min. via nasal cannula and notify physician. [x] Anaphylaxis/Reaction orders: * Stop infusion. * Keep IV line open with saline flush. * Notify physician. * Monitor vital signs every 15 minutes until symptoms resolve. * Check Oxygen saturation; Oxygen at 2 L/min. via nasal cannula if less than 90% or clinical signs of respiratory distress. * Administer diphenhydramine (Benadryl) 25 mg IV STAT, (unless patient has received as pre-med). May repeat once, if necessary. * Solu-Cortef 250 mg IVP over 30-60 seconds, use 100 mg vials for each dissolution. * Epinephrine (1mg/1 ml) 0.3 mg subcutaneously or IVP now with any signs of respiratory distress. * Check with physician for new additional pre-med orders if patient is re- challenged or re-treated. [x] May remove PICC line when treatment complete, after confirming with Physician. [x] If the patient is admitted to the hospital, the ED, or transferred via [facility] , complete transfer form including medication reconciliation order sheet. Laboratory Tests Weekly Labs: CBC w/diff, Creatinine, LFT's (Hepatic function test) (Labs every Monday) Gloria Gomez MD, Eloisa G MD Mar 12, 2017 12:56
[2017-03-12] MEDS: cefTRIAXone INJ 2,000 MG in SODIUM CHLORIDE 0.9% INJ 100 ML IV SCH ×2 (13:00→15:35)
[2017-03-12] MEDS ORDERED: CEFTINJ2 IV (13:00)
--- NOTE | 2017-03-12 15:26 | HHI.PR ---
Subjective Remarks 32 YOWF with IVDA,sepsis, empyema had Decortication Chest tube removed no Fever Feels better Anxious Objective Vital Signs Vital Signs Date Time Temp Pulse Resp B/P (MAP) Pulse Ox O2 Delivery O2 Flow Rate FiO2 03/12/17 12:00 98.3 95 18 112/53 (72) 100 03/12/17 08:00 97.3 82 18 107/59 (75) 100 03/12/17 04:00 97.9 74 18 105/53 (70) 100 03/12/17 00:00 97.8 86 18 126/63 (84) 99 03/11/17 20:00 97.9 99 18 128/62 (84) 99 03/11/17 16:00 97.5 86 18 113/55 (74) 100 I/O 03/11/17 03/11/17 03/11/17 03/12/17 03/12/17 03/12/17 07:00 15:00 23:00 07:00 15:00 23:00 Output Total 0 ml Balance 0 ml Chest Tube Drainage Total 0 ml # Voids 5 Result Diagram: 03/08/17905 Objective Remarks GENERAL: Thin built female, NAD SKIN: Warm and dry. HEAD: Normocephalic. EYES: No scleral icterus. No injection or drainage. NECK: Supple, trachea midline. No JVD or lymphadenopathy. CARDIOVASCULAR: Regular rate and rhythm without murmurs, gallops, or rubs. RESPIRATORY: Breath sounds equal bilaterally. No accessory muscle use. GASTROINTESTINAL: Abdomen soft, non-tender, nondistended. MUSCULOSKELETAL: No cyanosis, or edema. BACK: Nontender without obvious deformity. No CVA tenderness. A/P Assessment and Plan Empyema, loculated eff S/P Decorication Pneumonia IVDA PLAN: Cont Abx, Rocephin 2 gm daily until 04/03 per ID Stable on RA OOB in chair Overall, stable DC Plans underway Jacky Mckeon MD Mar 12, 2017 15:26
[2017-03-12 16:00] VITALS: BP 118/58; PULSE 95; RESP 18; TEMP 97.8; O2SAT 100
[2017-03-12 20:30] VITALS: BP 121/59; PULSE 84; RESP 18; TEMP 97.8; O2SAT 99
[2017-03-13 00:39] VITALS: BP 110/53; PULSE 84; RESP 20; TEMP 98; O2SAT 99
[2017-03-13] MEDS: ACETAMINOPHEN/HYDROcodone 325 MG/5 MG TAB PO PRN ×3 (01:47→13:00)
[2017-03-13 06:18] VITALS: BP 109/57; PULSE 90; RESP 20; TEMP 98.3; O2SAT 98
[2017-03-13 07:40] VITALS: BP 115/57; PULSE 88; RESP 18; TEMP 99.2; O2SAT 99
[2017-03-13] MEDS: DOCUSATE SODIUM 50 MG/SENNA 8.6 MG TAB PO SCH (07:47)
[2017-03-13] MEDS: SODIUM CHLORIDE 0.9% FLUSH 10 ML FLUSH IV FLUSH SCH (07:48)
--- NOTE | 2017-03-13 11:18 | HHI.PR ---
Subjective Remarks The patient was very anxious to go home. She had no acute complaints. She wanted to know if her outpatient antibiotics were set up. She said she is ready to leave the hospital if she is not discharged today. She said that she will return to the emergency department if outpatient antibiotics have not been arranged by tomorrow. Discussed with nursing. Objective Vitals Vital Signs Date Time Temp Pulse Resp B/P (MAP) Pulse Ox O2 Delivery O2 Flow Rate FiO2 03/13/17 07:40 99.2 88 18 115/57 (76) 99 03/13/17 06:18 98.3 90 20 109/57 (74) 98 03/13/17 00:39 98.0 84 20 110/53 (72) 99 03/12/17 20:30 97.8 84 18 121/59 (79) 99 03/12/17 16:00 97.8 95 18 118/58 (78) 100 03/12/17 12:00 98.3 95 18 112/53 (72) 100 I/O 03/12/17 03/12/17 03/12/17 03/13/17 03/13/17 03/13/17 07:00 15:00 23:00 07:00 15:00 23:00 # Voids 5 1 Imaging Last Impressions Chest X-Ray 03/11/17 0000 Signed Impressions: Service Date/Time: Saturday, March 11, 2017 13:39 - CONCLUSION: Removal of the left-sided chest tube with a small apical left pneumothorax now seen. There continues to be fluid and air along the left lateral mid and lower chest which is unchanged. Melvin Solano MD Thoracentesis Ultrasound 03/03/17 0000 Signed Impressions: Service Date/Time: Friday, March 03, 2017 09:18 - CONCLUSION: Uncomplicated ultrasound guided thoracentesis. This effusion is highly loculated and therefore complete decompression of the effusion is not possible. Dedrick Rutherford Jr., MD Chest CT 03/03/17 0000 Signed Impressions: Service Date/Time: Friday, March 03, 2017 18:17 - CONCLUSION: 1. Large loculated pleural effusion on the left side with a lateral and subpulmonic components. Associated collapse of the left lower lobe. 2. There are 2 new findings in the right lung, including a subsegmental area of consolidation and a new peripheral right midlung cavitary lesion. The other nodules seen on prior CT are stable. Dedrick Higuera MD Shoulder MRI 02/22/17 0000 Signed Impressions: Service Date/Time: Wednesday, February 22, 2017 18:17 - CONCLUSION: 1. Bursitis at the right shoulder with some soft tissue edematous changes that may indicate mild cellulitis, but no discrete abscess or osteomyelitis identified. Hilario Rose MD Shoulder X-Ray 02/21/17 1817 Signed Impressions: Service Date/Time: Tuesday, February 21, 2017 18:30 - CONCLUSION: Normal examination for a patient of this age. Hilario Rose MD Abdomen/Pelvis CT 02/21/17 1649 Signed Impressions: Service Date/Time: Tuesday, February 21, 2017 19:19 - CONCLUSION: 1. Patchy airspace consolidation at both lung bases. 2. Hepatosplenomegaly. 3. Multiple gallstones biliary ductal dilatation. Questionable diminished perfusion to the kidneys. Cannot exclude nephritis. Hilario Rose MD CT Angiography 02/21/17 0000 Signed Impressions: Service Date/Time: Tuesday, February 21, 2017 19:16 - CONCLUSION: 1. Negative for pulmonary embolism. 2. Multifocal patchy and nodular airspace disease in both lungs with some mild cavitation on the left side. Differential diagnosis includes septic embolic disease and multifocal pneumonia. Hilario Rose MD Objective Remarks GENERAL: Resting in bed. SKIN: Warm and dry. Pale. HEAD: Normocephalic. Atraumatic. EYES: No scleral icterus. No injection or drainage. NECK: Supple, trachea midline. No JVD or lymphadenopathy. CARDIOVASCULAR: Regular rate and rhythm without murmurs, gallops, or rubs. RESPIRATORY: Decreased breath sounds at the left base. No accessory muscle use. GASTROINTESTINAL: Abdomen soft, non-tender, nondistended. MUSCULOSKELETAL: No cyanosis, or edema. BACK: Nontender without obvious deformity. No CVA tenderness. PSYCH: Mood and affect appropriate. Procedures 03/04/17 Thoracoscopy, thoracotomy, evacuation of empyema of the left chest, decortication of the left lung, pleurodesis, chest tube placement Medications and IVs Current Medications Medications (Trade) Dose Ordered Sig/Emili Route Start Time Stop Time Status Last Admin (NS Flush) 2 ml UNSCH PRN IV FLUSH 02/21/17 20:45 (NS Flush) 2 ml BID IV FLUSH 02/21/17 21:00 03/13/17 07:48 (Tylenol) 650 mg Q4H PRN PO 02/21/17 20:45 02/25/17 08:23 (Zofran Inj) 4 mg Q6H PRN IVP 02/21/17 20:45 (Narcan Inj) 0.4 mg UNSCH PRN IV PUSH 02/21/17 20:45 (Milk Of [place] Liq) 30 ml Q12H PRN PO 02/21/17 20:45 ([place] 5-325 Mg) 1 tab Q4H PRN PO 02/22/17 11:00 03/13/17 07:47 Ceftriaxone Sodium 2000 mg/ Sodium Chloride 100 ml @ 200 mls/hr Q24H IV 02/24/17 13:00 03/12/17 15:35 (Tums Chew) 500 mg BID PRN PO 02/25/17 17:15 03/08/17 21:54 (Dennise-Colace) 1 tab BID PO 03/05/17 14:30 03/11/17 20:44 A/P Problem List: (1) Septic embolism ICD Code: I26.90 - Septic pulmonary embolism without acute cor pulmonale Status: Acute (2) Substance abuse ICD Code: F19.10 - Other psychoactive substance abuse, uncomplicated Status: Acute (3) Sepsis ICD Code: A41.9 - Sepsis, unspecified organism Status: Acute (4) Pneumonia ICD Code: J18.9 - Pneumonia, unspecified organism Status: Acute Assessment and Plan 31-year-old female with 1. Sepsis/endocarditis vs multifocal pneumonia CTA chest showed the focal patchy and nodular airspace disease bilaterally with mild cavitation on the left. Concern for septic emboli versus multifocal pneumonia. CXR 02/28 showed: Development of a moderate-sized left pleural effusion with consolidation of the left lower lobe and lingula as well as new consolidations involving left mid lung and upper lobe. Appreciate infectious disease recommendations, patient had empyema. Chest tube removed. Management per cardiothoracic surgery, pulmonology. - d/c on antibiotic regimen per ID at infusion clinic. - 2-D echo ruled out endocarditis. - pulmonology consult noted. S/p left thoracentesis 03/03. - CTS consult appreciated. S/p left thoracotomy 03/04/17. Chest tube removed. Repeat CXR noted. Cleared for d/c by CTS. - follow up with CTS. - Physical therapy - Incentive spirometry 2. Gram-positive bacteremia Repeat blood culture NGTD Infectious disease ordered antibiotics as above. 3. Elevated troponin EKG showed normal sinus rhythm without ST segment elevations or depressions May be secondary to endocarditis ACS ruled out per protocol 4. Hyponatremia Continue with NS Monitor electrolytes 5. Hypokalemia Monitor 6. Transaminitis hepatitis C antibody positive - outpt follow-up 7. IV drug abuse Cessation counseling provided 2-D echo without any evidence of endocarditis - cessation instruction 8. Right shoulder bursitis Mild cellulitis MRI shoulder noted and review without any evidence of osteomyelitis or abscess Orthopedic surgery consulted and recommended nonoperative medical management in the form of IV antibiotics. Outpt follow-up. DVT prophylaxis: Bilateral SCDs Discharge Planning D/c home with follow-up at the infusion clinic Problem Qualifiers (1) Pneumonia: Qualified Codes: J18.9 - Pneumonia, unspecified organism Matty Camacho DO Mar 13, 2017 11:18
[2017-03-13 11:38] VITALS: BP 115/58; PULSE 95; RESP 18; TEMP 97.9; O2SAT 100
[2017-03-13] MEDS: cefTRIAXone INJ 2,000 MG in SODIUM CHLORIDE 0.9% INJ 100 ML IV SCH (13:01)
--- NOTE | 2017-03-13 14:36 | HHI.PR ---
Subjective Remarks 32 YOWF with IVDA,sepsis, empyema had Decortication no Fever Feels better Anxious to go home Objective Vital Signs Vital Signs Date Time Temp Pulse Resp B/P (MAP) Pulse Ox O2 Delivery O2 Flow Rate FiO2 03/13/17 11:38 97.9 95 18 115/58 (77) 100 03/13/17 07:40 99.2 88 18 115/57 (76) 99 03/13/17 06:18 98.3 90 20 109/57 (74) 98 03/13/17 00:39 98.0 84 20 110/53 (72) 99 03/12/17 20:30 97.8 84 18 121/59 (79) 99 03/12/17 16:00 97.8 95 18 118/58 (78) 100 I/O 03/12/17 03/12/17 03/12/17 03/13/17 03/13/17 03/13/17 07:00 15:00 23:00 07:00 15:00 23:00 # Voids 5 1 Objective Remarks GENERAL: Thin built female, NAD SKIN: Warm and dry. HEAD: Normocephalic. EYES: No scleral icterus. No injection or drainage. NECK: Supple, trachea midline. No JVD or lymphadenopathy. CARDIOVASCULAR: Regular rate and rhythm without murmurs, gallops, or rubs. RESPIRATORY: Breath sounds equal bilaterally. No accessory muscle use. GASTROINTESTINAL: Abdomen soft, non-tender, nondistended. MUSCULOSKELETAL: No cyanosis, or edema. BACK: Nontender without obvious deformity. No CVA tenderness. A/P Assessment and Plan Empyema, loculated eff S/P Decorication Pneumonia IVDA PLAN: Cont Abx, Rocephin 2 gm daily until 04/03 per ID Stable on RA OOB in chair Overall, stable DC Plans underway for home with home abx Jacky Mckeon MD Mar 13, 2017 14:35
== END 2017-03-13 14:27 | disposition home or self-care (01) | DRG 163 ==
LOC: NEPD 15:55 → NEDA 20:19 → N07B 21:48 → N03B 03-04 12:44 → N05A 03-05 12:22
PROVIDERS: ADMIT Hospitalist; ATTEND Hospitalist
PROC: 0W9B3ZX Drainage of Left Pleural Cavity, Percutaneous Approach, Diagnostic (ICD-10-PCS; 2017-03-03)
PROC: 0B5P0ZZ Destruction of Left Pleura, Open Approach (ICD-10-PCS; 2017-03-04)
PROC: 3E0T3BZ Introduction of Anesthetic Agent into Peripheral Nerves and Plexi, Percutaneous Approach (ICD-10-PCS; 2017-03-04)
PROC: 0W9B3ZX Drainage of Left Pleural Cavity, Percutaneous Approach, Diagnostic (ICD-10-PCS; 2017-03-04)
PROC: 0BCP4ZZ Extirpation of Matter from Left Pleura, Percutaneous Endoscopic Approach (ICD-10-PCS; 2017-03-04)
PROC: 0BNL0ZZ Release Left Lung, Open Approach (ICD-10-PCS; principal; 2017-03-04 10:21)
DX: J86.9 Pyothorax without fistula (principal); A41.01 Sepsis due to Methicillin susceptible Staphylococcus aureus; A40.9 Streptococcal sepsis, unspecified; I26.90 Septic pulmonary embolism without acute cor pulmonale; J18.9 Pneumonia, unspecified organism; D69.6 Thrombocytopenia, unspecified; E87.1 Hypo-osmolality and hyponatremia; L03.113 Cellulitis of right upper limb; J95.811 Postprocedural pneumothorax; R16.2 Hepatomegaly with splenomegaly, not elsewhere classified; F11.90 Opioid use, unspecified, uncomplicated; M75.51 Bursitis of right shoulder; M54.6 Pain in thoracic spine; R74.8 Abnormal levels of other serum enzymes; F19.10 Other psychoactive substance abuse, uncomplicated; F17.210 Nicotine dependence, cigarettes, uncomplicated; E87.6 Hypokalemia; Z86.14 Personal history of Methicillin resistant Staphylococcus aureus infection; K80.20 Calculus of gallbladder without cholecystitis without obstruction; F14.90 Cocaine use, unspecified, uncomplicated; F41.9 Anxiety disorder, unspecified
CPT/HCPCS: 32555; 36569; 71010; 71020; 71260; 71275; 73030; 73223; 74177; 76937; 80048; 80053; 80074; 80076; 80202; 80307; 81001; 82150; 82550; 82945; 83605; 83615; 83735; 84157; 84484; 84703; 85007; 85025; 85027; 85610; 85652; 85730; 86850; 86900; 86901; 86920; 87015; 87040; 87070; 87077; 87086; 87102; 87116; 87176; 87186; 87205; 87206; 88112; 88305; 89051; 93005; 93306; 94150; 94664; 96361; 96365; 96366; 96368; A9579; C1729; C9290; J0696; J1100; J1170; J1580; J2060; J2270; J2370; J2405; J2540; J2543; J2710; J3370; J7030; J7050; Q9967

== ENCOUNTER 2017-06-04 00:52 | Emergency (ER) | payer SELFPAY ==
[~2017-06-04 00:52] MED LIST changes: -BACT800T5 PO; +CEFTINJ2 IV; -CYMB30CA PO; +HYDR-3516 PO; -IBUP600T26 PO; -VIST50CA PO
--- NOTE | 2017-06-04 03:04 | PD ---
HPI Chief Complaint: OD/ Ingestion Time Seen by Provider: 02:37 Travel History International Travel<30 days: No Contact w/Intl Traveler<30days: No Traveled to known affect area: No History of Present Illness HPI 32-year-old female presents to the emergency department from friends home after overdosing on heroin and possible cocaine. Paramedics reportedly called to the home where patient was found unresponsive and apneic with a pulse and a heart rate of 80. Patient was immediately administered Narcan and Ambu assisted ventilations and quickly resumed level of consciousness alert and oriented to time and events with GCS of 15. Subsequently patient has been irritated and states that she does not need to be seen. Patient states that she does not want to be arrested. Patient admits to substance ingestion. Patient has prior history of endocarditis with extended hospitalization February 2017 due to IV drug abuse related endocarditis. Patient states she has returned to IV drug abuse and denies any fever or chills. Patient denies any chest pain shortness of breath abdominal pain flank pain or extremity injury. Patient denies any suicidal or homicidal ideation. PFSH Past Medical History Narrative Medical Dementia bipolar disorder endocarditis IV drug abuse polysubstance abuse bilateral tubal ligation tobacco use; nursing notes reviewed Autoimmune Disease: No Anxiety: Yes Depression: Yes Cancer: No Cardiovascular Problems: No Dementia: Yes (WITH SLEEP PROBLEMS) Diabetes: No Diminished Hearing: No Endocrine: No Genitourinary: No Immune Disorder: No Musculoskeletal: No Neurologic: No Psychiatric: Yes (bipolar) Reproductive: No Respiratory: Yes Thyroid Disease: No Tubal Ligation: Yes Past Surgical History Gynecologic Surgery: Yes (tubes clamped) Social History Alcohol Use: No Tobacco Use: Yes (1/2PPD) Substance Use: No (herione 4 days ago a pack or half a day) Allergies-Medications (Allergen,Severity, Reaction): Coded Allergies: *MDRO Multi-Drug Resistant Organism (Unverified Adverse Reaction, Unknown , 09/11/14) MRSA 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 Reported Meds & Prescriptions Reported Meds & Active Scripts Active Macrobid (Nitrofurantoin Monoh/Nitrofur Macro) 100 Mg Cap 100 Mg PO BID 7 Days Ceftriaxone 2 gm Piggyback (Ceftriaxone in Is-Osm Dextrose) 2 Gram/50 Ml Froz.piggy 2 Gm IV DAILY 23 Days Hydrocodone-Acetamin 5-325 mg (Hydrocodone/Acetaminophen) 5 Mg-325 Mg Tablet 1 Tab PO Q6HR PRN Review of Systems Except as stated in HPI: all other systems reviewed are Neg General / Constitutional: No: Fever, Chills HENT: No: Congestion Cardiovascular: No: Chest Pain or Discomfort Gastrointestinal: No: Nausea, Vomiting Genitourinary: No: Dysuria, Flank Pain Musculoskeletal: No: Myalgias, Arthralgias Skin: No Rash, No Lumps Neurologic: Positive: Syncope, No: Weakness, Dizziness, Focal Abnormalities, Coordination Problem Psychiatric: Positive: Substance Abuse (Heroin overdose), No: Anxiety, Depression, Suicidal Ideations, Homicidal Ideation Physical Exam Narrative GENERAL: Well-developed well-nourished female in no acute distress no respiratory distress awake and oriented to person place time and events SKIN: Warm and dry. HEAD: Atraumatic. Normocephalic. EYES: Pupils equal and round. No scleral icterus. No injection or drainage. ENT: No nasal bleeding or discharge. Mucous membranes pink and moist. NECK: Trachea midline. No JVD. CARDIOVASCULAR: Regular rate and rhythm. RESPIRATORY: No accessory muscle use. Clear to auscultation. Breath sounds equal bilaterally. GASTROINTESTINAL: Abdomen soft, non-tender, nondistended. Hepatic and splenic margins not palpable. MUSCULOSKELETAL: Extremities without clubbing, cyanosis, or edema. No obvious deformities. NEUROLOGICAL: Awake and alert. No obvious cranial nerve deficits. Motor grossly within normal limits. Five out of 5 muscle strength in the arms and legs. Normal speech. PSYCHIATRIC: Argumentative but cooperative; poor insight and judgment. Data Data Orders Orders Urinalysis - C+S If Indicated (06/04/17 02:39) Drug Screen, Random Urine (06/04/17 02:39) Urine Culture (06/04/17 01:50) Nitrofurantoin Monohyd Macrocr (Macrobid (06/04/17 04:00) Nitrofurantoin Monohyd Macrocr (Macrobid (06/04/17 04:15) Labs Laboratory Tests Test 06/04/17 01:50 Urine Color YELLOW Urine Turbidity HAZY Urine pH 5.5 Urine Specific [place] 1.030 Urine Protein 30 mg/dL Urine Glucose (UA) NEG mg/dL Urine Ketones NEG mg/dL Urine Occult Blood NEG Urine Nitrite NEG Urine Bilirubin NEG Urine Urobilinogen LESS THAN 2.0 MG/DL Urine Leukocyte Esterase MOD Urine RBC 4 /hpf Urine WBC 23 /hpf Urine Squamous Epithelial Cells 17 /hpf Urine Bacteria RARE /hpf Urine Mucus FEW /lpf Microscopic Urinalysis Comment CULTURE INDICATED Urine Opiates Screen POS Urine Barbiturates Screen NEG Urine Amphetamines Screen NEG Urine Benzodiazepines Screen NEG Urine Cocaine Screen POS Urine Cannabinoids Screen NEG MDM Medical Decision Making Medical Screen Exam Complete: Yes Emergency Medical Condition: Yes Medical Record Reviewed: Yes Interpretation(s) Urinalysis leukocyte esterase white blood cells and bacteria culture indicated [id number] hCG negative Urine drug screen positive for opiates and cocaine Differential Diagnosis Polysubstance ingestion, heroin overdose, electrolyte disturbance, UTI, Narrative Course Patient presents with history of IV drug abuse and admits to IV heroin abuse. Patient was found to have overdosed on opiate and brisk response to Narcan 2 mg IV prior to arrival to the emergency department. Recently GCS is 15. At 3 AM patient continues to have GCS of 15 waiting for lab result; presently patient remains cooperative and remains not suicidal and not homicidal. It is now 4:15 AM patient remains with GCS of 15 identified to have abnormal urinalysis given first dose of Macrobid and patient is stable for outpatient management and encouraged to discontinue substance use and to follow-up with [facility] for detox resource Diagnosis Primary Impression: Accidental opiate poisoning Qualified Codes: T40.601A - Poisoning by unspecified narcotics, accidental ( unintentional), initial encounter Additional Impressions: Substance abuse UTI (urinary tract infection) Referrals: Primary Care Physician call for appointment [facility] call for appointment Patient Instructions: General Instructions Med/Other Pt SpecificInfo: Prescription(s) given Scripts Nitrofurantoin Monohydrate Macrocrystals (Macrobid) 100 Mg Cap 100 MG PO BID for Infection for 7 Days, #14 CAP 0 Refills Prov: Simona Huston MD 06/04/17 Disposition: DISCHARGE HOME Condition: Stable Simona Huston MD Jun 04, 2017 03:04
[2017-06-04 03:22] LABS: BACTERIA, URINE RARE /hpf; BILIRUBIN, URINE NEG (NEG); BLOOD, URINE NEG (NEG); GLUCOSE,URINE NEG (NEG); KETONE, URINE NEG (NEG); MUCUS URINE FEW /lpf (OCC); NITRITE,URINE NEG (NEG); PH, URINE 5.5 (5.0-8.5); SQUAMOUS EPITHELIAL CELL URINE 17 /hpf (0-5); URINE COLOR YELLOW (YELLW/STRAW); URINE LEUKOCYTE ESTERASE MOD (NEG)
[2017-06-04] MEDS ORDERED: NITROFURANTOIN MONOHYD MACROCR 100 MG CAP PO ONE ×2 (04:00→04:15)
[2017-06-04] MEDS ORDERED: MACR100C2 PO (04:00)
[2017-06-04 04:16] VITALS: BP 126/71; PULSE 95
== END 2017-06-04 04:29 | disposition home or self-care (01) ==
LOC: NEPC 00:52
DX: T40.1X1A Poisoning by heroin, accidental (unintentional), initial encounter (principal); N39.0 Urinary tract infection, site not specified; F14.10 Cocaine abuse, uncomplicated; F11.10 Opioid abuse, uncomplicated; F03.90 Unspecified dementia, unspecified severity, without behavioral disturbance, psychotic disturbance, mood disturbance, and anxiety; F31.9 Bipolar disorder, unspecified; F41.9 Anxiety disorder, unspecified; F17.200 Nicotine dependence, unspecified, uncomplicated; Z79.899 Other long term (current) drug therapy
CPT/HCPCS: 80307; 81001; 87086; 99283

== ENCOUNTER 2017-06-17 05:02 | Emergency (ER) | payer SELFPAY ==
[~2017-06-17] VITALS: Ht 170.2 cm; Wt 59.0 kg
[~2017-06-17 05:02] MED LIST changes: +MACR100C2 PO
[2017-06-17 05:11] VITALS: BP 123/89; PULSE 108; RESP 22; TEMP 98.9; O2SAT 96
[2017-06-17] MEDS ORDERED: SODIUM CHLOR 0.9% 1000 ML INJ 1,000 ML IV ONE (05:30)
[2017-06-17] MEDS ORDERED: OLANZapine IM 10 MG VIAL IM ONE (05:30)
[2017-06-17] MEDS ORDERED: LORazepam 2 MG/ML VIAL IM ONE (05:30)
--- NOTE | 2017-06-17 05:43 | PD ---
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 The patient arrives screaming and appears to be intoxicated. She is adamantly denying drug use. She appears paranoid that someone is going to kill her and states that this person may have poison her with an unknown substance. She is unconsolable and is otherwise a very poor historian because of this. Because of this she will be given chemical sedation with Zyprexa and Ativan so that lab work and more of a workup can be performed safely. PFSH Past Medical History Autoimmune Disease: No Anxiety: Yes Depression: Yes Cancer: No Cardiovascular Problems: No Dementia: Yes (WITH SLEEP PROBLEMS) Diabetes: No Diminished Hearing: No Endocrine: No Genitourinary: No Immune Disorder: No Musculoskeletal: No Neurologic: No Psychiatric: Yes (bipolar) Reproductive: No Respiratory: Yes Thyroid Disease: No Tubal Ligation: Yes Past Surgical History Gynecologic Surgery: Yes (tubes clamped) Other Surgery: Yes (Tubes clamped in 2010) Social History Alcohol Use: No Tobacco Use: Yes (1/2PPD) Substance Use: No (HERION, COCAINE ) Allergies-Medications (Allergen,Severity, Reaction): Coded Allergies: *MDRO Multi-Drug Resistant Organism (Unverified Adverse Reaction, Unknown , 06/17/17) MRSA 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 Reported Meds & Prescriptions Reported Meds & Active Scripts Active Macrobid (Nitrofurantoin Monoh/Nitrofur Macro) 100 Mg Cap 100 Mg PO BID 7 Days Ceftriaxone 2 gm Piggyback (Ceftriaxone in Is-Osm Dextrose) 2 Gram/50 Ml Froz.piggy 2 Gm IV DAILY 23 Days Hydrocodone-Acetamin 5-325 mg (Hydrocodone/Acetaminophen) 5 Mg-325 Mg Tablet 1 Tab PO Q6HR PRN Review of Systems ROS Limitations: Intoxication Physical Exam Narrative GENERAL: Well-developed, well-nourished, disheveled, screaming, writhing in bed , inconsolable, appears paranoid SKIN: Focused skin assessment warm/dry. Track bolanos on bilateral forearms and arms. No warmth or erythema. No fluctuance or induration. HEAD: Atraumatic. Normocephalic. EYES: Pupils equal and round. No scleral icterus. No injection or drainage. ENT: No nasal bleeding or discharge. Mucous membranes pink and moist. NECK: Trachea midline. No JVD. No nuchal rigidity. CARDIOVASCULAR: Tachycardic, rate 105, regular. No murmur appreciated. RESPIRATORY: No accessory muscle use. Clear to auscultation. Breath sounds equal bilaterally. GASTROINTESTINAL: Abdomen soft, non-tender, nondistended. MUSCULOSKELETAL: No obvious deformities. No clubbing. No cyanosis. No edema. NEUROLOGICAL: Awake and alert. No obvious cranial nerve deficits. Motor grossly within normal limits. Normal speech. No focal deficits. PSYCHIATRIC: Appears paranoid. Data Data Last Documented VS Vital Signs Date Time Temp Pulse Resp B/P (MAP) Pulse Ox O2 Delivery O2 Flow Rate FiO2 06/17/17 06:09 97 16 119/60 (79) 95 Room Air 06/17/17 05:11 98.9 Orders Orders Olanzapine Inj (Zyprexa Inj) (06/17/17 05:30) Lorazepam Inj (Ativan Inj) (06/17/17 05:30) Complete Blood Count With Diff (06/17/17 05:27) Comprehensive Metabolic Panel (06/17/17 05:27) Thyroid Stimulating Hormone (06/17/17 05:27) Urinalysis - C+S If Indicated (06/17/17 05:27) Iv Access Insert/Monitor (06/17/17 05:27) Beta Hcg (Quant/Titer) (06/17/17 05:27) Psych Screen (06/17/17 05:27) Drug Screen, Random Urine (06/17/17 05:27) Alcohol (Ethanol) (06/17/17 05:27) Salicylates (Aspirin) (06/17/17 05:27) Tylenol (Acetaminophen) (06/17/17 05:27) Sodium Chlor 0.9% 1000 Ml Inj (Ns 1000 M (06/17/17 05:30) Ct Brain W/O Iv Contrast(Rout) (06/17/17 ) Chest, Single Ap (06/17/17 ) Potassium Chlor 20 Meq Premix (Kcl 20 Me (06/17/17 06:45) Labs Laboratory Tests Test 06/17/17 06:03 White Blood Count 10.2 TH/MM3 Red Blood Count 4.62 MIL/MM3 Hemoglobin 12.6 GM/DL Hematocrit 38.2 % Mean Corpuscular Volume 82.6 FL Mean Corpuscular Hemoglobin 27.2 PG Mean Corpuscular Hemoglobin Concent 33.0 % Red Cell Distribution Width 16.6 % Platelet Count 283 TH/MM3 Mean Platelet Volume 7.6 FL Neutrophils (%) (Auto) 69.8 % Lymphocytes (%) (Auto) 18.1 % Monocytes (%) (Auto) 9.7 % Eosinophils (%) (Auto) 1.9 % Basophils (%) (Auto) 0.5 % Neutrophils # (Auto) 7.1 TH/MM3 Lymphocytes # (Auto) 1.8 TH/MM3 Monocytes # (Auto) 1.0 TH/MM3 Eosinophils # (Auto) 0.2 TH/MM3 Basophils # (Auto) 0.0 TH/MM3 CBC Comment DIFF FINAL Differential Comment Blood Urea Nitrogen 12 MG/DL Creatinine 0.75 MG/DL Random Glucose 77 MG/DL Total Protein 7.2 GM/DL Albumin 3.7 GM/DL Calcium Level 8.1 MG/DL Alkaline Phosphatase 141 U/L Aspartate Amino Transf (AST/SGOT) 28 U/L Alanine Aminotransferase (ALT/SGPT) 40 U/L Total Bilirubin 0.6 MG/DL Sodium Level 146 MEQ/L Potassium Level 2.8 MEQ/L Chloride Level 110 MEQ/L Carbon Dioxide Level 24.6 MEQ/L Anion Gap 11 MEQ/L Estimat Glomerular Filtration Rate 90 ML/MIN Thyroid Stimulating Hormone 3rd Gen 1.320 uIU/ML Human Chorionic Gonadotropin, Quant LESS THAN 1 MIU/ML Salicylates Level 1.8 MG/DL Acetaminophen Level LESS THAN 2.0 MCG/ML Ethyl Alcohol Level LESS THAN 3 MG/DL MDM Medical Decision Making Medical Screen Exam Complete: Yes Emergency Medical Condition: Yes Differential Diagnosis Alcohol/drug intoxication, intracranial abnormality, metabolic abnormality, acute psychosis Narrative Course Vital signs reviewed. CBC: WBC 10.2, hemoglobin 12.6, hematocrit 38.2, platelets 283. CMP is remarkable for potassium 2.8 which will be replaced parenterally. TSH is 1.32. Beta-hCG is negative. Tylenol, alcohol, and salicylate levels are negative. At approximately 7:00 AM at the end of my shift the patient was signed out to oncoming provider Dr. Godoy to follow-up with CT head and formulate a disposition. Aiden Montelongo MD Jun 17, 2017 05:43
[2017-06-17 06:09] VITALS: BP 119/60; PULSE 97; RESP 16; O2SAT 95
[2017-06-17 06:24] LABS: AUTOMATED NEUTROPHIL # 7.1 TH/MM3 (1.8-7.7); BASOPHIL % 0.5 % (0.0-2.0); EOSINOPHIL # 0.2 TH/MM3 (0-0.4); EOSINOPHIL % 1.9 % (0.0-4.0); HEMATOCRIT 38.2 % (35.0-46.0); HEMOGLOBIN 12.6 GM/DL (11.6-15.3); LYMPH % 18.1 % (9.0-44.0); LYMPHOCYTE # 1.8 TH/MM3 (1.0-4.8); MEAN CELL VOLUME 82.6 FL (80.0-100.0); MEAN CORPUSCULAR HEMOGLOBIN 27.2 PG (27.0-34.0); MEAN PLATELET VOLUME 7.6 FL (7.0-11.0); MONO % 9.7 % (0.0-8.0); NEUT % 69.8 % (16.0-70.0); PLATELET COUNT 283 TH/MM3 (150-450); RED BLOOD COUNT 4.62 MIL/MM3 (4.00-5.30); RED CELL DISTRIBUTION WIDTH 16.6 % (11.6-17.2); WHITE BLOOD COUNT 10.2 TH/MM3 (4.0-11.0)
[2017-06-17 06:30] LABS: ACETAMINOPHEN LESS THAN 2.0 MCG/ML (10.0-30.0); ALBUMIN 3.7 GM/DL (3.4-5.0); ALT (GPT) 40 U/L (10-53); AST (GOT) 28 U/L (15-37); BICARBONATE 24.6 MEQ/L (21.0-32.0); BLOOD UREA NITROGEN 12 MG/DL (7-18); CALCIUM 8.1 MG/DL (8.5-10.1); CHLORIDE 110 MEQ/L (98-107); CREATININE 0.75 MG/DL (0.50-1.00); GLOMERULAR FILTRATION RATE 90 ML/MIN (>89); GLUCOSE,RANDOM 77 MG/DL (74-106); SODIUM (NA) 146 MEQ/L (136-145)
[2017-06-17 06:40] LABS: ALKALINE PHOSPHATASE 141 U/L (45-117); TOTAL BILIRUBIN ADULT 0.6 MG/DL (0.2-1.0); TOTAL PROTEIN 7.2 GM/DL (6.4-8.2)
--- NOTE | 2017-06-17 07:16 | RADRPT ---
EXAM DATE/TIME: 06/17/2017 06:42 [facility] COMPARISON: CHEST SINGLE AP, March 11, 2017, 13:39. INDICATIONS : Unresponsive to all. MEDICAL HISTORY : None. SURGICAL HISTORY : None. ENCOUNTER: Initial ACUITY: 1 day PAIN SCORE: Non-responsive. LOCATION: Bilateral chest FINDINGS: A single view of the chest demonstrates the lungs to be symmetrically aerated without evidence of mas s, infiltrate or effusion. The cardiomediastinal contours are unremarkable. Osseous structures are intact. CONCLUSION: No acute disease. Meera Renteria MD on June 17, 2017 at 7:13 Board Certified Radiologist. This report was verified electronically.
[2017-06-17] MEDS: POTASSIUM CHLOR 20 MEQ PREMIX 100 ML IV SCH ×2 (07:31→10:25)
--- NOTE | 2017-06-17 07:52 | RADRPT ---
EXAM DATE/TIME: 06/17/2017 07:35 [facility] COMPARISON: No previous studies available for comparison. INDICATIONS : Altered mental status. RADIATION DOSE: 56.35 CTDIvol (mGy) MEDICAL HISTORY : None SURGICAL HISTORY : Tubal ligation. ENCOUNTER: Initial ACUITY: 1 day PAIN SCALE: Non-responsive LOCATION: Bilateral head TECHNIQUE: Multiple contiguous axial images were obtained of the head. Using automated exposure control and adj ustment of the mA and/or kV according to patient size, radiation dose was kept as low as reasonably a chievable to obtain optimal diagnostic quality images. DICOM format image data is available electro nically for review and comparison. FINDINGS: CEREBRUM: The ventricles are normal for age. No evidence of midline shift, mass lesion, hemorrhage or acute in farction. No extra-axial fluid collections are seen. POSTERIOR FOSSA: The cerebellum and brainstem are intact. The 4th ventricle is midline. The cerebellopontine angle i s unremarkable. EXTRACRANIAL: The visualized portion of the orbits is intact. SKULL: The calvaria is intact. No evidence of skull fracture. CONCLUSION: Normal examination. Meera Renteria MD on June 17, 2017 at 7:49 Board Certified Radiologist. This report was verified electronically.
[2017-06-17 10:25] VITALS: BP 138/85; PULSE 73; RESP 14; O2SAT 97
[2017-06-17 13:23] VITALS: BP 135/81; PULSE 68; RESP 15; O2SAT 97
[2017-06-17 17:46] VITALS: BP 127/78; PULSE 74; RESP 16; O2SAT 97
--- NOTE | 2017-06-17 19:11 | PD ---
Data Data Last Documented VS Vital Signs Date Time Temp Pulse Resp B/P (MAP) Pulse Ox O2 Delivery O2 Flow Rate FiO2 06/17/17 17:46 74 16 127/78 (94) 97 Room Air 06/17/17 05:11 98.9 Orders Orders Olanzapine Inj (Zyprexa Inj) (06/17/17 05:30) Lorazepam Inj (Ativan Inj) (06/17/17 05:30) Complete Blood Count With Diff (06/17/17 05:27) Comprehensive Metabolic Panel (06/17/17 05:27) Thyroid Stimulating Hormone (06/17/17 05:27) Urinalysis - C+S If Indicated (06/17/17 05:27) Iv Access Insert/Monitor (06/17/17 05:27) Beta Hcg (Quant/Titer) (06/17/17 05:27) Psych Screen (06/17/17 05:27) Drug Screen, Random Urine (06/17/17 05:27) Alcohol (Ethanol) (06/17/17 05:27) Salicylates (Aspirin) (06/17/17 05:27) Tylenol (Acetaminophen) (06/17/17 05:27) Sodium Chlor 0.9% 1000 Ml Inj (Ns 1000 M (06/17/17 05:30) Ct Brain W/O Iv Contrast(Rout) (06/17/17 ) Chest, Single Ap (06/17/17 ) Potassium Chlor 20 Meq Premix (Kcl 20 Me (06/17/17 06:45) Labs Laboratory Tests Test 06/17/17 06:03 06/17/17 18:25 White Blood Count 10.2 TH/MM3 Red Blood Count 4.62 MIL/MM3 Hemoglobin 12.6 GM/DL Hematocrit 38.2 % Mean Corpuscular Volume 82.6 FL Mean Corpuscular Hemoglobin 27.2 PG Mean Corpuscular Hemoglobin Concent 33.0 % Red Cell Distribution Width 16.6 % Platelet Count 283 TH/MM3 Mean Platelet Volume 7.6 FL Neutrophils (%) (Auto) 69.8 % Lymphocytes (%) (Auto) 18.1 % Monocytes (%) (Auto) 9.7 % Eosinophils (%) (Auto) 1.9 % Basophils (%) (Auto) 0.5 % Neutrophils # (Auto) 7.1 TH/MM3 Lymphocytes # (Auto) 1.8 TH/MM3 Monocytes # (Auto) 1.0 TH/MM3 Eosinophils # (Auto) 0.2 TH/MM3 Basophils # (Auto) 0.0 TH/MM3 CBC Comment DIFF FINAL Differential Comment Blood Urea Nitrogen 12 MG/DL Creatinine 0.75 MG/DL Random Glucose 77 MG/DL Total Protein 7.2 GM/DL Albumin 3.7 GM/DL Calcium Level 8.1 MG/DL Alkaline Phosphatase 141 U/L Aspartate Amino Transf (AST/SGOT) 28 U/L Alanine Aminotransferase (ALT/SGPT) 40 U/L Total Bilirubin 0.6 MG/DL Sodium Level 146 MEQ/L Potassium Level 2.8 MEQ/L Chloride Level 110 MEQ/L Carbon Dioxide Level 24.6 MEQ/L Anion Gap 11 MEQ/L Estimat Glomerular Filtration Rate 90 ML/MIN Thyroid Stimulating Hormone 3rd Gen 1.320 uIU/ML Human Chorionic Gonadotropin, Quant LESS THAN 1 MIU/ML Salicylates Level 1.8 MG/DL Acetaminophen Level LESS THAN 2.0 MCG/ML Ethyl Alcohol Level LESS THAN 3 MG/DL MDM Supervised Visit with JENSEN: Yes Narrative Course Patient remained sedated during my shift. I woke her up some but she was not making oral meaningful conversation. She got up and walked to the bathroom at the end of my shift but was still pretty unsteady. Will allow her to sober up a little bit more in the emergency department. Dre Godoy MD Jun 17, 2017 19:11
[2017-06-17 19:39] LABS: BILIRUBIN, URINE NEG (NEG); BLOOD, URINE NEG (NEG); GLUCOSE,URINE NEG (NEG); KETONE, URINE 80 mg/dL (NEG); MUCUS URINE FEW /lpf (OCC); NITRITE,URINE NEG (NEG); SQUAMOUS EPITHELIAL CELL URINE 14 /hpf (0-5); URINE COLOR LIGHT-YELLOW (YELLW/STRAW); URINE LEUKOCYTE ESTERASE NEG (NEG)
== END 2017-06-18 00:08 | disposition home or self-care (01) ==
LOC: NEPE 05:02 → NEDAMB 06-18 00:08
DX: F03.90 Unspecified dementia, unspecified severity, without behavioral disturbance, psychotic disturbance, mood disturbance, and anxiety (principal); F31.9 Bipolar disorder, unspecified; F41.9 Anxiety disorder, unspecified; F17.200 Nicotine dependence, unspecified, uncomplicated
CPT/HCPCS: 70450; 71045; 80053; 80307; 81001; 84443; 84702; 85025; 96361; 96365; 96366; 96372; 99284; J2060; J3480; J7030

== ENCOUNTER 2017-06-24 07:21 | Emergency (ER) | payer OTHER ==
[2017-06-24] VITALS (7 sets, daily range): BP systolic 106–166; BP diastolic 58–96; PULSE 55–106; RESP 16–18; TEMP 97.8–99.5; O2SAT 97–99
[~2017-06-24] VITALS: Ht 162.6 cm; Wt 65.0 kg
[2017-06-24] MEDS ORDERED: LORazepam 2 MG/ML VIAL IV PUSH ONE (08:15)
[2017-06-24] MEDS ORDERED: HALOPERIDOL LACTATE 5 MG/ML AMP IM ONE (08:15)
[2017-06-24] MEDS ORDERED: LORazepam 2 MG/ML VIAL IM ONE (08:30)
[2017-06-24 08:38] LABS: BASOPHIL # 0.1 TH/MM3 (0-0.2); BASOPHIL % 0.6 % (0.0-2.0); EOSINOPHIL # 0.3 TH/MM3 (0-0.4); EOSINOPHIL % 2.3 % (0.0-4.0); HEMATOCRIT 40.4 % (35.0-46.0); HEMOGLOBIN 13.1 GM/DL (11.6-15.3); LYMPH % 18.9 % (9.0-44.0); LYMPHOCYTE # 2.5 TH/MM3 (1.0-4.8); MEAN CORPUSCULAR HGB CONC 32.5 % (32.0-36.0); MEAN PLATELET VOLUME 7.8 FL (7.0-11.0); MONO % 9.1 % (0.0-8.0); MONOCYTE # 1.2 TH/MM3 (0-0.9); NEUT % 69.1 % (16.0-70.0); PLATELET COUNT 351 TH/MM3 (150-450); RED BLOOD COUNT 4.86 MIL/MM3 (4.00-5.30); RED CELL DISTRIBUTION WIDTH 16.3 % (11.6-17.2)
[2017-06-24 08:50] LABS: ALBUMIN 3.8 GM/DL (3.4-5.0); AST (GOT) 30 U/L (15-37); BICARBONATE 25.1 MEQ/L (21.0-32.0); BLOOD UREA NITROGEN 10 MG/DL (7-18); CALCIUM 9.1 MG/DL (8.5-10.1); CHLORIDE 112 MEQ/L (98-107); CREATININE 0.82 MG/DL (0.50-1.00); GLOMERULAR FILTRATION RATE 81 ML/MIN (>89); GLUCOSE,RANDOM 93 MG/DL (74-106); SODIUM (NA) 144 MEQ/L (136-145)
[2017-06-24 09:01] LABS: ALKALINE PHOSPHATASE 125 U/L (45-117); ALT (GPT) 26 U/L (10-53); TOTAL BILIRUBIN ADULT 0.6 MG/DL (0.2-1.0); TOTAL PROTEIN 7.7 GM/DL (6.4-8.2)
--- NOTE | 2017-06-24 09:20 | PD ---
HPI Chief Complaint: Psychiatric Symptoms Time Seen by Provider: 08:07 Travel History International Travel<30 days: No Contact w/Intl Traveler<30days: No Traveled to known affect area: No History of Present Illness HPI Patient is a 32 year old female who comes in under a Osman Act. Per EMS she was acting irrationally and police osman acted her. She has been here multiple times for drug related issues. She says she is depressed because she is alone and her family is in [place]. Patient is restless in the room and provides no other history. PFSH Past Medical History Autoimmune Disease: No Anxiety: Yes Depression: Yes Cancer: No Cardiovascular Problems: Yes ("Endocarditis") Dementia: Yes (WITH SLEEP PROBLEMS) Diabetes: No Diminished Hearing: No Endocrine: No Gastrointestinal Disorders: No Genitourinary: No Hepatitis: Yes (C) Immune Disorder: No Implanted Vascular Access Dvce: No Musculoskeletal: No Neurologic: No Psychiatric: Yes (bipolar) Reproductive: No Respiratory: Yes Thyroid Disease: No Influenza Vaccination: No ?: Unknown Tubal Ligation: Yes Past Surgical History Gynecologic Surgery: Yes (tubes clamped) Other Surgery: Yes (Tubes clamped in 2010) Social History Alcohol Use: No (denies) Tobacco Use: Yes (1/2PPD) Substance Use: Yes (polysubstance abuse) Allergies-Medications (Allergen,Severity, Reaction): Coded Allergies: *MDRO Multi-Drug Resistant Organism (Unverified Adverse Reaction, Unknown , 06/17/17) MRSA 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 Reported Meds & Prescriptions Reported Meds & Active Scripts Active Macrobid (Nitrofurantoin Monoh/Nitrofur Macro) 100 Mg Cap 100 Mg PO BID 7 Days Ceftriaxone 2 gm Piggyback (Ceftriaxone in Is-Osm Dextrose) 2 Gram/50 Ml Froz.piggy 2 Gm IV DAILY 23 Days Hydrocodone-Acetamin 5-325 mg (Hydrocodone/Acetaminophen) 5 Mg-325 Mg Tablet 1 Tab PO Q6HR PRN Review of Systems ROS Limitations: Intoxication, Uncooperative Physical Exam Narrative GENERAL: Awake and alert, unable to sit still or carry on a conversation. SKIN: Focused skin assessment warm/dry. Old wound to the bridge of the nose. HEAD: Atraumatic. Normocephalic. EYES: Pupils equal and round. No scleral icterus. EOMI. ENT: Mucous membranes pink and moist. NECK: Trachea midline. No JVD. CARDIOVASCULAR: Regular rate and rhythm. No murmur appreciated. RESPIRATORY: No accessory muscle use. Clear to auscultation. Breath sounds equal bilaterally. GASTROINTESTINAL: Abdomen soft, non-tender, nondistended. MUSCULOSKELETAL: No obvious deformities. No clubbing. No cyanosis. No edema. NEUROLOGICAL: Awake and alert, agitated. No obvious cranial nerve deficits. Motor grossly within normal limits. Data Data Last Documented VS Vital Signs Date Time Temp Pulse Resp B/P (MAP) Pulse Ox O2 Delivery O2 Flow Rate FiO2 06/24/17 09:04 89 18 110/58 (75) 98 Room Air 06/24/17 07:40 97.8 Orders Orders Complete Blood Count With Diff (06/24/17 08:07) Comprehensive Metabolic Panel (06/24/17 08:07) Thyroid Stimulating Hormone (06/24/17 08:07) Psych Screen (06/24/17 08:07) Haloperidol Inj (Haldol Inj) (06/24/17 08:15) Lorazepam Inj (Ativan Inj) (06/24/17 08:15) Drug Screen, Random Urine (06/24/17 08:07) Alcohol (Ethanol) (06/24/17 08:07) Lorazepam Inj (Ativan Inj) (06/24/17 08:30) Labs Laboratory Tests Test 06/24/17 08:18 White Blood Count 13.0 TH/MM3 Red Blood Count 4.86 MIL/MM3 Hemoglobin 13.1 GM/DL Hematocrit 40.4 % Mean Corpuscular Volume 83.0 FL Mean Corpuscular Hemoglobin 27.0 PG Mean Corpuscular Hemoglobin Concent 32.5 % Red Cell Distribution Width 16.3 % Platelet Count 351 TH/MM3 Mean Platelet Volume 7.8 FL Neutrophils (%) (Auto) 69.1 % Lymphocytes (%) (Auto) 18.9 % Monocytes (%) (Auto) 9.1 % Eosinophils (%) (Auto) 2.3 % Basophils (%) (Auto) 0.6 % Neutrophils # (Auto) 9.0 TH/MM3 Lymphocytes # (Auto) 2.5 TH/MM3 Monocytes # (Auto) 1.2 TH/MM3 Eosinophils # (Auto) 0.3 TH/MM3 Basophils # (Auto) 0.1 TH/MM3 CBC Comment DIFF FINAL Differential Comment Blood Urea Nitrogen 10 MG/DL Creatinine 0.82 MG/DL Random Glucose 93 MG/DL Total Protein 7.7 GM/DL Albumin 3.8 GM/DL Calcium Level 9.1 MG/DL Alkaline Phosphatase 125 U/L Aspartate Amino Transf (AST/SGOT) 30 U/L Alanine Aminotransferase (ALT/SGPT) 26 U/L Total Bilirubin 0.6 MG/DL Sodium Level 144 MEQ/L Potassium Level 3.6 MEQ/L Chloride Level 112 MEQ/L Carbon Dioxide Level 25.1 MEQ/L Anion Gap 7 MEQ/L Estimat Glomerular Filtration Rate 81 ML/MIN Thyroid Stimulating Hormone 3rd Gen 1.290 uIU/ML Urine Opiates Screen POS Urine Barbiturates Screen NEG Urine Amphetamines Screen POS Urine Benzodiazepines Screen NEG Urine Cocaine Screen POS Urine Cannabinoids Screen NEG Ethyl Alcohol Level LESS THAN 3 MG/DL MDM Medical Decision Making Medical Screen Exam Complete: Yes Emergency Medical Condition: Yes Medical Record Reviewed: Yes Differential Diagnosis psychosis vs drug intoxication vs depression Narrative Course Patient is a 32-year-old female brought in by EMS under a Osman act. Patient is agitated, clearly intoxicated, unable to provide a history. While she was here she became more more agitated, requiring sedation with Haldol and Ativan. Labs were sent show no acute abnormalities. Drug screen is positive for cocaine , amphetamines, opiates. She will be medically cleared for psychiatric evaluation. Diagnosis Primary Impression: Substance abuse Evelin Santos MD Jun 24, 2017 09:20
[2017-06-25 05:16] VITALS: BP 139/79; PULSE 76; RESP 18; TEMP 98.8; O2SAT 97
--- NOTE | 2017-06-25 08:00 | PD ---
Data Data Last Documented VS Vital Signs Date Time Temp Pulse Resp B/P (MAP) Pulse Ox O2 Delivery O2 Flow Rate FiO2 06/25/17 05:16 98.8 76 18 139/79 (99) 97 Room Air Orders Orders Complete Blood Count With Diff (06/24/17 08:07) Comprehensive Metabolic Panel (06/24/17 08:07) Thyroid Stimulating Hormone (06/24/17 08:07) Psych Screen (06/24/17 08:07) Haloperidol Inj (Haldol Inj) (06/24/17 08:15) Lorazepam Inj (Ativan Inj) (06/24/17 08:15) Drug Screen, Random Urine (06/24/17 08:07) Alcohol (Ethanol) (06/24/17 08:07) Lorazepam Inj (Ativan Inj) (06/24/17 08:30) Diet Regular Basic (06/24/17 Dinner) Diet Regular Basic (06/25/17 Breakfast) Labs Laboratory Tests Test 06/24/17 08:18 White Blood Count 13.0 TH/MM3 Red Blood Count 4.86 MIL/MM3 Hemoglobin 13.1 GM/DL Hematocrit 40.4 % Mean Corpuscular Volume 83.0 FL Mean Corpuscular Hemoglobin 27.0 PG Mean Corpuscular Hemoglobin Concent 32.5 % Red Cell Distribution Width 16.3 % Platelet Count 351 TH/MM3 Mean Platelet Volume 7.8 FL Neutrophils (%) (Auto) 69.1 % Lymphocytes (%) (Auto) 18.9 % Monocytes (%) (Auto) 9.1 % Eosinophils (%) (Auto) 2.3 % Basophils (%) (Auto) 0.6 % Neutrophils # (Auto) 9.0 TH/MM3 Lymphocytes # (Auto) 2.5 TH/MM3 Monocytes # (Auto) 1.2 TH/MM3 Eosinophils # (Auto) 0.3 TH/MM3 Basophils # (Auto) 0.1 TH/MM3 CBC Comment DIFF FINAL Differential Comment Blood Urea Nitrogen 10 MG/DL Creatinine 0.82 MG/DL Random Glucose 93 MG/DL Total Protein 7.7 GM/DL Albumin 3.8 GM/DL Calcium Level 9.1 MG/DL Alkaline Phosphatase 125 U/L Aspartate Amino Transf (AST/SGOT) 30 U/L Alanine Aminotransferase (ALT/SGPT) 26 U/L Total Bilirubin 0.6 MG/DL Sodium Level 144 MEQ/L Potassium Level 3.6 MEQ/L Chloride Level 112 MEQ/L Carbon Dioxide Level 25.1 MEQ/L Anion Gap 7 MEQ/L Estimat Glomerular Filtration Rate 81 ML/MIN Thyroid Stimulating Hormone 3rd Gen 1.290 uIU/ML Urine Opiates Screen POS Urine Barbiturates Screen NEG Urine Amphetamines Screen POS Urine Benzodiazepines Screen NEG Urine Cocaine Screen POS Urine Cannabinoids Screen NEG Ethyl Alcohol Level LESS THAN 3 MG/DL MDM Medical Record Reviewed: Yes Supervised Visit with JENSEN: No Narrative Course Please see previous providers notes. This patient has been seen by psychiatrist Dr. Cm who is discharging the patient. She has no medical issues that would warrant further hospitalization. Diagnosis Primary Impression: Substance abuse Med/Other Pt SpecificInfo: No Change to Meds Disposition: 01 DISCHARGE HOME Condition: Stable Ricardo Farnsworth Jun 25, 2017 08:00
--- NOTE | 2017-06-25 13:37 | PD.PSY.CON ---
Provisional Diagnosis Admission Date History of Present Illness Service Psychiatry Consult Requested By ER Reason for Consult Psychiatry Primary Care Physician Unknown HPI Patient is a 32 year old woman, with psychiatric history of polysubstance dependence including cocaine, opiates, amphetamines and cannabis, no previous psychiatric hospitalizations, no previous suicide attempts, who comes in under a Osman Act. Per EMS she was acting irrationally and police osman acted her. She has been here multiple times for drug related issues. She says she is depressed because she is alone and her family is in [place]. Patient is restless in the room and provides no other history. Patient is seen now, she is medically sober. She is rational, logical and coherent. Denies suicidal and was ideation, denies visual and auditory hallucinations. She reports that she is interested in detox. Past Family Social History Coded Allergies: *MDRO Multi-Drug Resistant Organism (Unverified Adverse Reaction, Unknown , 06/17/17) MRSA 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 Active Scripts Nitrofurantoin Monohydrate Macrocrystals (Macrobid) 100 Mg Cap, 100 MG PO BID for Infection for 7 Days, #14 CAP 0 Refills Prov:Simona Huston MD 06/04/17 Ceftriaxone in Is-Osm Dextrose (Ceftriaxone 2 gm Piggyback) 2 Gram/50 Ml Froz.piggy, 2 GM IV DAILY for Infection for 23 Days, #23 BOTTLE 0 Refills Prov:Gloria Gomez MD 03/12/17 Hydrocodone/Acetaminophen (Hydrocodone-Acetamin 5-325 mg) 5 Mg-325 Mg Tablet, 1 TAB PO Q6HR Y for pain>5, #10 TAB 0 Refills Prov:Kal Monsivais MD 03/12/17 Physical Exam Vital Signs Vital Signs Date Time Temp Pulse Resp B/P (MAP) Pulse Ox O2 Delivery O2 Flow Rate FiO2 06/25/17 09:28 06/25/17 05:16 98.8 76 18 97 Room Air Mental Status Examination Appearance: Appropriate Consciousness: Alert Orientation: x4 Motor Activity: Normal gait Speech: Unremarkable Language: Adequate Fund of Knowledge: Adequate Attention and Concentration: Adequate Memory: Unremarkable Mood: Appropriate Affect: Appropriate Thought Process & Associations: Intact Thought Content: Appropriate Hallucination Type: None Delusion Type: None Suicidal Ideation: No Suicidal Plan: No Suicidal Intention: No Homicidal Ideation: No Homicidal Plan: No Homicidal Intention: No Insight: Adequate Judgment: Adequate Assessment & Plan Problem List: (1) Substance abuse ICD Codes: F19.10 - Other psychoactive substance abuse, uncomplicated Status: Acute Assessment & Plan: Patient does not meet criteria for involuntary psychiatric admission. Patient has history of polysubstance dependence. She is interested in being transferred to [facility] this morning. Osman act will be lifted Assessment & Plan Estimated LOS: days Brown Cm MD Jun 25, 2017 13:37
== END 2017-06-25 10:29 | disposition home or self-care (01) ==
LOC: NEPE 07:21 → NEPJ 06-25 10:29
DX: F19.20 Other psychoactive substance dependence, uncomplicated (principal); F17.200 Nicotine dependence, unspecified, uncomplicated
CPT/HCPCS: 80053; 80307; 84443; 85025; 96372; 99284; J1630; J2060

== ENCOUNTER 2017-07-16 08:47 | Emergency (ER) | payer OTHER ==
[2017-07-16] MEDS: HALOPERIDOL LACTATE 5 MG/ML AMP IM (09:18)
[2017-07-16] MEDS: LORazepam 2 MG/ML VIAL IM (09:18)
[2017-07-16] MEDS: SODIUM CHLOR 0.9% 1000 ML INJ 1,000 ML IV (10:01)
== END 2017-07-16 11:33 ==
LOC: NEPD 08:47
DX: F19.10 Other psychoactive substance abuse, uncomplicated (principal); F17.200 Nicotine dependence, unspecified, uncomplicated
CPT/HCPCS: 96360; 96372; 99284-25

== ENCOUNTER 2017-11-21 13:26 | Inpatient (IN) ==
[2017-11-21] MEDS ORDERED: Haloperidol Inj 5 MG/ML Ampul IM ONE (13:44)
[2017-11-21] MEDS ORDERED: Sod Chloride 0.9% Inj 1,000 ML IV.SIG ONE ×2 (13:48→14:58)
--- NOTE | 2017-11-21 13:59 | ED ---
HPI General Chief complaint: Overdose Stated complaint: Parkinson act/Poss OD Time Seen by Provider: 11/21/17 13:35 Source: patient, RN notes reviewed, old records reviewed and police Mode of arrival: EMS Limitations: no limitations History of Present Illness HPI narrative: 32-year-old female presents to the emergency department under the influence. Patient is brought by EMS in restraints. Officer is at bedside. Apparently, she was found to be under a dog kennel, trying to bury herself. She is covered in dirt on my exam. The patient is alert and oriented to person, place, time. However, she will not answer any further questions will not tell me what she is under the influence from. Patient has been here multiple times in the past for substance abuse. She has been positive for amphetamines, cocaine, opiates in the past. Moderate severity. The officer states that he did see approximately hour before he brought her in under a [place] act and she was normal at that time. Pain Consistency: constant Relieving factors: none Exacerbating factors: none Associated symptoms: denies other symptoms Related Data Home Medications Medication Instructions Recorded Confirmed Unable to Obtain Home Meds 11/21/17 11/21/17 Allergies Allergy/AdvReac Type Severity Reaction Status Date / Time *MDRO Multi-Drug Resistant AdvReac Unknown Uncoded 07/16/17 09:02 Organism Review of Systems ROS: all other systems reviewed are negative [facility] Social History Social History Substance History: Unable to Obtain Smoking Status: Unknown if ever smoked How Often Do You Have a Drink Containing Alcohol: Unable to Obtain Exam Narrative Exam Narrative: GENERAL: Disheveled, covered in dirt female patient, afebrile. Patient is alert and oriented to person, place, time. She is constantly moving in the bed and appears to be under the influence. SKIN: Focused skin assessment warm/dry. HEAD: Normocephalic. Atraumatic. EYES: No scleral icterus. No injection or drainage. NECK: Supple, trachea midline. No JVD or lymphadenopathy. CARDIOVASCULAR: Regular rate and rhythm without murmurs, gallops, or rubs. RESPIRATORY: Breath sounds equal bilaterally. No accessory muscle use. Lung sounds are clear to auscultation. GASTROINTESTINAL: Abdomen soft, non-tender, nondistended. MUSCULOSKELETAL: No cyanosis, or edema. BACK: Nontender without obvious deformity. No CVA tenderness. Course Initial Documented Vital Signs Temperature 98.9 F 11/21/17 13:55 Pulse Rate 119 H 11/21/17 13:55 Respiratory Rate 24 11/21/17 13:55 Blood Pressure 129/86 11/21/17 13:55 Pulse Oximetry 96 11/21/17 13:55 Last Documented Vital Signs Temperature 98.9 F 11/21/17 13:55 Pulse Rate 76 11/21/17 17:54 Respiratory Rate 18 11/21/17 17:54 Blood Pressure 124/62 11/21/17 17:54 Pulse Oximetry 98 11/21/17 17:54 Medical Decision Making MDM Narrative Medical decision making narrative: 32-year-old female presents to the emergency department her act by local police after she was found to be under a dog kennel, trying to bury herself. Patient is disheveled, covered in dirt. She is alert oriented to person, place, time. However, she will not answer any further questions. IV access established. CBC, CMP, TSH, UA, urine drug screen , urine test are ordered and pending. EKG is ordered and pending. Patient is given Haldol 5 mg IM, Ativan 2 mg IM as patient is agitated and this is for her safety as well. Patient is in soft limb restraints. CBC shows leukocytosis 21.7 with toxic vacuolation and toxic granulation. CMP Shows bicarb 20.4, anion gap of 18, BUN 36, creatinine 1.67, bilirubin 2.5, AST 396, ALT 311, alkaline phosphatase 191. TSH is 1.090. UA shows trace leukocyte esterase, 10 WBCs. UDS is positive for opiates and cocaine. UPT is negative. Due to elevated leukocytosis with topical evacuation and granulation, blood cultures 2, lactic acid are ordered. Patient is given second liter normal saline IV bolus. Patient started on vancomycin 1 g IV, Zosyn 3.375 g IV. Concern for endocarditis with a patient with IV drug use and history of endocarditis. Patient will be admitted. Dr. Dean accepted admission. Medical Screen Exam Complete: Yes Emergency Medical Condition: Yes Differential Diagnosis Differential Diagnosis: Substance abuse versus upon intoxication versus electrolyte abnormality Medical Records Medical records reviewed: Yes I reviewed the patient's medical records. Lab Data Result diagrams: 11/21/17 14:04 11/21/17 14:04 POC Results POC Urine Results Negative Lab Results 11/21/17 11/21/17 11/21/17 Range/Units 14:04 14:04 14:04 WBC 21.7 H (4.0-11.0) th/mm3 RBC 4.96 (4.00-5.30) mil/mm3 Hgb 14.6 (11.6-15.3) gm/dL Hct 44.8 (35.0-46.0) % MCV 90.3 (80.0-100.0) fL MCH 29.5 (27.0-34.0) pg MCHC 32.6 (32.0-36.0) % RDW 12.9 (11.6-17.2) % Plt Count 278 (150-450) th/mm3 MPV 8.6 (7.0-11.0) fL Prelim Diff (Auto) Slide review pending Neut % (Auto) 77.4 H (16.0-70.0) % Lymph % (Auto) 10.9 (9.0-44.0) % [place] % (Auto) 11.2 H (0.0-8.0) % Eos % (Auto) 0.1 (0.0-4.0) % Baso % (Auto) 0.4 (0.0-2.0) % Neut # (Auto) 16.8 H (1.8-7.7) th/mm3 Lymph # (Auto) 2.4 (1.0-4.8) th/mm3 [place] # (Auto) 2.4 H (0.0-0.9) th/mm3 Eos # (Auto) 0.0 (0.0-0.4) th/mm3 Baso # (Auto) 0.1 (0.0-0.2) th/mm3 WBC Differential Manual diff final Seg Neuts % (Manual) 73 H (16-70) % Band Neuts % (Manual) 6 (0-6) % Lymphocytes % (Manual) 11 (9-44) % Monocytes % (Manual) 8 (0-8) % Metamyelocytes % (Man) 2 H (0-1) % Abs Neuts (Manual) 17.6 H (1.8-7.7) th/mm3 Differential Comment . Toxic Granulation 2+ H (None) Toxic Vacuolation Present H (None) Platelet Estimate Normal (Normal) Platelet Morphology Normal (Normal) Sodium 140 (136-145) meq/L Potassium 3.6 (3.5-5.1) meq/L Chloride 102 (98-107) meq/L Carbon Dioxide 20.4 L (21.0-32.0) meq/L Anion Gap 18 H (5-15) meq/L BUN 36 H (7-18) mg/dL Creatinine 1.67 H (0.50-1.00) mg/dL Estimated GFR 36 L (>89) mL/min Random Glucose 71 L (74-106) mg/dL Lactic Acid (0.4-2.0) mmol/L Calcium 9.0 (8.5-10.1) mg/dL Total Bilirubin 2.5 H (0.2-1.0) mg/dL AST 396 H (15-37) U/L ALT 311 H (10-53) U/L Alkaline Phosphatase 191 H (45-117) U/L Total Protein 8.4 H (6.4-8.2) g/dL Albumin 4.6 (3.4-5.0) g/dL TSH 1.090 (0.358-3.740) uIU/mL Urine Color (Yellw/Straw) Urine Clarity (Clear) Urine pH (5.0-8.5) Ur Specific [place] (1.002-1.035) Urine Protein (Neg-Trace) mg/dL Urine Glucose (UA) (Negative) mg/dL Urine Ketones (Negative) mg/dL Urine Occult Blood (Negative) Urine Nitrate (Negative) Urine Bilirubin (Negative) Urine Ictotest (Negative) Urine Urobilinogen (Less than 2) mg/dL Ur Leukocyte Esterase (Negative) Urine RBC (0-3) /hpf Urine WBC (0-5) /hpf Ur Squamous Epith Cells (0-5) /hpf Hyaline Casts (0-3) /lpf Urine Mucus (Occasional) /lpf Micro UA Comment Ur Microscopic Review Urine Culture Comments Urine Opiates Screen (Neg) Ur Barbiturates Screen (Neg) Ur Amphetamines Screen (Neg) U Benzodiazepines Scrn (Neg) Urine Cocaine Screen (Neg) U Cannabinoids Screen (Neg) Serum Alcohol Less than 3 (0-5) mg/dL 11/21/17 11/21/17 11/21/17 Range/Units 14:26 14:26 15:45 WBC (4.0-11.0) th/mm3 RBC (4.00-5.30) mil/mm3 Hgb (11.6-15.3) gm/dL Hct (35.0-46.0) % MCV (80.0-100.0) fL MCH (27.0-34.0) pg MCHC (32.0-36.0) % RDW (11.6-17.2) % Plt Count (150-450) th/mm3 MPV (7.0-11.0) fL Prelim Diff (Auto) Neut % (Auto) (16.0-70.0) % Lymph % (Auto) (9.0-44.0) % [place] % (Auto) (0.0-8.0) % Eos % (Auto) (0.0-4.0) % Baso % (Auto) (0.0-2.0) % Neut # (Auto) (1.8-7.7) th/mm3 Lymph # (Auto) (1.0-4.8) th/mm3 [place] # (Auto) (0.0-0.9) th/mm3 Eos # (Auto) (0.0-0.4) th/mm3 Baso # (Auto) (0.0-0.2) th/mm3 WBC Differential Seg Neuts % (Manual) (16-70) % Band Neuts % (Manual) (0-6) % Lymphocytes % (Manual) (9-44) % Monocytes % (Manual) (0-8) % Metamyelocytes % (Man) (0-1) % Abs Neuts (Manual) (1.8-7.7) th/mm3 Differential Comment Toxic Granulation (None) Toxic Vacuolation (None) Platelet Estimate (Normal) Platelet Morphology (Normal) Sodium (136-145) meq/L Potassium (3.5-5.1) meq/L Chloride (98-107) meq/L Carbon Dioxide (21.0-32.0) meq/L Anion Gap (5-15) meq/L BUN (7-18) mg/dL Creatinine (0.50-1.00) mg/dL Estimated GFR (>89) mL/min Random Glucose (74-106) mg/dL Lactic Acid 0.7 (0.4-2.0) mmol/L Calcium (8.5-10.1) mg/dL Total Bilirubin (0.2-1.0) mg/dL AST (15-37) U/L ALT (10-53) U/L Alkaline Phosphatase (45-117) U/L Total Protein (6.4-8.2) g/dL Albumin (3.4-5.0) g/dL TSH (0.358-3.740) uIU/mL Urine Color Ann (Yellw/Straw) Urine Clarity Cloudy H (Clear) Urine pH 5.0 (5.0-8.5) Ur Specific [place] 1.025 (1.002-1.035) Urine Protein 100 H (Neg-Trace) mg/dL Urine Glucose (UA) Negative (Negative) mg/dL Urine Ketones 20 (Negative) mg/dL Urine Occult Blood Moderate H (Negative) Urine Nitrate Negative (Negative) Urine Bilirubin Negative (Negative) Urine Ictotest Negative (Negative) Urine Urobilinogen 4 or greater (Less than 2) mg/dL Ur Leukocyte Esterase Trace H (Negative) Urine RBC 2 (0-3) /hpf Urine WBC 10 H (0-5) /hpf Ur Squamous Epith Cells 7 (0-5) /hpf Hyaline Casts 86 (0-3) /lpf Urine Mucus Few H (Occasional) /lpf Micro UA Comment Culture indicated Ur Microscopic Review Not Reportable Urine Culture Comments Culture indicated Urine Opiates Screen Pos H (Neg) Ur Barbiturates Screen Neg (Neg) Ur Amphetamines Screen Neg (Neg) U Benzodiazepines Scrn Neg (Neg) Urine Cocaine Screen Pos H (Neg) U Cannabinoids Screen Neg (Neg) Serum Alcohol (0-5) mg/dL Imaging Data Radiologist's impression: Chest X-Ray 11/21/17 15:00 CONCLUSION: Stable chest without evidence of acute cardiopulmonary process. Discharge Plan Discharge Disposition Patient Disposition: 30 Still Patient Discharge Details Diagnosis: Sepsis, IVDU (intravenous drug user) Physicians Team ED Provider: Kishor Berry ED Midlevel Provider: Nargis Ro Primary Care Provider: UNKNOWN, Rxs /Orders / Referrals /Forms Prescriptions: No Action Unable to Obtain Home Meds RF: 0 Status ED Status: Admitted Patient
[2017-11-21 14:49] LABS: Baso # (Auto) 0.1 th/mm3 (0.0-0.2); Baso % (Auto) 0.4 % (0.0-2.0); Eos % (Auto) 0.1 % (0.0-4.0); Hematocrit 44.8 % (35.0-46.0); Hemoglobin 14.6 gm/dL (11.6-15.3); Lymph # (Auto) 2.4 th/mm3 (1.0-4.8); Lymph % (Auto) 10.9 % (9.0-44.0); Mean Corpuscular HGB Conc 32.6 % (32.0-36.0); Mean Corpuscular Hemoglobin 29.5 pg (27.0-34.0); Mean Corpuscular Volume 90.3 fL (80.0-100.0); Mean Platelet Volume 8.6 fL (7.0-11.0); Mono # (Auto) 2.4 th/mm3 (0.0-0.9); Mono % (Auto) 11.2 % (0.0-8.0); Neut # (Auto) 16.8 th/mm3 (1.8-7.7); Neut % (Auto) 77.4 % (16.0-70.0); Platelet Count 278 th/mm3 (150-450); Red Blood Count 4.96 mil/mm3 (4.00-5.30); Red Cell Distribution Width 12.9 % (11.6-17.2); White Blood Count 21.7 th/mm3 (4.0-11.0)
[2017-11-21 14:59] LABS: Amphetamine Screen,Urine Neg (Neg); Barbiturate Screen,Urine Neg (Neg); Cannabinoid Screen,Urine Neg (Neg); Cocaine Screen,Urine Pos (Neg)
[2017-11-21 15:09] LABS: Opiate Screen,Urine Pos (Neg)
[2017-11-21 15:11] LABS: Clarity,Urine Cloudy (Clear); Color,Urine Amber (Yellw/Straw); Glucose,Urine (UA) Negative (Negative); Hyaline Casts,Urine 86 /lpf (0-3); Leukocyte Esterase,Urine Trace (Negative); Mucus,Urine Few /lpf (Occasional); Nitrite,Urine Negative (Negative); Specific Gravity,Urine 1.025 (1.002-1.035); Squamous Epithelial Cell,Urine 7 /hpf (0-5); Urobilinogen,Urine 4 or Greater mg/dL (Less than 2)
[2017-11-21 15:14] LABS: Bilirubin,Urine Negative (Negative); Ictotest,Urine Negative (Negative)
--- NOTE | 2017-11-21 15:50 | XR ---
EXAM DATE: 11/21/2017 3:44 PM EDT AGE/SEX: 32 years / Female INDICATIONS: Shortness of breath, altered mental status. CLINICAL DATA: This is the patient's initial encounter. Patient reports that signs and symptoms have been present for 1 day and indicates a pain score of Nonresponsive. MEDICAL/SURGICAL HISTORY: Non-responsive. Non-responsive. COMPARISON: [facility] [place], CHEST SINGLE AP, 06/17/2017. . FINDINGS: Lungs are hypoaerated but otherwise clear. Heart and mediastinal structures are stable. Osseous structures are intact. CONCLUSION: Stable chest without evidence of acute cardiopulmonary process. Electronically signed by: Thomas Desir MD 11/21/2017 3:48 PM EDT
[2017-11-21 15:52] LABS: Alanine Aminotransferase 311 U/L (10-53); Albumin 4.6 g/dL (3.4-5.0); Anion Gap 18 meq/L (5-15); Aspartate Aminotransferase 396 U/L (15-37); Blood Urea Nitrogen 36 mg/dL (7-18); Carbon Dioxide 20.4 meq/L (21.0-32.0); Chloride 102 meq/L (98-107); Glomerular Filtration Rate 36 mL/min (>89); Glucose,Random 71 mg/dL (74-106); Potassium 3.6 meq/L (3.5-5.1); Sodium 140 meq/L (136-145)
[2017-11-21 15:54] LABS: Alkaline Phosphatase 191 U/L (45-117); Total Protein 8.4 g/dL (6.4-8.2)
[2017-11-21 16:03] LABS: Lymphocytes 11 % (9-44); Metamyelocytes 2 % (0-1); Monocytes 8 % (0-8)
[2017-11-21 16:04] LABS: Platelet Estimate Normal (Normal); Platelet Morphology Normal (Normal); Toxic Granulation 2+; Toxic Vacuolation Present
[2017-11-21] MEDS ORDERED: Vancomycin Inj 1,000 MG in Sodium Chlor 0.9% Inj 250 ML IV.SIG ONE (16:10)
[2017-11-21] MEDS ORDERED: Piperacil/Tazo 3.375 GM Premix 50 ML IV.SIG ONE (16:10)
[2017-11-21] MEDS ORDERED: Vancomycin Consult Pharmacy OTHER PRN (19:17)
[2017-11-21] MEDS ORDERED: Bisacodyl 10 MG Supp RECTAL PRN (19:23)
[2017-11-21] MEDS ORDERED: Acetaminophen 325 MG Tablet PO PRN (19:23)
[2017-11-21] MEDS ORDERED: Vancomycin Inj 1 GM/200 ML PIGGYBACK IV.SIG SCH (20:00)
[2017-11-21] MEDS: Senna/Docusate Sodium 8.6/50 MG Tablet PO SCH (21:35)
[2017-11-21] MEDS: Sod Chloride 0.9% Inj 1,000 ML IV.CONT SCH (21:50)
[2017-11-21] MEDS: Enoxaparin Inj 40 MG/0.4 ML Syringe SQ SCH (21:51)
[2017-11-21] MEDS: Piperacil/Tazo 4.5 GM Premix 4.5 GM/100 ML BAG IV.SIG SCH (21:51)
--- NOTE | 2017-11-21 23:22 | P.HP ---
History of Present Illness Service: [facility] Primary Care Physician: UNKNOWN History of Present Illness: 32-year-old female with a past medical history significant for IV drug abuse, hypertension, bipolar disorder, schizophrenia and previous endocarditis presents to the emergency department under police custody for altered mental status. The patient was apparently found to be under a dog kennel, trying to bury herself. At the time of our interview. The patient reports to doing Kasey , flakka, and methamphetamines earlier in the day. She is agitated but alert and oriented 3. She denies any fevers/chills. No chest pain or shortness of breath. No nausea/vomiting/diarrhea. No abdominal pain. Inpatient Certification: I certify that the inpatient services were ordered in accordance with Medicare regulations governing the order. This includes certification that hospital inpatient services are reasonable and necessary and in the case of services not specified as inpatient-only under 42 CFR 419.22(n), that they are appropriately provided as inpatient services in accordance to with the 2-midnight benchmark under 43 CFR 412.3(e) Estimated Total Length of Stay (Days): 5 Plans for Post Hospital Care: Not yet determined Review of Systems All other systems reviewed negative except as stated in HPI PMFSH - History History Provided By: Patient - Medical History Medical History: Medical History (Last Updated 11/21/17 @ 23:13 by Eleanor Clarke MD) Bipolar disorder History of endocarditis Hypertension IV drug abuse Schizophrenia - Surgical History Surgical History: Surgical History (Last Updated 11/21/17 @ 23:15 by Eleanor Clarke MD) H/O tubal ligation - Family History Family History: Family History (Last Updated 11/21/17 @ 23:15 by Eleanor Clarke MD) Other Diabetes mellitus - Tobacco History Second Hand Smoke Exposure: Yes Tobacco Use In Past 30 Days: Yes Smoking Status: Current some day smoker Tobacco Type: Cigarettes - Alcohol History How Often Do You Have a Drink Containing Alcohol: Monthly or less - Substance Use History Substance History: Active Abuse - Immunization History Tetanus Immunization: Unsure Medications and Allergies Active Medications: Active Medications Acetaminophen (Tylenol) 650 mg PO Q4H PRN PRN Reason: Temp > 100.4 Al Hydroxide/Mg Hydroxide (Milk Of Magnesia Liq) 30 ml PO Q12H PRN PRN Reason: Mild Constipation Bisacodyl (Dulcolax Supp) 10 mg RECTAL DAILY PRN PRN Reason: SEVERE CONSITIPATION Enoxaparin Sodium (Lovenox Inj) 40 mg SQ Q24H [facility] Last Admin: 11/21/17 21:51 Dose: 40 mg Piperacillin/Tazobactam/Dextrose (Zosyn 4.5 Gm Premix) 4.5 gm in 100 mls @ 200 mls/hr IV.SIG Q6H [facility] Last Infusion: 11/21/17 22:21 Dose: Infused Sodium Chloride (Ns Inj) 1,000 mls @ 100 mls/hr IV.CONT .Q10H [facility] Last Admin: 11/21/17 21:50 Dose: 100 mls/hr Vancomycin HCl 1,150 mg/ (Sodium Chloride) 261.5 mls @ 250 mls/hr IV.SIG Q24H [place] Lactulose (Lactulose Liq) 30 ml PO DAILY PRN PRN Reason: SEVERE CONSITIPATION Lorazepam (Ativan Inj) 0.5 mg IV.PUSH Q6H PRN PRN Reason: withdrawals/agitation Miscellaneous Information ([facility] Ordered Lab Info) 0 each OTHER ONCE ONE Stop: 11/24/17 13:46 Ondansetron HCl (Zofran Inj) 4 mg IV.PUSH Q6H PRN PRN Reason: NAUSEA OR VOMITING Pharmacy Profile Note (Vancomycin Consult Pharmacy) 1 each OTHER UNSCH PRN PRN Reason: Pharmacy to dose Senna/Docusate Sodium (Dennise-Colace) 1 tab PO BID [facility] Last Admin: 11/21/17 21:35 Dose: Not Given Sennosides (Senokot) 17.2 mg PO Q12H PRN PRN Reason: Moderate Constipation Allergies Allergy/AdvReac Type Severity Reaction Status Date / Time *MDRO Multi-Drug Resistant AdvReac Unknown Uncoded 07/16/17 09:02 Organism Home Medications Medication Instructions Recorded Confirmed Type Unable to Obtain Home Meds 11/21/17 11/21/17 History Exam Vital signs: Vital Signs 11/21/17 13:55 11/21/17 16:44 11/21/17 17:54 Temperature 98.9 F Pulse Rate 119 H 83 76 Respiratory Rate 24 18 18 Blood Pressure 129/86 116/57 L 124/62 Pulse Oximetry 96 97 98 11/21/17 18:15 11/21/17 20:58 Temperature 97.1 F L Pulse Rate 75 67 Respiratory Rate 18 Blood Pressure 122/67 128/62 Pulse Oximetry 98 99 Intake & Output 11/21/17 11/21/17 11/22/17 06:59 18:59 06:59 Intake Total 2300 / 2300 100 / 100 Balance 2300 / 2300 100 / 100 Weight 77.111 kg Intake: IV 2300 / 2300 100 / 100 Zosyn 3.375 GM Premix 50 ML @ 50 / 50 100 mls/hr IV.SIG ONCE ONE Rx#: [id number] Zosyn 4.5 GM Premix 4.5 gm In 100 / 100 100 ml @ 200 mls/hr IV.SIG Q6H [place] Rx#:[id number] NS Inj 1,000 ML @ Wide Open IV. 1999 SIG BOLUS ONE Rx#:[id number] Vancomycin Inj 1,000 MG In NS 250 / 250 Inj 250 ML @ 250 mls/hr IV.SIG ONCE ONE Rx#:[id number] Narrative: Gen.: No acute distress. Disheveled, agitated female covered in dirt. Head: Normocephalic. Atraumatic. EENT: Pupils equal round and reactive to light. Nose without drainage. Airway intact. Throat without injection. Cardiovascular: Regular rate and rhythm. No murmurs, rubs or gallops. Respiratory: Lungs clear to auscultation bilaterally. No wheezes or rhonchi. Abdomen: Soft, nontender, nondistended. No peritoneal signs. Musculoskeletal: No gross deformities. No edema. Skin: No obvious rashes or erythema. Neuro: Sensory and motor grossly intact. Cranial nerves II through XII grossly intact. Results - Labs CBC & Chem 7: 11/21/17 14:04 11/21/17 14:04 Labs: Laboratory Results - last 24 hr 11/21/17 11/21/17 11/21/17 14:04 14:04 14:04 WBC 21.7 H RBC 4.96 Hgb 14.6 Hct 44.8 MCV 90.3 MCH 29.5 MCHC 32.6 RDW 12.9 Plt Count 278 MPV 8.6 Prelim Diff (Auto) Slide review pending Neut % (Auto) 77.4 H Lymph % (Auto) 10.9 [place] % (Auto) 11.2 H Eos % (Auto) 0.1 Baso % (Auto) 0.4 Neut # (Auto) 16.8 H Lymph # (Auto) 2.4 [place] # (Auto) 2.4 H Eos # (Auto) 0.0 Baso # (Auto) 0.1 WBC Differential Manual diff final Seg Neuts % (Manual) 73 H Band Neuts % (Manual) 6 Lymphocytes % (Manual) 11 Monocytes % (Manual) 8 Metamyelocytes % (Man) 2 H Abs Neuts (Manual) 17.6 H Differential Comment . Toxic Granulation 2+ H Toxic Vacuolation Present H Platelet Estimate Normal Platelet Morphology Normal Sodium 140 Potassium 3.6 Chloride 102 Carbon Dioxide 20.4 L Anion Gap 18 H BUN 36 H Creatinine 1.67 H Estimated GFR 36 L Random Glucose 71 L Lactic Acid Calcium 9.0 Total Bilirubin 2.5 H AST 396 H ALT 311 H Alkaline Phosphatase 191 H Total Protein 8.4 H Albumin 4.6 Procalcitonin TSH 1.090 Urine Color Urine Clarity Urine pH Ur Specific [place] Urine Protein Urine Glucose (UA) Urine Ketones Urine Occult Blood Urine Nitrate Urine Bilirubin Urine Ictotest Urine Urobilinogen Ur Leukocyte Esterase Urine RBC Urine WBC Ur Squamous Epith Cells Hyaline Casts Urine Mucus Micro UA Comment Ur Microscopic Review Urine Culture Comments Urine Opiates Screen Ur Barbiturates Screen Ur Amphetamines Screen U Benzodiazepines Scrn Urine Cocaine Screen U Cannabinoids Screen Serum Alcohol Less than 3 11/21/17 11/21/17 11/21/17 14:26 14:26 15:45 WBC RBC Hgb Hct MCV MCH MCHC RDW Plt Count MPV Prelim Diff (Auto) Neut % (Auto) Lymph % (Auto) [place] % (Auto) Eos % (Auto) Baso % (Auto) Neut # (Auto) Lymph # (Auto) [place] # (Auto) Eos # (Auto) Baso # (Auto) WBC Differential Seg Neuts % (Manual) Band Neuts % (Manual) Lymphocytes % (Manual) Monocytes % (Manual) Metamyelocytes % (Man) Abs Neuts (Manual) Differential Comment Toxic Granulation Toxic Vacuolation Platelet Estimate Platelet Morphology Sodium Potassium Chloride Carbon Dioxide Anion Gap BUN Creatinine Estimated GFR Random Glucose Lactic Acid 0.7 Calcium Total Bilirubin AST ALT Alkaline Phosphatase Total Protein Albumin Procalcitonin TSH Urine Color Ann Urine Clarity Cloudy H Urine pH 5.0 Ur Specific [place] 1.025 Urine Protein 100 H Urine Glucose (UA) Negative Urine Ketones 20 Urine Occult Blood Moderate H Urine Nitrate Negative Urine Bilirubin Negative Urine Ictotest Negative Urine Urobilinogen 4 or greater Ur Leukocyte Esterase Trace H Urine RBC 2 Urine WBC 10 H Ur Squamous Epith Cells 7 Hyaline Casts 86 Urine Mucus Few H Micro UA Comment Culture indicated Ur Microscopic Review Not Reportable Urine Culture Comments Culture indicated Urine Opiates Screen Pos H Ur Barbiturates Screen Neg Ur Amphetamines Screen Neg U Benzodiazepines Scrn Neg Urine Cocaine Screen Pos H U Cannabinoids Screen Neg Serum Alcohol 11/21/17 17:55 WBC RBC Hgb Hct MCV MCH MCHC RDW Plt Count MPV Prelim Diff (Auto) Neut % (Auto) Lymph % (Auto) [place] % (Auto) Eos % (Auto) Baso % (Auto) Neut # (Auto) Lymph # (Auto) [place] # (Auto) Eos # (Auto) Baso # (Auto) WBC Differential Seg Neuts % (Manual) Band Neuts % (Manual) Lymphocytes % (Manual) Monocytes % (Manual) Metamyelocytes % (Man) Abs Neuts (Manual) Differential Comment Toxic Granulation Toxic Vacuolation Platelet Estimate Platelet Morphology Sodium Potassium Chloride Carbon Dioxide Anion Gap BUN Creatinine Estimated GFR Random Glucose Lactic Acid Calcium Total Bilirubin AST ALT Alkaline Phosphatase Total Protein Albumin Procalcitonin 0.32 H TSH Urine Color Urine Clarity Urine pH Ur Specific [place] Urine Protein Urine Glucose (UA) Urine Ketones Urine Occult Blood Urine Nitrate Urine Bilirubin Urine Ictotest Urine Urobilinogen Ur Leukocyte Esterase Urine RBC Urine WBC Ur Squamous Epith Cells Hyaline Casts Urine Mucus Micro UA Comment Ur Microscopic Review Urine Culture Comments Urine Opiates Screen Ur Barbiturates Screen Ur Amphetamines Screen U Benzodiazepines Scrn Urine Cocaine Screen U Cannabinoids Screen Serum Alcohol - Imaging Impressions Chest X-Ray 11/21/17 15:00 CONCLUSION: Stable chest without evidence of acute cardiopulmonary process. Caprini VTE Risk Assessment Caprini VTE Risk Assessment: No/Low Risk (score <= 1) Caprini Risk Assessment Model: Point Value = 1 Point Value = 2 Point Value = 3 Point Value = 5 Age 41-60 Minor surgery BMI > 25 kg/m2 Swollen legs Varicose veins or History of unexplained or recurrent spontaneous Oral contraceptives or hormone replacement Sepsis (< 1 month) Serious lung disease, including pneumonia (< 1 month) Abnormal pulmonary function Acute myocardial infarction Congestive heart failure (< 1 month) History of inflammatory bowel disease Medical patient at bed rest Age 61-74 Arthroscopic surgery Major open surgery (> 45 min) Laparoscopic surgery (> 45 min) Malignancy Confined to bed (> 72 hours) Immobilizing plaster cast Central venous access Age >= 75 History of VTE Family history of VTE Factor V Leiden Prothrombin [id number] Lupus anticoagulant Anticardiolipin antibodies Elevated serum homocysteine Heparin-induced thrombocytopenia Other congenital or acquired thrombophilia Stroke (< 1 month) Elective arthroplasty Hip, pelvis, or leg fracture Acute spinal cord injury (< 1 month) Prophylaxis Regimen: Total Risk Factor Score Risk Level Prophylaxis Regimen 0-1 Low Early ambulation 2 Moderate Order ONE of the following: *Sequential Compression Device (SCD) *Heparin 5000 units SQ BID 3-4 Higher Order ONE of the following medications: *Heparin 5000 units SQ TID *Enoxaparin/Lovenox 40 mg SQ daily (WT < 150 kg, CrCl > 30 mL/min) *Enoxaparin/Lovenox 30 mg SQ daily (WT < 150 kg, CrCl > 10-29 mL/min) *Enoxaparin/Lovenox 30 mg SQ BID (WT < 150 kg, CrCl > 30 mL/min) AND/OR *Sequential Compression Device (SCD) 5 or more Highest Order ONE of the following medications: *Heparin 5000 units SQ TID (Preferred with Epidurals) *Enoxaparin/Lovenox 40 mg SQ daily (WT < 150 kg, CrCl > 30 mL/min) *Enoxaparin/Lovenox 30 mg SQ daily (WT < 150 kg, CrCl > 10-29 mL/min) *Enoxaparin/Lovenox 30 mg SQ BID (WT < 150 kg, CrCl > 30 mL/min) AND *Sequential Compression Device (SCD) Assessment and Plan - Plan Assessment/plan: 1. Leukocytosis White blood cell count 21.7 Patient with possible UTI Chest x-ray negative for acute process, personally reviewed Blood cultures pending Concern for endocarditis given history of previous endocarditis and IV drug abuse Echo pending Vancomycin/Zosyn 2. Acute kidney injury Creatinine 1.67, baseline 0.8 IV fluid hydration Monitor renal function 3. Transaminitis Chronic Patient with history of hepatitis C 4. IV drug abuse Cessation counseling provided 5. Bipolar/schizophrenia Patient denies taking any medications Follow-up as outpatient 6. Hypertension Patient not on any home medications No intensive at this time Monitor 7. Urinary tract infection Urine culture pending UA consistent with possible UTI Antibiotics as above 8. Acute intoxication Patient admits to doing methamphetamine, Kasey and Flakka earlier today Remains agitated Continue restraints FEN Regular diet NS at 100 cc/hour Electrolytes: Monitor and replete as needed
[2017-11-22] MEDS: Piperacil/Tazo 4.5 GM Premix 4.5 GM/100 ML BAG IV.SIG SCH ×4 (04:24→22:33)
[2017-11-22] MEDS: Sod Chloride 0.9% Inj 1,000 ML IV.CONT SCH ×2 (05:43→16:05)
[2017-11-22 08:18] LABS: Baso % (Auto) 0.4 % (0.0-2.0); Eos # (Auto) 0.3 th/mm3 (0.0-0.4); Eos % (Auto) 2.9 % (0.0-4.0); Hematocrit 38.7 % (35.0-46.0); Hemoglobin 12.6 gm/dL (11.6-15.3); Lymph # (Auto) 1.6 th/mm3 (1.0-4.8); Lymph % (Auto) 14.8 % (9.0-44.0); Mean Corpuscular HGB Conc 32.5 % (32.0-36.0); Mean Corpuscular Hemoglobin 29.3 pg (27.0-34.0); Mean Corpuscular Volume 90.2 fL (80.0-100.0); Mean Platelet Volume 8.5 fL (7.0-11.0); Mono # (Auto) 1.3 th/mm3 (0.0-0.9); Mono % (Auto) 11.8 % (0.0-8.0); Neut # (Auto) 7.7 th/mm3 (1.8-7.7); Neut % (Auto) 70.1 % (16.0-70.0); Platelet Count 221 th/mm3 (150-450); Red Blood Count 4.29 mil/mm3 (4.00-5.30); Red Cell Distribution Width 12.6 % (11.6-17.2); White Blood Count 11.1 th/mm3 (4.0-11.0)
[2017-11-22 08:48] LABS: Anion Gap 13 meq/L (5-15); Blood Urea Nitrogen 17 mg/dL (7-18); Calcium 7.8 mg/dL (8.5-10.1); Chloride 105 meq/L (98-107); Glomerular Filtration Rate Greater Than 89 mL/min (>89); Glucose,Random 100 mg/dL (74-106); Sodium 139 meq/L (136-145)
[2017-11-22] MEDS: Senna/Docusate Sodium 8.6/50 MG Tablet PO SCH ×2 (09:12→20:39)
--- NOTE | 2017-11-22 09:20 | P.PNIM ---
Subjective Interval history: Mildly confused and agitated in restraints. Opens eyes briefly answers simple questions with agitation. Physical Exam Vital signs: Vital Signs 11/21/17 13:55 11/21/17 16:44 11/21/17 17:54 Temperature 98.9 F Pulse Rate 119 H 83 76 Respiratory Rate 24 18 18 Blood Pressure 129/86 116/57 L 124/62 Pulse Oximetry 96 97 98 11/21/17 18:15 11/21/17 20:58 11/22/17 00:46 Temperature 97.1 F L 97.2 F L Pulse Rate 75 67 70 Respiratory Rate 18 18 Blood Pressure 122/67 128/62 107/56 L Pulse Oximetry 98 99 96 Intake & Output 11/21/17 11/22/17 11/22/17 18:59 06:59 18:59 Intake Total 2300 / 2300 520 / 520 Balance 2300 / 2300 520 / 520 Weight 77.111 kg 81 kg Intake: IV 2300 / 2300 200 / 200 Zosyn 3.375 GM Premix 50 ML @ 50 / 50 100 mls/hr IV.SIG ONCE ONE Rx#: [id number] Zosyn 4.5 GM Premix 4.5 gm In 200 / 200 100 ml @ 200 mls/hr IV.SIG Q6H [facility] Rx#:[id number] NS Inj 1,000 ML @ Wide Open IV. 1999 SIG BOLUS ONE Rx#:[id number] Vancomycin Inj 1,000 MG In NS 250 / 250 Inj 250 ML @ 250 mls/hr IV.SIG ONCE ONE Rx#:[id number] Oral 320 / 320 Narrative: GENERAL: This is a well-nourished, well-developed patient, in restraints and mildly agitated and confused CARDIOVASCULAR: Regular rate and rhythm without murmurs, gallops, or rubs. RESPIRATORY: Clear to auscultation. Breath sounds equal bilaterally. No wheezes , rales, or rhonchi. GASTROINTESTINAL: Abdomen soft, non-tender, nondistended. Normal active bowel sounds MUSCULOSKELETAL: Extremities without clubbing, cyanosis, or edema. Track bolanos over the upper arms NEURO: Confused, agitated, spontaneously moves bilateral upper and lower extremities Results - Labs CBC & Chem 7: 11/22/17 07:09 11/22/17 07:09 Laboratory Results - last 24 hr 11/21/17 11/21/17 11/21/17 14:04 14:04 14:04 WBC 21.7 H RBC 4.96 Hgb 14.6 Hct 44.8 MCV 90.3 MCH 29.5 MCHC 32.6 RDW 12.9 Plt Count 278 MPV 8.6 Prelim Diff (Auto) Slide review pending Neut % (Auto) 77.4 H Lymph % (Auto) 10.9 [place] % (Auto) 11.2 H Eos % (Auto) 0.1 Baso % (Auto) 0.4 Neut # (Auto) 16.8 H Lymph # (Auto) 2.4 [place] # (Auto) 2.4 H Eos # (Auto) 0.0 Baso # (Auto) 0.1 WBC Differential Manual diff final Seg Neuts % (Manual) 73 H Band Neuts % (Manual) 6 Lymphocytes % (Manual) 11 Monocytes % (Manual) 8 Metamyelocytes % (Man) 2 H Abs Neuts (Manual) 17.6 H Differential Comment . Toxic Granulation 2+ H Toxic Vacuolation Present H Platelet Estimate Normal Platelet Morphology Normal Sodium 140 Potassium 3.6 Chloride 102 Carbon Dioxide 20.4 L Anion Gap 18 H BUN 36 H Creatinine 1.67 H Estimated GFR 36 L POC Glucose Random Glucose 71 L Lactic Acid Calcium 9.0 Total Bilirubin 2.5 H AST 396 H ALT 311 H Alkaline Phosphatase 191 H Troponin I Total Protein 8.4 H Albumin 4.6 Procalcitonin TSH 1.090 Urine Color Urine Clarity Urine pH Ur Specific [place] Urine Protein Urine Glucose (UA) Urine Ketones Urine Occult Blood Urine Nitrate Urine Bilirubin Urine Ictotest Urine Urobilinogen Ur Leukocyte Esterase Urine RBC Urine WBC Ur Squamous Epith Cells Hyaline Casts Urine Mucus Micro UA Comment Ur Microscopic Review Urine Culture Comments Urine Opiates Screen Ur Barbiturates Screen Ur Amphetamines Screen U Benzodiazepines Scrn Urine Cocaine Screen U Cannabinoids Screen Serum Alcohol Less than 3 11/21/17 11/21/17 11/21/17 14:26 14:26 15:45 WBC RBC Hgb Hct MCV MCH MCHC RDW Plt Count MPV Prelim Diff (Auto) Neut % (Auto) Lymph % (Auto) [place] % (Auto) Eos % (Auto) Baso % (Auto) Neut # (Auto) Lymph # (Auto) [place] # (Auto) Eos # (Auto) Baso # (Auto) WBC Differential Seg Neuts % (Manual) Band Neuts % (Manual) Lymphocytes % (Manual) Monocytes % (Manual) Metamyelocytes % (Man) Abs Neuts (Manual) Differential Comment Toxic Granulation Toxic Vacuolation Platelet Estimate Platelet Morphology Sodium Potassium Chloride Carbon Dioxide Anion Gap BUN Creatinine Estimated GFR POC Glucose Random Glucose Lactic Acid 0.7 Calcium Total Bilirubin AST ALT Alkaline Phosphatase Troponin I Total Protein Albumin Procalcitonin TSH Urine Color Ann Urine Clarity Cloudy H Urine pH 5.0 Ur Specific [place] 1.025 Urine Protein 100 H Urine Glucose (UA) Negative Urine Ketones 20 Urine Occult Blood Moderate H Urine Nitrate Negative Urine Bilirubin Negative Urine Ictotest Negative Urine Urobilinogen 4 or greater Ur Leukocyte Esterase Trace H Urine RBC 2 Urine WBC 10 H Ur Squamous Epith Cells 7 Hyaline Casts 86 Urine Mucus Few H Micro UA Comment Culture indicated Ur Microscopic Review Not Reportable Urine Culture Comments Culture indicated Urine Opiates Screen Pos H Ur Barbiturates Screen Neg Ur Amphetamines Screen Neg U Benzodiazepines Scrn Neg Urine Cocaine Screen Pos H U Cannabinoids Screen Neg Serum Alcohol 11/21/17 11/21/17 11/21/17 17:55 23:07 23:53 WBC RBC Hgb Hct MCV MCH MCHC RDW Plt Count MPV Prelim Diff (Auto) Neut % (Auto) Lymph % (Auto) [place] % (Auto) Eos % (Auto) Baso % (Auto) Neut # (Auto) Lymph # (Auto) [place] # (Auto) Eos # (Auto) Baso # (Auto) WBC Differential Seg Neuts % (Manual) Band Neuts % (Manual) Lymphocytes % (Manual) Monocytes % (Manual) Metamyelocytes % (Man) Abs Neuts (Manual) Differential Comment Toxic Granulation Toxic Vacuolation Platelet Estimate Platelet Morphology Sodium Potassium Chloride Carbon Dioxide Anion Gap BUN Creatinine Estimated GFR POC Glucose 82 Random Glucose Lactic Acid Calcium Total Bilirubin AST ALT Alkaline Phosphatase Troponin I Less than 0.02 L Total Protein Albumin Procalcitonin 0.32 H TSH Urine Color Urine Clarity Urine pH Ur Specific [place] Urine Protein Urine Glucose (UA) Urine Ketones Urine Occult Blood Urine Nitrate Urine Bilirubin Urine Ictotest Urine Urobilinogen Ur Leukocyte Esterase Urine RBC Urine WBC Ur Squamous Epith Cells Hyaline Casts Urine Mucus Micro UA Comment Ur Microscopic Review Urine Culture Comments Urine Opiates Screen Ur Barbiturates Screen Ur Amphetamines Screen U Benzodiazepines Scrn Urine Cocaine Screen U Cannabinoids Screen Serum Alcohol 11/22/17 11/22/17 11/22/17 05:22 05:40 07:09 WBC 11.1 H RBC 4.29 Hgb 12.6 D Hct 38.7 MCV 90.2 MCH 29.3 MCHC 32.5 RDW 12.6 Plt Count 221 MPV 8.5 Prelim Diff (Auto) Neut % (Auto) 70.1 H Lymph % (Auto) 14.8 [place] % (Auto) 11.8 H Eos % (Auto) 2.9 Baso % (Auto) 0.4 Neut # (Auto) 7.7 Lymph # (Auto) 1.6 [place] # (Auto) 1.3 H Eos # (Auto) 0.3 Baso # (Auto) 0.0 WBC Differential . Seg Neuts % (Manual) Band Neuts % (Manual) Lymphocytes % (Manual) Monocytes % (Manual) Metamyelocytes % (Man) Abs Neuts (Manual) Differential Comment Auto diff final Toxic Granulation Toxic Vacuolation Platelet Estimate Platelet Morphology Sodium Potassium Chloride Carbon Dioxide Anion Gap BUN Creatinine Estimated GFR POC Glucose 75 90 Random Glucose Lactic Acid Calcium Total Bilirubin AST ALT Alkaline Phosphatase Troponin I Total Protein Albumin Procalcitonin TSH Urine Color Urine Clarity Urine pH Ur Specific [place] Urine Protein Urine Glucose (UA) Urine Ketones Urine Occult Blood Urine Nitrate Urine Bilirubin Urine Ictotest Urine Urobilinogen Ur Leukocyte Esterase Urine RBC Urine WBC Ur Squamous Epith Cells Hyaline Casts Urine Mucus Micro UA Comment Ur Microscopic Review Urine Culture Comments Urine Opiates Screen Ur Barbiturates Screen Ur Amphetamines Screen U Benzodiazepines Scrn Urine Cocaine Screen U Cannabinoids Screen Serum Alcohol 11/22/17 07:09 WBC RBC Hgb Hct MCV MCH MCHC RDW Plt Count MPV Prelim Diff (Auto) Neut % (Auto) Lymph % (Auto) [place] % (Auto) Eos % (Auto) Baso % (Auto) Neut # (Auto) Lymph # (Auto) [place] # (Auto) Eos # (Auto) Baso # (Auto) WBC Differential Seg Neuts % (Manual) Band Neuts % (Manual) Lymphocytes % (Manual) Monocytes % (Manual) Metamyelocytes % (Man) Abs Neuts (Manual) Differential Comment Toxic Granulation Toxic Vacuolation Platelet Estimate Platelet Morphology Sodium 139 Potassium 3.0 L Chloride 105 Carbon Dioxide 21.0 Anion Gap 13 BUN 17 Creatinine 0.61 Estimated GFR Greater than 89 POC Glucose Random Glucose 100 Lactic Acid Calcium 7.8 L D Total Bilirubin AST ALT Alkaline Phosphatase Troponin I Less than 0.02 L Total Protein Albumin Procalcitonin TSH Urine Color Urine Clarity Urine pH Ur Specific [place] Urine Protein Urine Glucose (UA) Urine Ketones Urine Occult Blood Urine Nitrate Urine Bilirubin Urine Ictotest Urine Urobilinogen Ur Leukocyte Esterase Urine RBC Urine WBC Ur Squamous Epith Cells Hyaline Casts Urine Mucus Micro UA Comment Ur Microscopic Review Urine Culture Comments Urine Opiates Screen Ur Barbiturates Screen Ur Amphetamines Screen U Benzodiazepines Scrn Urine Cocaine Screen U Cannabinoids Screen Serum Alcohol - Imaging Impressions Chest X-Ray 11/21/17 15:00 CONCLUSION: Stable chest without evidence of acute cardiopulmonary process. Assessment and Plan - Assessment (1) Toxic encephalopathy Code(s): G92 - Toxic encephalopathy Status: Acute - Plan 32-year-old white female with a history of IV drug abuse brought in with confusion 1. Toxic encephalopathy with acute intoxication Patient admits to doing methamphetamine, Kasey and Flakka earlier today Remains agitated Continue restraints 2. Leukocytosiscould be due to stress reaction however will need to rule out other infectious source Presenting white blood cell count 21.7 and trending down overnight. Patient with possible UTI Blood cultures pending Concern for endocarditis given history of previous endocarditis and IV drug abuse Echo pending Continue with IV vancomycin/Zosyn 3. Acute kidney injuryavoid nephrotoxins Creatinine 1.67, baseline 0.8 IV fluid hydration Monitor renal function 4. Transaminitis Chronic Patient with history of hepatitis C 5. IV drug abuse Cessation counseling will be provided when patient is alert and oriented 4 6. Bipolar/schizophrenia Patient denies taking any medications Follow-up as outpatient 7. Hypertension, chronic essential Patient not on any home medications Will continue monitor blood pressure 8. Questionable urinary tract infection Urine culture pending UA consistent with possible UTI Antibiotics as above, follow-up with final urine cultures 9. Hypokalemiareplete check magnesium level
--- NOTE | 2017-11-22 11:55 | ECG ---
Date Performed: 11/21/2017 Time Performed: 14:23:53 PTAGE: 32 years EKG: Sinus rhythm MODERATE VOLTAGE CRITERIA FOR LVH, CONSIDER NORMAL VARIANT BORDERLINE ECG PREVIOUS TRACING : 02/21/2017 17.30 DOCTOR: Dre Buckner Interpretating Date/Time 11/22/2017 11:52:23
[2017-11-22] MEDS ORDERED: Vancomycin Inj 1,150 MG in Sodium Chlor 0.9% Inj 250 ML IV.SIG SCH (14:00)
[2017-11-22] MEDS: Enoxaparin Inj 40 MG/0.4 ML Syringe SQ SCH (20:39)
[2017-11-22] MEDS: Vancomycin Inj 1,000 MG in Sodium Chlor 0.9% Inj 250 ML IV.SIG SCH (22:34)
[2017-11-23] MEDS: Sod Chloride 0.9% Inj 1,000 ML IV.CONT SCH ×2 (05:06→17:32)
[2017-11-23] MEDS: Piperacil/Tazo 4.5 GM Premix 4.5 GM/100 ML BAG IV.SIG SCH ×2 (05:06→09:17)
[2017-11-23] MEDS: Vancomycin Inj 1,000 MG in Sodium Chlor 0.9% Inj 250 ML IV.SIG SCH ×2 (05:38→15:05)
[2017-11-23 07:04] LABS: Alanine Aminotransferase 133 U/L (10-53); Albumin 2.6 g/dL (3.4-5.0); Alkaline Phosphatase 98 U/L (45-117); Anion Gap 8 meq/L (5-15); Aspartate Aminotransferase 127 U/L (15-37); Blood Urea Nitrogen 7 mg/dL (7-18); Calcium 7.8 mg/dL (8.5-10.1); Carbon Dioxide 26.2 meq/L (21.0-32.0); Chloride 109 meq/L (98-107); Glomerular Filtration Rate Greater Than 89 mL/min (>89); Glucose,Random 100 mg/dL (74-106); Sodium 143 meq/L (136-145); Total Protein 5.4 g/dL (6.4-8.2)
[2017-11-23 07:12] LABS: Potassium 3.7 meq/L (3.5-5.1)
[2017-11-23 07:20] LABS: Baso # (Auto) 0.1 th/mm3 (0.0-0.2); Eos # (Auto) 0.3 th/mm3 (0.0-0.4); Eos % (Auto) 5.7 % (0.0-4.0); Hematocrit 32.1 % (35.0-46.0); Lymph # (Auto) 1.7 th/mm3 (1.0-4.8); Lymph % (Auto) 34.3 % (9.0-44.0); Mean Corpuscular HGB Conc 34.2 % (32.0-36.0); Mean Corpuscular Hemoglobin 30.4 pg (27.0-34.0); Mean Corpuscular Volume 88.7 fL (80.0-100.0); Mean Platelet Volume 8.7 fL (7.0-11.0); Mono # (Auto) 0.6 th/mm3 (0.0-0.9); Neut # (Auto) 2.3 th/mm3 (1.8-7.7); Platelet Count 180 th/mm3 (150-450); Red Blood Count 3.62 mil/mm3 (4.00-5.30); Red Cell Distribution Width 12.8 % (11.6-17.2); White Blood Count 4.9 th/mm3 (4.0-11.0)
--- NOTE | 2017-11-23 07:46 | ECHRPT ---
Indication: SEPSIS ENDOCARDITIS CONCLUSIONS No regional wall motion abnormalities are present. Normal left ventricular size. Wall thickness is n ormal. The left ventricular systolic function is normal with an estimated ejection fraction in the range of 55-60%. No definite valvular abnormalities. BP: / HR: Rhythm: MEASUREMENTS (Male / Female) Normal Values Technical Quality: 2D ECHO LV Diastolic Diameter PLAX 4.6 cm 4.2 - 5.9 / 3.9 - 5.3 cm LV Systolic Diameter PLAX 3.3 cm IVS Diastolic Thickness 0.8 cm 0.6 - 1.0 / 0.6 - 0.9 cm LVPW Diastolic Thickness 0.9 cm 0.6 - 1.0 / 0.6 - 0.9 cm LV Relative Wall Thickness 0.4 RV Internal Dim ED PLAX 2.6 cm LVOT Diameter 1.9 cm Aortic Root Diameter 2.8 cm LA Systolic Diameter LX 2.8 cm 3.0 - 4.0 / 2.7 - 3.8 cm LV Ejection Fraction MOD 4C 60.8 % LV Ejection Fraction 4C AL 62.7 % M-MODE Aortic Root Diameter MM 3.1 cm LA Systolic Diameter MM 3.7 cm LA Ao Ratio MM 1.2 AV Cusp Separation MM 2.0 cm DOPPLER AV Peak Velocity 143.0 cm/s AV Peak Gradient 8.2 mmHg LVOT Peak Velocity 81.0 cm/s LVOT Peak Gradient 2.6 mmHg AV Area Cont Eq pk 1.6 cm Mitral E Point Velocity 70.0 cm/s Mitral A Point Velocity 55.3 cm/s Mitral E to A Ratio 1.3 LV E' Lateral Velocity 10.1 cm/s Mitral E to LV E' Lateral Ratio 6.9 LV E' Septal Velocity 13.0 cm/s Mitral E to LV E' Septal Ratio 5.4 TR Peak Velocity 236.0 cm/s TR Peak Gradient 22.3 mmHg Right Atrial Pressure 10.0 mmHg Pulmonary Artery Systolic Pressu 32.3 mmHg Right Ventricular Systolic Press 32.3 mmHg PV Peak Velocity 109.0 cm/s PV Peak Gradient 4.8 mmHg FINDINGS LEFT VENTRICLE No regional wall motion abnormalities are present. Normal left ventricular size. Wall thickness is n ormal. The left ventricular systolic function is normal with an estimated ejection fraction in the range of 55-60%. RIGHT VENTRICLE Normal right ventricular size and systolic function. LEFT ATRIUM The left atrial size is normal. RIGHT ATRIUM The right atrial size is normal. ATRIAL SEPTUM Normal atrial septal thickness without atrial level shunting by limited color doppler interrogation. AORTA The aortic root and proximal ascending aorta are normal in size on limited imaging. MITRAL VALVE Minimal thickening of the mitral valve leaflets. AORTIC VALVE Trileaflet aortic valve. No aortic valve stenosis or regurgitation. TRICUSPID VALVE Structurally normal tricuspid valve. No tricuspid valve stenosis or regurgitation. PULMONARY VALVE No pulmonary valve regurgitation or stenosis. VESSELS The inferior vena cava is normal in size. PERICARDIUM No pericardial effusion. Nikko Harden MD (Electronically Signed) Final Date:23 November 2017 07:45
[2017-11-23] MEDS: Senna/Docusate Sodium 8.6/50 MG Tablet PO SCH ×2 (08:57→20:34)
--- NOTE | 2017-11-23 12:11 | P.PNIM ---
Subjective Interval history: Patient is less agitated and reports that she would like to go home soon. She is not hurting anywhere. She is alert and oriented to person place and time today. She would like to be out of restraints and walk around in the room. Physical Exam Vital signs: Vital Signs 11/22/17 15:59 11/22/17 20:00 11/23/17 00:00 Temperature 97.3 F L 98 F 97.7 F Pulse Rate 70 72 70 Respiratory Rate 17 16 16 Blood Pressure 125/59 L 111/59 L 108/61 Pulse Oximetry 98 99 99 11/23/17 08:00 Temperature 97.6 F Pulse Rate 60 Respiratory Rate 16 Blood Pressure 117/57 L Pulse Oximetry 97 Intake & Output 11/22/17 11/23/17 11/23/17 18:59 06:59 18:59 Intake Total 1461.5 / 1461.5 1180 / 1180 100 / 100 Balance 1461.5 / 1461.5 1180 / 1180 100 / 100 Weight 81 kg Intake: IV 1461.5 / 1461.5 700 / 700 100 / 100 NS Inj 1,000 ML @ 100 mls/hr IV 1000 / 1000 .CONT .Q10H [facility] Rx#:[id number] Zosyn 4.5 GM Premix 4.5 gm In 200 / 200 200 / 200 100 / 100 100 ml @ 200 mls/hr IV.SIG Q6H [facility] Rx#:[id number] Vancomycin Inj 1,000 MG In NS 500 / 500 Inj 250 ML @ 250 mls/hr IV.SIG Q8H [facility] Rx#:[id number] Vancomycin Inj 1,150 MG In NS 261.5 / 261.5 Inj 250 ML @ 250 mls/hr IV.SIG Q24H [facility] Rx#:[id number] Oral 480 / 480 Other: # Voids 1 2 Date of Last Bowel Movement 11/20/17 11/20/17 Narrative: GENERAL: This is a well-nourished, well-developed patient, in restraints and less agitated CARDIOVASCULAR: Regular rate and rhythm without murmurs, gallops, or rubs. RESPIRATORY: Clear to auscultation. Breath sounds equal bilaterally. No wheezes , rales, or rhonchi. GASTROINTESTINAL: Abdomen soft, non-tender, nondistended. Normal active bowel sounds MUSCULOSKELETAL: Extremities without clubbing, cyanosis, or edema. Track bolanos over the upper arms NEURO: Alert and oriented to person place and time but not totally to situation , follows simple commands. Spontaneously moves bilateral upper and lower extremities Results - Labs CBC & Chem 7: 11/23/17 05:51 11/23/17 05:33 Laboratory Results - last 24 hr 11/23/17 11/23/17 11/23/17 00:10 05:33 05:51 WBC 4.9 D RBC 3.62 L Hgb 11.0 L Hct 32.1 L MCV 88.7 MCH 30.4 MCHC 34.2 RDW 12.8 Plt Count 180 MPV 8.7 Neut % (Auto) 46.0 Lymph % (Auto) 34.3 [place] % (Auto) 13.0 H Eos % (Auto) 5.7 H Baso % (Auto) 1.0 Neut # (Auto) 2.3 Lymph # (Auto) 1.7 [place] # (Auto) 0.6 Eos # (Auto) 0.3 Baso # (Auto) 0.1 WBC Differential . Differential Comment Auto diff final Hematology Comments Sodium 143 Potassium 3.7 Chloride 109 H Carbon Dioxide 26.2 Anion Gap 8 BUN 7 Creatinine 0.50 Estimated GFR Greater than 89 POC Glucose 112 H Random Glucose 100 Calcium 7.8 L Total Bilirubin 0.7 Direct Bilirubin 0.3 H Indirect Bilirubin 0.4 AST 127 H ALT 133 H Alkaline Phosphatase 98 Total Protein 5.4 L D Albumin 2.6 L D Microbiology 11/21/17 15:45 Blood - Peripheral Aerobic Blood Culture - Preliminary No growth in 2 days 11/21/17 15:45 Blood - Peripheral Anaerobic Blood Culture - Preliminary No growth in 2 days 11/21/17 15:40 Blood - Peripheral Aerobic Blood Culture - Preliminary No growth in 2 days 11/21/17 15:40 Blood - Peripheral Anaerobic Blood Culture - Preliminary No growth in 2 days 11/21/17 14:26 Clean Catch Urine Urine Culture - Final Viridans streptococcus grp Assessment and Plan - Assessment (1) Toxic encephalopathy Code(s): G92 - Toxic encephalopathy Status: Acute - Plan 32-year-old white female with a history of IV drug abuse brought in with confusion 1. Toxic encephalopathy with acute intoxication Patient admits to doing methamphetamine, Kasey and Flakka earlier today Mental status with slight improvement today, continue neuro checks. 2. Leukocytosiscould be due to stress reaction however will need to rule out other infectious source Presenting white blood cell count 21.7 and continues to trend down. Patient with strep viridans urinary tract infection and continued Zosyn Blood cultures pending and shows preliminary shows no growth Echo reviewed showed no active endocarditis Continue with IV vancomycin/Zosyn until final cultures are available. 3. Acute kidney injuryavoid nephrotoxins Creatinine 1.67, baseline 0.8 Improved will discontinue IV fluid hydration Monitor renal function 4. Transaminitis Chronic Patient with history of hepatitis C 5. IV drug abuse Cessation counseling will be provided when patient is alert and oriented 4 6. Bipolar/schizophrenia Patient denies taking any medications Follow-up as outpatient 7. Hypertension, chronic essential Patient not on any home medications Will continue monitor blood pressure 8. Strep viridans urinary tract infection Continue with Zosyn and likely switch over to oral upon discharge to home. 9. Hypokalemiareplete check magnesium level Discharge Planning: Possible discharge in the morning if mental status continues to improve and if blood culture remains negative..
[2017-11-23] MEDS ORDERED: Pharmacy Ordered Lab Info OTHER SCH (13:45)
[2017-11-23] MEDS ORDERED: MethylPREDNISolone Sod Succinate Inj 40 MG/ML Vial IV.PUSH ONE (15:49)
[2017-11-23] MEDS ORDERED: Loratadine 10 MG Tablet PO ONE (15:50)
[2017-11-23] MEDS: Enoxaparin Inj 40 MG/0.4 ML Syringe SQ SCH (20:35)
[2017-11-24] MEDS: Vancomycin Inj 1,000 MG in Sodium Chlor 0.9% Inj 250 ML IV.SIG SCH ×2 (00:32→08:25)
[2017-11-24] MEDS ORDERED: Pharmacy Ordered Lab Info OTHER SCH (07:45)
--- NOTE | 2017-11-24 09:20 | P.DS ---
Date of admission: 11/21/17 17:52 Primary care physician: UNKNOWN Anticipated date of discharge: 11/24/17 Brief History from admission: 32-year-old female with a past medical history significant for IV drug abuse, hypertension, bipolar disorder, schizophrenia and previous endocarditis presents to the emergency department under police custody for altered mental status. The patient was apparently found to be under a dog kennel, trying to bury herself. At the time of our interview. The patient reports to doing Kasey , flakka, and methamphetamines earlier in the day. She is agitated but alert and oriented 3. She denies any fevers/chills. No chest pain or shortness of breath. No nausea/vomiting/diarrhea. No abdominal pain. DS: Diagnosis - Discharge Diagnosis (1) Toxic encephalopathy Status: Acute (2) IVDU (intravenous drug user) Status: Chronic Diagnosis: Secondary DS: Summary Hospital Course: 32-year-old white female with active IV drug abuse admitted to using recent drugs: Kasey amphetamines, IV drug abuse was admitted for toxic encephalopathy, confusion likely due to drug abuse. Blood cultures were obtained to rule out any underlying infectious source. Final results were negative. She was also found to have a strep viridans urinary tract infection which was treated with IV Zosyn and switch over to oral Keflex. 2D echo was also performed which showed signs of endocarditis. Patient's mental status did improve during the hospitalization. She was counseled on drug secession and the risk of endocarditis, septic emboli, and with continued IV drug abuse. She was referred to [facility]. At this time, patient has gained maximum benefit and ready to be discharged to home with outpatient drug referral counseling. - Time Spent with Patient Total time spent providing and/or coordinating discharge services: Less than 30 minutes Exam Vital signs: Vital Signs 11/23/17 12:00 11/23/17 16:00 11/23/17 20:00 Temperature 96.8 F L 97.4 F L 97.7 F Pulse Rate 55 L 55 L 81 Respiratory Rate 16 16 17 Blood Pressure 120/60 110/51 L 115/68 Pulse Oximetry 96 95 98 11/24/17 00:00 11/24/17 08:00 Temperature 97.0 F L 97.5 F L Pulse Rate 76 52 L Respiratory Rate 17 17 Blood Pressure 117/62 106/65 Pulse Oximetry 98 98 Intake & Output 09/13/18 09/14/18 09/14/18 18:59 06:59 18:59 Intake Total 350 / 350 250 / 250 Balance 350 / 350 250 / 250 Intake: IV 350 / 350 250 / 250 Zosyn 4.5 GM Premix 4.5 gm In 100 / 100 100 ml @ 200 mls/hr IV.SIG Q6H [facility] Rx#:[id number] Vancomycin Inj 1,000 MG In NS 250 / 250 250 / 250 Inj 250 ML @ 250 mls/hr IV.SIG Q8H [facility] Rx#:[id number] Other: Date of Last Bowel Movement 11/20/17 11/23/17 Narrative: GENERAL: This is a well-nourished, well-developed patient, in no apparent distress. CARDIOVASCULAR: Regular rate and rhythm without murmurs, gallops, or rubs. RESPIRATORY: Clear to auscultation. Breath sounds equal bilaterally. No wheezes , rales, or rhonchi. GASTROINTESTINAL: Abdomen soft, non-tender, nondistended. Normal active bowel sounds MUSCULOSKELETAL: Extremities without clubbing, cyanosis, or edema. NEURO: Alert & Oriented x4 to person, place, time, situation. Moves all ext x4 Results Procedures completed during hospitalization: none Labs on day of discharge: Labs from last 24 hours 11/24/17 11/23/17 11/23/17 00:35 17:30 12:54 POC Glucose 192 H 106 131 H Preliminary micro results at discharge 11/21/17 15:45 Aerobic Blood Culture - Preliminary Blood - Peripheral No growth in 2 days Anaerobic Blood Culture - Preliminary No growth in 2 days 11/21/17 15:40 Aerobic Blood Culture - Preliminary Blood - Peripheral No growth in 2 days Anaerobic Blood Culture - Preliminary No growth in 2 days - Impressions ITS Impressions Chest X-Ray 11/21/17 15:00 CONCLUSION: Stable chest without evidence of acute cardiopulmonary process. Discharge Plan - Discharge Disposition Patient Disposition: 62 [facility] Inpatient - Discharge Condition Condition: Good - Discharge Order Discharge Orders: Discharge Order (Routine); Ordered 11/24/17 Ordered By: Brooklynn Phipps - Discharge Details Anticipated Discharge Date: 11/24/17 - Physicians Team Primary Care Provider: UNKNOWN, Attending Provider: Brooklynn Phipps
[2017-11-24] MEDS: Senna/Docusate Sodium 8.6/50 MG Tablet PO SCH (09:26)
[2017-11-24 11:48] VITALS: BP 111/55; PULSE 51; RESP 19; TEMP 97.8; O2SAT 99
[2017-11-24] MEDS ORDERED: Pharmacy Ordered Lab Info OTHER ONE (13:45)
== END 2017-11-24 12:25 | disposition home or self-care (01) ==
LOC: NEPC 13:26 → NEDA 17:52 → N07 20:21
PROVIDERS: ADMIT Family Medicine; ATTEND Family Medicine

== ENCOUNTER 2017-12-04 13:28 | Inpatient (IN) ==
[2017-12-04] MEDS ORDERED: Sod Chloride 0.9% Inj 1,000 ML IV.SIG ONE ×2 (13:35→18:00)
--- NOTE | 2017-12-04 13:54 | ED ---
HPI General Chief Complaint: Overdose Stated Complaint: Emergent Time Seen by Provider: 12/04/17 13:34 Source: patient and EMS Mode of arrival: EMS Limitations: altered mental status History of Present Illness HPI Narrative: 32 y/o female presents with episode of being unresponsive where she initially was being bagged and they had a place an IO. She awoke shortly after this and was combative. There is multiple drug paraphernalia in the house. Report is her name is Pooja Moran and she was recently seen here before for something similar. Patient is uncooperative and will not tell me anything. Related Data Home Medications Medication Instructions Recorded Confirmed Unable to Obtain Home Meds 12/04/17 12/04/17 Allergies Allergy/AdvReac Type Severity Reaction Status Date / Time No Allergy Information Allergy Unverified 12/04/17 13:35 Available Review of Systems ROS: all other systems reviewed are negative PMFSH History History Provided By: Patient (h/o IVDA) Social History Social History Smoking Status: Unknown if ever smoked How Often Do You Have a Drink Containing Alcohol: 4 or more times a week Immunization History Tetanus Immunization: Unsure Exam Narrative Exam Narrative: GENERAL: 32 y/o female who intermittently falls asleep on exam but is able to answer her name SKIN: Focused skin assessment warm/dry. HEAD: Atraumatic. Normocephalic. EYES: Pupils equal. No scleral icterus. No injection or drainage. ENT: No nasal bleeding or discharge. Mucous membranes pink and moist. NECK: Trachea midline. CARDIOVASCULAR: Regular rate and rhythm. RESPIRATORY: No accessory muscle use. Clear to auscultation. Breath sounds equal bilaterally. GASTROINTESTINAL: Abdomen soft, non-tender, nondistended. MUSCULOSKELETAL: No obvious deformities. No clubbing. No cyanosis. NEUROLOGICAL: Awake. moves extremities, clear speech Course Reevaluation(s) Reevaluation #1: Patient is now extremely combative and confused. Will dose with a half a milligram of Ativan and 10 mg of Geodon and restraints placed. Reevaluation #2: Patient now resting comfortably but will awaken to voice. Patient with critical hypokalemia of 2.3. Will start replacement and admit to the hospital for further care Consultations Consultation #1: dr paulino agrees to admit, requests observation Initial Documented Vital Signs Temperature 98.5 F 12/04/17 13:33 Pulse Rate 95 H 12/04/17 13:33 Respiratory Rate 12 12/04/17 13:33 Blood Pressure 196/70 H 12/04/17 13:33 Pulse Oximetry 98 12/04/17 13:33 Last Documented Vital Signs Temperature 98.5 F 12/04/17 13:33 Pulse Rate 95 H 12/04/17 13:33 Respiratory Rate 12 12/04/17 13:33 Blood Pressure 196/70 H 12/04/17 13:33 Pulse Oximetry 98 12/04/17 13:37 Medical Decision Making MDM Narrative Medical decision making narrative: Will check overdose workup and closely monitor Medical Screen Exam Complete: Yes Emergency Medical Condition: Yes Differential Diagnosis Differential Diagnosis: overdose, co-ingestion, electrolyte... Lab Data Lab results reviewed: Yes I reviewed the patient's lab results. Result diagrams: 12/04/17 13:41 12/04/17 13:41 Lab Results 12/04/17 12/04/17 12/04/17 Range/Units 13:41 13:41 13:41 WBC 8.5 (4.0-11.0) th/mm3 RBC 4.31 (4.00-5.30) mil/mm3 Hgb 13.0 (11.6-15.3) gm/dL Hct 38.5 (35.0-46.0) % MCV 89.2 (80.0-100.0) fL MCH 30.1 (27.0-34.0) pg MCHC 33.8 (32.0-36.0) % RDW 12.9 (11.6-17.2) % Plt Count 362 (150-450) th/mm3 MPV 7.4 (7.0-11.0) fL Neut % (Auto) 58.0 (16.0-70.0) % Lymph % (Auto) 29.6 (9.0-44.0) % Thurston % (Auto) 9.2 H (0.0-8.0) % Eos % (Auto) 2.5 (0.0-4.0) % Baso % (Auto) 0.7 (0.0-2.0) % Neut # (Auto) 4.9 (1.8-7.7) th/mm3 Lymph # (Auto) 2.5 (1.0-4.8) th/mm3 Thurston # (Auto) 0.8 (0.0-0.9) th/mm3 Eos # (Auto) 0.2 (0.0-0.4) th/mm3 Baso # (Auto) 0.1 (0.0-0.2) th/mm3 WBC Differential . Differential Comment Auto diff final PT 10.6 (9.8-11.6) sec INR 1.0 Ratio Sodium 144 (136-145) meq/L Potassium 2.3 L* (3.5-5.1) meq/L Chloride 103 (98-107) meq/L Carbon Dioxide 28.3 (21.0-32.0) meq/L Anion Gap 13 (5-15) meq/L BUN 5 L (7-18) mg/dL Creatinine 0.78 (0.50-1.00) mg/dL Estimated GFR 64 L (>89) mL/min Random Glucose 175 H (74-106) mg/dL Calcium 8.3 L (8.5-10.1) mg/dL Magnesium (1.5-2.5) mg/dL Total Bilirubin 0.8 (0.2-1.0) mg/dL AST 37 (15-37) U/L ALT 51 (10-53) U/L Alkaline Phosphatase 97 (45-117) U/L Total Protein 7.4 (6.4-8.2) g/dL Albumin 3.4 (3.4-5.0) g/dL Serum Alcohol Less than 3 (0-5) mg/dL 12/04/17 Range/Units 13:41 WBC (4.0-11.0) th/mm3 RBC (4.00-5.30) mil/mm3 Hgb (11.6-15.3) gm/dL Hct (35.0-46.0) % MCV (80.0-100.0) fL MCH (27.0-34.0) pg MCHC (32.0-36.0) % RDW (11.6-17.2) % Plt Count (150-450) th/mm3 MPV (7.0-11.0) fL Neut % (Auto) (16.0-70.0) % Lymph % (Auto) (9.0-44.0) % Thurston % (Auto) (0.0-8.0) % Eos % (Auto) (0.0-4.0) % Baso % (Auto) (0.0-2.0) % Neut # (Auto) (1.8-7.7) th/mm3 Lymph # (Auto) (1.0-4.8) th/mm3 Thurston # (Auto) (0.0-0.9) th/mm3 Eos # (Auto) (0.0-0.4) th/mm3 Baso # (Auto) (0.0-0.2) th/mm3 WBC Differential Differential Comment PT (9.8-11.6) sec INR Ratio Sodium (136-145) meq/L Potassium (3.5-5.1) meq/L Chloride (98-107) meq/L Carbon Dioxide (21.0-32.0) meq/L Anion Gap (5-15) meq/L BUN (7-18) mg/dL Creatinine (0.50-1.00) mg/dL Estimated GFR (>89) mL/min Random Glucose (74-106) mg/dL Calcium (8.5-10.1) mg/dL Magnesium 2.4 (1.5-2.5) mg/dL Total Bilirubin (0.2-1.0) mg/dL AST (15-37) U/L ALT (10-53) U/L Alkaline Phosphatase (45-117) U/L Total Protein (6.4-8.2) g/dL Albumin (3.4-5.0) g/dL Serum Alcohol (0-5) mg/dL Discharge Plan Discharge Disposition Patient Disposition: 30 Still Patient Discharge Details Diagnosis: Drug overdose, Acute hypokalemia, Acute alteration in mental status Physicians Team ED Provider: Tiffanie Bob Rxs /Orders / Referrals /Forms Prescriptions: No Action Unable to Obtain Home Meds RF: 0 Status ED Status: Admitted Observation Patient
[2017-12-04 14:00] LABS: Baso # (Auto) 0.1 th/mm3 (0.0-0.2); Baso % (Auto) 0.7 % (0.0-2.0); Eos # (Auto) 0.2 th/mm3 (0.0-0.4); Eos % (Auto) 2.5 % (0.0-4.0); Hematocrit 38.5 % (35.0-46.0); Lymph # (Auto) 2.5 th/mm3 (1.0-4.8); Lymph % (Auto) 29.6 % (9.0-44.0); Mean Corpuscular HGB Conc 33.8 % (32.0-36.0); Mean Corpuscular Hemoglobin 30.1 pg (27.0-34.0); Mean Corpuscular Volume 89.2 fL (80.0-100.0); Mean Platelet Volume 7.4 fL (7.0-11.0); Mono # (Auto) 0.8 th/mm3 (0.0-0.9); Mono % (Auto) 9.2 % (0.0-8.0); Neut # (Auto) 4.9 th/mm3 (1.8-7.7); Platelet Count 362 th/mm3 (150-450); Red Blood Count 4.31 mil/mm3 (4.00-5.30); Red Cell Distribution Width 12.9 % (11.6-17.2); White Blood Count 8.5 th/mm3 (4.0-11.0)
[2017-12-04 14:06] LABS: Prothrombin Time 10.6 sec (9.8-11.6)
[2017-12-04 14:18] LABS: Alanine Aminotransferase 51 U/L (10-53); Albumin 3.4 g/dL (3.4-5.0); Alkaline Phosphatase 97 U/L (45-117); Anion Gap 13 meq/L (5-15); Aspartate Aminotransferase 37 U/L (15-37); Blood Urea Nitrogen 5 mg/dL (7-18); Calcium 8.3 mg/dL (8.5-10.1); Carbon Dioxide 28.3 meq/L (21.0-32.0); Chloride 103 meq/L (98-107); Glomerular Filtration Rate 64 mL/min (>89); Glucose,Random 175 mg/dL (74-106); Sodium 144 meq/L (136-145); Total Protein 7.4 g/dL (6.4-8.2)
[2017-12-04 14:36] LABS: Potassium 2.3 meq/L (3.5-5.1)
[2017-12-04 15:07] LABS: Amphetamine Screen,Urine Pos (Neg); Barbiturate Screen,Urine Neg (Neg); Cannabinoid Screen,Urine Neg (Neg); Cocaine Screen,Urine Pos (Neg)
[2017-12-04 15:14] LABS: Opiate Screen,Urine Pos (Neg)
[2017-12-04] MEDS ORDERED: Bisacodyl 10 MG Supp RECTAL PRN ×2 (15:17→17:43)
--- NOTE | 2017-12-04 15:17 | P.HPIM ---
History of Present Illness Service: [facility] Chief Complaint: Brought by EMS, possible overdose History of Present Illness: 32-year-old female brought in by EMS after she was found unresponsive. Initially had to be bagged and has EMS were replacing and IO access, the patient suddenly woke up and became combative. There is reports of multiple drug paraphernalia in the house. Multiple members of the ED staff recognized the patient is Pooja Moran as she was seen in the hospital multiple times for similar episodes of drug overdose. Patient was combative in the emergency room and was given Geodon and Ativan. By the time of my evaluation, she is sedated and is not able to contribute to any of the history. - Diagnosis (1) Acute alteration in mental status (2) Acute hypokalemia (3) Drug overdose Review of Systems unobtainable due to mental condition, unobtainable due to mental status PMFSH - History History Provided By: Patient (h/o IVDA) - Medical / Surgical Hx Neg / Unobtainable Medical Problems Denied: Unable to Obtain - Social History I have reviewed the patient's Social History: Yes - Tobacco History Smoking Status: Unknown if ever smoked - Alcohol History How Often Do You Have a Drink Containing Alcohol: 4 or more times a week - Immunization History Tetanus Immunization: Unsure Medications and Allergies Active Medications: Active Medications Potassium Chloride (Kcl 20 Meq Premix Inj) 20 meq in 100 mls @ 50 mls/hr IV.SIG Q2H PARISH Stop: 12/04/17 18:44 Allergies Allergy/AdvReac Type Severity Reaction Status Date / Time No Allergy Information Allergy Unverified 12/04/17 13:35 Available Home Medications Medication Instructions Recorded Confirmed Type Unable to Obtain Home Meds 12/04/17 12/04/17 History Exam Vital signs: Vital Signs 12/04/17 13:33 12/04/17 13:37 Temperature 98.5 F Pulse Rate 95 H Respiratory Rate 12 Blood Pressure 196/70 H Pulse Oximetry 98 98 Intake & Output 12/03/17 12/04/17 12/04/17 18:59 06:59 18:59 Weight 72.575 kg Narrative: GENERAL: Patient appears to be in her early 40s. She is sedated CARDIOVASCULAR: Normal rate and regular rhythm without murmurs, gallops, or rubs. RESPIRATORY: Breath sounds equal and clear to auscultation bilaterally. GASTROINTESTINAL: Abdomen soft, non-distended. Normal active bowel sounds MUSCULOSKELETAL: Extremities with multiple track bolanos NEURO: Sedated Results - Labs CBC & Chem 7: 12/04/17 13:41 12/04/17 13:41 Labs: Short CBC 12/04/17 Range/Units 13:41 WBC 8.5 (4.0-11.0) th/mm3 Hgb 13.0 (11.6-15.3) gm/dL Hct 38.5 (35.0-46.0) % Plt Count 362 (150-450) th/mm3 BMP 12/04/17 13:41 Sodium 144 Potassium 2.3 L* Chloride 103 Carbon Dioxide 28.3 BUN 5 L Creatinine 0.78 Calcium 8.3 L Liver Function 12/04/17 Range/Units 13:41 Total Bilirubin 0.8 (0.2-1.0) mg/dL AST 37 (15-37) U/L ALT 51 (10-53) U/L Alkaline Phosphatase 97 (45-117) U/L Albumin 3.4 (3.4-5.0) g/dL Caprini VTE Risk Assessment Caprini VTE Risk Assessment: Moderate/High Risk (score >= 2) Caprini Risk Assessment Model: Point Value = 1 Point Value = 2 Point Value = 3 Point Value = 5 Age 41-60 Minor surgery BMI > 25 kg/m2 Swollen legs Varicose veins or History of unexplained or recurrent spontaneous Oral contraceptives or hormone replacement Sepsis (< 1 month) Serious lung disease, including pneumonia (< 1 month) Abnormal pulmonary function Acute myocardial infarction Congestive heart failure (< 1 month) History of inflammatory bowel disease Medical patient at bed rest Age 61-74 Arthroscopic surgery Major open surgery (> 45 min) Laparoscopic surgery (> 45 min) Malignancy Confined to bed (> 72 hours) Immobilizing plaster cast Central venous access Age >= 75 History of VTE Family history of VTE Factor V Leiden Prothrombin 12092C Lupus anticoagulant Anticardiolipin antibodies Elevated serum homocysteine Heparin-induced thrombocytopenia Other congenital or acquired thrombophilia Stroke (< 1 month) Elective arthroplasty Hip, pelvis, or leg fracture Acute spinal cord injury (< 1 month) Prophylaxis Regimen: Total Risk Factor Score Risk Level Prophylaxis Regimen 0-1 Low Early ambulation 2 Moderate Order ONE of the following: *Sequential Compression Device (SCD) *Heparin 5000 units SQ BID 3-4 Higher Order ONE of the following medications: *Heparin 5000 units SQ TID *Enoxaparin/Lovenox 40 mg SQ daily (WT < 150 kg, CrCl > 30 mL/min) *Enoxaparin/Lovenox 30 mg SQ daily (WT < 150 kg, CrCl > 10-29 mL/min) *Enoxaparin/Lovenox 30 mg SQ BID (WT < 150 kg, CrCl > 30 mL/min) AND/OR *Sequential Compression Device (SCD) 5 or more Highest Order ONE of the following medications: *Heparin 5000 units SQ TID (Preferred with Epidurals) *Enoxaparin/Lovenox 40 mg SQ daily (WT < 150 kg, CrCl > 30 mL/min) *Enoxaparin/Lovenox 30 mg SQ daily (WT < 150 kg, CrCl > 10-29 mL/min) *Enoxaparin/Lovenox 30 mg SQ BID (WT < 150 kg, CrCl > 30 mL/min) AND *Sequential Compression Device (SCD) Assessment and Plan - Assessment (1) Acute alteration in mental status Code(s): R41.82 - Altered mental status, unspecified Status: Acute (2) Acute hypokalemia Code(s): E87.6 - Hypokalemia Status: Acute (3) Drug overdose Code(s): T50.901A - Poisoning by unspecified drugs, medicaments and biological substances, accidental (unintentional), initial encounter Status: Acute - Plan Patient presented with probable acute drug overdose. Known to the ED staff for prior presentation. Acute overdose/encephalopathy: - Continue supportive care with IV fluid. She did not respond to Narcan. Responded to painful stimuli but became very agitated and had to be sedated. - Restraints as needed. Haldol as needed. -Monitor on telemetry. Neurochecks. Acute hypokalemia: - Continue replacement. Follow-up BMP in a.m. Known polysubstance abuser: - Patient will need counseling when awake. (3) Drug overdose Qualifiers: Encounter type: initial encounter Injury intent: undetermined intent Qualified Code(s): T50.904A - Poisoning by unspecified drugs, medicaments and biological substances, undetermined, initial encounter
[2017-12-04] MEDS ORDERED: Haloperidol Inj 5 MG/ML Ampul IM PRN (15:20)
[2017-12-04] MEDS: Potassium Chlor 20 mEq Premix 20 MEQ/100 ML PIGGYBACK IV.SIG SCH ×2 (15:30→20:10)
[2017-12-04] MEDS ORDERED: KCL 20 mEq/D5W/NaCl 0.45% Inj 1,000 ML IV.CONT SCH (16:00)
[2017-12-04] MEDS ORDERED: Etomidate Inj 40 MG/20 ML Vial IV.PUSH ONE ×2 (17:24→17:31)
[2017-12-04] MEDS ORDERED: fentaNYL 10 mcg/mL Premix Drip 2,500 MCG/250 ML BAG IV.SIG PRN (17:26)
[2017-12-04] MEDS ORDERED: Propofol Inj 500 MG/50 ML Vial ONE (17:35)
--- NOTE | 2017-12-04 17:43 | P.PCN ---
Date of procedure: 12/04/17 Pre-op diagnosis: Acute respiratory failure Post-op diagnosis: same Procedure: DATE: 12/04/2017 PROCEDURE: Orotracheal intubation INDICATION: Acute respiratory failure DETAILS OF PROCEDURE The patient was placed in optimal position and preoxygenated with 100% FiO2 via bag valve mask. At the start oxygen saturation was 100%. The patient was administered 20 mg etomidate IV and 50 milligrams rocuronium IV. I entered the oropharynx with a size 4 laryngoscope blade and obtained a grade 2 view of the airway. On single attempt a size 8.0 cuffed endotracheal tube was passed through the vocal cords. Correct tube location was confirmed with end tidal CO2 detector and by auscultating over bilateral lung treviño. The endotracheal tube was secured with adhesive tape at a depth of 23 cm at the lips. The patient was connected to the ventilator. The patient tolerated the procedure well without any apparent complications. Oxygen saturations were maintained greater than 95% all times. STAT chest x-ray pending at time of dictation.
[2017-12-04] MEDS ORDERED: Sod Chloride 0.9% Inj 1,000 ML IV.CONT SCH (17:45)
[2017-12-04] MEDS ORDERED: Dextrose 50% in Water 50 ML Vial IV.PUSH PRN (17:45)
[2017-12-04] MEDS ORDERED: Magnesium Oxide 400 MG Tablet PO PRN (17:46)
[2017-12-04] MEDS ORDERED: Magnesium Sulfate Inj 2 GM in Sodium Chlor 0.9% Inj 96 ML IV.SIG PRN (17:46)
[2017-12-04] MEDS ORDERED: Potassium Chloride 25 MEQ Effervescent Tablet PO ONE (17:46)
[2017-12-04] MEDS ORDERED: Potassium Phosphate 500 MG Soluble Tablet PO PRN ×2 (17:46)
[2017-12-04] MEDS ORDERED: Potassium Chloride 25 MEQ Effervescent Tablet PO PRN (17:46)
[2017-12-04] MEDS ORDERED: Potassium Chlor 40 mEq Premix 40 MEQ/100 ML PIGGYBACK IV.SIG PRN ×2 (17:46)
[2017-12-04] MEDS ORDERED: Sodium Phosphate Inj 30 MMOL in Sodium Chlor 0.9% Inj 250 ML IV.SIG PRN (17:46)
[2017-12-04] MEDS ORDERED: Magnesium Sulfate Inj 4 GM in Sodium Chlor 0.9% Inj 92 ML IV.SIG PRN (17:46)
[2017-12-04] MEDS ORDERED: Potassium Phosphate Inj 30 MMOL in Sodium Chlor 0.9% Inj 250 ML IV.SIG PRN (17:46)
[2017-12-04] MEDS ORDERED: Potassium Chlor 20 mEq Premix 20 MEQ/100 ML PIGGYBACK IV.SIG PRN ×2 (17:46)
--- NOTE | 2017-12-04 18:02 | P.CONCC ---
History of Present Illness Service: Critical care medicine Consult date: 12/04/17 Requesting Physician: Annalee Jiang Reason for Consult: Acute respiratory failure Primary Care Provider: UNKNOWN Family Provider: Unknown Chief Complaint: Brought by EMS, possible overdose History of Present Illness: This is a 32-year-old female. Really Ms. Vicky Moran. Date of admission 12/04/2017. Past medical history includes hepatitis C, IV drug use with recent admission for overdose on MDMA, Flakka and methamphetamines, bipolar , schizophrenia and strep radians UTI. She also has history of endocarditis. Last echocardiogram 11/21/2017 revealed no valvular findings. She presents to [facility] today a Mariel Lynch after being found unresponsive. An IO was placed and she became combative according to records. There is multiple drug paraphernalia in the house. Report is her name is Pooja Moran and she was recently seen here before for something similar. On examination, patient is quite unresponsive. Track bolanos right upper extremity. Urine toxicology screen positive for cocaine, amphetamines and opiates. She has received 10 mg IM ziprasidone 0.5 mg of lorazepam due to agitation Rapid response team was called due to patient being found unresponsive in her room agonal breathing. She was transported to room 508 in [facility] after 10 minute journey from the [facility] to the [facility]. She is intubated using 20 mg etomidate and 50 mg rocuronium. She has history of tubal ligation. Blood sugar is 84. Review of Systems unobtainable due to endotracheal tube PMFSH - History History Provided By: Patient (h/o IVDA) - Medical / Surgical Hx Neg / Unobtainable Medical Problems Denied: Unable to Obtain - Medical History Medical History: Medical History (Last Updated 12/04/17 @ 17:59 by Wing Calero MD) Bipolar 1 disorder Hepatitis C IV drug user - Surgical History Surgical History: Surgical History (Last Updated 12/04/17 @ 17:59 by Wing Calero MD) H/O tubal ligation - Family History Family History: Family History (Last Updated 12/04/17 @ 18:01 by Wing Calero MD) Mother Family history of diabetes mellitus - Social History I have reviewed the patient's Social History: Yes - Tobacco History Smoking Status: Unknown if ever smoked - Alcohol History How Often Do You Have a Drink Containing Alcohol: 4 or more times a week - Immunization History Tetanus Immunization: Unsure Medications and Allergies Active Medications: Active Medications Acetaminophen (Tylenol) 650 mg PO Q6H PRN PRN Reason: PAIN 1-10 AND/OR FEVER >101F Al Hydroxide/Mg Hydroxide (Milk Of Magnesia Liq) 30 ml PO Q12H PRN PRN Reason: Mild Constipation Al Hydroxide/Mg Hydroxide (Milk Of Magnesia Liq) 30 ml PO Q12H PRN PRN Reason: Mild Constipation Albuterol (Albuterol Neb (Prn)) 2.5 mg NEB Q2HR NEB PRN PRN Reason: SHORTNESS OF BREATH/WHEEZING Albuterol (Duoneb Neb (Emili)) 1 ampul NEB Q4HR NEB EMILI Artificial Tears (Refresh Tears 0.5% Opth Drops) 1 drop EACH EYE BID EMILI Bisacodyl (Dulcolax Supp) 10 mg RECTAL DAILY PRN PRN Reason: SEVERE CONSITIPATION Bisacodyl (Dulcolax Supp) 10 mg RECTAL DAILY PRN PRN Reason: SEVERE CONSITIPATION Chlorhexidine Gluconate (Peridex 0.12% Oral Kit) 15 ml OROPHARYNG BID@0800, 2000 [facility] Chlorhexidine Gluconate (Chlorhexidine 2% Cloth) 3 pack TOPICAL DAILY@0400 EMILI Stop: 12/10/17 03:59 Chlorhexidine Gluconate (Chlorhexidine 2% Cloth) 3 pack TOPICAL DAILY@0400 PRN PRN Reason: Extra cloth needed Stop: 12/10/17 03:59 Dextrose (D50w Vial) 50 ml IV.PUSH UNSCH PRN PRN Reason: PER HYPOGLYCEMIA PROTOCOL Famotidine (Pepcid Pf Inj) 20 mg IV.PUSH Q12HR EMILI Glucagon (Glucagon Inj) 1 mg OTHER PRN PRN PRN Reason: for Hypoglycemia Protocol Haloperidol Lactate (Haldol Inj) 2 mg IM Q6H PRN PRN Reason: SEVERE AGITATION Potassium Chloride (Kcl 20 Meq Premix Inj) 20 meq in 100 mls @ 50 mls/hr IV.SIG Q2H EMILI Stop: 12/04/17 18:44 Last Infusion: 12/04/17 17:48 Dose: Infused Fentanyl (Fentanyl 10 Mcg/Ml Premix Drip) 2,500 mcg in 250 mls @ 5 mls/hr IV.SIG TITRATE PRN; Protocol PRN Reason: Per Protocol Propofol (Diprivan 1000 Mg/100 Ml Inj) 1,000 mg in 100 mls @ 2.177 mls/hr IV.CONT TITRATE PRN; Protocol PRN Reason: Per Protocol Magnesium Sulfate 4 gm/ Sodium (Chloride) 100 mls @ 50 mls/hr IV.SIG UNSCH PRN PRN Reason: For Magnesium 0.9 - 1.1 mg/dL Magnesium Sulfate 2 gm/ Sodium (Chloride) 100 mls @ 50 mls/hr IV.SIG UNSCH PRN PRN Reason: For Magnesium 1.2 - 1.6 mg/dL Potassium Chloride (Kcl 40 Meq Premix Inj) 40 meq in 100 mls @ 25 mls/hr IV.SIG Q2H PRN PRN Reason: For Potassium 2.8 - 3.2 mEq/L Potassium Chloride (Kcl 20 Meq Premix Inj) 20 meq in 100 mls @ 50 mls/hr IV.SIG Q2H PRN PRN Reason: For Potassium 3.3 - 3.5 mEq/L Potassium Chloride (Kcl 40 Meq Premix Inj) 40 meq in 100 mls @ 25 mls/hr IV.SIG UNSCH PRN PRN Reason: For Potassium 3.3 - 3.5 mEq/L Potassium Chloride (Kcl 20 Meq Premix Inj) 20 meq in 100 mls @ 50 mls/hr IV.SIG Q2H PRN PRN Reason: For Potassium 2.8 - 3.2 mEq/L Potassium Phosphate 30 mmol/ (Sodium Chloride) 260 mls @ 42 mls/hr IV.SIG UNSCH PRN PRN Reason: SEE LABEL COMMENTS Sodium Phosphate 30 mmol/ (Sodium Chloride) 260 mls @ 42 mls/hr IV.SIG UNSCH PRN PRN Reason: For Phosphorus < 2.5 mg/dL Potassium Chloride (Kcl 10 Meq Premix Inj) 10 meq in 100 mls @ 100 mls/hr IV.SIG Q1H EMILI Stop: 12/04/17 20:46 Sodium Chloride (Ns Inj) 1,000 mls @ 0 mls/hr IV.SIG BOLUS ONE Stop: 12/04/17 17:51 Potassium Cl/Dextrose/Lact Ringer's (D5w/Lr + Kcl 20 Meq Inj) 1,000 mls @ 84 mls/hr IV.CONT .[id number] EMILI Insulin Aspart (Novolog Insulin Correctional Sugar Inj) 0 unit SQ Q6HR EMILI; Protocol Lactulose (Lactulose Liq) 30 ml PO DAILY PRN PRN Reason: SEVERE CONSITIPATION Lactulose (Lactulose Liq) 30 ml PO DAILY PRN PRN Reason: SEVERE CONSITIPATION Magnesium Oxide (Mag-Ox) 800 mg PO UNSCH PRN PRN Reason: For Magnesium 1.2 - 1.6 mg/dL Miscellaneous Medication () 1 each OROPHARYNG 0000,0400,1200,1600 EMILI Potassium Bicarb/Potassium Chloride (K-Lyte Cl Eff) 50 meq PO UNSCH PRN PRN Reason: For Potassium 3.3 - 3.5 mEq/L Potassium Bicarb/Potassium Chloride (K-Lyte Cl Eff) 50 meq PO ONCE ONE Stop: 12/04/17 17:47 Potassium Phosphate (K-Phos Original) 2,000 mg PO UNSCH PRN PRN Reason: SEE LABEL COMMENTS Potassium Phosphate (K-Phos Original) 2,000 mg PO Q4H PRN PRN Reason: Phosphorus Less Than 2.5 mg/dL Rocuronium [place] (Zemuron Inj) 100 mg IV.PUSH BOLUS ONE Stop: 12/04/17 17:25 Senna/Docusate Sodium (Dennise-Colace) 1 tab PO BID EMILI Sennosides (Senokot) 17.2 mg PO Q12H PRN PRN Reason: Moderate Constipation Sennosides (Senokot) 17.2 mg PO Q12H PRN PRN Reason: Moderate Constipation Sodium Chloride (Ns Flush) 2 ml IV.FLUSH BID EMILI Sodium Chloride (Ns Flush) 2 ml IV.FLUSH PRN PRN PRN Reason: FLUSH AFTER USING IV ACCESS Allergies Allergy/AdvReac Type Severity Reaction Status Date / Time No Allergy Information Allergy Unverified 12/04/17 13:35 Available Home Medications Medication Instructions Recorded Confirmed Type Unable to Obtain Home Meds 12/04/17 12/04/17 History Physical Exam Vital signs: Vital Signs 12/04/17 13:33 12/04/17 13:37 12/04/17 15:32 Temperature 98.5 F Pulse Rate 95 H 83 Respiratory Rate 12 14 Blood Pressure 196/70 H 118/56 L Pulse Oximetry 98 98 99 12/04/17 16:30 12/04/17 16:56 Temperature Pulse Rate 113 H Respiratory Rate 14 16 Blood Pressure 130/56 L Pulse Oximetry 96 Intake & Output 12/03/17 12/04/17 12/04/17 18:59 06:59 18:59 Intake Total 1100 / 1100 Balance 1100 / 1100 Weight 72.575 kg Intake: IV 1100 / 1100 KCl 20 mEq Premix Inj 20 meq In 100 / 100 100 ml @ 50 mls/hr IV.SIG Q2H EMILI Rx#:[id number] NS Inj 1,000 ML @ Wide Open IV. 1000 / 1000 SIG BOLUS ONE Rx#:[id number] - Constitutional mild distress, chronically ill appearing - Routine HEENT Exam Head: Present: normocephalic, atraumatic Eye: Present: EOMI, PERRL ENT: Present: mucous membranes moist, nares patent - Routine Neck Exam Present: supple, full ROM. Absent: carotid bruit - Routine Respiratory Exam Present: CTA bilaterally - Routine Cardiovascular Exam Present: RRR, S1, S2. Absent: murmur - Routine Abdominal Exam Present: soft, normoactive bowel sounds - Routine Exam Patient deferred: external exam, groin exam, perineal exam - Routine Extremities Exam Absent: cyanosis, clubbing, edema - Routine Skin Exam Present: intact, scars, wounds - Routine Neurological Exam Present: CN II-XII intact. Absent: alert, oriented X3 - Detailed Neurological Exam: Coma Scale Eye Opening: None Verbal Response: None Motor Response: Localizing [place] Coma Scale Total: 7 - Routine Psychiatric Exam Present: unable to assess Septic Shock Reassessment Septic shock perfusion: reassessment completed Assessment and Plan - Assessment and Plan Plan: Neuro/Psych: Acute toxic metabolic encephalopathy secondary polysubstance overdose Bipolar disorder Schizophrenia History of IV drug use Urine toxicology screen positive for opiates, amphetamines and cocaine History of MDMA, Flakka, methamphetamine abuse Currently on propofol/fentanyl drips for sedation/analgesia while intubated Goal of RA SS -2 Daily sedation vacation Acetaminophen 650 mg by tube every 6 hours as needed fever CT brain if beta hCG negative. CV: History of endocarditis Currently on LR with 20 mill cons of KCl at 84 cc an hour Not requiring vasopressors and/or antihypertensives Last echocardiogram 11/28 revealed Resp: Acute respiratory failure History of septic pulmonary emboli PRVC 16/500/1/5/100 Ventilator bundle Albuterol/ipratropium aerosols every 4 hours with albuterol aerosols every 2 hours as needed dyspnea Spontaneous breathing trials when clinically indicated Follow postintubation ABG and chest x-ray GI: History of hepatitis C NGT to [facility] Famotidine for GI prophylaxis Docusate sodium/senna 1 tablet twice daily for bowel regimen : Straight cath as needed Endo: Sliding scale insulin with Accu-Cheks to maintain euglycemia/every 6 hours aspart insulin medium regimen Check TSH Renal: Creatinine currently within normal limits Monitor urine output Accurate I's and O's Heme: CBC currently within normal limits Monitor in a.m. with coag ID: UA/blood cultures 2 pending Recently with strep viridians UTI treated 11/28 MSK: PT evaluate and treat FEN: Hypokalemia Receiving 50 mEq KCl with 30 mEq IV 1 now. Recheck potassium at 2200 hrs. Replace per ICU electrolyte protocol Access - utilize peripheral IV. Central line if indicated Prophylaxis -GI-famotidine -DVT-SCDs/holding pharmacological prophylaxis pending beta hCG Critical care time 35 minutes consultation
[2017-12-04] MEDS: Insulin NovoLOG Aspart Correctional Sugar Inj SQ SCH (18:56)
[2017-12-04 19:07] LABS: ABG Base Excess 2.1 mmol/L (-2-2); ABG PCO2 45 mmHg (38-42); ABG PO2 95 mmHG (61-120)
--- NOTE | 2017-12-04 19:20 | XR ---
EXAM DATE: 12/04/2017 6:36 PM EDT AGE/SEX: 89 years / Female INDICATIONS: Post intubation. CLINICAL DATA: This is the patient's initial encounter. Patient reports that signs and symptoms have been present for 1 day and indicates a pain score of Nonresponsive. MEDICAL/SURGICAL HISTORY: None. None. COMPARISON: No prior exams available for comparison. FINDINGS: Endotracheal tube tip is 1.5 cm above the nehemiah. Gastric tube tip and side-port project within the s tomach. There is opacity in the right lower lung which may be indicative of volume loss. The left chucky g is clear. The heart is normal size. No evidence of pneumothorax. CONCLUSION: 1. ET tube tip 1.5 cm above the nehemiah and needs to be withdrawn 1 cm. 2. Partially consolidative opacity in the right lower lung. Electronically signed by: Dedrick Higuera MD 12/04/2017 7:18 PM EDT
[2017-12-04] MEDS: KCL 20 mEq/D5W/LR Inj 1,000 ML IV.CONT SCH (20:10)
[2017-12-04 21:20] LABS: Bilirubin,Urine Negative (Negative); Clarity,Urine Clear (Clear); Color,Urine Straw (Yellw/Straw); Glucose,Urine (UA) Negative (Negative); Leukocyte Esterase,Urine Negative (Negative); Mucus,Urine Few /lpf (Occasional); Nitrite,Urine Negative (Negative); Specific Gravity,Urine 1.008 (1.002-1.035)
[2017-12-04] MEDS: Propofol 1000 mg/100 ml Inj 1,000 MG/100 ML BOTTLE IV.CONT PRN (22:00)
[2017-12-04] MEDS: Senna/Docusate Sodium 8.6/50 MG Tablet PO SCH (22:01)
[2017-12-04] MEDS: Famotidine PF Inj 20 MG/2 ML Vial IV.PUSH SCH (22:01)
[2017-12-04] MEDS: Chlorhexidine 0.12% Oral Kit 15 ML UDC OROPHARYNG SCH (22:02)
[2017-12-04] MEDS: Carboxymethylcellulose 0.5% Opth Drops 15 ML Bottle EACH EYE SCH (22:02)
[2017-12-04] MEDS: Potassium Chlor 10 mEq Premix 10 MEQ/100 ML PIGGYBACK IV.SIG SCH ×2 (22:02→23:16)
[2017-12-04 22:46] LABS: Potassium 3.1 meq/L (3.5-5.1)
[2017-12-05] MEDS: Potassium Chlor 10 mEq Premix 10 MEQ/100 ML PIGGYBACK IV.SIG SCH ×2 (00:13)
[2017-12-05] MEDS: Oral Hygiene Kit OROPHARYNG SCH ×4 (00:14→15:13)
[2017-12-05] MEDS: Insulin NovoLOG Aspart Correctional Sugar Inj SQ SCH ×4 (00:17→17:46)
[2017-12-05] MEDS ORDERED: Chlorhexidine Gluconate 2% 1 Pack (2 Cloths) TOPICAL PRN (04:00)
[2017-12-05 05:06] LABS: Baso % (Auto) 0.3 % (0.0-2.0); Eos # (Auto) 0.2 th/mm3 (0.0-0.4); Eos % (Auto) 1.8 % (0.0-4.0); Hematocrit 40.8 % (35.0-46.0); Hemoglobin 13.1 gm/dL (11.6-15.3); Lymph # (Auto) 1.1 th/mm3 (1.0-4.8); Lymph % (Auto) 7.7 % (9.0-44.0); Mean Corpuscular HGB Conc 32.1 % (32.0-36.0); Mean Corpuscular Hemoglobin 29.2 pg (27.0-34.0); Mean Platelet Volume 7.5 fL (7.0-11.0); Mono # (Auto) 0.9 th/mm3 (0.0-0.9); Mono % (Auto) 6.9 % (0.0-8.0); Neut # (Auto) 11.3 th/mm3 (1.8-7.7); Neut % (Auto) 83.3 % (16.0-70.0); Platelet Count 326 th/mm3 (150-450); Red Blood Count 4.48 mil/mm3 (4.00-5.30); Red Cell Distribution Width 13.4 % (11.6-17.2); White Blood Count 13.6 th/mm3 (4.0-11.0)
[2017-12-05] MEDS: Propofol 1000 mg/100 ml Inj 1,000 MG/100 ML BOTTLE IV.CONT PRN (05:11)
[2017-12-05] MEDS: Acetaminophen 325 MG Tablet PO PRN (05:11)
[2017-12-05] MEDS: Chlorhexidine Gluconate 2% 1 Pack (2 Cloths) TOPICAL SCH (05:12)
[2017-12-05 05:13] LABS: Prothrombin Time 10.5 sec (9.8-11.6)
[2017-12-05 05:23] LABS: Albumin 3.1 g/dL (3.4-5.0); Carbon Dioxide 30.4 meq/L (21.0-32.0); Magnesium 2.1 mg/dL (1.5-2.5); Potassium 3.3 meq/L (3.5-5.1)
[2017-12-05 05:27] LABS: Phosphorus 2.1 mg/dL (2.5-4.9); Total Protein 6.7 g/dL (6.4-8.2)
[2017-12-05] MEDS: KCL 20 mEq/D5W/LR Inj 1,000 ML IV.CONT SCH ×3 (06:47→21:12)
[2017-12-05] MEDS ORDERED: Dexmedetomidine Inj 200 MCG in Sodium Chlor 0.9% Inj 48 ML IV.CONT PRN (08:03)
[2017-12-05] MEDS: Chlorhexidine 0.12% Oral Kit 15 ML UDC OROPHARYNG SCH ×2 (08:06→21:11)
[2017-12-05] MEDS: Senna/Docusate Sodium 8.6/50 MG Tablet PO SCH ×2 (08:07→21:12)
[2017-12-05] MEDS: Famotidine PF Inj 20 MG/2 ML Vial IV.PUSH SCH ×2 (08:07→21:11)
[2017-12-05] MEDS: Carboxymethylcellulose 0.5% Opth Drops 15 ML Bottle EACH EYE SCH ×2 (08:07→21:12)
[2017-12-05] MEDS ORDERED: Dexmedetomidine Inj 1,000 MCG in Sodium Chlor 0.9% Inj 240 ML IV.CONT PRN (08:30)
--- NOTE | 2017-12-05 08:47 | P.PNCC ---
Subjective Subjective Remarks/Hospital Course: This is a 32-year-old female. Really . Pooja Moran. Date of admission 12/04/2017. Past medical history includes hepatitis C, IV drug use with recent admission for overdose on MDMA, Flakka and methamphetamines, bipolar , schizophrenia and strep radians UTI. She also has history of endocarditis. Last echocardiogram 11/21/2017 revealed no valvular findings. She presents to [facility] today a Mariel Lynch after being found unresponsive. An IO was placed and she became combative according to records. There is multiple drug paraphernalia in the house. Report is her name is Pooja Moran and she was recently seen here before for something similar. On examination, patient is quite unresponsive. Track bolanos right upper extremity. Urine toxicology screen positive for cocaine, amphetamines and opiates. She has received 10 mg IM ziprasidone 0.5 mg of lorazepam due to agitation Rapid response team was called due to patient being found unresponsive in her room agonal breathing. She was transported to room 508 in [facility] [place] 10 [facility] journey [facility] the [facility] to the [facility]. She is intubated using 20 mg etomidate and 50 mg rocuronium. She has history of tubal ligation. Blood sugar is 84. SUBJ 12/05: Remains intubated sedated, becomes agitated with semi-purposeful movements on weaning sedation. Not following commands. WBC count slightly elevated, at 13.6 now. Blood cultures pending Objective Vital Signs / I&O: Vital Signs 12/04/17 13:33 12/04/17 13:37 12/04/17 15:32 Temperature 98.5 F Pulse Rate 95 H 83 Respiratory Rate 12 14 Blood Pressure 196/70 H 118/56 L Pulse Oximetry 98 98 99 12/04/17 16:30 12/04/17 16:56 12/04/17 17:10 Temperature Pulse Rate 113 H 75 Respiratory Rate 14 16 12 Blood Pressure 130/56 L 89/54 L Pulse Oximetry 96 96 12/04/17 18:18 12/04/17 18:20 12/04/17 18:22 Temperature 93.4 F L Pulse Rate 52 L 51 L 51 L Respiratory Rate 16 16 16 Blood Pressure 124/81 130/83 134/85 Pulse Oximetry 100 100 100 12/04/17 18:25 12/04/17 18:28 12/04/17 18:30 Temperature Pulse Rate 50 L 48 L 50 L Respiratory Rate 16 16 16 Blood Pressure 134/84 139/86 137/85 Pulse Oximetry 100 100 100 12/04/17 18:33 12/04/17 18:35 12/04/17 18:38 Temperature Pulse Rate 51 L 51 L 51 L Respiratory Rate 16 16 16 Blood Pressure 134/80 129/76 138/83 Pulse Oximetry 100 100 100 12/04/17 18:40 12/04/17 18:43 12/04/17 18:45 Temperature Pulse Rate 50 L 51 L 52 L Respiratory Rate 16 16 16 Blood Pressure 139/83 137/79 136/83 Pulse Oximetry 100 100 100 12/04/17 18:48 12/04/17 18:53 12/04/17 18:55 Temperature Pulse Rate 51 L 51 L 51 L Respiratory Rate 16 16 16 Blood Pressure 132/83 139/83 136/86 Pulse Oximetry 100 100 100 12/04/17 18:58 12/04/17 19:00 12/04/17 19:03 Temperature Pulse Rate 52 L 51 L 53 L Respiratory Rate 16 16 16 Blood Pressure 138/88 138/86 141/90 H Pulse Oximetry 100 100 100 12/04/17 19:05 12/04/17 19:08 12/04/17 19:10 Temperature Pulse Rate 53 L 52 L 55 L Respiratory Rate 16 16 16 Blood Pressure 143/94 H 137/89 141/90 H Pulse Oximetry 100 100 100 12/04/17 19:13 12/04/17 19:15 12/04/17 19:18 Temperature Pulse Rate 57 L 55 L 58 L Respiratory Rate 16 16 16 Blood Pressure 142/94 H 149/95 H 144/94 H Pulse Oximetry 100 100 100 12/04/17 19:20 12/04/17 20:00 12/04/17 20:03 Temperature 95.9 F L Pulse Rate 52 L 82 64 Respiratory Rate 16 16 18 Blood Pressure 145/93 H 130/80 130/78 Pulse Oximetry 100 100 100 12/04/17 20:05 12/04/17 20:08 12/04/17 20:10 Temperature Pulse Rate 62 62 63 Respiratory Rate 18 19 17 Blood Pressure 129/84 133/82 126/84 Pulse Oximetry 100 100 100 12/04/17 20:12 12/04/17 20:15 12/04/17 20:18 Temperature Pulse Rate 63 69 70 Respiratory Rate 16 17 18 Blood Pressure 132/88 136/90 134/81 Pulse Oximetry 100 100 100 12/04/17 20:20 12/04/17 20:23 12/04/17 20:25 Temperature Pulse Rate 71 68 71 Respiratory Rate 18 16 19 Blood Pressure 140/87 133/89 132/90 Pulse Oximetry 100 100 100 12/04/17 20:28 12/04/17 20:30 12/04/17 20:33 Temperature Pulse Rate 63 62 68 Respiratory Rate 18 18 17 Blood Pressure 141/98 H 147/81 H 136/79 Pulse Oximetry 100 100 100 12/04/17 20:35 12/04/17 20:38 12/04/17 20:40 Temperature 95.9 F L 96.1 F L Pulse Rate 68 65 71 Respiratory Rate 18 18 18 Blood Pressure 135/79 130/79 147/83 H Pulse Oximetry 100 100 100 12/04/17 20:42 12/04/17 20:45 12/04/17 20:47 Temperature 96.1 F L 96.3 F L 96.3 F L Pulse Rate 64 69 69 Respiratory Rate 16 16 16 Blood Pressure 134/80 126/78 124/77 Pulse Oximetry 100 100 100 12/04/17 20:50 12/04/17 20:52 12/04/17 20:55 Temperature 96.4 F L 96.4 F L 96.4 F L Pulse Rate 69 70 69 Respiratory Rate 16 16 16 Blood Pressure 121/76 120/78 120/77 Pulse Oximetry 100 100 100 12/04/17 20:57 12/04/17 21:00 12/04/17 21:47 Temperature 96.4 F L 96.6 F L 97.2 F L Pulse Rate 68 70 77 Respiratory Rate 16 16 16 Blood Pressure 124/78 122/78 111/71 Pulse Oximetry 100 100 100 12/04/17 21:50 12/04/17 21:52 12/04/17 21:55 Temperature 97.2 F L 97.3 F L 97.3 F L Pulse Rate 78 78 79 Respiratory Rate 16 16 16 Blood Pressure 111/70 113/69 114/70 Pulse Oximetry 100 100 100 12/04/17 21:57 12/04/17 22:00 12/04/17 22:02 Temperature 97.3 F L 97.3 F L 97.3 F L Pulse Rate 79 80 80 Respiratory Rate 16 16 16 Blood Pressure 112/67 112/71 114/69 Pulse Oximetry 100 100 91 L 12/04/17 22:05 12/04/17 22:07 12/04/17 22:10 Temperature 97.5 F L 97.5 F L 97.5 F L Pulse Rate 80 80 83 Respiratory Rate 16 16 16 Blood Pressure 114/71 114/71 122/73 Pulse Oximetry 100 100 100 12/04/17 22:12 12/04/17 22:15 12/04/17 22:17 Temperature 97.5 F L 97.7 F 97.7 F Pulse Rate 79 80 80 Respiratory Rate 16 16 16 Blood Pressure 129/81 135/84 131/84 Pulse Oximetry 100 100 100 12/04/17 22:20 12/04/17 22:22 12/04/17 22:25 Temperature 97.7 F 97.7 F 97.9 F Pulse Rate 83 83 83 Respiratory Rate 16 16 16 Blood Pressure 125/77 122/75 122/76 Pulse Oximetry 100 100 100 12/04/17 22:27 12/04/17 22:30 12/04/17 22:32 Temperature 97.9 F 97.9 F 97.9 F Pulse Rate 83 82 83 Respiratory Rate 16 16 16 Blood Pressure 117/72 121/73 121/74 Pulse Oximetry 100 100 100 12/04/17 22:35 12/04/17 22:37 12/04/17 22:40 Temperature 98.1 F 98.1 F 98.1 F Pulse Rate 84 84 82 Respiratory Rate 16 16 16 Blood Pressure 118/74 118/75 121/73 Pulse Oximetry 100 100 100 12/04/17 22:42 12/04/17 22:45 12/04/17 22:47 Temperature 98.1 F 98.1 F 98.2 F Pulse Rate 82 83 83 Respiratory Rate 16 16 16 Blood Pressure 114/74 115/71 112/69 Pulse Oximetry 100 100 100 12/04/17 22:50 12/04/17 22:52 12/04/17 22:55 Temperature 98.2 F 98.2 F 98.2 F Pulse Rate 83 83 83 Respiratory Rate 16 16 16 Blood Pressure 111/67 113/68 110/66 Pulse Oximetry 100 100 100 12/04/17 22:57 12/04/17 23:00 12/04/17 23:27 Temperature 98.2 F 98.4 F 98.8 F Pulse Rate 84 84 88 Respiratory Rate 16 16 16 Blood Pressure 110/65 113/65 112/67 Pulse Oximetry 100 100 100 12/04/17 23:30 12/04/17 23:32 12/04/17 23:35 Temperature 98.8 F 98.8 F 98.8 F Pulse Rate 90 91 H 90 Respiratory Rate 16 16 16 Blood Pressure 114/68 113/67 115/68 Pulse Oximetry 100 100 100 12/04/17 23:37 12/04/17 23:40 12/04/17 23:42 Temperature 98.8 F 98.8 F 99.0 F Pulse Rate 91 H 91 H 91 H Respiratory Rate 16 16 16 Blood Pressure 116/69 119/70 116/71 Pulse Oximetry 100 100 100 12/04/17 23:45 12/04/17 23:47 12/04/17 23:50 Temperature 99.0 F 99.0 F 99.0 F Pulse Rate 92 H 91 H 92 H Respiratory Rate 16 16 16 Blood Pressure 118/71 120/72 121/73 Pulse Oximetry 100 100 100 12/04/17 23:52 12/04/17 23:55 12/04/17 23:57 Temperature 99.0 F 99.1 F 99.1 F Pulse Rate 92 H 92 H 92 H Respiratory Rate 16 16 16 Blood Pressure 120/71 129/71 119/72 Pulse Oximetry 100 100 100 12/05/17 00:00 12/05/17 00:02 12/05/17 00:05 Temperature 99.1 F 99.1 F 99.1 F Pulse Rate 82 92 H 92 H Respiratory Rate 16 16 16 Blood Pressure 135/68 129/71 124/72 Pulse Oximetry 100 100 100 12/05/17 00:07 12/05/17 00:10 12/05/17 00:12 Temperature 99.3 F 99.3 F 99.3 F Pulse Rate 92 H 87 91 H Respiratory Rate 16 16 16 Blood Pressure 125/70 127/72 120/68 Pulse Oximetry 100 100 100 12/05/17 00:15 12/05/17 00:17 12/05/17 00:20 Temperature 99.3 F 99.5 F 99.5 F Pulse Rate 90 91 H 91 H Respiratory Rate 16 16 16 Blood Pressure 121/69 117/65 121/66 Pulse Oximetry 100 100 100 12/05/17 00:22 12/05/17 00:25 12/05/17 00:27 Temperature 99.5 F 99.5 F 99.7 F H Pulse Rate 92 H 92 H 92 H Respiratory Rate 16 16 16 Blood Pressure 122/66 116/65 122/65 Pulse Oximetry 100 100 100 12/05/17 00:37 12/05/17 00:40 12/05/17 00:42 Temperature 99.9 F H 99.9 F H 99.9 F H Pulse Rate 90 90 90 Respiratory Rate 16 16 16 Blood Pressure 126/71 128/75 Pulse Oximetry 100 100 100 12/05/17 00:45 12/05/17 00:47 12/05/17 00:50 Temperature 100.0 F H 100.0 F H 100.0 F H Pulse Rate 90 90 90 Respiratory Rate 16 16 16 Blood Pressure 125/72 132/75 130/74 Pulse Oximetry 100 100 100 12/05/17 00:52 12/05/17 00:55 12/05/17 00:57 Temperature 100.0 F H 100.0 F H 100.2 F H Pulse Rate 90 87 88 Respiratory Rate 16 18 16 Blood Pressure 128/73 125/65 133/77 Pulse Oximetry 100 100 100 12/05/17 01:00 12/05/17 01:03 12/05/17 01:05 Temperature 100.2 F H 100.2 F H 100.2 F H Pulse Rate 88 90 91 H Respiratory Rate 16 16 16 Blood Pressure 133/77 135/82 135/75 Pulse Oximetry 100 100 100 12/05/17 01:07 12/05/17 01:10 12/05/17 01:12 Temperature 100.2 F H 100.2 F H 100.4 F H Pulse Rate 90 91 H 91 H Respiratory Rate 16 16 16 Blood Pressure 138/77 139/80 146/83 H Pulse Oximetry 100 100 100 12/05/17 01:15 12/05/17 01:17 12/05/17 01:20 Temperature 100.4 F H 100.4 F H 100.4 F H Pulse Rate 91 H 91 H 87 Respiratory Rate 16 18 16 Blood Pressure 140/78 141/76 H 147/82 H Pulse Oximetry 100 100 100 12/05/17 01:22 12/05/17 01:25 12/05/17 01:27 Temperature 100.6 F H 100.6 F H 100.6 F H Pulse Rate 90 91 H 91 H Respiratory Rate 16 16 16 Blood Pressure 143/82 H 147/84 H 149/87 H Pulse Oximetry 100 100 100 12/05/17 01:30 12/05/17 01:32 12/05/17 01:35 Temperature 100.6 F H 100.6 F H 100.6 F H Pulse Rate 89 90 89 Respiratory Rate 16 17 31 H Blood Pressure 146/85 H 155/87 H 159/89 H Pulse Oximetry 100 100 100 12/05/17 01:52 12/05/17 02:00 12/05/17 03:00 Temperature 100.9 F H 100.8 F H 100.6 F H Pulse Rate 90 91 H 83 Respiratory Rate 18 18 16 Blood Pressure 135/68 Pulse Oximetry 100 100 100 12/05/17 04:00 12/05/17 04:50 12/05/17 05:00 Temperature 100.8 F H 101.1 F H Pulse Rate 81 84 82 Respiratory Rate 18 16 16 Blood Pressure 135/68 Pulse Oximetry 100 100 100 12/05/17 06:00 12/05/17 08:20 12/05/17 08:22 Temperature 100.6 F H Pulse Rate 78 69 Respiratory Rate 16 14 14 Blood Pressure Pulse Oximetry 100 100 Intake & Output 12/04/17 12/05/17 12/05/17 18:59 06:59 18:59 Intake Total 1100 / 1100 1560 / 1560 Output Total 0 / 0 2099 / 2099 Balance 1100 / 1100 -540 / -540 Weight 72.575 kg 78 kg Intake: IV 1100 / 1100 1500 / 1500 Diprivan 1000 mg/100 ml Inj 1, 100 / 100 000 mg In 100 ml @ 5 MCG/KG/MIN 2.177 mls/hr IV.CONT TITRATE PRN Rx#:[id number] KCl 10 mEq Premix Inj 10 meq In 300 / 300 100 ml @ 100 mls/hr IV.SIG Q1H PARISH Rx#:[id number] KCl 20 mEq Premix Inj 20 meq In 100 / 100 100 / 100 100 ml @ 50 mls/hr IV.SIG Q2H PARISH Rx#:[id number] NS Inj 1,000 ML @ Wide Open IV. 1000 / 1000 1000 / 1000 SIG BOLUS ONE Rx#:[id number] Tube Irrigant 60 / 60 Output: Urine 0 / 0 0 / 0 Urine Amount (Catheter) 1999 Straight 1999 Gastric Drainage 100 / 100 Oral Orogastric Tube 100 / 100 Result Diagrams: 12/05/17 04:40 12/05/17 04:40 Objective Remarks: - Constitutional intubated sedated with propofol - HEENT Exam Head: normocephalic, atraumatic Eye: EOMI, PERRL ENT: mucous membranes moist, nares patent, orotracheally intubated - Routine Neck Exam supple, full ROM. No carotid bruit - Routine Respiratory Exam CTA bilaterally - Routine Cardiovascular Exam RRR, S1, S2. No murmur. Bedside echo shows slightly thickened mitral valve but no obvious vegetation - Routine Abdominal Exam Soft, normoactive bowel sounds. No organomegaly - Routine Extremities Exam No cyanosis, clubbing, edema. Laceration on L big toe, sutures in place - Routine Skin Exam Track brodie bilateral UE - Routine Neurological Exam Intubated sedated. When sedation is lightened she does move all extremities do not follow commands Assessment and Plan - Assessment and Plan Plan: Neuro/Psych: Acute toxic metabolic encephalopathy secondary polysubstance overdose Bipolar disorder Schizophrenia History of IV drug use Urine toxicology screen positive for opiates, amphetamines and cocaine History of MDMA, Flakka, methamphetamine abuse Currently on propofol/fentanyl drips for sedation/analgesia while intubated Start Precedex to facilitate ventilator weaning Goal of RA SS -2, Daily sedation vacation if tolerated Acetaminophen 650 mg by tube every 6 hours as needed fever CT brain if beta hCG negative. CV: History of endocarditis Currently on LR with 20 mill cons of KCl at 84 cc an hour Not requiring vasopressors and/or antihypertensives Last echocardiogram 11/28 revealed no vegetation Bedside echo by myself today did not show any evidence of vegetation we will check formal echo Resp: Acute respiratory failure History of septic pulmonary emboli [facility] [address]/ Ventilator bundle Albuterol/ipratropium aerosols every 4 hours with albuterol aerosols every 2 hours as needed dyspnea Spontaneous breathing trials when clinically indicated Follow postintubation ABG and chest x-ray Sputum culture GI: History of hepatitis C NGT to LIWS , start tube feeds only if not extubated today Famotidine for GI prophylaxis Docusate sodium/senna 1 tablet twice daily for bowel regimen Endo: Sliding scale insulin with Accu-Cheks to maintain euglycemia/every 6 hours aspart insulin medium regimen Renal: Creatinine currently within normal limits Monitor urine output Accurate I's and O's Straight cath as needed Heme: CBC currently within normal limits Monitor in a.m. with coag ID: Probable sepsis History of infective endocarditis UA/blood cultures 2 pending Recently with strep viridians UTI treated 11/28 Bedside echo shows thickening of the mitral valve no definite vegetations Check limited echo to rule out vegetation due to increasing WBC count FEN: Hypokalemia Electrolyte replacement per protocol Access - utilize peripheral IV. Central line if indicated Prophylaxis -GI-famotidine -DVT-SCDs/Lovenox for DVT prophylaxis Critical care time 35 minutes consultation Patient remains critically ill with now with increasing white count and encephalopathy. Check limited echo, start Precedex to facilitate weaning Code Status: Full
[2017-12-05] MEDS ORDERED: RASS Change Order OTHER ONE ×2 (09:00)
--- NOTE | 2017-12-05 13:47 | CT ---
EXAM DATE: 12/05/2017 12:40 PM EDT AGE/SEX: 32 years / Female INDICATIONS: Altered mental status CLINICAL DATA: This is the patient's initial encounter. Patient reports that signs and symptoms have been present for 1 day and indicates a pain score of Nonresponsive. MEDICAL/SURGICAL HISTORY: Hepatitis C. Tubal ligation. RADIATION DOSE: 57.65 CTDI (mGy) COMPARISON: No prior exams available for comparison. TECHNIQUE: CT of the head without contrast. Using automated exposure control and adjustment of the mA and/or kV according to patient size, radiation dose was kept as low as reasonably achievable to ob tain optimal diagnostic quality images. DICOM format image data is available electronically for revi ew and comparison. FINDINGS: Cerebrum: The ventricles are normal for age. No evidence of midline shift, mass lesion, hemorrhage or acute infarction. No extraaxial fluid collections are seen. Posterior Fossa: The cerebellum and brainstem are intact. The 4th ventricle is midline. The cerebe llopontine angle is unremarkable. Extracranial: The visualized portion of the orbits is intact. Skull: The calvaria is intact. No evidence of skull fracture. CONCLUSION: 1. Negative CT Head non contrast. Electronically signed by: Jonatan Zhang MD 12/05/2017 1:46 PM EDT
--- NOTE | 2017-12-05 13:58 | CT ---
EXAM DATE: 12/05/2017 12:40 PM EDT AGE/SEX: 32 years / Female INDICATIONS: R/o septic emboli CLINICAL DATA: This is the patient's initial encounter. Patient reports that signs and symptoms have been present for 1 day and indicates a pain score of Nonresponsive. MEDICAL/SURGICAL HISTORY: Hepatitis C. Tubal ligation. RADIATION DOSE: 9.98 CTDI (mGy) ; Combined studies COMPARISON: No prior exams available for comparison. TECHNIQUE: Multiple contiguous axial images were obtained through the abdomen. Images were obtained using multiple row detector helical technique. Using automated exposure control and adjustment of the mA and/or kV according to patient size, radiation dose was kept as low as reasonably achievable to o btain optimal diagnostic quality images. DICOM format image data is available electronically for rev iew and comparison. FINDINGS: Lower Lungs: Bibasilar atelectasis, right greater than left. Liver: The liver has a homogeneous density without space-occupying lesion. There is no dilation of th e biliary tree. Multiple gallstones in the gallbladder. No free fluid is demonstrated. Spleen: Homogeneous density without enlargement. Pancreas: Unremarkable without mass or calcification. Kidneys: Normal in size and shape. No evidence of mass or hydronephrosis. Adrenal Glands: Unremarkable. Aorta: The aorta and proximal iliac vessels are grossly unremarkable without aneurysmal dilation. Bowel/Mesentery: The bowel loops are grossly unremarkable. The cecum and sigmoid colon have a normal configuration. Abdominal Wall: Intact. Retroperitoneum: No evidence of adenopathy in the retrocrural, para-aortic, or deep pelvic regions. Bladder: Contours are smooth. Tiny droplet of air in the bladder. Reproductive Organs: No abnormal masses or calcifications seen. Bilateral fallopian tube clips. Inguinal: The inguinal region is unremarkable without evidence of adenopathy. Bony Structures: Unremarkable. CONCLUSION: 1. Bibasilar atelectasis, right greater than left. 2. Multiple gallstones in the gallbladder. No biliary tract obstruction. Electronically signed by: Oral Kwon MD 12/05/2017 1:57 PM EDT
--- NOTE | 2017-12-05 14:21 | CT ---
EXAM DATE: 12/05/2017 12:40 PM EDT AGE/SEX: 32 years / Female INDICATIONS: R/o septic emboli CLINICAL DATA: This is the patient's initial encounter. Patient reports that signs and symptoms have been present for 1 day and indicates a pain score of Nonresponsive. MEDICAL/SURGICAL HISTORY: Hepatitis C. Tubal ligation. RADIATION DOSE: 13.24 CTDI (mGy) ; Combined studies COMPARISON: No prior exams available for comparison. TECHNIQUE: Multiple contiguous axial images were obtained through the chest without contrast. Image s were obtained in suspended respiration using multiple row detector helical technique. Using automa blaine exposure control and adjustment of the mA and/or kV according to patient size, radiation dose was kept as low as reasonably achievable to obtain optimal diagnostic quality images. DICOM format imag e data is available electronically for review and comparison. FINDINGS: Lungs: There is a focal infiltrate involving the posterior right lower lung. This is nonspecific but may represent some focal atelectasis.. There is mild infiltrate in the posterior left lower lung. Th e upper lung treviño are grossly clear. No evidence of pneumothorax. The pattern of bibasilar infiltra sabina does not suggest septic emboli. Mediastinum: There is good visualization of the great vessels of the middle mediastinum. No evidenc e of mediastinal or hilar adenopathy/mass. There is an endotracheal tube in place as well as an NG tu be. Pleurae: No evidence of focal thickening or pleural effusion. Axillae: Unremarkable. Bony Structures: Unremarkable. Miscellaneous: The examination was extended to include the upper abdomen, and both adrenal glands ar e normal in size and configuration. CONCLUSION: 1. There are some nonspecific infiltrates in both lung bases, right greater than left. Electronically signed by: Oral Kwon MD 12/05/2017 2:20 PM EDT
[2017-12-05] MEDS ORDERED: Vancomycin Inj 1 GM/200 ML PIGGYBACK IV.SIG ONE (14:36)
[2017-12-05] MEDS: Piperacil/Tazo 4.5 GM Premix 4.5 GM/100 ML BAG IV.SIG SCH ×2 (15:13→21:10)
--- NOTE | 2017-12-05 15:52 | ECHRPT ---
Indication: sepsis poss endocarditis CONCLUSIONS Wall thickness is normal. Normal left ventricular size. Wall thickness is normal. The left ventricular systolic function is normal with an estimated ejection fraction in the range of 55-60%. Trace mitral valve regurgitation. Mild thickening of the mitral valve leaflets. There is trace tricuspid valve regurgitation. The estimated pulmonary arterial pressure is 22 mmHg. Note: no vegetations seen. BP: / HR: Rhythm: MEASUREMENTS (Male / Female) Normal Values Technical Quality: 2D ECHO LV Diastolic Diameter PLAX 4.9 cm 4.2 - 5.9 / 3.9 - 5.3 cm LV Systolic Diameter PLAX 2.9 cm IVS Diastolic Thickness 0.8 cm 0.6 - 1.0 / 0.6 - 0.9 cm LVPW Diastolic Thickness 0.9 cm 0.6 - 1.0 / 0.6 - 0.9 cm LV Relative Wall Thickness 0.3 RV Internal Dim ED PLAX 2.6 cm LVOT Diameter 1.9 cm Aortic Root Diameter 2.8 cm LA Systolic Diameter LX 2.3 cm 3.0 - 4.0 / 2.7 - 3.8 cm LV Ejection Fraction MOD 4C 55.7 % LV Ejection Fraction 4C AL 57.5 % M-MODE Aortic Root Diameter MM 3.0 cm LA Systolic Diameter MM 2.8 cm LA Ao Ratio MM 0.9 AV Cusp Separation MM 2.2 cm DOPPLER AV Peak Velocity 136.0 cm/s AV Peak Gradient 7.4 mmHg LVOT Peak Velocity 85.0 cm/s LVOT Peak Gradient 2.9 mmHg AV Area Cont Eq pk 1.8 cm Mitral E Point Velocity 79.0 cm/s Mitral A Point Velocity 57.0 cm/s Mitral E to A Ratio 1.4 TV Peak Velocity 178.0 cm/s TR Peak Velocity 172.0 cm/s TR Peak Gradient 11.8 mmHg Right Atrial Pressure 10.0 mmHg Pulmonary Artery Systolic Pressu 21.8 mmHg Right Ventricular Systolic Press 21.8 mmHg PV Peak Velocity 111.0 cm/s PV Peak Gradient 4.9 mmHg FINDINGS LEFT VENTRICLE Wall thickness is normal. Normal left ventricular size. Wall thickness is normal. The left ventricular systolic function is normal with an estimated ejection fraction in the range of 55-60%. RIGHT VENTRICLE Normal right ventricular size and systolic function. LEFT ATRIUM The left atrial size is normal. RIGHT ATRIUM The right atrial size is normal. ATRIAL SEPTUM Normal atrial septal thickness without atrial level shunting by limited color doppler interrogation. AORTA The aortic root and proximal ascending aorta are normal in size on limited imaging. MITRAL VALVE Trace mitral valve regurgitation. Mild thickening of the mitral valve leaflets. AORTIC VALVE Trileaflet aortic valve. No aortic valve stenosis or regurgitation. TRICUSPID VALVE There is trace tricuspid valve regurgitation. The estimated pulmonary arterial pressure is 22 mmHg. PULMONARY VALVE No pulmonary valve regurgitation or stenosis. VESSELS The inferior vena cava is normal in size. PERICARDIUM No pericardial effusion. Paolo Foster MD (Electronically Signed) Final Date:05 December 2017 15:52
[2017-12-05] MEDS ORDERED: Vancomycin Inj 1,000 MG in Sodium Chlor 0.9% Inj 250 ML IV.SIG ONE (16:00)
[2017-12-06] MEDS: Insulin NovoLOG Aspart Correctional Sugar Inj SQ SCH ×4 (00:58→18:51)
[2017-12-06] MEDS: Oral Hygiene Kit OROPHARYNG SCH ×4 (00:59→16:15)
[2017-12-06] MEDS: Piperacil/Tazo 4.5 GM Premix 4.5 GM/100 ML BAG IV.SIG SCH ×4 (03:29→21:52)
--- NOTE | 2017-12-06 04:01 | XR ---
EXAM DATE: 12/06/2017 6:00 AM EDT AGE/SEX: 32 years / Female INDICATIONS: Short of breath. CLINICAL DATA: This is the patient's subsequent encounter. Patient reports that signs and symptoms h ave been present for 3 days and indicates a pain score of 0/10. MEDICAL/SURGICAL HISTORY: None. None. COMPARISON: [facility] [place] 1[place] SINGLE AP, 12/04/2017. . FINDINGS: Single AP view the chest. Endotracheal tube and nasogastric tube no longer seen. Patchy right lung ba se opacity unchanged. Cardiomediastinal silhouette unchanged. No evidence of pleural effusion or pneu mothorax. CONCLUSION: 1. No change in right lung base opacity. 2. Endotracheal tube and nasogastric tube no longer seen. Electronically signed by: Goran Garcia MD 12/06/2017 4:00 AM EDT
[2017-12-06] MEDS: Chlorhexidine Gluconate 2% 1 Pack (2 Cloths) TOPICAL SCH (04:30)
[2017-12-06 04:44] LABS: Hematocrit 36.8 % (35.0-46.0); Hemoglobin 12.4 gm/dL (11.6-15.3); Mean Corpuscular HGB Conc 33.6 % (32.0-36.0); Mean Corpuscular Hemoglobin 30.1 pg (27.0-34.0); Mean Corpuscular Volume 89.6 fL (80.0-100.0); Platelet Count 279 th/mm3 (150-450); Red Blood Count 4.11 mil/mm3 (4.00-5.30); Red Cell Distribution Width 13.3 % (11.6-17.2); White Blood Count 14.9 th/mm3 (4.0-11.0)
[2017-12-06 04:57] LABS: Alanine Aminotransferase 46 U/L (10-53); Albumin 2.5 g/dL (3.4-5.0); Alkaline Phosphatase 116 U/L (45-117); Anion Gap 7 meq/L (5-15); Aspartate Aminotransferase 35 U/L (15-37); Blood Urea Nitrogen 4 mg/dL (7-18); Calcium 7.7 mg/dL (8.5-10.1); Carbon Dioxide 26.1 meq/L (21.0-32.0); Chloride 106 meq/L (98-107); Glomerular Filtration Rate Greater Than 89 mL/min (>89); Glucose,Random 94 mg/dL (74-106); Magnesium 1.8 mg/dL (1.5-2.5); Potassium 3.9 meq/L (3.5-5.1); Sodium 139 meq/L (136-145); Total Protein 6.2 g/dL (6.4-8.2)
[2017-12-06] MEDS: KCL 20 mEq/D5W/LR Inj 1,000 ML IV.CONT SCH (05:35)
[2017-12-06] MEDS: Chlorhexidine 0.12% Oral Kit 15 ML UDC OROPHARYNG SCH ×2 (07:57→21:52)
--- NOTE | 2017-12-06 09:26 | P.PNCC ---
Subjective Subjective Remarks/Hospital Course: This is a 32-year-old female. Really . Pooja Moran. Date of admission 12/04/2017. Past medical history includes hepatitis C, IV drug use with recent admission for overdose on MDMA, Flakka and methamphetamines, bipolar , schizophrenia and strep radians UTI. She also has history of endocarditis. Last echocardiogram 11/21/2017 revealed no valvular findings. She presents to [facility] today a Mariel Lynch after being found unresponsive. An IO was placed and she became combative according to records. There is multiple drug paraphernalia in the house. Report is her name is Pooja Moran and she was recently seen here before for something similar. On examination, patient is quite unresponsive. Track bolanos right upper extremity. Urine toxicology screen positive for cocaine, amphetamines and opiates. She has received 10 mg IM ziprasidone 0.5 mg of lorazepam due to agitation Rapid response team was called due to patient being found unresponsive in her room agonal breathing. She was transported to room 508 in [facility] [place] 10 minute journey from the [facility] to the [facility]. She is intubated using 20 mg etomidate and 50 mg rocuronium. She has history of tubal ligation. Blood sugar is 84. SUBJ 12/05: Remains intubated sedated, becomes agitated with semi-purposeful movements on weaning sedation. Not following commands. WBC count slightly elevated, at 13.6 now. Blood cultures pending 12/06: Extubated yesterday tolerating well. 2D echo shows no vegetation but mitral valve thickening. WBC count is slightly elevated at 14.9. Most likely source of infection is pneumonia. Patient reports chest soreness with coughing. Patient remains somnolent but wakes up easily. Objective Vital Signs / I&O: Vital Signs 12/05/17 09:30 12/05/17 10:00 12/05/17 10:30 Temperature 99.5 F 99.7 F H 99.5 F Pulse Rate 69 73 74 Respiratory Rate 16 15 14 Blood Pressure 147/75 H 113/56 L 102/55 L Pulse Oximetry 100 100 100 12/05/17 11:00 12/05/17 11:30 12/05/17 11:52 Temperature 99.3 F 99.1 F Pulse Rate 67 66 64 Respiratory Rate 14 13 14 Blood Pressure 102/57 L 104/60 Pulse Oximetry 100 100 100 12/05/17 12:00 12/05/17 12:30 12/05/17 13:00 Temperature 99.3 F 99.9 F H 100.6 F H Pulse Rate 63 66 68 Respiratory Rate 14 15 12 Blood Pressure 113/67 130/76 Pulse Oximetry 100 100 100 12/05/17 13:54 12/05/17 14:00 12/05/17 14:14 Temperature 100.9 F H 100.9 F H 101.1 F H Pulse Rate 68 68 67 Respiratory Rate 18 17 16 Blood Pressure 106/58 L 134/72 Pulse Oximetry 100 100 100 12/05/17 14:29 12/05/17 14:49 12/05/17 15:00 Temperature 99.1 F 101.5 F H Pulse Rate 68 Respiratory Rate 16 18 Blood Pressure Pulse Oximetry 100 100 12/05/17 15:50 12/05/17 16:00 12/05/17 16:02 Temperature Pulse Rate 69 70 69 Respiratory Rate 18 17 18 Blood Pressure 111/57 L 110/59 L Pulse Oximetry 100 100 12/05/17 16:03 12/05/17 16:30 12/05/17 17:00 Temperature 99.2 F 99 F Pulse Rate 71 75 Respiratory Rate 18 16 22 Blood Pressure 124/59 L 105/53 L Pulse Oximetry 100 100 100 12/05/17 17:15 12/05/17 17:16 12/05/17 20:00 Temperature 98.6 F Pulse Rate 75 81 Respiratory Rate 24 Blood Pressure 102/67 Pulse Oximetry 97 100 12/05/17 20:35 12/05/17 22:00 12/06/17 00:00 Temperature 99.3 F 99.3 F Pulse Rate 83 89 91 H Respiratory Rate 24 26 H 26 H Blood Pressure 116/64 122/66 Pulse Oximetry 100 97 97 12/06/17 02:00 12/06/17 04:00 12/06/17 06:00 Temperature 98.2 F Pulse Rate 90 84 75 Respiratory Rate 21 Blood Pressure 113/60 Pulse Oximetry 99 12/06/17 07:00 12/06/17 07:56 Temperature Pulse Rate 78 Respiratory Rate 17 Blood Pressure Pulse Oximetry 99 100 Intake & Output 12/05/17 12/06/17 12/06/17 18:59 06:59 18:59 Intake Total 1610 / 1610 1200 / 1200 Output Total 1125 / 1125 1000 / 1000 Balance 485 / 485 200 / 200 Weight 82.5 kg Intake: IV 1610 / 1610 1200 / 1200 D5W/LR + KCL 20 mEq Inj 1,000 1000 / 1000 1000 / 1000 ML @ 84 mls/hr IV.CONT .[id number] [facility] Rx#:[id number] Zosyn 4.5 GM Premix 4.5 gm In 100 / 100 200 / 200 100 ml @ 200 mls/hr IV.SIG Q6H [facility] Rx#:[id number] Potassium Phosphate Inj 30 MMOL 260 / 260 In NS Inj 250 ML @ 42 mls/hr IV.SIG UNSCH PRN Rx#:[id number] Vancomycin Inj 1,000 MG In NS 250 / 250 Inj 250 ML @ 250 mls/hr IV.SIG ONCE ONE Rx#:[id number] Oral 0 / 0 Output: Stool 0 / 0 Urine/Stool Mix 0 / 0 Urine Amount (Catheter) 1125 / 1125 1000 / 1000 Straight 1125 / 1125 1000 / 1000 Other: # Bowel Movements 0 0 # Incontinent Bowel Movements 0 Result Diagrams: 12/06/17 03:30 12/06/17 03:30 Objective Remarks: - Constitutional Lying in bed no acute distress, somnolent - HEENT Exam Head: normocephalic, atraumatic Eye: EOMI, PERRL ENT: mucous membranes moist, nares patent - Routine Neck Exam supple, full ROM. No carotid bruit - Routine Respiratory Exam CTA bilaterally except few coarse rhonchi. Pleuritic pain on coughing parasternal chest tenderness - Routine Cardiovascular Exam RRR, S1, S2. No murmur. Bedside echo shows slightly thickened mitral valve but no obvious vegetation - Routine Abdominal Exam Soft, normoactive bowel sounds. No organomegaly - Routine Extremities Exam No cyanosis, clubbing, edema. Laceration on L big toe, sutures in place - Routine Skin Exam Track brodie bilateral UE - Routine Neurological Exam Somnolent but wakes up easily oriented. Follows commands no focal deficits Assessment and Plan - Assessment and Plan Plan: Neuro/Psych: Acute toxic metabolic encephalopathy secondary polysubstance overdose Bipolar disorder Schizophrenia History of IV drug use Urine toxicology screen positive for opiates, amphetamines and cocaine History of MDMA, Flakka, methamphetamine abuse Off all continuous sedation Acetaminophen 650 mg every 6 hours as needed fever CT brain negative for acute finding CV: History of endocarditis Currently on LR with 20 mill cons of KCl at 84 cc an hour-DC if adequate p.o. intake Last echocardiogram 11/28 revealed no vegetation, Bedside echo by myself and formal echo did not show any evidence of vegetation Source of sepsis most likely pneumonia Resp: Acute respiratory failure-resolved Basilar pneumonia History of septic pulmonary emboli Extubated 12/05/2017 tolerating well Albuterol/ipratropium aerosols every 2 hours as needed dyspnea Follow-up Sputum culture See ID section for abx GI: History of hepatitis C Gallstones on CT Start regular diet Famotidine for GI prophylaxis-DC after starting p.o. diet Docusate sodium/senna 1 tablet twice daily for bowel regimen CT of the abdomen did not show any evidence of cholecystitis, clinically no abdominal tenderness Endo: Sliding scale insulin with Accu-Cheks to maintain euglycemia/every 6 hours aspart insulin medium regimen Renal: Creatinine currently within normal limits Monitor urine output Accurate I's and O's Straight cath as needed Heme: Leukocytosis most likely secondary to sepsis Monitor in a.m. with coag ID: Probable sepsis Basilar pneumonia History of infective endocarditis UA/blood sputum cultures pending Recently admitted with strep viridians UTI treated 11/28 Bedside echo and formal echo shows thickening of the mitral valve no definite vegetations Source of sepsis most likely pneumonia, continue Zosyn, received single dose of antibiotics Fever trending down. FEN: Hypokalemia Electrolyte replacement per protocol Access - utilize peripheral IV. Central line if indicated Prophylaxis -GI-famotidine -DVT-SCDs/Lovenox for DVT prophylaxis Level [address] [facility] to assume care in am Patient remains critically ill and septic but stable. Anemia IV antibiotics, at this time there is no evidence of infective endocarditis though cultures had not been resulted yet. Continue to monitor closely in the ICU for another 24 hours Code Status: Full
[2017-12-06] MEDS: Senna/Docusate Sodium 8.6/50 MG Tablet PO SCH (10:04)
[2017-12-06] MEDS: Carboxymethylcellulose 0.5% Opth Drops 15 ML Bottle EACH EYE SCH ×2 (10:04→21:53)
[2017-12-06] MEDS: Famotidine PF Inj 20 MG/2 ML Vial IV.PUSH SCH (18:53)
[2017-12-06] MEDS: Azithromycin 250 MG Tablet PO SCH (21:52)
[2017-12-07] MEDS: Senna/Docusate Sodium 8.6/50 MG Tablet PO SCH ×3 (01:00→21:49)
[2017-12-07] MEDS: Insulin NovoLOG Aspart Correctional Sugar Inj SQ SCH ×4 (01:02→17:41)
[2017-12-07] MEDS: Oral Hygiene Kit OROPHARYNG SCH ×4 (01:03→15:12)
[2017-12-07] MEDS: Piperacil/Tazo 4.5 GM Premix 4.5 GM/100 ML BAG IV.SIG SCH ×3 (03:15→15:22)
[2017-12-07] MEDS: Chlorhexidine Gluconate 2% 1 Pack (2 Cloths) TOPICAL SCH (03:16)
[2017-12-07 04:56] LABS: Hematocrit 37.2 % (35.0-46.0); Hemoglobin 12.1 gm/dL (11.6-15.3); Mean Corpuscular HGB Conc 32.6 % (32.0-36.0); Mean Corpuscular Hemoglobin 29.6 pg (27.0-34.0); Mean Corpuscular Volume 90.6 fL (80.0-100.0); Mean Platelet Volume 7.8 fL (7.0-11.0); Platelet Count 281 th/mm3 (150-450); Red Cell Distribution Width 13.4 % (11.6-17.2); White Blood Count 7.5 th/mm3 (4.0-11.0)
[2017-12-07] MEDS: Chlorhexidine 0.12% Oral Kit 15 ML UDC OROPHARYNG SCH ×2 (09:46→21:50)
[2017-12-07] MEDS: Carboxymethylcellulose 0.5% Opth Drops 15 ML Bottle EACH EYE SCH ×2 (10:23→22:42)
--- NOTE | 2017-12-07 17:07 | P.PN ---
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 Really . Pooja Moran. Date of admission 12/04/2017. Past medical history includes hepatitis C, IV drug use with recent admission for overdose on MDMA, Flakka and methamphetamines, bipolar , schizophrenia and strep radians UTI. She also has history of endocarditis. Last echocardiogram 11/21/2017 revealed no valvular findings. She presents to [facility] today a Mariel Lynch after being found unresponsive. An IO was placed and she became combative according to records. There is multiple drug paraphernalia in the house. Report is her name is Pooja Moran and she was recently seen here before for something similar. On examination, patient is quite unresponsive. Track bolanos right upper extremity. Urine toxicology screen positive for cocaine, amphetamines and opiates. She has received 10 mg IM ziprasidone 0.5 mg of lorazepam due to agitation Rapid response team was called due to patient being found unresponsive in her room agonal breathing. She was transported to room 508 in [facility] [place] after 10 minute journey from the [facility] to the [facility]. She is intubated using 20 mg etomidate and 50 mg rocuronium. She has history of tubal ligation. Blood sugar is 84. SUBJ 12/05: Remains intubated sedated, becomes agitated with semi-purposeful movements on weaning sedation. Not following commands. WBC count slightly elevated, at 13.6 now. Blood cultures pending 12/06: Extubated yesterday tolerating well. 2D echo shows no vegetation but mitral valve thickening. WBC count is slightly elevated at 14.9. Most likely source of infection is pneumonia. Patient reports chest soreness with coughing. Patient remains somnolent but wakes up easily. Hospitalist Notes: 12/07: Stable seen in intensive care unit previous to transfer to Medical floor, stable no complaint, afebrile, no nausea, vomit or diarrhea. discussed with nurse Miss Newton. Physical Exam Vital signs: Vital Signs 12/06/17 17:00 12/06/17 17:30 12/06/17 18:00 Temperature Pulse Rate 84 93 H 83 Respiratory Rate 24 15 27 H Blood Pressure 113/73 120/80 121/72 Pulse Oximetry 99 98 93 L 12/06/17 18:30 12/06/17 20:00 12/06/17 20:14 Temperature 98 F Pulse Rate 70 82 Respiratory Rate 24 22 Blood Pressure 118/71 121/70 Pulse Oximetry 98 99 98 12/06/17 22:00 12/07/17 00:00 12/07/17 02:00 Temperature 97.8 F Pulse Rate 78 82 65 Respiratory Rate 20 Blood Pressure 111/56 L Pulse Oximetry 99 12/07/17 03:24 12/07/17 04:00 12/07/17 06:00 Temperature 98.1 F Pulse Rate 55 L 76 74 Respiratory Rate 18 Blood Pressure 120/66 Pulse Oximetry 96 12/07/17 07:00 12/07/17 08:00 12/07/17 09:00 Temperature 98.3 F Pulse Rate 84 93 H Respiratory Rate 18 23 Blood Pressure Pulse Oximetry 99 96 95 12/07/17 09:45 12/07/17 10:00 12/07/17 11:35 Temperature 98.2 F 97.2 F L Pulse Rate 97 H 77 84 Respiratory Rate 22 20 17 Blood Pressure 103/57 L 119/57 L Pulse Oximetry 97 96 97 12/07/17 14:01 12/07/17 15:34 12/07/17 16:00 Temperature 97.8 F Pulse Rate 81 77 Respiratory Rate 12 17 Blood Pressure 112/61 Pulse Oximetry 97 Intake & Output 12/06/17 12/07/17 12/07/17 18:59 06:59 18:59 Intake Total 1015 / 1015 880 / 880 200 / 200 Output Total 400 / 400 750 / 750 Balance 615 / 615 130 / 130 200 / 200 Weight 70.1 kg Intake: IV 665 / 665 200 / 200 200 / 200 D5W/LR + KCL 20 mEq Inj 1,000 465 / 465 ML @ 84 mls/hr IV.CONT .[id number] [facility] Rx#:[id number] Zosyn 4.5 GM Premix 4.5 gm In 200 / 200 200 / 200 200 / 200 100 ml @ 200 mls/hr IV.SIG Q6H [facility] Rx#:[id number] Oral 350 / 350 480 / 480 Other 200 / 200 Output: Urine 400 / 400 650 / 650 Stool 0 / 0 Urine/Stool Mix 0 / 0 Gastric Drainage 100 / 100 Oral Orogastric Tube 100 / 100 Other: # Bowel Movements 0 # Incontinent Bowel Movements 0 Narrative: GENERAL: This is a well-nourished, well-developed patient, in no apparent distress. CARDIOVASCULAR: Regular rate and rhythm without murmurs, gallops, or rubs. RESPIRATORY: Clear to auscultation. Breath sounds equal bilaterally. No wheezes , rales, or rhonchi. GASTROINTESTINAL: Abdomen soft, non-tender, nondistended. Normal active bowel sounds MUSCULOSKELETAL: Extremities without clubbing, cyanosis, or edema. NEURO: Alert & Oriented x4 to person, place, time, situation. Moves all ext x4 - Urinary Catheter Management Straight Cath placed during this visit: yes, but has since been removed by the nurse Reason for continuing: Not indwelling catheter Insertion date: 12/05/17 Insertion time: 14:25 Removal date: 12/05/17 Removal time: 14:30 Results - Labs CBC & Chem 7: 12/07/17 03:58 12/06/17 03:30 Laboratory Results - last 24 hr 12/06/17 12/07/17 12/07/17 23:31 03:58 06:28 WBC 7.5 RBC 4.10 Hgb 12.1 Hct 37.2 MCV 90.6 MCH 29.6 MCHC 32.6 RDW 13.4 Plt Count 281 MPV 7.8 POC Glucose 123 H 96 12/07/17 12/07/17 11:36 15:59 WBC RBC Hgb Hct MCV MCH MCHC RDW Plt Count MPV POC Glucose 106 161 H Microbiology 12/05/17 09:24 Sputum - Endotracheal Sputum Culture - Preliminary Haemophilus influenzae 12/04/17 18:35 Blood - Peripheral Aerobic Blood Culture - Preliminary No growth in 3 days 12/04/17 18:35 Blood - Peripheral Anaerobic Blood Culture - Final QNS - See aerobic report. 12/04/17 18:42 Blood - Peripheral Aerobic Blood Culture - Preliminary No growth in 3 days 12/04/17 18:42 Blood - Peripheral Anaerobic Blood Culture - Final QNS - See aerobic report. - Procedures Endotracheal Intubation and Extubation Assessment and Plan - Assessment (1) Acute alteration in mental status Code(s): R41.82 - Altered mental status, unspecified Status: Acute (2) Acute hypokalemia Code(s): E87.6 - Hypokalemia Status: Acute (3) Drug overdose Code(s): T50.901A - Poisoning by unspecified drugs, medicaments and biological substances, accidental (unintentional), initial encounter Status: Acute - Plan 1. Acute toxic metabolic encephalopathy secondary polysubstance overdose Bipolar disorder Schizophrenia History of IV drug use Polysubstance abuse, positive drug screen for opiates, Amphetamines and Cocaine , history of recent MDMA, Flakka CT brain negative today more alert and oriented but continue sleeping. 2. Endocarditis history of Last echocardiogram 11/28 revealed no vegetation, Bedside echo by myself and formal echo did not show any evidence of vegetation Source of sepsis most likely pneumonia, continue Azithromycin and Zosyn 3. Acute respiratory failure-resolved Extubated 12/05/17. Basilar pneumonia History of septic pulmonary emboli Continue Bronchodilator. 4. History of Hepatitis C/Gallstones on CT, continue GI prophylaxis, CT of the abdomen did not show any evidence of cholecystitis, clinically no abdominal tenderness 5. Leukocytosis probable secondary to sepsis. 6. Probable sepsis Basilar pneumonia History of infective endocarditis, sputum positive for Haemophilus influenzae is sensitive to Azithromycin, switch to Cefepime for now. and follow. Recently admitted with strep viridians UTI treated 11/28 Bedside echo and formal echo shows thickening of the mitral valve no definite vegetations is afebrile. Prophylaxis -GI-famotidine -DVT-SCDs/Lovenox for DVT prophylaxis Code Status: Full code Discussed Condition With: patient and nurse. Discharge Planning: Expected by tomorrow. (3) Drug overdose Qualifiers: Encounter type: initial encounter Injury intent: undetermined intent Qualified Code(s): T50.904A - Poisoning by unspecified drugs, medicaments and biological substances, undetermined, initial encounter
[2017-12-07] MEDS: Azithromycin 250 MG Tablet PO SCH (21:48)
[2017-12-07] MEDS: Acetaminophen 325 MG Tablet PO PRN (21:49)
[2017-12-08] MEDS: Oral Hygiene Kit OROPHARYNG SCH ×2 (01:50→04:43)
[2017-12-08] MEDS: Insulin NovoLOG Aspart Correctional Sugar Inj SQ SCH ×2 (02:19→05:06)
[2017-12-08] MEDS: Chlorhexidine Gluconate 2% 1 Pack (2 Cloths) TOPICAL SCH (04:43)
[2017-12-08 04:47] VITALS: O2SAT 98
[2017-12-08] MEDS ORDERED: LORazepam 0.5 MG Tablet PO PRN (07:43)
[2017-12-08] MEDS: Senna/Docusate Sodium 8.6/50 MG Tablet PO SCH (08:00)
[2017-12-08] MEDS: Chlorhexidine 0.12% Oral Kit 15 ML UDC OROPHARYNG SCH (08:00)
[2017-12-08] MEDS: Carboxymethylcellulose 0.5% Opth Drops 15 ML Bottle EACH EYE SCH (08:00)
--- NOTE | 2017-12-08 08:17 | P.PN ---
Subjective Interval history: Patient is seen lying in bed. She is dry heaving and has complaints of nausea and withdrawal. Otherwise not willing to talk to me or answer questions. Physical Exam Vital signs: Vital Signs 12/07/17 09:00 12/07/17 09:45 12/07/17 10:00 Temperature 98.2 F Pulse Rate 93 H 97 H 77 Respiratory Rate 23 22 20 Blood Pressure 103/57 L Pulse Oximetry 95 97 96 12/07/17 11:35 12/07/17 14:01 12/07/17 15:34 Temperature 97.2 F L Pulse Rate 84 81 Respiratory Rate 17 12 Blood Pressure 119/57 L Pulse Oximetry 97 12/07/17 16:00 12/07/17 19:00 12/07/17 20:00 Temperature 97.8 F 98.3 F Pulse Rate 77 87 71 Respiratory Rate 17 18 Blood Pressure 112/61 138/58 L Pulse Oximetry 97 98 12/08/17 00:00 12/08/17 02:20 12/08/17 04:00 Temperature 98.0 F 97.7 F Pulse Rate 77 88 59 L Respiratory Rate 18 18 Blood Pressure 117/57 L 142/74 H Pulse Oximetry 97 98 12/08/17 04:42 12/08/17 07:31 Temperature Pulse Rate 59 L Respiratory Rate 12 Blood Pressure Pulse Oximetry Intake & Output 12/07/17 12/08/17 12/08/17 18:59 06:59 18:59 Intake Total 300 / 300 760 / 760 Balance 300 / 300 760 / 760 Intake: IV 300 / 300 100 / 100 Maxipime Inj 1,000 MG In NS Inj 100 / 100 100 / 100 100 ML @ 200 mls/hr IV.SIG Q8H [facility] Rx#:[id number] Zosyn 4.5 GM Premix 4.5 gm In 200 / 200 100 ml @ 200 mls/hr IV.SIG Q6H [facility] Rx#:[id number] Oral 660 / 660 Other: # Voids 3 Date of Last Bowel Movement 12/07/17 12/07/17 Narrative: GENERAL: This is a well-nourished, well-developed patient, in no apparent distress. CARDIOVASCULAR: Regular rate and rhythm. RESPIRATORY: Clear to auscultation. Breath sounds equal bilaterally. No wheezes , rales, or rhonchi. GASTROINTESTINAL: Abdomen soft, non-tender, nondistended. Normal active bowel sounds MUSCULOSKELETAL: Extremities without clubbing, cyanosis, or edema. NEURO: Alert & Oriented x4 to person, place, time, situation. Moves all ext x4 - Urinary Catheter Management Straight Cath placed during this visit: yes, but has since been removed by the nurse Reason for continuing: Not indwelling catheter Insertion date: 12/05/17 Insertion time: 14:25 Removal date: 12/05/17 Removal time: 14:30 Results - Labs CBC & Chem 7: 12/07/17 03:58 12/06/17 03:30 Laboratory Results - last 24 hr 12/07/17 12/07/17 12/07/17 11:36 15:59 17:38 POC Glucose 106 161 H 116 H 12/08/17 02:07 POC Glucose 102 Microbiology 12/05/17 09:24 Sputum - Endotracheal Sputum Culture - Preliminary Haemophilus influenzae 12/04/17 18:35 Blood - Peripheral Aerobic Blood Culture - Preliminary No growth in 3 days 12/04/17 18:35 Blood - Peripheral Anaerobic Blood Culture - Final QNS - See aerobic report. 12/04/17 18:42 Blood - Peripheral Aerobic Blood Culture - Preliminary No growth in 3 days 12/04/17 18:42 Blood - Peripheral Anaerobic Blood Culture - Final QNS - See aerobic report. - Procedures Endotracheal Intubation and Extubation Assessment and Plan - Assessment (1) Acute alteration in mental status Code(s): R41.82 - Altered mental status, unspecified Status: Acute (2) Acute hypokalemia Code(s): E87.6 - Hypokalemia Status: Acute (3) Drug overdose Code(s): T50.901A - Poisoning by unspecified drugs, medicaments and biological substances, accidental (unintentional), initial encounter Status: Acute - Plan Patient is a 32-year-old female with a past history of drug abuse and frequent overdose. 1. Acute toxic metabolic encephalopathy secondary polysubstance overdose Bipolar disorder Schizophrenia History of IV drug use Polysubstance abuse, positive drug screen for opiates, Amphetamines and Cocaine , history of recent MDMA, Flakka CT brain negative -Concern for withdrawal. Add Ativan; monitor closely for oversedation. 2. Endocarditis history of Last echocardiogram 11/28 revealed no vegetation, echo did not show any evidence of vegetation. -Source of sepsis most likely pneumonia, continue Azithromycin and Zosyn 3. Acute respiratory failure-resolved Extubated 12/05/17. Basilar pneumonia History of septic pulmonary emboli Continue Bronchodilator. 4. History of Hepatitis C/Gallstones on CT, continue GI prophylaxis, CT of the abdomen did not show any evidence of cholecystitis, clinically no abdominal tenderness 5. Leukocytosis probable secondary to sepsis. 6. Probable sepsis Basilar pneumonia History of infective endocarditis, sputum positive for Haemophilus influenzae is sensitive to Azithromycin - started 12/06 Cefepime stopped Recently admitted with strep viridians UTI treated 11/28 Prophylaxis -GI-famotidine -DVT-SCDs/Lovenox for DVT prophylaxis Code Status: Full code Discussed Condition With: patient and nurse. Discharge Planning: Likely home (3) Drug overdose Qualifiers: Encounter type: initial encounter Injury intent: undetermined intent Qualified Code(s): T50.904A - Poisoning by unspecified drugs, medicaments and biological substances, undetermined, initial encounter
[2017-12-08 08:35] VITALS: BP 129/67; RESP 20; TEMP 97.9
--- NOTE | 2017-12-08 08:56 | P.DS ---
Date of admission: 12/04/17 17:17 Primary care physician: UNKNOWN Attending physician on discharge: Claude Longoria Anticipated date of discharge: 12/08/17 Brief History from admission: 32-year-old female brought in by EMS after she was found unresponsive. Initially had to be bagged and has EMS were replacing and IO access, the patient suddenly woke up and became combative. There is reports of multiple drug paraphernalia in the house. Multiple members of the ED staff recognized the patient is Pooja Moran as she was seen in the hospital multiple times for similar episodes of drug overdose. Patient was combative in the emergency room and was given Geodon and Ativan. By the time of my evaluation, she is sedated and is not able to contribute to any of the history. DS: Diagnosis - Discharge Diagnosis (1) Acute alteration in mental status Status: Resolved (2) Acute hypokalemia Status: Resolved (3) Drug overdose Status: Resolved (4) Pneumonia Status: Acute DS: Medications - Discharge Medications Prescriptions: azithromycin 0 mg PO DAILY 1 Days #1 tab DS: Summary Hospital Course: Patient is a 32-year-old female with a past history of drug abuse and frequent overdose. She was admitted after being found unresponsive due to overdose. Septic at admit. Positive drug screen for opiates amphetamines and recent MDMA and flex to use. CT brain was negative. Last echocardiogram done revealed no vegetation. Source of sepsis likely pneumonia. Microbiology indicates sensitivity to azithromycin. Patient did experience acute respiratory failure during hospitalization and required intubation. She was successfully extubated 12/05/17. - Time Spent with Patient Total time spent providing and/or coordinating discharge services: Less than 30 minutes - Quality: VTE Deep Vein Thrombosis/Pulmonary Embolism Present on Admission: No Exam Vital signs: Vital Signs 12/07/17 09:00 12/07/17 09:45 12/07/17 10:00 Temperature 98.2 F Pulse Rate 93 H 97 H 77 Respiratory Rate 23 22 20 Blood Pressure 103/57 L Pulse Oximetry 95 97 96 12/07/17 11:35 12/07/17 14:01 12/07/17 15:34 Temperature 97.2 F L Pulse Rate 84 81 Respiratory Rate 17 12 Blood Pressure 119/57 L Pulse Oximetry 97 12/07/17 16:00 12/07/17 19:00 12/07/17 20:00 Temperature 97.8 F 98.3 F Pulse Rate 77 87 71 Respiratory Rate 17 18 Blood Pressure 112/61 138/58 L Pulse Oximetry 97 98 12/08/17 00:00 12/08/17 02:20 12/08/17 04:00 Temperature 98.0 F 97.7 F Pulse Rate 77 88 59 L Respiratory Rate 18 18 Blood Pressure 117/57 L 142/74 H Pulse Oximetry 97 98 12/08/17 04:42 12/08/17 07:31 12/08/17 08:00 Temperature 97.9 F Pulse Rate 59 L 70 Respiratory Rate 12 20 Blood Pressure 129/67 Pulse Oximetry 98 Intake & Output 12/07/17 12/08/17 12/08/17 18:59 06:59 18:59 Intake Total 300 / 300 760 / 760 Balance 300 / 300 760 / 760 Intake: IV 300 / 300 100 / 100 Maxipime Inj 1,000 MG In NS Inj 100 / 100 100 / 100 100 ML @ 200 mls/hr IV.SIG Q8H [facility] Rx#:[id number] Zosyn 4.5 GM Premix 4.5 gm In 200 / 200 100 ml @ 200 mls/hr IV.SIG Q6H [facility] Rx#:[id number] Oral 660 / 660 Other: # Voids 3 Date of Last Bowel Movement 12/07/17 12/07/17 Narrative: GENERAL: This is a well-nourished, well-developed patient, in no apparent distress. CARDIOVASCULAR: Regular rate and rhythm. RESPIRATORY: Clear to auscultation. Breath sounds equal bilaterally. No wheezes , rales, or rhonchi. GASTROINTESTINAL: Abdomen soft, non-tender, nondistended. Normal active bowel sounds MUSCULOSKELETAL: Extremities without clubbing, cyanosis, or edema. NEURO: Alert & Oriented x4 to person, place, time, situation. Moves all ext x4 Results Procedures completed during hospitalization: Endotracheal Intubation and Extubation Labs on day of discharge: Labs from last 24 hours 12/08/17 12/07/17 12/07/17 02:07 17:38 15:59 POC Glucose 102 116 H 161 H 12/07/17 11:36 POC Glucose 106 Preliminary micro results at discharge 12/04/17 18:35 Aerobic Blood Culture - Preliminary Blood - Peripheral No growth in 3 days 12/04/17 18:42 Aerobic Blood Culture - Preliminary Blood - Peripheral No growth in 3 days - Impressions ITS Impressions Abdomen/Pelvis CT 12/05/17 00:00 CONCLUSION: 1. Bibasilar atelectasis, right greater than left. 2. Multiple gallstones in the gallbladder. No biliary tract obstruction. Chest CT 12/05/17 00:00 CONCLUSION: 1. There are some nonspecific infiltrates in both lung bases, right greater than left. Head CT 12/05/17 00:00 CONCLUSION: 1. Negative CT Head non contrast. Chest X-Ray 12/06/17 06:00 CONCLUSION: 1. No change in right lung base opacity. 2. Endotracheal tube and nasogastric tube no longer seen. Discharge Plan - Discharge Disposition Patient Disposition: 01 Discharge Home - Discharge Condition Condition: Stable - Discharge Order Discharge Orders: Discharge Order (Routine); Ordered 12/08/17 Ordered By: Araceli Linn - Discharge Details Discharge Comment: Please discharge with Z-andrew in hand. thanks - Physicians Team Primary Care Provider: UNKNOWN, Attending Provider: Claude Longoria Other Providers: Sandoval Maxwell MD
[2017-12-08] MEDS ORDERED: Famotidine 20 MG Tablet PO SCH (09:00)
[2017-12-08 09:35] VITALS: PULSE 65
[2017-12-08] MEDS ORDERED: Azithromycin 250 MG Tablet PO SCH (09:45)
[2017-12-09] MEDS ORDERED: Azithromycin 250 MG Tablet PO SCH (09:00)
== END 2017-12-08 11:36 | disposition home or self-care (01) ==
LOC: NEPE 13:28 → NEDA 13:28 → EDBD 15:36 → NEDA 16:57 → N04 17:16 → MERGE 17:17 → HIMC 17:30 → N05 12-07 11:31
PROVIDERS: ADMIT Hospitalist; ATTEND Hospitalist